=== PATIENT | female | born 2000 | race Caucasian/White ===

== ENCOUNTER 2019-12-03 12:52 | Outpatient (CLI) | payer OTHER, SELFPAY ==
[2019-12-03 13:20] VITALS: TEMP 36.9
[2019-12-03 13:38] VITALS: BP 103/63; PULSE 83
[2019-12-03 13:58] VITALS: BP 103/63; PULSE 75
[2019-12-03 14:12] VITALS: BMI 24.2
[2019-12-03 14:54] LABS: Glucose Urine UA Norm (Normal); Protein Urine Neg (Negative); Urine Appearance Cloudy (CLEAR); Urine Color Yellow (Yellow); pH Urine 6 (5-7)
[2019-12-03 14:55] LABS: Add Urine Microscopic? YES; Bilirubin Urine Neg (Negative); Blood Urine 2+ (Negative); Ketones Urine Negative (Negative); Leukocyte Esterase Urine 2+ (Negative); Nitrate Urine Negative (Negative); Urobilinogen Urine 1 mg/dL (Negative)
[2019-12-03 15:03] LABS: WBC Urine 40-55 /hpf (0-5)
[2019-12-03 15:04] LABS: Bacteria Urine 1+ /hpf
[2019-12-03 15:05] LABS: Add Urine Culture? Yes; Amorphous Sediment Urine 1+ /hpf; Calcium Oxalate Crystals Urine 55-80 /hpf; Mucus Urine 3+ /hpf; Squamous Epithelial Cell Urine 15-25 /hpf (0-5)
[2019-12-03 15:24] VITALS: BP 103/64; PULSE 72
[2019-12-03 15:27] VITALS: TEMP 36.6
[2019-12-03 15:30] VITALS: BP 103/64; PULSE 72; RESP 16; TEMP 36.6
== END 2019-12-03 15:30 | disposition home or self-care (01) ==
LOC: OPOB 13:18 → OBGYN 13:18
PROVIDERS: Visit Provider Family Medicine
DX: O36.8190 Decreased fetal movements, unspecified trimester, not applicable or unspecified (principal); Z3A.00 Weeks of gestation of pregnancy not specified
CPT/HCPCS: 59025; 81001; 87086; 99211

== ENCOUNTER 2019-12-19 08:30 | Outpatient (CLI) | payer OTHER, SELFPAY ==
[2019-12-19 08:39] VITALS: BMI 25.4
[2019-12-19 08:40] VITALS: RESP 16; TEMP 36.3
[2019-12-19 08:45] VITALS: BP 108/58; PULSE 71
== END 2019-12-19 09:02 | disposition home or self-care (01) ==
LOC: OPOB 08:34 → OBGYN 12-22 08:08
PROVIDERS: Visit Provider Family Medicine
DX: O36.8390 Maternal care for abnormalities of the fetal heart rate or rhythm, unspecified trimester, not applicable or unspecified (principal); Z3A.00 Weeks of gestation of pregnancy not specified
CPT/HCPCS: 59025; 99211

== ENCOUNTER 2019-12-30 17:16 | Outpatient (CLI) | payer OTHER, MEDICAID, SELFPAY ==
--- NOTE | 2019-12-30 17:55 | XR_ITS ---
WS: [id number] XR chest 2V* [id number] REASON FOR EXAM: HEMOPTYSIS FINDINGS: There is a vague density adjacent to the left heart border, on the PA view, which likely was present although not nearly as prominent on examination of 06/06/2017. This area may represent a chronic lung a bnormality such as chronic atelectasis of a portion of the right lower lobe or right middle lobe. No other associated pulmonary findings. Bony thorax intact. XR/XR chest 2V* [id number] IMPRESSION: Possible chronic right lung abnormality as above. Further evaluation may requir e a contrast-enhanced CT of the chest.
[2019-12-30 17:59] LABS: Basophils % 0.2 %; Eosinophils # 0.1 10^3/uL (0.0-0.8); Hematocrit 31.8 % (37.0-47.0); Hemoglobin 9.8 g/dL (11.5-15.3); Lymphocytes # 2.2 10^3/uL (0.8-4.8); Lymphocytes % 22.4 %; Mean Corpuscular HGB Conc 30.8 g/dL (30.0-36.0); Mean Corpuscular Hemoglobin 26.8 pg (28.0-34.0); Mean Corpuscular Volume 87.1 fL (81-99); Mean Platelet Volume 10.4 fL (7.4-10.4); Monocytes # 0.8 10^3/uL (0.2-0.9); Monocytes % 8.3 %; Neutrophils # 6.63 10^3/uL (1.8-7.7); Neutrophils % 67.7 %; Nucleated Red Blood Cells % 0 %; Platelet Count 245 10^3/cmm (130-400); Red Blood Count 3.65 10^6/uL (4.1-5.3); Red Cell Distribution Width 21.4 % (12.1-15.1); White Blood Count 9.8 10^3/uL (4.0-10.0)
[2019-12-30 18:39] LABS: INR 0.99 (0.8-1.2)
[2019-12-30 18:41] LABS: Alanine Aminotransferase 6 U/L (0-33); Albumin Level 3.6 g/dL (3.5-5.2); Alkaline Phosphatase 162 IU/L (35-105); Anion Gap 13.7 (5-19); Aspartate Amino Transferase 13 U/L (0-32); Blood Urea Nitrogen 7 mg/dL (6-20); Calcium 8.4 mg/dL (8.5-10.5); Carbon Dioxide 23 mmol/L (22-29); Chloride 106 mmol/L (98-107); Globulin 2.9 g/dL (1.3-4.6); Glomerular Filtration Rate 155.7 mL/min (90-130); Glucose 111 mg/dL (65-115); Osmolality Calculated 287 mOsm/kg (285-295); Potassium 3.7 mmol/L (3.5-5.1); Sodium 139 mmol/L (136-145); Total Bilirubin 0.2 mg/dL (0.15-1.2); Total Protein 6.5 g/dL (6.6-8.7)
[2019-12-30 20:58] LABS: Partial Thromboplastin Time 36.3 SECONDS (23.9-36.7)
--- NOTE | 2020-01-06 10:29 | ANES.PREANE2 ---
Pre-Anesthetic Assessment Pre-Anesthetic Assessment: Height/Weight: Height 1.68 m Preop Diagnosis: IUP Proposed Procedure: epidural Familial anesthetic complications: None Social: Social History: No alcohol and No tobacco Exam: Pre-Anes Outpt Exam: alert, oriented x 3, clear to auscultation bilaterally and regular rate & rhythm Airway: Cervical ROM: WNL MP: 2 Dentition: Full GI: GI: GERD Anesthetic Plan: ASA status: 2 Anesthesia: Regional (specify below) Risk of > 500 ml blood loss (7ml/kg in children): No Data Anesthesia CBC & Chem 7: 12/30/19 17:46 12/30/19 17:46 Cardiac Studies: No Data to Display
== END 2019-12-30 17:17 | disposition home or self-care (01) ==
LOC: LAB 17:25
PROVIDERS: Visit Provider Family Medicine
DX: R04.2 Hemoptysis (principal); O09.93 Supervision of high risk pregnancy, unspecified, third trimester
CPT/HCPCS: 36415; 71046; 80053; 85025; 85610; 85730

== ENCOUNTER 2020-01-07 18:27 | Inpatient (IN) | payer OTHER, MEDICAID, SELFPAY ==
[2020-01-07] VITALS (14 sets, daily range): BP systolic 0–135; BP diastolic 0–78; PULSE 66–84; RESP 16; TEMP 36.7
--- NOTE | 2020-01-07 18:57 | P.HP_ITS ---
Providers/Chief Complaint Admitting Physician: Hernesto Mark MD Chief Complaint: INDUCTION OF LABOR History of Present Illness Merritt Hylton is a 19 year old -0-2-1 at 37.1 weeks gestation by first trimester ultrasound. 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 The patient was sent to perinatology and also ENT for further evaluation and recommendations. They recommended induction of labor at 37 weeks in order to be able to proceed with work-up and treatment of likely cancer. The patient had a biopsy done that was inconclusive due to not getting sufficient sample. She was not able to be sedated for sufficient sampling. She will be sedated for a more aggressive biopsy early next week. The patient currently feels well. She denies any chest pains, shortness of breath, nausea, vomiting, diarrhea, constipation, burning with urination, leakage of fluid, vaginal bleeding, fever, regular contractions. Medications/Allergies Home Medications Medication Instructions Recorded Confirmed Last Taken Type [id number] fumarate-FA 1 tab PO DAILY 12/03/19 12/19/19 12/19/19 06:45 History [] bupropion HCl 75 mg PO DAILY 12/03/19 12/19/19 12/19/19 06:45 History ferrous sulfate [iron] 325 mg PO DAILY 12/03/19 12/19/19 12/19/19 06:45 History Allergies Allergy/AdvReac Type Severity Reaction Status Date / Time peas Allergy ALGY-Hives Verified 12/19/19 08:46 shellfish derived Allergy ALGY-Swell Verified 12/03/19 14:08 Lip/Tongue/Throat PFSH Acute PFSH: Medical History (Updated 01/07/20 @ 19:03 by Hernesto Mark MD) History of hemoptysis Subchorionic hematoma in first trimester Surgical History (Updated 01/07/20 @ 19:03 by Hernesto Mark MD) History of breast biopsy Social History (Updated 01/07/20 @ 19:04 by Hernesto Mark MD) Smoking and tobacco status: never smoked Alcohol intake: never Substance/Drug Use: never Vitals/I&O/Wt Last Vital Signs Pulse 84 01/07/20 18:49 BP 117/72 01/07/20 18:49 Physical Exam Narrative: EXAM NARRATIVE: General: Alert and oriented x3 Eyes: Pupils equal round and reactive to light and accommodation Mouth: Mucous membranes moist, pharynx non-erythematous, 4 to 5 cm ulcerating mass in the left posterior hard palate. It is approximately 1.5 cm raised off the surface of the palate. Cardiac: Regular rate and rhythm without murmurs Lungs: Clear to auscultation bilaterally without wheezes, crackles or rhonchi Abdomen: Soft, non-tender, fundus consistent with gestational age, vertex position Extremities: Trace edema in the bilateral lower extremities Cervix: 1.5/20/-3/vertex/posterior A&P Additional A&P Information I had a lengthy discussion with the patient regarding the possible risks of induction at 37 weeks to the infant versus the potential benefits of induction in order to expedite the treatment of her likely cancerous lesion in the mouth. We will proceed with induction of labor after discussion. The patient's Huber score is currently 2. We will proceed with Cytotec induction. We will add Pitocin if needed. The patient may receive a laboring epidural if desired. Patient is GBS negative. She is Covid negative. All questions were answered. Proceed with induction of labor as planned. Attestations Medical Necessity Statement*: Patient will be here for greater than 2 midnights due to routine intrapartum and management of labor and delivery. Coding Level of Care Code Acute Pre Billing Specialist for Destin Castanon
[2020-01-07 20:01] LABS: Basophils % 0.2 %; Eosinophils # 0.1 10^3/uL (0.0-0.8); Eosinophils % 1.2 %; Hematocrit 31.4 % (37.0-47.0); Hemoglobin 9.8 g/dL (11.5-15.3); Lymphocytes # 2.6 10^3/uL (0.8-4.8); Lymphocytes % 25.5 %; Mean Corpuscular HGB Conc 31.2 g/dL (30.0-36.0); Mean Corpuscular Hemoglobin 26.5 pg (28.0-34.0); Mean Corpuscular Volume 84.9 fL (81-99); Mean Platelet Volume 10.7 fL (7.4-10.4); Monocytes % 9.3 %; Neutrophils % 63.4 %; Nucleated Red Blood Cells % 0 %; Platelet Count 227 10^3/cmm (130-400); Red Cell Distribution Width 20.4 % (12.1-15.1); White Blood Count 10.2 10^3/uL (4.0-10.0)
[2020-01-07] MEDS: oxytocin 30 UNIT/500 ML BAG IV (23:30)
[2020-01-08] VITALS (38 sets, daily range): BP systolic 106–148; BP diastolic 63–86; PULSE 52–98; RESP 16–18; TEMP 36.6–36.9; O2SAT 81–100
[2020-01-08] MEDS: lactated ringers 1,000 ML 999 ML IV ×3 (02:15→10:02)
--- NOTE | 2020-01-08 08:15 | P.PN_ITS ---
Subjective Subjective: Interval history: The patient is feeling well. She is having some pain with contractions, however it is not too bad yet at this point. She has had no leakage of fluid or bleeding. Vitals/I&O/Wt Last Vital Signs Temp 98.0 F 01/07/20 21:00 Pulse 76 01/08/20 07:51 Resp 16 01/07/20 21:00 BP 118/69 01/08/20 07:51 01/07/20 01/08/20 01/08/20 22:59 06:59 14:59 Intake Total 19.850 / 19.850 Balance 19.850 / 19.850 Physical Exam Narrative: EXAM NARRATIVE: General: Alert and oriented x3 Eyes: Pupils equal round and reactive to light and accommodation Mouth: Mucous membranes moist, pharynx non-erythematous, 4 to 5 cm ulcerating mass in the left posterior hard palate. It is approximately 1.5 cm raised off the surface of the palate. Cardiac: Regular rate and rhythm without murmurs Lungs: Clear to auscultation bilaterally without wheezes, crackles or rhonchi Abdomen: Soft, non-tender, fundus consistent with gestational age, vertex position Extremities: Trace edema in the bilateral lower extremities Cervix: 4/50/-2/vertex Data : 01/07/20 19:50 A&P Additional A&P Information heart tones are currently in the mid 140s with moderate variability and g ood accelerations. There have been some questionable heart tones that resolved with fluid boluses and position changing. The patient was started on IV Pitocin instead of Cytotec due to these concerns. She is changed to 4 cm dilation. The head was well applied so AROM was performed by myself. Clear fluid was noted. Currently the patient is feeling well. Contractions are every 2 to 3 minutes. She is on 9 units of Pitocin. All questions were answered. Proceed with induction of labor. Attestations Medical Necessity Statement*: The patient will be here for greater than 2 midnights due to routine intrapartum and management of labor and delivery. Coding Level of Care Code Acute Method Consultant for Destin Castanon
[2020-01-08] MEDS: ondansetron 2 mg/ML SDV 2 mL 4 MG IVP (09:32)
--- NOTE | 2020-01-08 10:07 | ANES.PROC ---
Anesthesia Procedures Procedure/Date: 01/12/20 Epidural: Time Out Performed: Yes Consents Signed: Procedure Consent Consent: requested by attending/covering physician, from patient, risks and benefits reviewed and patient agrees to proceed Lumbar Level: L3-L4 Epidural position: sitting Epidural procedure: sterile prep of area, 1% lidocaine to numb the area, negative for paresthesia passed, neg for paresthesia, test dose given, 1.5% xylocaine 1:200k epi, no systemic response, sterile dressing applied, L.U.D. no apparent complications and 0.2% Ropiavacaine @ mls/hr (10) Additional Comments: RALF at 6cm catheter threaded to 11 cm.
--- NOTE | 2020-01-08 11:16 | P.PCNOB_ITS ---
Delivery Note: Date of delivery: January 08, 2020 Pre-delivery diagnoses: 1. Intrauterine at 37.2 weeks 2. Anemia 3. Hard palate mass - likely cancerous awaiting surgical intervention for delivery 4. Late transfer of care 5. Lung nodule 6. Depression on Buproprion 7. Subchorionic hematoma in 1st TM 8. Hemoptysis in September, pending workup Post-delivery diagnoses: 1. Intrauterine status post spontaneous vaginal delivery at 37.2 weeks 2. Anemia 3. Hard palate mass - likely cancerous awaiting surgical intervention for delivery 4. Late transfer of care 5. Lung nodule 6. Depression on Buproprion 7. Subchorionic hematoma in 1st TM 8. Hemoptysis in September, pending workup 9. Delivery of healthy male weighing 6 pounds 14 ounces with APGARs of 8 and 9 Procedure: Spontaneous vaginal delivery Op report anesthesia: Epidural Delivering Physician: Hernesto Mark MD Estimated blood loss (mL): 75 Findings: Delivery of healthy infant male. Intact placenta with a central umbilical cord insertion site. 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 I discussed the potential risks of delivery at 37 weeks and the patient agreed to proceed with delivery. Upon admission she was 1cm dilated and we initially planned to give cytotec, but there were concerns with the FHT's, so instead I pitocin was used for induction due to the ability to turn it off quickly if needed. The patient had some intermittent late decelerations and accelerations throughout the night of 01/07/2020 that resolved with position changes, adjustments to medications and fluid boluses. By the am of 01/08/2020 she was 4cm dilated and the head was well applied to the cervix. AROM was performed by myself at 07:58 am to expedite delivery. Clear fluid was noted. The patient received a laboring epidural. She made rapid change and was complete by 10:19 am on 01/08/2020. Delivery: The patient began pushing at 10:27 am on 01/08/2020 and pushed well. The infant delivered at 10:36 am on 01/08/2020 in the OA position. The left shoulder was the anterior shoulder and it delivered with ease. The rest of the delivered quickly. The infant's mouth and nose were bulb suctioned by myself and the infant was placed on the mother's chest where the nurses were awaiting to care for him. He was crying shortly after delivery. The cord was clamped by myself after approximately one minute and cut by the patient's sister. Cord blood was obtained. The cord was then drained of blood. Traction was placed on the umbilical cord and the placenta delivered without complication at 10:42 am. The placenta was noted to be intact with a central umbilical cord insertion site. IV pitocin was bolused. The cervix was inspected and noted to be intact. The vaginal wall was inspected and a 2nd degree laceration was noted in the perineal region. This did not extend to the rectum. 1% Lidocaine was placed for anesthesia and the laceration was repaired using 3-0 Vicryl in a running fashion. The patient tolerated this well. Currently the uterus is low and there is little bleeding. The mother and infant are both doing well at this time. A&P Assessment and plan (1) Intrauterine : Status: Acute (2) Mass of hard palate: Status: Acute (3) Anemia: Status: Acute (4) Depression: Status: Acute (5) Lesion of lung: Status: Acute Coding Level of Care Code Acute [employer] for [employer] Fw Diagnoses Intrauterine Z34.90 Mass of hard palate M85.88 Anemia D64.9 Depression F32.9 Lesion of lung R91.1
--- NOTE | 2020-01-08 12:01 | PC.NURSE ---
Baby latched quickly. Had rhythmic suck. Mom needed to re-latch once to correct nipple pain. She used football hold and baby nursed 15-20 min and was still nursing when i left the room.
[2020-01-08] MEDS: lanolin oint 7 gm 1 APPLIC TOPICAL (13:49)
[2020-01-08] MEDS: benzocaine-menthol 78 gm Canister 1 SPRAY TOPICAL (13:49)
[2020-01-09 00:35] LABS: Hematocrit 27.6 % (37.0-47.0); Hemoglobin 8.7 g/dL (11.5-15.3); Mean Corpuscular HGB Conc 31.5 g/dL (30.0-36.0); Mean Corpuscular Hemoglobin 26.9 pg (28.0-34.0); Mean Corpuscular Volume 85.2 fL (81-99); Mean Platelet Volume 10.6 fL (7.4-10.4); Platelet Count 179 10^3/cmm (130-400); Red Blood Count 3.24 10^6/uL (4.1-5.3); Red Cell Distribution Width 20.3 % (12.1-15.1); White Blood Count 13.1 10^3/uL (4.0-10.0)
[2020-01-09 05:30] VITALS: BP 100/56; PULSE 64; RESP 16; TEMP 36.6; O2SAT 97
--- NOTE | 2020-01-09 06:59 | CT_ITS ---
WS: [id number] CT CHEST TECHNIQUE: Contrast enhanced CT of the chest with coronal and sagittal reformatted images. CLINICAL INFORMATION: Lung nodule COMPARISON: CTA chest 5 2017 DLP: 356.[address] scans at [facility] use at least one of these dose optimization techniques: automat ed exposure control; mA and/or kV adjustment per patient size (includes targeted exams where dose is matched to clinical indication); or iterative reconstruction. FINDINGS: Noncalcified pulmonary nodule right lower lobe measuring 3.5 mm. No acute pulmonary infiltrates. No f ocal pneumonia. No consolidation or pleural fluid. Subsegmental atelectasis left lower lobe. No mediastinal or hilar lymphadenopathy. Normal caliber thoracic aorta. Proximal main pulmonary arter ies are patent. No axillary lymphadenopathy. Large right breast mass extending to the skin upper oute r quadrant right breast measuring 1.9 x 2.2 CM. Enlarged adjacent right axillary lymph node measuring 2.2 x 1.0 cm. Dense breast parenchymal tissue bilaterally. Calcified adrenal glands. CT/CT chest w con* [id number] IMPRESSION: 1. Noncalcified 3.5 mm nodule right lower lobe laterally. No other pulmonary p arenchymal opacities. 2. Subsegmental atelectasis left lower lobe. 3. Large right breast mass extending to the skin in the upper outer quadrant r ight breast near the axillary tail measuring 1.9 x 2.2 CM. Recommend further ev aluation with RIGHT BREAST DIAGNOSTIC MAMMOGRAPHY AND ULTRASOUND. 4. Adjacent enlarged lymph nodes in the right axilla the largest measuring 2.0 x 1.0 CM. 5. No mediastinal or hilar lymphadenopathy.
[2020-01-09] MEDS: iodixanol 320 mg/mL 100mL Btl IV (07:39)
--- NOTE | 2020-01-09 08:14 | PC.NURSE ---
Patient taken down to CT scan via wheelchair at this time
[2020-01-09] MEDS: prenatal vitamin Capsule 1 CAP PO (08:48)
[2020-01-09] MEDS: ibuprofen 800 mg tablet PO ×3 (08:49→21:40)
--- NOTE | 2020-01-09 09:50 | PC.NURSE ---
Education Had pt put all parts of her breastpump together.
[2020-01-09 10:20] VITALS: BP 107/63; PULSE 70; RESP 17; TEMP 36.7
--- NOTE | 2020-01-09 13:54 | P.PN_ITS ---
Subjective Subjective: Interval history: The patient is feeling well today. Her bleeding is decreasing well. She is ambulating, voiding, passing gas and tolerating food by mouth. Vitals/I&O/Wt Last Vital Signs Temp 98.0 F 01/09/20 10:20 Pulse 70 01/09/20 10:20 Resp 17 01/09/20 10:20 BP 107/63 01/09/20 10:20 Pulse Ox 97 01/09/20 05:30 01/08/20 01/09/20 01/09/20 22:59 06:59 14:59 Intake Total 1000 / 4510.150 Balance 1000 / 3510.150 Weight last 48 hrs Weight 158 lb Physical Exam Narrative: EXAM NARRATIVE: General: Alert and oriented x3 Breast: Examination of the right axilla displays a poorly defined mass in the anterior axilla that is approximately 2 cm in diameter. There are no skin changes noted. Possible lymphadenopathy noted in the surrounding area. No signs of cellulitis. Patient declined full breast exam bilaterally. Cardiac: Regular rate and rhythm without murmurs Lungs: Clear to auscultation bilaterally without wheezes, crackles or rhonchi Abdomen: Soft, non-tender, fundus is firm and 2 cm below the umbilicus. Extremities: Trace edema in the bilateral lower extremities Data : 01/09/20 00:00 A&P Assessment and plan (1) Intrauterine : Status: Acute (2) Mass of hard palate: Status: Acute (3) Anemia: Status: Acute (4) Depression: Status: Acute (5) Lesion of lung: Status: Acute Additional A&P Information The patient is currently doing well and recovering well after delivery. She had a lung nodule noted on CT scan that is 3.5 mm in diameter in the right lower lobe and likely not concerning. A 2 cm lesion in the right axilla near the breast was noted on CT scan and recommendations for further work-up were given. The patient will need an ultrasound and mammogram as an outpatient for further evaluation. I discussed this with the patient and she is in agreement to proceed. The patient continues to improve and will plan for discharge home tomorrow. Continue with ibuprofen for pain and give iron to help restore iron levels. Attestations Medical Necessity Statement*: The patient will be here for greater than 2 m idnights and will likely be discharged home tomorrow. Coding Level of Care Code Acute Reading Efficiency Course Director for [facility]g Fwd Diagnoses Intrauterine Z34.90 Mass of hard palate M85.88 Anemia D64.9 Depression F32.9 Lesion of lung R91.1
[2020-01-09 16:00] VITALS: BP 99/62; PULSE 62; RESP 16; TEMP 36.5
[2020-01-09] MEDS: iron complex forte Capsule 1 EACH PO (19:04)
[2020-01-09 21:40] VITALS: BP 96/61; PULSE 62; RESP 18; TEMP 36.6
[2020-01-10] MEDS: benzocaine-menthol 78 gm Canister 1 SPRAY TOPICAL (05:42)
[2020-01-10 06:00] VITALS: BP 119/76; PULSE 60; RESP 18; TEMP 36.7
--- NOTE | 2020-01-10 08:27 | PM.DCS ---
Discharge Providers Date of Admission: 01/07/20 18:27 Date of Discharge: January 10, 2020 Attending Provider at Admission: Hernesto Mark MD Attending Provider at Discharge: Hernesto Mark MD Diagnoses at Discharge Discharge Diagnosis (1) Intrauterine : Status: Acute (2) Mass of hard palate: Status: Acute (3) Anemia: Status: Acute (4) Depression: Status: Acute (5) Lesion of lung: Status: Acute Other Information Additional DC diagnoses/information: 1. Intrauterine status post spontaneous vaginal delivery at 37.2 weeks 2. Anemia 3. Hard palate mass - likely cancerous awaiting surgical intervention for delivery 4. Late transfer of care 5. Lung nodule 6. Depression on Buproprion 7. Subchorionic hematoma in 8. Hemoptysis in September, 9. Delivery of healthy male weighing 6 pounds 14 ounces with APGARs of 8 and 9 10. 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 I discussed the potential risks of delivery at 37 weeks and the patient agreed to proceed with delivery. Upon admission she was 1cm dilated and we initially planned to give cytotec, but there were concerns with the FHT's, so instead I pitocin was used for induction due to the ability to turn it off quickly if needed. The patient had some intermittent late decelerations and accelerations throughout the night of 01/07/2020 that resolved with position changes, adjustments to medications and fluid boluses. By the am of 01/08/2020 she was 4cm dilated and the head was well applied to the cervix. AROM was performed by myself at 07:58 am to expedite delivery. Clear fluid was noted. The patient received a laboring epidural. She made rapid change and was complete by 10:19 am on 01/08/2020. Delivery: The patient began pushing at 10:27 am on 01/08/2020 and pushed well. The infant delivered at 10:36 am on 01/08/2020 in the OA position. The left shoulder was the anterior shoulder and it delivered with ease. The rest of the delivered quickly. The 's mouth and nose were bulb suctioned by myself and the was placed on the mother's chest where the nurses were awaiting to care for him. He was crying shortly after delivery. The cord was clamped by myself after approximately one minute and cut by the patient's sister. Cord blood was obtained. The cord was then drained of blood. Traction was placed on the umbilical cord and the placenta delivered without complication at 10:42 am. The placenta was noted to be intact with a central umbilical cord insertion site. IV pitocin was bolused. The cervix was inspected and noted to be intact. The vaginal wall was inspected and a 2nd degree laceration was noted in the perineal region. This did not extend to the rectum. 1% Lidocaine was placed for anesthesia and the laceration was repaired using 3-0 Vicryl in a running fashion. The patient tolerated this well. : The patient has done very well and has had no complications. Her bleeding is decreasing well. Her pain is well controlled. She is ambulating, voiding, passing gas and tolerating food by mouth. The patient did have a CT scan of the chest with IV contrast done secondary to concerning findings on chest x-ray done last week. This revealed that she has a 3.5 mm lung nodule that is noncalcified. Unfortunately it did show that she has a 2 cm breast lesion in the right axilla that needs further work-up. Recommendations for an ultrasound and diagnostic mammogram were given. We will set this up as an outpatient. The patient is set up to have a biopsy of the oral lesion done under general anesthesia on 01/14/2020. At this point she is stable for this. She was recommended to take iron 3 times a day to help boost her hemoglobin prior to surgery. At this point the patient is doing well and all questions were answered. Routine discharge instructions were given. The patient is in agreement with discharge home at this time. She will follow-up with me at 2 weeks and 6 weeks . Physical Exam Narrative: EXAM NARRATIVE: General: Alert and oriented x3 Breast: Examination of the right axilla displays a poorly defined mass in the anterior axilla that is approximately 2 cm in diameter. There are no skin changes noted. Possible lymphadenopathy noted in the surrounding area. No signs of cellulitis. Cardiac: Regular rate and rhythm without murmurs Lungs: Clear to auscultation bilaterally without wheezes, crackles or rhonchi Abdomen: Soft, non-tender, fundus is firm and 2 cm below the umbilicus. Extremities: Trace edema in the bilateral lower extremities Discharge Data Data Completed and Pending: Completed Studies During Hospitalization Category Date Time Status CT chest w con* [id number] Routine Cat Scan 01/09/20 06:59 Completed Pending at discharge Category Date Time Status PTC COVID [Lange virus Lab Test PTC ] Routine Lab 01/09/20 20:30 Received Labs from last 24 hours 01/09/20 20:30 Nasal/Oral COVID-1 9 PCR Pending Vitals: Last Vital Signs Temp 98.1 F 01/10/20 06:00 Pulse 60 01/10/20 06:00 Resp 18 01/10/20 06:00 BP 119/76 01/10/20 06:00 Pulse Ox 97 01/09/20 05:30 Discharge Plan Discharge Patient Disposition: Home Condition: Good Prescriptions: New ibuprofen 800 mg Tablet 800 mg PO TID Qty: 60 RF: 0 Continued 28-800 mg-mcg Tablet 1 tab PO DAILY RF: 0 bupropion HCl 75 mg Tablet 75 mg PO DAILY Qty: 30 RF: 0 Changed ferrous sulfate [iron] 325 mg (65 mg iron) Tablet 325 mg PO TID Qty: 90 RF: 0 Discharge Orders: Discharge Order (Routine); Ordered 01/10/20 Ordered By: Hernesto Mark Referrals: Hernesto Mark MD [Physician] - 2 weeks (Please make a follow-up appointment for 2 weeks and 6 weeks .) Discharge Diet: Regular Discharge Activity: Increase activity as tolerated Patient Instructions: Vitamins (By mouth), OB Discharge Report, OB Food/Drug Interaction Guide, OB Vaginal Deliveries Activity Restrictions/Additional Instructions: Nothing per vagina for 6 weeks. If you have any concerns prior to your next appointment, please call for sooner appointment. Discharge Attestations Time Spent in Discharge Care*: greater than 30 min Quality Metrics Clinical Quality Measures During this hospital stay, did patient experience: None Coding Level of Care Code Acute Braille Typist for Chg Fwd Diagnoses Intrauterine Z34.90 Mass of hard palate M85.88 Anemia D64.9 Depression F32.9 Lesion of lung R91.1
[2020-01-10] MEDS: prenatal vitamin Capsule 1 CAP PO (08:50)
[2020-01-10] MEDS: iron complex forte Capsule 1 EACH PO (08:51)
[2020-01-10] MEDS: ibuprofen 800 mg tablet PO (08:51)
--- NOTE | 2020-01-10 08:55 | PC.NURSE ---
Pt did not allow nurse to examine breast area, as pt voices it freaks her out for people to look. Pt voices is following breast care.
[2020-01-10 11:57] VITALS: BP 110/70; PULSE 64; RESP 18; TEMP 36.7; O2SAT 98
[2020-01-12 10:06] LABS: Coronavirus Lab Test PTC Negative
== END 2020-01-10 10:40 | disposition home or self-care (01) | DRG 807 ==
PROVIDERS: Admitting Provider Family Medicine; Visit Provider Family Medicine
DX: O99.02 Anemia complicating childbirth (principal); Z37.0 Single live birth; D64.9 Anemia, unspecified; O99.344 Other mental disorders complicating childbirth; F32.9 Major depressive disorder, single episode, unspecified; O76 Abnormality in fetal heart rate and rhythm complicating labor and delivery; O70.1 Second degree perineal laceration during delivery; Z3A.37 37 weeks gestation of pregnancy; O75.89 Other specified complications of labor and delivery; M85.88 Other specified disorders of bone density and structure, other site; R91.1 Solitary pulmonary nodule; R59.0 Localized enlarged lymph nodes; N63.11 Unspecified lump in the right breast, upper outer quadrant
CPT/HCPCS: 12345; 36415; 59025; 59409; 71260; 85025; 85027; 87635; 96375; 98960; 99211; J2405; J2795; Q9967

== ENCOUNTER 2020-01-15 11:48 | Outpatient (CLI) | payer MEDICAID, SELFPAY ==
[2020-01-19 12:56] LABS: Miscellaneous Test See Scanned Lab Rpt
== END 2020-01-15 11:49 | disposition home or self-care (01) ==
PROVIDERS: Visit Provider Specialist
DX: K13.79 Other lesions of oral mucosa (principal)
CPT/HCPCS: 88309

== ENCOUNTER 2020-01-16 11:46 | Outpatient (CLI) | payer OTHER, MEDICAID, SELFPAY ==
--- NOTE | 2020-01-16 12:02 | MR_ITS ---
WS: [id number] MRI FACE AND ORBITS WITHOUT AND WITH CONTRAST TECHNIQUE: Noncontrast axial T1, axial T2 FSE fat sat, coronal T2 fat sat, coronal T1, coronal T1 fat sat, sagittal T2 fat sat, plus contrast enhanced coronal, sagittal, and axial T1 fat sat images obta ined. 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 FINDINGS: Heterogeneous enhancing soft tissue mass involving the left maxilla measuring approximately 3.7 x 3.4 x 2.6 cm. This extends into the inferior aspect of the maxillary sinus. In addition this e xtends medially into involve the hard palate. This abuts the soft palate posteriorly. This lesion has an expansile appearance consistent with neoplasm. Recommend clinical correlation and direct visualiz ation. In addition this extends medially to involve the inferior turbinate. A few prominent lymph nodes in the upper cervical chains partially visualized. This can be further ev aluated with contrast-enhanced neck CT No evidence of restricted diffusion to suggest acute ischemia. No suspicious intracranial signal abno rmalities. Normal rizo-white differentiation. Normal optic chiasm and pituitary infundibulum. Normal cavernous sinuses and Meckel's cave. Temporal lobes and hippocampal formations are normal in appearan ce. Paranasal sinuses are well aerated. Mild mucosal thickening ethmoid air cells. Mild mucosal thick ening right greater than left mastoid air cells. No abnormal intracranial enhancement. Proximal 7th a nd 8th cranial nerves appear unremarkable. Normal optic chiasm and pituitary infundibulum. Parotid gl ands are normal in appearance. Submandibular glands are partially included on this examination. MR/MR orbit face neck wo/w* [id number] IMPRESSION: 1. Heterogeneous enhancing expansile mass involving the left maxilla measuring 3.4 x 3.7 x 2.7 cm consistent with neoplasm. Recommend further evaluation with direct visualization and sampling. 2. Expansile mass extends cranially into the inferior maxillary sinus and medi ally to involve the hard palate. This abuts the soft palate posteriorly. In add ition this involves the inferior turbinate. Partial destruction of the left inf erior turbinate. 3. A few prominent cervical lymph nodes in the upper cervical chain partially visualized. This could be Further evaluated with neck CT. 4. Normal visualized parapharyngeal fat and posterior nasopharynx. 5. No abnormal intracranial enhancement. No evidence of intracranial metastati c disease. 6. Normal optic chiasm and pituitary infundibulum. 7. No suspicious intracranial signal abnormalities.
== END 2020-01-16 11:47 | disposition home or self-care (01) ==
LOC: RADSHAW 11:49
PROVIDERS: PCP Family Medicine; Visit Provider Specialist
DX: D37.09 Neoplasm of uncertain behavior of other specified sites of the oral cavity (principal); R59.9 Enlarged lymph nodes, unspecified
CPT/HCPCS: 70543; A9579

== ENCOUNTER 2020-01-28 06:58 | Outpatient (CLI) | payer OTHER, MEDICAID, SELFPAY ==
--- NOTE | 2020-01-28 07:23 | US_ITS ---
WS: [id number] ULTRASOUND BREAST RIGHT TECHNIQUE: Ultrasound right breast focused area of concern. CLINICAL INFORMATION: RIGHT BREAST MASS COMPARISON: Chest CT January 09, 2020 FINDINGS: Correlation made with prior chest CT January 09, 2020. Right breast ultrasound with attention to the axilla demonstrates dense underlying tissue. Focal subcutaneous dense underlying tissue in the area corresponding to the chest CT findings. This measures approximately 2.6 x 0.9 x 3.9 cm and extends to the skin on the ultrasound and CT with mild skin thickening. This is nonspecific in appearance but probably benign. This may be related to prior sebaceous cyst or cellulitis. Recommend 6 month follow-up right breast axillary ultrasound to confirm stability. Addit ional incidental lymph nodes are noted. No suspicious lesions to target for biopsy. US/US breast RT limited* [id number] IMPRESSION: BI-RADS 3 probably benign FOLLOW UP: Recommend 6 month follow-up right axillary ultrasound to confirm sta bility.
== END 2020-01-28 06:59 | disposition home or self-care (01) ==
LOC: RAD 07:01
PROVIDERS: PCP Family Medicine; Visit Provider Family Medicine
DX: R92.8 Other abnormal and inconclusive findings on diagnostic imaging of breast (principal); N63.10 Unspecified lump in the right breast, unspecified quadrant
CPT/HCPCS: 76642

== ENCOUNTER → 2020-02-04 13:29 | Outpatient (BNVA) | payer OTHER, MEDICAID, SELFPAY | PROVIDERS: PCP Family Medicine; Visit Provider Internal Medicine Critical Care Medicine | DX: Z20.828 Contact with and (suspected) exposure to other viral communicable diseases (principal); R91.1 Solitary pulmonary nodule | CPT/HCPCS: 87635 ==

== ENCOUNTER 2020-02-11 08:20 | Outpatient (CLI) | payer OTHER, MEDICAID, SELFPAY ==
--- NOTE | 2020-02-11 15:10 | PFTS_ITS ---
Date of Study:02/11/20 Date of Dictation: MECHANICS: Forced vital capacity (FVC) is normal. Forced expiratory volume in one second (FEV1) is normal. FEV1/FVC is normal. FLOW VOLUME LOOP: normal . LUNG VOLUMES: Total lung capacity (TLC) is normal Residual volume (RV) is mildly increasing suggesting air trapping . DIFFUSING CAPACITY FOR CARBON MONOXIDE: normal . INTERPRETATION: The spirometry and gas transfer are normal. Lung volumes suggestive of mild air trapping. Please correlate clinically. MTDD
== END 2020-02-11 08:21 | disposition home or self-care (01) ==
LOC: RT 08:28
PROVIDERS: PCP Family Medicine; Visit Provider Internal Medicine Critical Care Medicine
DX: J45.909 Unspecified asthma, uncomplicated (principal)
CPT/HCPCS: 94060; 94726; 94729; J7611

== ENCOUNTER 2020-04-15 12:58 | Emergency (ER) | payer OTHER, MEDICAID, SELFPAY ==
[2020-04-15] VITALS (7 sets, daily range): BP systolic 91–106; BP diastolic 50–72; PULSE 100–114; RESP 15–23; TEMP 36.7; O2SAT 97–100; BMI 19.7
--- NOTE | 2020-04-15 13:33 | ECG_ITS ---
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 Measurements Intervals [place] Rate: 113 P: 74 CT: 138 QRS: 79 QRSD: 85 T: 0 QT: 283 QTc: 389 Interpretive Statements SINUS TACHYCARDIA MODERATE T-WAVE ABNORMALITY, CONSIDER ANTEROLATERAL ISCHEMIA [-0.1+ mV T WAVE IN V3-V6] No previous ECG available for comparison Electronically Signed On 04-15-2020 17:18:31 FIXED INCOME PORTF[employer]IO MANAGER by Minh Cardona M.D. [id number]
--- NOTE | 2020-04-15 13:33 | XR_ITS ---
WS: [id number] Portable AP upright chest, 04/15/2020 Clinical Data: SOB Comparison: PA and lateral chest, 12/30/2019. Findings: No nodules, masses or effusions are seen. The heart is normal. The pulmonary vascularity is not increased. No pneumonia or pneumothorax is seen. There is an infusion catheter entering from the right and ending in superior vena cava. There is a nodule overlying the midportion of the right ches t which may represent the areola. Monitor leads are on the chest wall. There are small bilateral uppe r abdominal calcifications which may be adrenal. XR/XR chest 1V portable [id number] Impression: Negative chest.
--- NOTE | 2020-04-15 13:34 | W.ED.GENADLT ---
Documented by User: JOY Bell 04/15/20 16:54 HPI - General Adult General: Chief complaint: General Medical Stated complaint: CHEMO LAST WK,SOB TODAY, LOW BP, HIGH PULSE Time Seen by Provider: 04/15/20 13:09 Source: patient and family Mode of arrival: ambulatory Limitations: no limitations History of Present Illness: HPI narrative: Patient is a very nice 19-year-old female who presents to ED today along with her mother for complaints of low blood pressure, SOB, low grade fevers, palpitations as well as stomach cramps. 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 Chemotherapy drug was Doxorubicin. Patient's oncologist is Dr. Lopez at [facility]. Patient is also had a decreased appetite. She has not had any episodes of vomiting. Normal bowel and urinary habits. She isn't sure what her blood pressure normally runs. She has not been running fevers. Patient had surgery on the tumor in February 2020. She subsequently had a port placed a couple of weeks ago. Onset (ago): day(s) Relieving factors: none Exacerbating factors: none Associated symptoms: Reports chest pain, dyspnea and palpitations; Deny headache(s), malaise, nausea, rash, syncope or vomiting Treatments prior to arrival: none Review of Systems Const: Reports: change in appetite and fatigue; Denies: fever(s), chills, body aches, change in weight, malaise or night sweats Eyes: Denies: change in vision, blurry vision or photophobia ENMT: Denies: odynophagia Card: Reports: chest pain and palpitations; Denies: irregular heart rhythm, edema, swelling of feet/ankles, lightheadedness, syncope, pre-syncope or orthopnea Resp: Reports: dyspnea GI: Reports: abdominal pain (reports cramping); Denies: nausea, vomiting, diarrhea or change in stool character : Denies: flank pain, difficulty voiding, dysuria, urinary frequency, urinary urgency or urinary hesitancy Musc: Denies: neck pain, back pain, extremity pain, extremity swelling, joint pain or joint swelling Skin/Breast: Denies: rash Neuro: Denies: headache(s), numbness in extremities, weakness in extremities or sensory changes PFS ED PFSH: Medical History (Updated 04/15/20 @ 16:54 by JOY Bell) Asthma Colon polyps History of hemoptysis Pilonidal cyst Subchorionic hematoma in first trimester Surgical History (Updated 01/27/20 @ 12:13 by Queta Garza MD) History of breast biopsy History of placement of ear tubes Family History Mother Lupus Arnold-Chiari deformity Father Cancer Cancer Social History Smoking and tobacco status: never smoked Second hand smoke exposure: No Smoking risk assessment/counseling performed?: No Alcohol intake: never Desire information about alcohol rehabilitation?: No Counseling given: No Desire information about substance/drug rehabilitation?: No Counseling given: No Lives independently: Yes Household members: family and children Marital status: Legally service: No Current occupational status: unemployed History of recent travel: No Current gender identity: Female Physical Exam Const: COMMON NORMALS: no acute distress, patient oriented x3, no limitations and alert GENERAL APPEARANCE: cooperative and frail appearing NUTRITIONAL APPEARANCE: thin ORIENTATION/CONSCIOUSNESS: Yes awake, Yes oriented to person, Yes oriented to place and Yes oriented to time HENMT: COMMON NORMALS: normocephalic and atraumatic HEAD & SCALP: normocephalic and atraumatic Neck/C-Spine: COMMON NORMALS: full ROM OTHER: scar/incision to L submandibular region looks infection free Chest: COMMONS NORMALS: normal inspection of the chest and normal palpation of entire chest wall Resp: COMMON NORMALS: normal respiratory effort and clear to auscultation bilaterally AUSCULTATION: clear to auscultation bilaterally Cardio: COMMON NORMALS: regular rhythm RATE: tachycardic RHYTHM: regular rhythm GI: COMMON NORMALS: Normal to inspection, nondistended, normoactive bowel sounds present, Soft to palpation, No hepatosplenomegaly present and no masses PALPATION: Yes Soft to palpation, Yes Tenderness to palpation present (GI) (mild diffuse tenderness-non surgical exam) and Yes No hepatosplenomegaly present : COMMON NORMALS: Yes no CVA tenderness BLADDER/KIDNEY EXAM: Yes no CVA tenderness Back/Pelvis: COMMON NORMALS: no CVA tenderness Extremity: COMMON NORMALS: normal to inspection Neuro: MARTINA COMA SCALE: document GCS findings Martina coma scale eye opening: Spontaneous Martina coma scale verbal response: Orientated [place] coma scale motor response: Obey commands Martina coma scale total score: 15 COMMON NORMALS: patient oriented x3 SENSORIUM/ORIENTATION: Yes alert, Yes oriented to person, Yes oriented to place and Yes oriented to time Skin: COMMON NORMALS: no rashes or lesions noted GENERAL SKIN EXAM: no rashes or lesions noted Course ED course: Delay in care as I have had oncology at [facility] paged for over an hour now and have not received a call back. We called transfer line back and they informed us they have paged oncology four separate times. Consultations: Consultation #1: Dr. Hinkle-oncology at [facility]-recommends transfer to their facility Vital Signs: Vital signs: Vital Signs Temperature 98.1 F 04/15/20 21:34 Pulse Rate 102 H 04/15/20 21:34 Respiratory Rate 15 04/15/20 21:34 Blood Pressure 93/51 04/15/20 21:34 Pulse Oximetry 100 04/15/20 21:34 MDM - General Adult MDM Narrative: Medical decision making narrative: Patient is severely neutropenic at 0.04. She is leukopenic at 0.6. Patient arrived hypotensive and tachycardic. She has been afebrile here but reports low-grade fevers at home. I have spoken to oncology at [facility] who would like patient transferred back to their facility. They did request a rapid COVID which is negative. Patient CXR is normal. We have tried to obtain urine sample for several hours now but patient is unable to urinate. She has been given a liter of fluids. I spoken to Dr. Alvarez who recommends starting her empirically on IV antibiotics. Lab Data: Labs: Lab Results 04/15/20 04/15/20 04/15/20 Range/Units 14:10 14:10 14:10 WBC 0.6 L* (4.0-10.0) 10^3/ uL RBC 3.46 L (4.1-5.3) 10^6/u L Hgb 8.9 L (11.5-15.3) g/dL Hct 30.7 L (37.0-47.0) % MCV 88.7 (81-99) fL MCH 25.7 L (28.0-34.0) pg MCHC 29.0 L (30.0-36.0) g/dL RDW 14.4 (12.1-15.1) % Plt Count 93 L (130-400) 10^3/c mm MPV 12.6 H (7.4-10.4) fL Neut % (Auto) 7.1 % Lymph % (Auto) 78.9 % Mitchell % (Auto) 3.5 % Eos % (Auto) 7.0 % Baso % (Auto) 3.5 % Neut # (Auto) 0.04 L* (1.8-7.7) 10^3/u L Lymph # (Auto) 0.5 L (0.8-4.8) 10^3/u L Mitchell # (Auto) 0.0 L (0.2-0.9) 10^3/u L Eos # (Auto) 0.0 (0.0-0.8) 10^3/u L Baso # (Auto) 0.0 (0.0-0.1) 10^3/u L Nucleated RBC % (a uto) 0 % Nucleated RBCs # 0.0 /100WBC D-Dimer 0.61 H (0-0.59) ug/mIFE U Sodium 134 L (136-145) mmol/L Potassium 4.2 (3.5-5.1) mmol/L Chloride 101 (98-107) mmol/L Carbon Dioxide 24 (22-29) mmol/L Anion Gap 13.2 (5-19) BUN 10 (6-20) mg/dL Creatinine 0.4 L (0.5-0.9) mg/dL GFR Calculation 201.5 H (90-130) mL/min Glucose 93 (65-115) mg/dL Calculated Osmolal ity 277 L (285-295) mOsm/k g Lactic Acid (0.5-2.2) mmol/L Calcium 9.6 (8.5-10.5) mg/dL Total Bilirubin 0.5 (0.15-1.2) mg/dL AST 10 (0-32) U/L ALT 12 (0-33) U/L Alkaline Phosphata se 78 (35-105) IU/L Troponin T Gen 5 n g/L (0-10) ng/L NT-Pro-B Natriuret Pep (0-125) pg/mL Total Protein 7.1 (6.6-8.7) g/dL Albumin 4.2 (3.5-5.2) g/dL Globulin 2.9 (1.3-4.6) g/dL Urine Color (Yellow) Urine Appearance (CLEAR) Urine pH (5-7) Ur Specific Gravit y (1.005-1.030) Urine Protein (Negative) Urine Glucose (UA) (Normal) Urine Ketones (Negative) Urine Blood (Negative) Urine Nitrate (Negative) Urine Bilirubin (Negative) Urine Urobilinogen (Negative) mg/dL Ur Leukocyte Janki ase (Negative) Urine RBC (0-2) /hpf Urine WBC (0-5) /hpf Ur Squamous Epith Cells (0-5) /hpf Amorphous Sediment Urine Bacteria (NONE) /hpf Urine Mucus /hpf SARS-CoV-2 Ag (Rap id) (Negative) 04/15/20 04/15/20 04/15/20 Range/Units 14:10 14:10 14:10 WBC (4.0-10.0) 10^3/ uL RBC (4.1-5.3) 10^6/u L Hgb (11.5-15.3) g/dL Hct (37.0-47.0) % MCV (81-99) fL MCH (28.0-34.0) pg MCHC (30.0-36.0) g/dL RDW (12.1-15.1) % Plt Count (130-400) 10^3/c mm MPV (7.4-10.4) fL Neut % (Auto) % Lymph % (Auto) % Mitchell % (Auto) % Eos % (Auto) % Baso % (Auto) % Neut # (Auto) (1.8-7.7) 10^3/u L Lymph # (Auto) (0.8-4.8) 10^3/u L Mitchell # (Auto) (0.2-0.9) 10^3/u L Eos # (Auto) (0.0-0.8) 10^3/u L Baso # (Auto) (0.0-0.1) 10^3/u L Nucleated RBC % (a uto) % Nucleated RBCs # /100WBC D-Dimer (0-0.59) ug/mIFE U Sodium (136-145) mmol/L Potassium (3.5-5.1) mmol/L Chloride (98-107) mmol/L Carbon Dioxide (22-29) mmol/L Anion Gap (5-19) BUN (6-20) mg/dL Creatinine (0.5-0.9) mg/dL GFR Calculation (90-130) mL/min Glucose (65-115) mg/dL Calculated Osmolal ity (285-295) mOsm/k g Lactic Acid 1.5 (0.5-2.2) mmol/L Calcium (8.5-10.5) mg/dL Total Bilirubin (0.15-1.2) mg/dL AST (0-32) U/L ALT (0-33) U/L Alkaline Phosphata se (35-105) IU/L Troponin T Gen 5 n g/L 6 (0-10) ng/L NT-Pro-B Natriuret Pep 38 (0-125) pg/mL Total Protein (6.6-8.7) g/dL Albumin (3.5-5.2) g/dL Globulin (1.3-4.6) g/dL Urine Color (Yellow) Urine Appearance (CLEAR) Urine pH (5-7) Ur Specific Gravit y (1.005-1.030) Urine Protein (Negative) Urine Glucose (UA) (Normal) Urine Ketones (Negative) Urine Blood (Negative) Urine Nitrate (Negative) Urine Bilirubin (Negative) Urine Urobilinogen (Negative) mg/dL Ur Leukocyte Janki ase (Negative) Urine RBC (0-2) /hpf Urine WBC (0-5) /hpf Ur Squamous Epith Cells (0-5) /hpf Amorphous Sediment Urine Bacteria (NONE) /hpf Urine Mucus /hpf SARS-CoV-2 Ag (Rap id) (Negative) 04/15/20 04/15/20 Range/Units 16:05 17:17 WBC (4.0-10.0) 10^3/ uL RBC (4.1-5.3) 10^6/u L Hgb (11.5-15.3) g/dL Hct (37.0-47.0) % MCV (81-99) fL MCH (28.0-34.0) pg MCHC (30.0-36.0) g/dL RDW (12.1-15.1) % Plt Count (130-400) 10^3/c mm MPV (7.4-10.4) fL Neut % (Auto) % Lymph % (Auto) % Mitchell % (Auto) % Eos % (Auto) % Baso % (Auto) % Neut # (Auto) (1.8-7.7) 10^3/u L Lymph # (Auto) (0.8-4.8) 10^3/u L Mitchell # (Auto) (0.2-0.9) 10^3/u L Eos # (Auto) (0.0-0.8) 10^3/u L Baso # (Auto) (0.0-0.1) 10^3/u L Nucleated RBC % (a uto) % Nucleated RBCs # /100WBC D-Dimer (0-0.59) ug/mIFE U Sodium (136-145) mmol/L Potassium (3.5-5.1) mmol/L Chloride (98-107) mmol/L Carbon Dioxide (22-29) mmol/L Anion Gap (5-19) BUN (6-20) mg/dL Creatinine (0.5-0.9) mg/dL GFR Calculation (90-130) mL/min Glucose (65-115) mg/dL Calculated Osmolal ity (285-295) mOsm/k g Lactic Acid (0.5-2.2) mmol/L Calcium (8.5-10.5) mg/dL Total Bilirubin (0.15-1.2) mg/dL AST (0-32) U/L ALT (0-33) U/L Alkaline Phosphata se (35-105) IU/L Troponin T Gen 5 n g/L (0-10) ng/L NT-Pro-B Natriuret Pep (0-125) pg/mL Total Protein (6.6-8.7) g/dL Albumin (3.5-5.2) g/dL Globulin (1.3-4.6) g/dL Urine Color Yellow (Yellow) Urine Appearance Hazy A (CLEAR) Urine pH 7 (5-7) Ur Specific Gravit y 1.010 (1.005-1.030) Urine Protein Neg (Negative) Urine Glucose (UA) Norm (Normal) Urine Ketones Negative (Negative) Urine Blood Neg (Negative) Urine Nitrate Negative (Negative) Urine Bilirubin Neg (Negative) Urine Urobilinogen Norm (Negative) mg/dL Ur Leukocyte Janki ase Negative (Negative) Urine RBC 0-4 H (0-2) /hpf Urine WBC None (0-5) /hpf Ur Squamous Epith Cells 5-10 H (0-5) /hpf Amorphous Sediment Not Reportable Urine Bacteria Trace (NONE) /hpf Urine Mucus 1+ /hpf SARS-CoV-2 Ag (Rap id) Negative (Negative) Imaging Data^: CXR: Radiologist's impression: [address] [address] XRay Report Signed Patient: Merritt Hylton Unit #: [id number] : 2000 Age/Sex: 19 / F ADM Date: 04/15/20 Loc: ER Room/Bed: Attending Dr: Ordering Provider/Ordering MD: Sanjana Hall Date of Service: 04/15/20 Procedure(s): XR chest 1V portable [id number] Accession Number(s): [id number] Report Number: [id number] WS: [id number] Portable AP upright chest, 04/15/2020 Clinical Data: SOB Comparison: PA and lateral chest, 12/30/2019. Findings: No nodules, masses or effusions are seen. The heart is normal. The pulmonary vascularity is not increased. No pneumonia or pneumothorax is seen. There is an infusion catheter entering from the right and ending in superior vena cava. There is a nodule overlying the midportion of the right chest which may represent the areola. Monitor leads are on the chest wall. There are small bilateral upper abdominal calcifications which may be adrenal. XR/XR chest 1V portable [id number] Impression: Negative chest. Dictated By: Gianna Wilkes MD Signed By: Gianna Wilkes MD Signed Date/Time: 04/15/20 1406 DD/ 1403 EKG Data^: EKG 1: EKG interpretation date: 04/15/20 EKG interpretation time: 13:44 Interpretation: Sinus tachycardia Rate [address] elevation or depression changes noted Computer generated interpretation: Chest X-Ray 04/15/20 13:33 Impression: Negative chest. Abdomen/Pelvis CT 04/15/20 17:49 IMPRESSION: 1. No acute findings. 2. Left lower lobe ground-glass pulmonary nodule. If the patient does not have known cancer, follow up should be based on clinical information because of the low risk of cancer in this age group. (Reference: Kemal) REFERENCES: Kemal Adams, et al. Guidelines for Management of Incidental Pulmonary Nodules Detected on CT Images: From the Fleischner Society 2017. Radiology. 2017;284(1):228-243. Radiation Dose CTDIVOL = (mGy): DLP = 874.78 (mGy-cm) Discharge Plan Discharge Patient Disposition: Xfer to Cancer Center or [facility] Clinical Impression: Osteosarcoma Neutropenia Qualifiers: Neutropenia type: secondary to cancer chemotherapy Qualified Code(s): D70.1 - Agranulocytosis secondary to cancer chemotherapy Leukopenia Qualifiers: Leukopenia type: neutropenia Neutropenia type: secondary to cancer chemotherapy Qualified Code(s): D70.1 - Agranulocytosis secondary to cancer chemotherapy Condition: Stable Referrals: Ajit Ponce DO [Primary Care Provider] - Coding Level of Care Code ED Sewage Plant 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 for Chg Fwd Exam Comprehensive Documented by User: Niles Alvarez MD 04/17/20 12:40 HPI - General Adult General: Chief complaint: General Medical Stated complaint: CHEMO LAST WK,SOB TODAY, LOW BP, HIGH PULSE Time Seen by Provider: 04/15/20 13:09 [facility] ED PFSH: Medical History (Updated 04/15/20 @ 16:54 by JOY Bell) Asthma Colon polyps History of hemoptysis Pilonidal cyst Subchorionic hematoma in first trimester Surgical History (Updated 01/27/20 @ 12:13 by Queta Garza MD) History of breast biopsy History of placement of ear tubes Family History Mother Lupus Arnold-Chiari deformity Father Cancer Cancer Social History Smoking and tobacco status: never smoked Second hand smoke exposure: No Smoking risk assessment/counseling performed?: No Alcohol intake: never Desire information about alcohol rehabilitation?: No Counseling given: No Desire information about substance/drug rehabilitation?: No Counseling given: No Lives independently: Yes Household members: family and children Marital status: Legally service: No Current occupational status: unemployed History of recent travel: No Current gender identity: Female Course Vital Signs: Vital signs: Vital Signs Temperature 98.1 F 04/15/20 21:34 Pulse Rate 102 H 04/15/20 21:34 Respiratory Rate 15 04/15/20 21:34 Blood Pressure 93/51 04/15/20 21:34 Pulse Oximetry 100 04/15/20 21:34 MDM - General Adult Lab Data: Labs: Lab Results 04/15/20 04/15/20 04/15/20 Range/Units 14:10 14:10 14:10 WBC 0.6 L* (4.0-10.0) 10^3/ uL RBC 3.46 L (4.1-5.3) 10^6/u L Hgb 8.9 L (11.5-15.3) g/dL Hct 30.7 L (37.0-47.0) % MCV 88.7 (81-99) fL MCH 25.7 L (28.0-34.0) pg MCHC 29.0 L (30.0-36.0) g/dL RDW 14.4 (12.1-15.1) % Plt Count 93 L (130-400) 10^3/c mm MPV 12.6 H (7.4-10.4) fL Neut % (Auto) 7.1 % Lymph % (Auto) 78.9 % Mitchell % (Auto) 3.5 % Eos % (Auto) 7.0 % Baso % (Auto) 3.5 % Neut # (Auto) 0.04 L* (1.8-7.7) 10^3/u L Lymph # (Auto) 0.5 L (0.8-4.8) 10^3/u L Mitchell # (Auto) 0.0 L (0.2-0.9) 10^3/u L Eos # (Auto) 0.0 (0.0-0.8) 10^3/u L Baso # (Auto) 0.0 (0.0-0.1) 10^3/u L Nucleated RBC % (a uto) 0 % Nucleated RBCs # 0.0 /100WBC D-Dimer 0.61 H (0-0.59) ug/mIFE U Sodium 134 L (136-145) mmol/L Potassium 4.2 (3.5-5.1) mmol/L Chloride 101 (98-107) mmol/L Carbon Dioxide 24 (22-29) mmol/L Anion Gap 13.2 (5-19) BUN 10 (6-20) mg/dL Creatinine 0.4 L (0.5-0.9) mg/dL GFR Calculation 201.5 H (90-130) mL/min Glucose 93 (65-115) mg/dL Calculated Osmolal ity 277 L (285-295) mOsm/k g Lactic Acid (0.5-2.2) mmol/L Calcium 9.6 (8.5-10.5) mg/dL Total Bilirubin 0.5 (0.15-1.2) mg/dL AST 10 (0-32) U/L ALT 12 (0-33) U/L Alkaline Phosphata se 78 (35-105) IU/L Troponin T Gen 5 n g/L (0-10) ng/L NT-Pro-B Natriuret Pep (0-125) pg/mL Total Protein 7.1 (6.6-8.7) g/dL Albumin 4.2 (3.5-5.2) g/dL Globulin 2.9 (1.3-4.6) g/dL Urine Color (Yellow) Urine Appearance (CLEAR) Urine pH (5-7) Ur Specific Gravit y (1.005-1.030) Urine Protein (Negative) Urine Glucose (UA) (Normal) Urine Ketones (Negative) Urine Blood (Negative) Urine Nitrate (Negative) Urine Bilirubin (Negative) Urine Urobilinogen (Negative) mg/dL Ur Leukocyte Janki ase (Negative) Urine RBC (0-2) /hpf Urine WBC (0-5) /hpf Ur Squamous Epith Cells (0-5) /hpf Amorphous Sediment Urine Bacteria (NONE) /hpf Urine Mucus /hpf SARS-CoV-2 Ag (Rap id) (Negative) 04/15/20 04/15/20 04/15/20 Range/Units 14:10 14:10 14:10 WBC (4.0-10.0) 10^3/ uL RBC (4.1-5.3) 10^6/u L Hgb (11.5-15.3) g/dL Hct (37.0-47.0) % MCV (81-99) fL MCH (28.0-34.0) pg MCHC (30.0-36.0) g/dL RDW (12.1-15.1) % Plt Count (130-400) 10^3/c mm MPV (7.4-10.4) fL Neut % (Auto) % Lymph % (Auto) % Mitchell % (Auto) % Eos % (Auto) % Baso % (Auto) % Neut # (Auto) (1.8-7.7) 10^3/u L Lymph # (Auto) (0.8-4.8) 10^3/u L Mitchell # (Auto) (0.2-0.9) 10^3/u L Eos # (Auto) (0.0-0.8) 10^3/u L Baso # (Auto) (0.0-0.1) 10^3/u L Nucleated RBC % (a uto) % Nucleated RBCs # /100WBC D-Dimer (0-0.59) ug/mIFE U Sodium (136-145) mmol/L Potassium (3.5-5.1) mmol/L Chloride (98-107) mmol/L Carbon Dioxide (22-29) mmol/L Anion Gap (5-19) BUN (6-20) mg/dL Creatinine (0.5-0.9) mg/dL GFR Calculation (90-130) mL/min Glucose (65-115) mg/dL Calculated Osmolal ity (285-295) mOsm/k g Lactic Acid 1.5 (0.5-2.2) mmol/L Calcium (8.5-10.5) mg/dL Total Bilirubin (0.15-1.2) mg/dL AST (0-32) U/L ALT (0-33) U/L Alkaline Phosphata se (35-105) IU/L Troponin T Gen 5 n g/L 6 (0-10) ng/L NT-Pro-B Natriuret Pep 38 (0-125) pg/mL Total Protein (6.6-8.7) g/dL Albumin (3.5-5.2) g/dL Globulin (1.3-4.6) g/dL Urine Color (Yellow) Urine Appearance (CLEAR) Urine pH (5-7) Ur Specific Gravit y (1.005-1.030) Urine Protein (Negative) Urine Glucose (UA) (Normal) Urine Ketones (Negative) Urine Blood (Negative) Urine Nitrate (Negative) Urine Bilirubin (Negative) Urine Urobilinogen (Negative) mg/dL Ur Leukocyte Janki ase (Negative) Urine RBC (0-2) /hpf Urine WBC (0-5) /hpf Ur Squamous Epith Cells (0-5) /hpf Amorphous Sediment Urine Bacteria (NONE) /hpf Urine Mucus /hpf SARS-CoV-2 Ag (Rap id) (Negative) 04/15/20 04/15/20 Range/Units 16:05 17:17 WBC (4.0-10.0) 10^3/ uL RBC (4.1-5.3) 10^6/u L Hgb (11.5-15.3) g/dL Hct (37.0-47.0) % MCV (81-99) fL MCH (28.0-34.0) pg MCHC (30.0-36.0) g/dL RDW (12.1-15.1) % Plt Count (130-400) 10^3/c mm MPV (7.4-10.4) fL Neut % (Auto) % Lymph % (Auto) % Mitchell % (Auto) % Eos % (Auto) % Baso % (Auto) % Neut # (Auto) (1.8-7.7) 10^3/u L Lymph # (Auto) (0.8-4.8) 10^3/u L Mitchell # (Auto) (0.2-0.9) 10^3/u L Eos # (Auto) (0.0-0.8) 10^3/u L Baso # (Auto) (0.0-0.1) 10^3/u L Nucleated RBC % (a uto) % Nucleated RBCs # /100WBC D-Dimer (0-0.59) ug/mIFE U Sodium (136-145) mmol/L Potassium (3.5-5.1) mmol/L Chloride (98-107) mmol/L Carbon Dioxide (22-29) mmol/L Anion Gap (5-19) BUN (6-20) mg/dL Creatinine (0.5-0.9) mg/dL GFR Calculation (90-130) mL/min Glucose (65-115) mg/dL Calculated Osmolal ity (285-295) mOsm/k g Lactic Acid (0.5-2.2) mmol/L Calcium (8.5-10.5) mg/dL Total Bilirubin (0.15-1.2) mg/dL AST (0-32) U/L ALT (0-33) U/L Alkaline Phosphata se (35-105) IU/L Troponin T Gen 5 n g/L (0-10) ng/L NT-Pro-B Natriuret Pep (0-125) pg/mL Total Protein (6.6-8.7) g/dL Albumin (3.5-5.2) g/dL Globulin (1.3-4.6) g/dL Urine Color Yellow (Yellow) Urine Appearance Hazy A (CLEAR) Urine pH 7 (5-7) Ur Specific Gravit y 1.010 (1.005-1.030) Urine Protein Neg (Negative) Urine Glucose (UA) Norm (Normal) Urine Ketones Negative (Negative) Urine Blood Neg (Negative) Urine Nitrate Negative (Negative) Urine Bilirubin Neg (Negative) Urine Urobilinogen Norm (Negative) mg/dL Ur Leukocyte Janki ase Negative (Negative) Urine RBC 0-4 H (0-2) /hpf Urine WBC None (0-5) /hpf Ur Squamous Epith Cells 5-10 H (0-5) /hpf Amorphous Sediment Not Reportable Urine Bacteria Trace (NONE) /hpf Urine Mucus 1+ /hpf SARS-CoV-2 Ag (Rap id) Negative (Negative) EKG Data^: EKG 1: Computer generated interpretation: Chest X-Ray 04/15/20 13:33 Impression: Negative chest. Abdomen/Pelvis CT 04/15/20 17:49 IMPRESSION: 1. No acute findings. 2. Left lower lobe ground-glass pulmonary nodule. If the patient does not have known cancer, follow up should be based on clinical information because of the low risk of cancer in this age group. (Reference: Kemal) REFERENCES: Kemal Adams et al. Guidelines for Management of Incidental Pulmonary Nodules Detected on CT Images: From the Fleischner Society 2017. Radiology. 2017;284(1):228-243. Radiation Dose CTDIVOL = (mGy): DLP = 874.78 (mGy-cm) Discharge Plan Discharge Patient Disposition: Xfer to [facility] or [facility] Clinical Impression: Osteosarcoma Neutropenia Qualifiers: Neutropenia type: secondary to cancer chemotherapy Qualified Code(s): D70.1 - Agranulocytosis secondary to cancer chemotherapy Leukopenia Qualifiers: Leukopenia type: neutropenia Neutropenia type: secondary to cancer chemotherapy Qualified Code(s): D70.1 - Agranulocytosis secondary to cancer chemotherapy Condition: Stable Referrals: Ajit Ponce DO [Primary Care Provider] - Coding Level of Care Code ED Sewage Plant Operator for Chg Fwd Exam Comprehensive
--- NOTE | 2020-04-15 13:55 | PC.NURSE ---
pt very anxious about nurse starting IV vs. accessing port-a-cath. nurse giving pt time to think before attempting to gain IV access again.
[2020-04-15 14:18] LABS: Basophils % 3.5 %; Hematocrit 30.7 % (37.0-47.0); Hemoglobin 8.9 g/dL (11.5-15.3); Lymphocytes # 0.5 10^3/uL (0.8-4.8); Lymphocytes % 78.9 %; Mean Corpuscular Hemoglobin 25.7 pg (28.0-34.0); Mean Corpuscular Volume 88.7 fL (81-99); Mean Platelet Volume 12.6 fL (7.4-10.4); Monocytes % 3.5 %; Neutrophils % 7.1 %; Nucleated Red Blood Cells % 0 %; Platelet Count 93 10^3/cmm (130-400); Positive M 1; Red Blood Count 3.46 10^6/uL (4.1-5.3); Red Cell Distribution Width 14.4 % (12.1-15.1)
[2020-04-15 14:33] LABS: D Dimer 0.61 ug/mIFEU (0-0.59)
[2020-04-15] MEDS: sodium chloride 0.9% 1,000 ML 999 ML IV ×3 (14:35→21:13)
[2020-04-15 14:37] LABS: Lactic Sepsis W/Reflex 1.5 mmol/L (0.5-2.2)
[2020-04-15 14:39] LABS: Alanine Aminotransferase 12 U/L (0-33); Albumin Level 4.2 g/dL (3.5-5.2); Alkaline Phosphatase 78 IU/L (35-105); Anion Gap 13.2 (5-19); Aspartate Amino Transferase 10 U/L (0-32); Blood Urea Nitrogen 10 mg/dL (6-20); Calcium 9.6 mg/dL (8.5-10.5); Carbon Dioxide 24 mmol/L (22-29); Chloride 101 mmol/L (98-107); Globulin 2.9 g/dL (1.3-4.6); Glomerular Filtration Rate 201.5 mL/min (90-130); Glucose 93 mg/dL (65-115); Osmolality Calculated 277 mOsm/kg (285-295); Potassium 4.2 mmol/L (3.5-5.1); Sodium 134 mmol/L (136-145); Total Bilirubin 0.5 mg/dL (0.15-1.2); Total Protein 7.1 g/dL (6.6-8.7)
[2020-04-15 14:57] LABS: Neutrophils # 0.04 10^3/uL (1.8-7.7); Slide Review Slide Review Perform; White Blood Count 0.6 10^3/uL (4.0-10.0)
[2020-04-15 15:05] LABS: Troponin T (5th) Once 6 ng/L (0-10)
[2020-04-15 15:13] LABS: NT Pro B Type Natriuretic Pept 38 pg/mL (0-125)
[2020-04-15 16:30] LABS: SARS Covid-2 Antigen Negative (Negative)
[2020-04-15] MEDS: cefepime 1,000 MG in sodium chloride 0.9% (plus) 50 ML 100 MG IV (17:30)
--- NOTE | 2020-04-15 17:49 | CTR_ITS ---
PROCEDURE INFORMATION: Exam: CT Abdomen And Pelvis With Contrast Exam date and time: 04/15/2020 6:05 PM Age: 19 years old Clinical indication: Nausea; Additional info: Abdominal pain TECHNIQUE: Imaging protocol: Computed tomography of the abdomen and pelvis with contrast. Radiation optimization: All CT scans at this facility use at least one of these dose optimization techniques: automated exposure control; mA and/or kV adjustment per patient size (includes targeted exams where dose is matched to clinical indication); or iterative reconstruction. Contrast material: OMNI 300; Contrast volume: 75 ml; Contrast route: INTRAVENOUS (IV); COMPARISON: [facility] [place], [place] Abdomen Limited 03/02/2017 10:41 AM RADIATION DOSE METRICS: Total DLP (mGy-cm): 874.78 FINDINGS: Lungs: There is a 7 mm diameter focal ground-glass opacity in the left lower lobe on axial series 2, image 4. Liver: The liver is normal. Gallbladder and bile ducts: The gallbladder is normal. There is no biliary dilation. Pancreas: The pancreas is unremarkable. Spleen: The spleen is unremarkable. Adrenal glands: Bilateral adrenal calcifications suggest remote adrenal hemorrhage. Kidneys and ureters: The kidneys are unremarkable. No hydronephrosis or stones. No ureteral dilation. Stomach and bowel: The stomach is unremarkable. The small bowel is nondilated. The colon is unremarkable. Appendix: The appendix is normal. Intraperitoneal space: There is no free air or significant intraperitoneal free fluid. Vasculature: There is mild aortic atherosclerotic disease. The portal, splenic and superior mesenteric veins are patent. Lymph nodes: There is no lymphadenopathy in the retroperitoneum, mesentery, pelvis or inguinal regions. Urinary bladder: The urinary bladder is unremarkable. Reproductive: The uterus is unremarkable. There is no adnexal mass or large cyst. Bones/joints: Bones are unremarkable. Soft tissues: The abdominal wall is intact. CT/CT abdomen pelvis w con* [id number] IMPRESSION: 1. No acute findings. 2. Left lower lobe ground-glass pulmonary nodule. If the patient does not have known cancer, follow up should be based on clinical information because of the low risk of cancer in this age group. (Reference: Kemal) REFERENCES: Kemal Adams et al. Guidelines for Management of Incidental Pulmonary Nodules Detected on CT Images: From the Fleischner Society 2017. Radiology. 2017;284(1):228-243. Radiation Dose CTDIVOL = (mGy): DLP = 874.78 (mGy-cm)
[2020-04-15 18:00] LABS: Add Urine Microscopic? YES; Bilirubin Urine Neg (Negative); Blood Urine Neg (Negative); Glucose Urine UA Norm (Normal); Ketones Urine Negative (Negative); Leukocyte Esterase Urine Negative (Negative); Nitrate Urine Negative (Negative); Protein Urine Neg (Negative); Urine Appearance Hazy (CLEAR); Urine Color Yellow (Yellow); Urobilinogen Urine Norm (Negative); pH Urine 7 (5-7)
--- NOTE | 2020-04-15 18:04 | PC.NURSE ---
pt to CT scan by stretcher with tech
[2020-04-15 18:06] LABS: Add Urine Culture? No; Bacteria Urine TRACE /hpf; Mucus Urine 1+ /hpf; RBC Urine 0-4 /hpf (0-2)
[2020-04-15] MEDS: iohexol 300 mg/mL 100 mL Btl IV (18:11)
[2020-04-15] MEDS: vancomycin 1,000 MG in sodium chloride 0.9% 250 ML 250 MG IV (21:13)
== END 2020-04-15 22:17 | disposition designated cancer center or children's hospital (05) ==
PROVIDERS: Emergency Provider Physician Assistant; PCP Family Medicine
DX: C41.9 Malignant neoplasm of bone and articular cartilage, unspecified (principal); D70.1 Agranulocytosis secondary to cancer chemotherapy; Z79.899 Other long term (current) drug therapy
CPT/HCPCS: 36415; 71045; 74177; 80053; 81001; 83605; 83880; 84484; 85025; 85378; 87040; 87426; 93005; 96361; 96365; 96367; 99285; J0692; J3370; J7030; J7050; Q9967

== ENCOUNTER 2020-06-21 09:55 | Outpatient (CLI) | payer OTHER, MEDICAID, SELFPAY ==
--- NOTE | 2020-06-21 17:24 | ONC CON_ITS ---
Dr. Bruno New Patient Note Patient: Merritt Hylton Unit #: [id number]: 2000 Dicatated By: George Bruno M.D.Date of Visit: June 21, 2020 Onc MED New Patient/Consult Referring Physician: Dr. Ajit Ponce M.D. Chief Complaint: Chondroblastic osteosarcoma. 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 She had presented with a mass in the hard palate. The initial biopsy on 01/14/2020 was interpreted as soft tissue chondroma. MRI of the orbits/face/neck on 01/16/2020 showed a heterogeneous enhancing expansile mass involving the left maxilla measuring 3.4 x 3.7 x 2.7 cm, consistent with neoplasm. The mass was noted to extend cranially into the inferior maxillary sinus and medially to involve the hard palate. It was noted to abut the soft palate posteriorly. There was also involvement of the inferior turbinate. There was partial destruction of the left inferior turbinate. A few prominent cervical nodes were noted in the upper cervical chain, partially visualized. There was no evidence of intracranial metastatic disease. With those findings, she was referred to [facility] for further management. On 02/27/2020 she underwent left inferior maxillectomy, infratemporal fossa resection, and left neck exploration by Dr. Brizuela. Pathology showed chondroblastic osteosarcoma, FNCLCC grade 2/3 involving the maxilla. It measured 4 cm in greatest dimension. The mitotic rate was 12/10 hpf. There was 0% tumor necrosis. Tumor was noted to involve the anterior and medial margins. On 03/09/2020 she had further surgery including oral cavity and left inferior maxillectomy reresection with right fasciocutaneous forearm flap. The procedure also included microvascular anastomosis to left lingual artery and 3.0 loft patternmaker to right facial vein and split thickness skin graft from the right thigh to the right forearm. Pathology showed residual chondroblastic osteosarcoma involving the reresected anterior maxilla. The hard palate margin excision showed no evidence of malignancy and there was no malignancy in the nasal floor reresection, the oral cavity anterior margin, and the nasal cavity septum margin. She had medical oncology consultation postoperatively with Dr.Brian Huang and she has been undergoing adjuvant chemotherapy with cisplatin/Adriamycin/high-dose methotrexate. She began cycle 1 of cisplatin/Adriamycin on 04/06/2020. It was complicated by febrile neutropenia with CT evidence of colitis and pyelonephritis. She was then admitted for her cycle 1 HDMTX on 04/28/2020. She tolerated it well, and she continued with cycle 2 of cisplatin/Adriamycin on 05/12/2020. She is seen here today because she desires to have at least some of her outpatient care administered locally. She has been feeling pretty good generally, though she says her energy is not great. She is caring for 2 children and doing light work. Her ECOG score is 1. She has good appetite. She has had no further fever. She has been having hot flashes and sweating, and she has stopped menstruating. She has been having blurry vision, and she describes having episodes of her vision going black lasting up to 30 seconds. She estimates having 1 or 2 of these episodes per week. She is having nasal drainage. She does not complain of sore mouth or throat. She has some shortness of breath associated with underlying asthma. She does not complain of cough or chest pain. She has been having some nausea and she is having acid reflux symptoms. She is also had some constipation and she has been having bright red blood in the stool intermittently. She has no complaints with bladder function. She has no significant joint or bone pain. She sometimes has headache and she sometimes has dizziness. She has no numbness/paresthesia or other focal neurologic symptoms. Past Medical History: Her medical history consists of anemia, asthma, and anxiety/depression. She has a history of colonic polyps. Past Surgical History: She underwent left inferior maxillectomy, infratemporal fossa resection, left neck exploration on 02/27/2020. She underwent oral and left anterior maxilla reresection with right fasciocutaneous forearm flap and with split-thickness skin graft right thigh to right forearm on 03/09/2020. She underwent placement of Port-A-Cath venous access device on 03/31/2020. Her other surgical/procedural history includes colonoscopy x 3, excision of benign scalp lesion, left mastectomy for benign disease, myringotomy with tubes, and pilonidal cyst excision. Medications: lexapro Tablet daily, LORazepam 1 (1 mg) Tablet Oral daily, Ondansetron HCl 1 (4 mg) Tablet Oral q 4 hours PRN, ZyPREXA 1 (10 mg) Tablet Oral daily Allergies: No Known Allergies. Social History: Ms. Hylton is legally . She is a non-smoker. She does not drink alcohol. Family History: Both parents are living. Her father has been treated for skin cancer. Her mother has hypertension and depression. Two sisters and 1 brother are in good health. Review Of Symptoms: Constitutional - Her energy is not great. She cares for her 2 children and she does light work. Appetite is good and weight is stable. She had one episode of neutropenic fever. She has having hot flashes and sweating. ECOG score is 1, Eyes - She has had blurry vision and she has had episodes of her vision going black, lasting up to 30 seconds, once or twice a week, ENMT - No hearing loss. She sometimes has tinnitus. She has having a lot of nasal drainage and she has been having some epistaxis. No mouth sores. No sore throat or difficulty swallowing, Hematologic/Lymphatic - No abnormal bruising, Respiratory - She has some shortness of breath with her asthma. No cough. No pleuritic pain or hemoptysis, Cardiovascular - No angina pain. No palpitations, Gastrointestinal - She has nausea, but it is pretty well controlled with medication. She is having acid reflux symptoms. She has constipation and she has been having some rectal bleeding, Genitourinary (F) - No dysuria or hematuria. No urinary frequency. No urgency or incontinence. She has stopped menstruating, Musculoskeletal - No joint or bone pain, Integumentary - No skin rash or other skin changes, Neurologic - She sometimes has headache and she sometimes has dizziness. No numbness or tingling. No other focal neurologic symptoms, Psychiatric - She has anxiety/depression, but it is adequately managed with medication. She has insomnia, but it is also adequately managed with medication. Vital Signs: Height is 67 inches and weight is 130 pounds. Blood pressure 130/70, pulse 104, temp 98.7 degrees, and oxygen saturation 99%. Physical Examination: Constitutional - She looks pretty good generally, Eyes - Sclerae nonicteric. Conjunctivae clear, ENMT - There are no lesions noted in the oral cavity, Neck - No mass or thyromegaly, Hematologic/Lymphatic - No cervical, clavicular, or axillary adenopathy, Respiratory - Lungs are clear with good air movement bilaterally, Cardiovascular - Heart rhythm is regular. There is no murmur, gallop, or rub noted, Abdomen - Soft and non-tender. Liver and spleen are not enlarged. There is no abdominal mass or ascites noted and there is no inguinal adenopathy, Back/Spine - No spine or CVA tenderness noted, Extremities - No edema. Pedal pulses are palpable bilaterally, Integumentary - There is a healing wound on the right forearm, Neurologic - No focal neurologic deficits noted. Problem List: 1. 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 By clinical evaluation her disease is stage IIA (T1, N0, M0). 2. On 02/27/2020 she underwent left inferior maxillectomy, infratemporal fossa resection, and left neck exploration. 3. On 03/09/2020 she underwent oral and left anterior maxilla reresection with right fasciocutaneous forearm flap and with split-thickness skin graft to the right forearm. 4. Mild asthma. 5. Anxiety/depression. 6. She has a history of colonic polyps. 7. She is status post left mastectomy for benign disease. Problems Addressed with this Encounter and Plan: 1. Patient with chondral blastic osteosarcoma of the left maxilla, FNCLCC grade 2/3, pathologic stage T1, Nx. By clinical evaluation her disease is stage IIA (T1, N0, M0). On 02/27/2020 she underwent left inferior maxillectomy, infratemporal fossa resection, and left neck exploration. Pathology showed involved anterior and medial margins. On 03/09/2020 she underwent oral and left anterior maxilla reresection with right fasciocutaneous forearm flap and with split-thickness skin graft to the right forearm. Pathology showed residual tumor in the reresected anterior maxilla but with no evidence of malignancy in the hard palate margin, nasal floor reresection, oral cavity anterior margin, and nasal cavity septum margin. She is undergoing adjuvant chemotherapy with cisplatin/Adriamycin/high-dose methotrexate. She began cycle 1 of cisplatin/Adriamycin on 04/08/2020. It was complicated by febrile neutropenia. She was then admitted for cycle 1 HDMTX on 04/28/2020, tolerated well. She began cycle 2 of cisplatin/Adriamycin on 05/12/2020. She will complete her cycle 2 HDMTX at [facility]. We will confer with Dr. Huang in regard to the possibility of administering her cycle 3 cisplatin/Adriamycin locally. 2. She is having GERD symptoms. She will be prescribed famotidine 20 mg twice daily. Signed By: George Bruno M.D. <<Signature on File>>
[2020-06-30] VITALS (10 sets, daily range): BP systolic 97–109; BP diastolic 62–72; PULSE 87–99; RESP 18; TEMP 36.1–37.2; O2SAT 99
== END 2020-06-21 09:56 | disposition home or self-care (01) ==
LOC: ONCMED 09:59
PROVIDERS: PCP Family Medicine; Visit Provider Internal Medicine Medical Oncology
DX: C41.0 Malignant neoplasm of bones of skull and face (principal); J45.20 Mild intermittent asthma, uncomplicated; F41.9 Anxiety disorder, unspecified; F32.9 Major depressive disorder, single episode, unspecified; Z86.010 Personal history of colon polyps; Z90.12 Acquired absence of left breast and nipple; Z79.899 Other long term (current) drug therapy
CPT/HCPCS: 99204

== ENCOUNTER 2020-06-30 14:01 | Outpatient (CLI) | payer OTHER, MEDICAID, SELFPAY ==
[2020-06-30] MEDS: sodium chloride 0.9% 250 ML 75 ML IV (14:05)
[2020-06-30] MEDS: diphenhydrAMINE 50 mg/mL SDV 1mL 25 MG IVP (14:20)
[2020-06-30] MEDS: FUROsemide 10 mg/mL SDV 2mL 20 MG IV (16:10)
== END 2020-06-30 14:02 | disposition home or self-care (01) ==
PROVIDERS: PCP Family Medicine; Visit Provider Internal Medicine Medical Oncology
DX: C41.0 Malignant neoplasm of bones of skull and face (principal)
CPT/HCPCS: 86850; 86900; 86920; 96375; 99204; J1200; J1940; J7050; P9016

== ENCOUNTER 2020-07-28 10:52 | Outpatient (CLI) | payer OTHER, MEDICAID, SELFPAY ==
[2020-07-28 11:21] LABS: Eosinophils # 0.1 10^3/uL (0.0-0.8); Eosinophils % 0.8 %; Hematocrit 34.6 % (37.0-47.0); Hemoglobin 11.2 g/dL (11.5-15.3); Lymphocytes % 10.1 %; Mean Corpuscular HGB Conc 32.4 g/dL (30.0-36.0); Mean Corpuscular Hemoglobin 31.5 pg (28.0-34.0); Mean Corpuscular Volume 97.2 fL (81-99); Mean Platelet Volume 10.3 fL (7.4-10.4); Monocytes # 0.1 10^3/uL (0.2-0.9); Monocytes % 0.8 %; Neutrophils # 6.61 10^3/uL (1.8-7.7); Neutrophils % 67.2 %; Nucleated Red Blood Cells % 0 %; Platelet Count 146 10^3/cmm (130-400); Red Blood Count 3.56 10^6/uL (4.1-5.3); Red Cell Distribution Width 16.8 % (12.1-15.1); White Blood Count 9.8 10^3/uL (4.0-10.0)
[2020-07-28 12:21] LABS: Slide Review Slide Review Perform
== END 2020-07-28 10:53 | disposition home or self-care (01) ==
LOC: ONCMED 10:57
PROVIDERS: PCP Family Medicine; Visit Provider Internal Medicine Medical Oncology
DX: C41.1 Malignant neoplasm of mandible (principal)
CPT/HCPCS: 85025

== ENCOUNTER 2020-07-31 18:54 | Inpatient (IN) | payer OTHER, MEDICAID, SELFPAY ==
[2020-07-31 19:58] VITALS: BP 100/71; PULSE 148; RESP 18; TEMP 38.3; O2SAT 98; BMI 20.9
--- NOTE | 2020-07-31 20:36 | XRR_ITS ---
PROCEDURE INFORMATION: Exam: XR Chest Exam date and time: 07/31/2020 8:36 PM Age: 19 years old Clinical indication: Dyspnea and fever; Prior surgery; Surgery date: 1-6 months; Surgery type: Port; Additional info: Fever, SOB TECHNIQUE: Imaging protocol: XR of the chest. Views: 1 view. COMPARISON: [facility] XR chest 1V portable [id number] 04/15/2020 1:59 PM FINDINGS: Tubes, catheters and devices: Infusaport catheter tip terminates at the cavoatrial junction. Lungs: Unremarkable. No consolidation. Pleural spaces: Unremarkable. No pleural effusion. No pneumothorax. Heart/Mediastinum: Unremarkable. No cardiomegaly. Bones/joints: Unremarkable. XR/XR chest 1V portable [id number] IMPRESSION: No evidence for acute cardiopulmonary disease.
[2020-07-31 21:14] LABS: Basophils % 1.3 %; Eosinophils % 0.6 %; Hematocrit 30.4 % (37.0-47.0); Lymphocytes # 1.2 10^3/uL (0.8-4.8); Lymphocytes % 73.2 %; Mean Corpuscular HGB Conc 32.9 g/dL (30.0-36.0); Mean Corpuscular Hemoglobin 31.2 pg (28.0-34.0); Mean Corpuscular Volume 94.7 fL (81-99); Mean Platelet Volume 12.1 fL (7.4-10.4); Monocytes # 0.2 10^3/uL (0.2-0.9); Monocytes % 12.7 %; Neutrophils % 12.2 %; Nucleated Red Blood Cells % 0 %; Platelet Count 42 10^3/cmm (130-400); Red Blood Count 3.21 10^6/uL (4.1-5.3); Red Cell Distribution Width 15.1 % (12.1-15.1); White Blood Count 1.6 10^3/uL (4.0-10.0)
[2020-07-31 21:25] LABS: HCG Qualitative Urine. Negative (Negative)
[2020-07-31 21:33] LABS: Lactate (Lactic Acid level) 1.1 mmol/L (0.5-2.2)
[2020-07-31 21:34] LABS: Alanine Aminotransferase 9 U/L (0-33); Albumin Level 3.8 g/dL (3.5-5.2); Alkaline Phosphatase 67 IU/L (35-105); Anion Gap 13.9 (5-19); Aspartate Amino Transferase 8 U/L (0-32); Blood Urea Nitrogen 13 mg/dL (6-20); Calcium 8.7 mg/dL (8.5-10.5); Carbon Dioxide 24 mmol/L (22-29); Chloride 98 mmol/L (98-107); Globulin 2.6 g/dL (1.3-4.6); Glomerular Filtration Rate 201.5 mL/min (90-130); Glucose 95 mg/dL (65-115); Osmolality Calculated 274 mOsm/kg (285-295); Potassium 3.9 mmol/L (3.5-5.1); Sodium 132 mmol/L (136-145); Total Bilirubin 0.7 mg/dL (0.15-1.2); Total Protein 6.4 g/dL (6.6-8.7)
[2020-07-31 21:36] LABS: Neutrophils # 0.19 10^3/uL (1.8-7.7); Slide Review Slide Review Perform
[2020-07-31 21:39] LABS: Procalcitonin 0.08 ng/mL (0-0.5)
[2020-07-31 22:21] VITALS: BP 111/69; PULSE 119; RESP 20; TEMP 36.9; O2SAT 100
[2020-07-31 22:22] LABS: Add Urine Microscopic? YES; Bilirubin Urine 1+ (Negative); Blood Urine 2+ (Negative); Glucose Urine UA Norm (Normal); Ketones Urine 1+ (Negative); Leukocyte Esterase Urine Negative (Negative); Nitrate Urine Negative (Negative); Protein Urine 1+ (Negative); Urine Appearance SL Hazy (CLEAR); Urine Color Yellow (Yellow); Urobilinogen Urine Norm (Negative); pH Urine 5 (5-7)
[2020-07-31 22:28] LABS: Add Urine Culture? No; Bacteria Urine 2+ /hpf; Mucus Urine 2+ /hpf; WBC Urine 0-4 /hpf (0-5)
[2020-07-31] MEDS: levofloxacin-dextrose 5 % 500 MG/100 ML PREMIX 100 MG IV (22:36)
[2020-07-31] MEDS: sodium chloride 0.9% 1,000 ML 999 ML IV (22:37)
--- NOTE | 2020-07-31 22:53 | P.HP_ITS ---
Providers/Chief Complaint Primary Care Provider: Ajit Ponce DO Chief Complaint: fever History of Present Illness Merritt Hylton is a 19 year old female with established diagnosis of chondroblastic left maxillary osteosarcoma who follows up with [facility] on monthly basis for chemotherapy presented today with chief complaint of diarrhea, abdominal pain and fever. Patient is stating that her last chemotherapy session was about a week ago, 2 to 3 days after her chemotherapy session she started experiencing abdominal pain which she describing as dull diffuse pain associated with diarrhea and 5 episodes of emesis, she also noticed bright bleed per rectum, (she has history of GI bleed and underwent colonoscopy x3, polypectomy was done, histopathological diagnosis was not consistent with any malignancy, as per the patient) there is plan for another colonoscopy at [facility]. She has poor p.o. intake, denying chest pain, shortness of breath, productive cough, dysuria or any skin rashes including mouth sores. Yesterday she started experiencing throat pain and today she spiked temperature 100.9 at home and because of worsening of lethargy and fatigue she decided to come to the hospital for further evaluation. Diagnosis in the ER revealed pancytopenia, neutropenic fever, sepsis, [place] oncologist was notified, right now [facility] does not have any beds available, oncologist recommended starting cefepime, and making sure blood culture stays sterile after 48 hours. At the time my evaluation during palpation of her neck she complained of pain around right anterior mastoid bladder however no swelling noticed I have requested CT neck chest abdomen pelvis, her lactic acid is normal she has severe neutropenic fever Procalcitonin unremarkable, Covid antigen negative, no signs of UTI Review of Systems Const: Reports: fever(s), chills, body aches and fatigue Eyes: Denies: change in vision, photophobia or eye redness ENMT: Reports: throat pain; Denies: odynophagia, swelling of lips/tongue or oral sores Card: Denies: chest pain Resp: Denies: dyspnea GI: Reports: abdominal pain, nausea, vomiting, diarrhea and hematochezia; Denies: constipation : Denies: flank pain Musc: Denies: neck pain Skin/Breast: Denies: lesions Neuro: Reports: headache(s) Psych: Reports: depression; Denies: anxiety Endo: Denies: polyuria Adalberto/Lymph: Denies: easy bruising All/Imm: Denies: urticaria Medications/Allergies Home Medications Medication Instructions Recorded Confirmed Last Taken Type albuterol sulfate 90 mcg/actuation 2 puff INHALATION 6XD PRN #18 g 02/24/20 04/15/20 Unknown Rx aerosol inhaler fluticasone 100 mcg-salmeterol 50 1 inh INHALATION BID #60 ea 02/24/20 04/15/20 Unknown Rx mcg/dose blistr powdr for inhalation ibuprofen 800 mg PO TID PRN 04/15/20 04/15/20 Unknown History lidocaine-prilocaine See Rx Instructions .ROUTE .COMPLEX 04/15/20 04/15/20 Unknown History lorazepam See Rx Instructions .ROUTE .COMPLEX 04/15/20 04/15/20 04/15/20 13:00 History ondansetron [Zofran ODT] 4 mg PO Q8H PRN 04/15/20 04/15/20 04/15/20 13:00 History Allergies Allergy/AdvReac Type Severity Reaction Status Date / Time peas Allergy ALGY-Hives Verified 04/15/20 14:16 shellfish derived Allergy ALGY-Swell Verified 04/15/20 14:16 Lip/Tongue/Throat PFSH Acute PFSH: Medical History Anemia Asthma Asthma Colon polyps Depression Hemoptysis History of hemoptysis Lesion of lung Mass of hard palate Normal colonoscopy Osteosarcoma Pilonidal cyst Port-A-Cath in place Pulmonary nodule Subchorionic hematoma in first trimester Surgical History H/O left mastectomy H/O plastic surgery She underwent oral and left anterior maxilla reresection with right fasciocutaneous forearm flap and with split-thickness skin graft right thigh to right forearm on 03/09/2020 History of breast biopsy History of excision of pilonidal cyst History of placement of ear tubes History of recent maxillofacial surgery Myringotomy tube status left Family History Mother Lupus Arnold-Chiari deformity Father Cancer Cancer Social History Smoking and tobacco status: never smoked Second hand smoke exposure: No Smoking risk assessment/counseling performed?: No Alcohol intake: never Desire information about alcohol rehabilitation?: No Counseling given: No Desire information about substance/drug rehabilitation?: No Counseling given: No Lives independently: Yes Household members: family and children Marital status: Legally service: No Current occupational status: unemployed History of recent travel: No Current gender identity: Female Vitals/I&O/Wt Last Vital Signs Temp 98.5 F 07/31/20 22:21 Pulse 119 H 07/31/20 22:21 Resp 20 H 07/31/20 22:21 BP 111/69 07/31/20 22:21 Pulse Ox 100 07/31/20 22:21 Weight last 48 hrs Weight 58.967 kg Physical Exam Narrative: EXAM NARRATIVE: Young female who appears malnourished and cachectic Pale complexion Right anterior sternocleidomastoid border with tender lymphadenopathy however no active swelling noticed, she is not unable to open her mouth completely I did not see any candidiasis with limited exam S1, S2 sinus tachycardia no signs of heart failure No murmur appreciated Abdomen soft no signs of peritonitis, bowel sounds sluggish Lower extremity no edema gangrene ulcer Left leg surgical scar without any signs of cellulitis, well-healed wound with a scab above left ankle No signs of meningitis Hyperemic conjunctiva No acute respite distress no audible stridor or wheezing Data : 07/31/20 21:03 07/31/20 21:03 Micro: Microbiology 07/31/20 21:21 Blood Culture - Preliminary Blood SPECIMEN COLLECTED 07/31/20 21:03 Blood Culture - Preliminary Blood SPECIMEN COLLECTED A&P Assessment and plan (1) Pancytopenia: Status: Acute (2) Neutropenic fever: Status: Acute (3) Sepsis: Status: Acute (4) Hematochezia: Status: Acute (5) Diarrhea: Status: Acute (6) Dehydration: Status: Acute Additional A&P Information Severe neutropenia with fever Pancytopenia Criteria of sepsis met with tachypnea, tachycardia and fever and neutropenia Lactic acid normal Requested blood culture, CT chest abdomen pelvis along neck soft tissue imaging Patient complaining abdominal pain with bright bleed per rectum, no active signs of peritonitis, complaining of throat pain, right anterior tender cervical lymphadenopathy Her next chemotherapy session is on August 10 [facility], patient is stating that she almost spent 2 to 3 weeks at the hospital for her chemo Considering her immunocompromised state and recurrent hospitalizations I will start her on vancomycin and cefepime, her oncologist from [facility] recommended antibiotics and keeping her hospitalized until blood cultures are resulted, kindly touch base with them in the morning if Neupogen will be required during this hospitalization Pancytopenia, complaining of bright bleed per rectum abdominal pain she will definitely need colonoscopy for histopathological diagnosis, no active signs of mesenteric ischemia For her dehydration I will keep her on D5 half-normal saline Full liquid diet DVT prophylaxis SCD Full code Attestations Medical Necessity Statement*: Anticipating stay in the hospital cross more than 2 midnights for neutropenic, sepsis In case of deterioration of her symptoms, will need transfer to [facility] Time Spent in Patient Care: (>than 50% of time spent in counselling and/or direct pt care on unit) . 40mins Coding Level of Care Code Acute [employer] Diagnoses Pancytopenia D61.818 Neutropenic fever D70.9; R50.81 Sepsis A41.9 Hematochezia K92.1 Diarrhea R19.7 Dehydration E86.0
--- NOTE | 2020-07-31 22:53 | CTR_ITS ---
PROCEDURE INFORMATION: Exam: CT Neck With Contrast Exam date and time: 07/31/2020 10:53 PM Age: 19 years old Clinical indication: Prior surgery; Surgery date: 6+ months; Surgery type: Excision; Patient HX: HX of maxillary osteosarcoma w fever ? abcess; Additional info: Maxillary osteosarcoma, neutropenic fever, ? abscess TECHNIQUE: Imaging protocol: Computed tomography images of the neck with contrast. Radiation optimization: All CT scans at this facility use at least one of these dose optimization techniques: automated exposure control; mA and/or kV adjustment per patient size (includes targeted exams where dose is matched to clinical indication); or iterative reconstruction. Contrast material: OMNI 300; Contrast volume: 75 ml; Contrast route: INTRAVENOUS (IV); COMPARISON: MR orbit face neck wo/w* [id number] 01/16/2020 11:53 AM RADIATION DOSE METRICS: Total DLP (mGy-cm): 458.88 FINDINGS: Paranasal sinuses: Moderate soft tissue attenuation seen within the left maxillary sinus. Nasopharynx: Unremarkable. Oropharynx: Unremarkable. No significant tonsillar enlargement. Hypopharynx: Unremarkable. Larynx: Unremarkable. Normal epiglottis. Retropharyngeal space: Unremarkable. Submandibular/Parotid glands: Normal. Glands are normal in size. Thyroid: Normal. No enlarged or calcified nodules. Lymph nodes: Unremarkable. No lymphadenopathy. Trachea: Visualized trachea is unremarkable. Lungs: Unremarkable as visualized. Bones/joints: There is further osseous destruction seen within the posterior aspect of the left maxillary sinus and the pterygoid process on the left. There is further bony destruction of the anterior maxillary alveolar process on the left and the hard palate now extending across the midline compared with 02/18/2020. There is an implanted ribs segment seen stabilizing the maxillary contour anteriorly. Soft tissues: Postoperative changes are seen within the left retromandibular region and anterior cervical triangle. There is a heterogeneous soft tissue mass present in the pterygopalatine region on the left similar to that seen on 03/03/2020. There are no abnormal fluid collection seen is suggest abscess formation. CT/CT neck w con* [id number] IMPRESSION: 1. Soft tissue attenuation mass seen in the pterygopalatine region on the left similar to that seen on 03/03/2020. There appears to be further osseous destruction of the posterior sibley of the left maxillary sinus, the anterior maxillary alveolar process, the pterygoid process and the hard palate. 2. There is no evidence for abscess formation. Radiation Dose CTDIVOL = (mGy): DLP = 458.88 (mGy-cm)
--- NOTE | 2020-07-31 23:26 | CTR_ITS ---
PROCEDURE INFORMATION: Exam: CT Chest With Contrast; Diagnostic Exam date and time: 07/31/2020 11:26 PM Age: 19 years old Clinical indication: Prior surgery; Surgery date: 6+ months; Surgery type: Mast w recon; Patient HX: HX of osteosarcoma w fever and bloody diarrhea; Additional info: Neutropenic fever, bloody diarrhea TECHNIQUE: Imaging protocol: Diagnostic computed tomography of the chest with contrast. Radiation optimization: All CT scans at this facility use at least one of these dose optimization techniques: automated exposure control; mA and/or kV adjustment per patient size (includes targeted exams where dose is matched to clinical indication); or iterative reconstruction. Contrast material: OMNI 300; Contrast volume: 75 ml; Contrast route: INTRAVENOUS (IV); COMPARISON: CT abdomen pelvis w con* [id number] 04/15/2020 6:24 PM RADIATION DOSE METRICS: Total DLP (mGy-cm): 1135.82 FINDINGS: Lungs: Unremarkable. No consolidation. No masses. Pleural spaces: Unremarkable. No pneumothorax. No pleural effusion. Heart: Unremarkable. No cardiomegaly. No pericardial effusion. Aorta: Unremarkable. No aortic aneurysm. Other arteries: Direct origin of the left vertebral artery from the aortic arch which is a normal variant seen in 1% of the population. Lymph nodes: Unremarkable. No enlarged lymph nodes. Bones/joints: Unremarkable. No acute fracture. Soft tissues: Scarring in the left breast consistent with history of mastectomy with reconstruction. IMPRESSION: No acute findings. PROCEDURE INFORMATION: Exam: CT Abdomen And Pelvis With Contrast Exam date and time: 07/31/2020 11:26 PM Age: 19 years old Clinical indication: Prior surgery; Surgery date: 6+ months; Surgery type: Mast w recon; Patient HX: HX of osteosarcoma w fever and bloody diarrhea; Additional info: Neutropenic fever, bloody diarrhea TECHNIQUE: Imaging protocol: Computed tomography of the abdomen and pelvis with contrast. Radiation optimization: All CT scans at this facility use at least one of these dose optimization techniques: automated exposure control; mA and/or kV adjustment per patient size (includes targeted exams where dose is matched to clinical indication); or iterative reconstruction. Contrast material: OMNI 300; Contrast volume: 75 ml; Contrast route: INTRAVENOUS (IV); COMPARISON: CT abdomen pelvis w con* [id number] 04/15/2020 6:24 PM RADIATION DOSE METRICS: Total DLP (mGy-cm): 1135.82 FINDINGS: Liver: Normal. No mass. Gallbladder and bile ducts: Normal. No calcified stones. No ductal dilation. Pancreas: Normal. No ductal dilation. Spleen: Normal. No splenomegaly. 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 Kidneys and ureters: Normal. No hydronephrosis. Stomach and bowel: Mildly prominent dilated loops of small bowel in the left abdomen up to 2.6 cm in diameter suggesting possible enteritis. Mild distal sigmoid colitis and proximal proctitis with bowel wall thickening most consistent with infectious process. Appendix: Normal appendix. Intraperitoneal space: Unremarkable. No free air. No significant fluid collection. Vasculature: Unremarkable. No abdominal aortic aneurysm. Lymph nodes: Unremarkable. No enlarged lymph nodes. Urinary bladder: Unremarkable as visualized. Reproductive: Unremarkable as visualized. Bones/joints: Unremarkable. No acute fracture. Soft tissues: Unremarkable. CT/CT chest abd pel w con* IMPRESSION: 1. Mildly prominent dilated loops of small bowel in the left abdomen up to 2.6 cm in diameter suggesting possible enteritis. 2. Mild distal sigmoid colitis and proximal proctitis with bowel wall thickening most consistent with infectious process. Radiation Dose CTDIVOL = (mGy): DLP = 1135.82~1135.82 (mGy-cm)
[2020-07-31 23:36] LABS: SARS Covid-2 Antigen Negative (Negative)
[2020-08-01] VITALS (7 sets, daily range): BP systolic 93–98; BP diastolic 59–65; PULSE 60–128; RESP 16–19; TEMP 36.8–37.9; O2SAT 93–99
[2020-08-01] MEDS: iohexol 300 mg/mL 100 mL Btl IV ×2 (00:03→00:05)
--- NOTE | 2020-08-01 00:32 | ED_ITS ---
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 She is currently receiving chemotherapy and her last chemotherapy session was 1 week ago. Earlier today she developed a fever of about 100.5 and had nausea and diarrhea. She denies any sick contacts. She has generalized body aches and has fatigue. She is here to be evaluated for these. MD elicited complaint: fever, malaise and weakness Pertinent past history: immunosuppression Onset (ago): hour(s) Context: on chemotherapy Exacerbating factors: nothing Relieving factors: nothing Associated symptoms: Reports chills, cough, diarrhea, myalgias and nausea; Deny abdominal pain, flank pain, chest pain, confusion, dysuria, extremity pain, headache(s), nasal congestion, night sweats, rash, rhinorrhea, short of breath, sinus pain, stiffness, sore throat, vaginal discharge, vomiting or weight loss Treatments prior to arrival fever: none Review of Systems General: Reports: 10 or more systems reviewed and unremarkable except in HPI and below Const: Reports: chills; Denies: night sweats ENMT: Denies: nasal congestion or sinus pain Card: Denies: chest pain GI: Reports: nausea and diarrhea; Denies: abdominal pain or vomiting : Denies: flank pain, dysuria or vaginal discharge Musc: Denies: extremity pain Neuro: Denies: headache(s) or confusion PFS ED PFSH: Medical History Anemia Asthma Asthma Colon polyps Depression Hemoptysis History of hemoptysis Lesion of lung Mass of hard palate Normal colonoscopy Osteosarcoma Pilonidal cyst Port-A-Cath in place Pulmonary nodule Subchorionic hematoma in first trimester Surgical History H/O left mastectomy H/O plastic surgery She underwent oral and left anterior maxilla reresection with right fasciocutaneous forearm flap and with split-thickness skin graft right thigh to right forearm on 03/09/2020 History of breast biopsy History of excision of pilonidal cyst History of placement of ear tubes History of recent maxillofacial surgery Myringotomy tube status left Family History Mother Lupus Arnold-Chiari deformity Father Cancer Cancer Social History Smoking and tobacco status: never smoked Second hand smoke exposure: No Smoking risk assessment/counseling performed?: No Alcohol intake: never Desire information about alcohol rehabilitation?: No Counseling given: No Desire information about substance/drug rehabilitation?: No Counseling given: No Lives independently: Yes Household members: family and children Marital status: Legally service: No Current occupational status: unemployed History of recent travel: No Current gender identity: Female Physical Exam Const: COMMON NORMALS: no acute distress, average body habitus, patient oriented x3, no limitations, healthy appearing, alert and well nourished HENMT: COMMON NORMALS: normocephalic, atraumatic and moist oral mucous membranes HEAD & SCALP: normocephalic and atraumatic Eye: COMMON NORMALS: Equal, round and reactive pupils present, EOMs intact bilaterally, conjunctivae normal and no scleral icterus CONJUNCTIVA: Yes conjunctivae normal PUPIL: Yes Equal, round and reactive pupils present Neck/C-Spine: COMMON NORMALS: full ROM, supple, no meningeal signs, no JVD and No carotid bruits Lymph: LYMPHATIC: lymphadenopathy left anterior cervical single, mobile and tender Resp: COMMON NORMALS: normal respiratory effort, No retractions, No use of accessory muscles, clear to auscultation bilaterally and percussion normal AUSCULTATION: clear to auscultation bilaterally PERCUSSION: percussion normal Cardio: COMMON NORMALS: no JVD, regular rate, regular rhythm, S1 normal heart sound present, S2 normal heart sound present, No gallops present (Cardio), No clicks present (Cardio), No murmurs present (Cardio), No rub (Cardio) and Peripheral pulses 2+ throughout RATE: regular rate RHYTHM: regular rhythm HEART SOUNDS: S1 normal heart sound present and S2 normal heart sound present PERIPHERAL PULSES: Peripheral pulses 2+ throughout GI: COMMON NORMALS: Normal to inspection, nondistended, normoactive bowel sounds present, Soft to palpation, non-tender, No hepatosplenomegaly present, no masses and no bruits PALPATION: Yes Soft to palpation and Yes No hepatos plenomegaly present Extremity: COMMON NORMALS: normal to inspection, full ROM, capillary refill normal, no calf tenderness and no pedal edema Neuro: COMMON NORMALS: patient oriented x3 SENSORIUM/ORIENTATION: Yes alert MENINGEAL SIGNS: Yes no meningeal signs Skin: COMMON NORMALS: no rashes or lesions noted, no wounds, turgor normal, no jaundice, no petechiae and no mottling GENERAL SKIN EXAM: no rashes or lesions noted and turgor normal Course ED course: 2201: Discussed the patient with Dr. Bruno, her local oncologist. He advised that since she gets most of her chemotherapy and treatment in [place] with need to call her primary oncologist there and see if they want her to be admitted. 2206: Discussed with the transfer center at [facility] and they will contact the oncologist on-call and call back 2235: Discussed the patient with Dr. Stevens, the oncology fellow on-call at [facility] in [place]. He would like to admit the patient to their facility and she can be transferred there. However there is no bed currently and they have a few patients in the emergency department waiting on bed already. He therefore advised that the patient can be admitted to this facility, commenced on broad-spectrum antibiotics like cefepime and wait for her blood cultures. If blood cultures are negative after 2 days and the patient is stable she can likely be discharged home. 2242: Discussed the patient with Dr. Bruno again and updated him on the recommendations of the oncologist. He agreed that the patient can be managed here and will like admitted to the hospitalist service. 224: Discussed the patient with Dr. Menon, hospitalist and he kindly accepted the patient to his service. Vital Signs: Vital signs: Vital Signs Temperature 98.5 F 07/31/20 22:21 Pulse Rate 119 H 07/31/20 22:21 Respiratory Rate 20 H 07/31/20 22:21 Blood Pressure 111/69 07/31/20 22:21 Pulse Oximetry 100 07/31/20 22:21 MDM - Fever MDM Narrative: Medical decision making narrative: This pleasant 19-year-old female patient with osteosarcoma of her left maxilla who presents to the emergency department with a fever. In the emergency department she was noted to be severely neutropenic and so because of concerns of a neutropenic fever she is being admitted to the hospital for further evaluation and management. She will be started on broad-spectrum antibiotics and blood cultures will be followed. If her blood cultures did not grow anything she will be discharged home. She was initially to be transferred to [facility] in [place] but did not have any beds and the oncologist on-call figured the patient was satisfactory to be managed in this facility. She is therefore admitted for further evaluation and management. Medical Records: Attestation: I reviewed the patient's medical records. Lab Data: Attestation: I reviewed the patient's lab results. Labs: Lab Results 07/31/20 07/31/20 07/31/20 Range/Units 21:03 21:03 21:03 WBC 1.6 L (4.0-10.0) 10^3/ uL RBC 3.21 L (4.1-5.3) 10^6/u L Hgb 10.0 L (11.5-15.3) g/dL Hct 30.4 L (37.0-47.0) % MCV 94.7 (81-99) fL MCH 31.2 (28.0-34.0) pg MCHC 32.9 (30.0-36.0) g/dL RDW 15.1 (12.1-15.1) % Plt Count 42 L (130-400) 10^3/c mm MPV 12.1 H (7.4-10.4) fL Neut % (Auto) 12.2 % Lymph % (Auto) 73.2 % [place] % (Auto) 12.7 % Eos % (Auto) 0.6 % Baso % (Auto) 1.3 % Neut # (Auto) 0.19 L* (1.8-7.7) 10^3/u L Lymph # (Auto) 1.2 (0.8-4.8) 10^3/u L [place] # (Auto) 0.2 (0.2-0.9) 10^3/u L Eos # (Auto) 0.0 (0.0-0.8) 10^3/u L Baso # (Auto) 0.0 (0.0-0.1) 10^3/u L Nucleated RBC % (a uto) 0 % Nucleated RBCs # 0.0 /100WBC Sodium 132 L (136-145) mmol/L Potassium 3.9 (3.5-5.1) mmol/L Chloride 98 (98-107) mmol/L Carbon Dioxide 24 (22-29) mmol/L Anion Gap 13.9 (5-19) BUN 13 (6-20) mg/dL Creatinine 0.4 L (0.5-0.9) mg/dL GFR Calculation 201.5 H (90-130) mL/min Glucose 95 (65-115) mg/dL Calculated Osmolal ity 274 L (285-295) mOsm/k g Lactate 1.1 (0.5-2.2) mmol/L Calcium 8.7 (8.5-10.5) mg/dL Total Bilirubin 0.7 (0.15-1.2) mg/dL AST 8 (0-32) U/L ALT 9 (0-33) U/L Alkaline Phosphata se 67 (35-105) IU/L C-Reactive Protein 25.0 H (0.0-4.9) mg/L Total Protein 6.4 L (6.6-8.7) g/dL Albumin 3.8 (3.5-5.2) g/dL Globulin 2.6 (1.3-4.6) g/dL Procalcitonin 0.08 (0-0.5) ng/mL HCG, Qual (Negative) Urine Color (Yellow) Urine Appearance (CLEAR) Urine pH (5-7) Ur Specific Gravit y (1.005-1.030) Urine Protein (Negative) Urine Glucose (UA) (Normal) Urine Ketones (Negative) Urine Blood (Negative) Urine Nitrate (Negative) Urine Bilirubin (Negative) Urine Urobilinogen (Negative) mg/dL Ur Leukocyte Janki ase (Negative) Urine RBC (0-2) /hpf Urine WBC (0-5) /hpf Ur Squamous Epith Cells (0-5) /hpf Amorphous Sediment Urine Bacteria (NONE) /hpf Urine Mucus /hpf SARS-CoV-2 Ag (Rap id) (Negative) 07/31/20 07/31/20 07/31/20 Range/Units 21:14 21:14 22:17 WBC (4.0-10.0) 10^3/ uL RBC (4.1-5.3) 10^6/u L Hgb (11.5-15.3) g/dL Hct (37.0-47.0) % MCV (81-99) fL MCH (28.0-34.0) pg MCHC (30.0-36.0) g/dL RDW (12.1-15.1) % Plt Count (130-400) 10^3/c mm MPV (7.4-10.4) fL Neut % (Auto) % Lymph % (Auto) % [place] % (Auto) % Eos % (Auto) % Baso % (Auto) % Neut # (Auto) (1.8-7.7) 10^3/u L Lymph # (Auto) (0.8-4.8) 10^3/u L [place] # (Auto) (0.2-0.9) 10^3/u L Eos # (Auto) (0.0-0.8) 10^3/u L Baso # (Auto) (0.0-0.1) 10^3/u L Nucleated RBC % (a uto) % Nucleated RBCs # /100WBC Sodium (136-145) mmol/L Potassium (3.5-5.1) mmol/L Chloride (98-107) mmol/L Carbon Dioxide (22-29) mmol/L Anion Gap (5-19) BUN (6-20) mg/dL Creatinine (0.5-0.9) mg/dL GFR Calculation (90-130) mL/min Glucose (65-115) mg/dL Calculated Osmolal ity (285-295) mOsm/k g Lactate (0.5-2.2) mmol/L Calcium (8.5-10.5) mg/dL Total Bilirubin (0.15-1.2) mg/dL AST (0-32) U/L ALT (0-33) U/L Alkaline Phosphata se (35-105) IU/L C-Reactive Protein (0.0-4.9) mg/L Total Protein (6.6-8.7) g/dL Albumin (3.5-5.2) g/dL Globulin (1.3-4.6) g/dL Procalcitonin (0-0.5) ng/mL HCG, Qual Negative (Negative) Urine Color Yellow (Yellow) Urine Appearance Sl hazy (CLEAR) Urine pH 5 (5-7) Ur Specific Gravit y 1.020 (1.005-1.030) Urine Protein 1+ H (Negative) Urine Glucose (UA) Norm (Normal) Urine Ketones 1+ H (Negative) Urine Blood 2+ H (Negative) Urine Nitrate Negative (Negative) Urine Bilirubin 1+ H (Negative) Urine Urobilinogen Norm (Negative) mg/dL Ur Leukocyte Janki ase Negative (Negative) Urine RBC 5-10 H (0-2) /hpf Urine WBC 0-4 H (0-5) /hpf Ur Squamous Epith Cells 10-15 H (0-5) /hpf Amorphous Sediment Not Reportable Urine Bacteria 2+ H (NONE) /hpf Urine Mucus 2+ /hpf SARS-CoV-2 Ag (Rap id) Negative (Negative) Imaging Data^: CXR: Attestation: I personally reviewed and interpreted this imaging study as follows: Radiologist's impression: [address] [address]TUkg ReportSigned Patient: Justin Hylton #: [id number]: 2000Acct#:[id number]/Sex: 19 / FADM Date: 07/31/20Loc: ERRoom/Bed:Attending Dr: Ordering Provider/Ordering MD: Renetta Huber MD, [facility] [place] Date of Service: 07/31/20 Procedure(s): XR chest 1V portable [id number] Accession Number(s): [id number] Report Number: [id number] PROCEDURE INFORMATION: Exam: XR Chest Exam date and time: 07/31/2020 8:36 PM Age: 19 years old Clinical indication: Dyspnea and fever; Prior surgery; Surgery date: 1-6 months; Surgery type: Port; Additional info: Fever, SOB TECHNIQUE: Imaging protocol: XR of the chest. Views: 1 view. COMPARISON: CR XR chest 1V portable [id number] 04/15/2020 1:59 PM FINDINGS: Tubes, catheters and devices: Infusaport catheter tip terminates at the cavoatrial junction. Lungs: Unremarkable. No consolidation. Pleural spaces: Unremarkable. No pleural effusion. No pneumothorax. Heart/Mediastinum: Unremarkable. No cardiomegaly. Bones/joints: Unremarkable. XR/XR chest 1V portable [id number] IMPRESSION: No evidence for acute cardiopulmonary disease. Dictated By:Geno Bernstein MDSigned By:Geno Bernstein MDSigned Date/Time:07/31/202124DD/ 22 Discharge Plan Discharge Patient Disposition: Admitted As Inpatient Admit Provider: Jered Menon Clinical Impression: Neutropenic fever, Pancytopenia, Sepsis Condition: Stable Coding Level of Care Code ED Senior Product Engineer for Destin Castanon
--- NOTE | 2020-08-01 00:38 | PC.PHAR ---
Vancomycin is dosed as 1250mg IVPB every 12 hours to produce a predicted trough level of 11.29. A trough level has been ordered from the lab to be obtained before the fourth dose to confirm and adjust if needed.
[2020-08-01] MEDS: cefepime 2,000 MG in sodium chloride 0.9% (plus) 50 ML 100 MG IV (00:42)
[2020-08-01] MEDS: vancomycin 1,250 MG/250 ML PIGGYBACK 250 MG IV (01:33)
[2020-08-01] MEDS: piperacillin-tazobactam 3.375 GM in sodium chloride 0.9% (plus) 50 ML IV ×3 (02:31→19:20)
[2020-08-01 06:05] LABS: Basophils % 0.9 %; Eosinophils % 0.9 %; Hematocrit 25.7 % (37.0-47.0); Hemoglobin 8.5 g/dL (11.5-15.3); Lymphocytes # 0.8 10^3/uL (0.8-4.8); Mean Corpuscular HGB Conc 33.1 g/dL (30.0-36.0); Mean Corpuscular Hemoglobin 31.6 pg (28.0-34.0); Mean Corpuscular Volume 95.5 fL (81-99); Mean Platelet Volume 12.2 fL (7.4-10.4); Monocytes # 0.1 10^3/uL (0.2-0.9); Monocytes % 11.2 %; Neutrophils % 17.1 %; Nucleated Red Blood Cells % 0 %; Platelet Count 31 10^3/cmm (130-400); Red Blood Count 2.69 10^6/uL (4.1-5.3); White Blood Count 1.2 10^3/uL (4.0-10.0)
[2020-08-01 06:50] LABS: Alanine Aminotransferase 8 U/L (0-33); Albumin Level 3.4 g/dL (3.5-5.2); Alkaline Phosphatase 59 IU/L (35-105); Aspartate Amino Transferase 9 U/L (0-32); Blood Urea Nitrogen 11 mg/dL (6-20); Calcium 8.2 mg/dL (8.5-10.5); Carbon Dioxide 19 mmol/L (22-29); Chloride 104 mmol/L (98-107); Globulin 2.3 g/dL (1.3-4.6); Glomerular Filtration Rate 201.5 mL/min (90-130); Glucose 106 mg/dL (65-115); Osmolality Calculated 280 mOsm/kg (285-295); Sodium 135 mmol/L (136-145); Total Bilirubin 0.6 mg/dL (0.15-1.2); Total Protein 5.7 g/dL (6.6-8.7)
[2020-08-01 06:55] LABS: Anion Gap 15.7 (5-19); Potassium 3.7 mmol/L (3.5-5.1)
[2020-08-01 07:25] LABS: Slide Review Slide Review Perform
--- NOTE | 2020-08-01 14:09 | PC.CHAP ---
Pastoral Care Encounter/Spiritual Assessment Type of Contact [] Declined wet machine tender visit [] Patient/Family/Request visit [] Outpatient visit [] Follow-up visit [] Physician referral [] Code/Alert [XX] Routine visit [] Staff referral [] Actively dying [] Patient sleeping [] Family support [] [] Out of room [] Palliative care [] [] Receiving care in room [] Pre-surgical visit [] Trauma [] Long length of stay [] ICU visit [] Other: Relational/Emotional Strength [XX] Patient feels connected with others/family/visitors/staff [] Distress [] Loneliness/isolation [] Abandonment Spirituality of Patient [] Person of Estefany [] Attends Hinduism of their Estefany [XX] Believes in Prayer [XX] Reads Bible or Yarsanism materials [] There are Spiritual issues to be addressed Firer Portable [employer]iler Interventions [XX] Prayer [XX] Active listening [XX] Non-anxious presence [] Spiritual/emotional support [] Crisis/trauma care [] Spiritual counseling [] Bereavement support [] Provided bereavement packet [XX] Provided Bible/devotional materials [] Provided toy/stuffed animal, coloring book to patient or family member [] Provided Communion [] Anointing/[place] [] Salvation [XX] Completed spiritual assessment [] Other: Impact on Illness or Injury [] Angry [] Fearful [] Anxious [] Often cries [] Exhaustion [] Unable to work [] Unable to attend buddhism [] Unable to walk/stand [] Unable to read [] Unable to drive [] Unable to eat/drink [] Unable to sleep [XX] Unable to be with family [] Patient intubated [] Other: Summary: Pt is 19 yo with a 4yo and 6mo children; pt has osteosarcoma. Pt receives in-patient chemo in [facility] and outpt chemo here. This admission, however, is for sepsis with the bug not yet known. Pt's mother present and is primary support in terms of childcare and caring for pt. Discussion was interrupted by staff coming into room, but pt expressed interest in devotional materials and asked for prayer. Time spent with patient: 10 mins
[2020-08-01] MEDS: vancomycin 1,250 MG/250 ML PIGGYBACK 200 MG IV (14:45)
[2020-08-01 17:02] LABS: C Reactive Protein 33.9 mg/L (0.0-4.9)
[2020-08-01 17:08] LABS: Procalcitonin 0.07 ng/mL (0-0.5)
--- NOTE | 2020-08-01 18:45 | PM.PN ---
Subjective Subjective: Interval history: Patient was seen and examined this morning.Overall she is a sick young patient.T max: 100.2. She has denied any cough, SOB,Chest pain,headache,abdominal pain,urinary complain. Medications: Reviewed: Yes Vitals/I&O/Wt Last Vital Signs Temp 100.2 F H 08/01/20 18:39 Pulse 124 H 08/01/20 09:11 Resp 19 H 08/01/20 09:11 BP 93/60 08/01/20 08:00 Pulse Ox 99 08/01/20 09:11 08/01/20 08/01/20 08/01/20 06:59 14:59 22:59 Intake Total 1450 / 1450 480 / 480 250 / 730 Output Total 300 / 300 Balance 1450 / 1450 180 / 180 250 / 430 Weight last 48 hrs Weight 58.967 kg Physical Exam Const: COMMON NORMALS: patient oriented x3 HENMT: COMMON NORMALS: normocephalic and atraumatic HEAD & SCALP: normocephalic and atraumatic Resp: COMMON NORMALS: clear to auscultation bilaterally AUSCULTATION: clear to auscultation bilaterally Cardio: COMMON NORMALS: regular rate, regular rhythm, S1 normal heart sound present, S2 normal heart sound present and Peripheral pulses 2+ throughout RATE: regular rate RHYTHM: regular rhythm HEART SOUNDS: S1 normal heart sound present and S2 normal heart sound present PERIPHERAL PULSES: Peripheral pulses 2+ throughout GI: COMMON NORMALS: Normal to inspection, nondistended, normoactive bowel sounds present, Soft to palpation, non-tender, No hepatosplenomegaly present and no masses AUSCULTATION: Yes normoactive bowel sounds PALPATION: Yes Soft to palpation and Yes No hepatosplenomegaly present RECTAL EXAM: deferred Extremity: COMMON NORMALS: no clubbing, cyanosis or edema and no pedal edema Neuro: COMMON NORMALS: patient oriented x3 Data : 08/01/20 05:19 08/01/20 05:19 Micro: Microbiology 07/31/20 21:21 Blood Culture - Preliminary Blood SPECIMEN COLLECTED 07/31/20 21:03 Blood Culture - Preliminary Blood SPECIMEN COLLECTED A&P Assessment and plan (1) Sepsis: Sespis:2/2 to Proctitis/Enteritis Blood Culture: Urine Culture: Sputum Culture : Stool Studies : C. difficile, stool ova cyst and parasite, stool enteric bacterial panel. CMV Panel Lactic Acid :1.1 Procalcitonin : 0.07 C.T Neck without Contrast : Mild distal sigmoid colitis and proximal proctitis with bowel wall thickening most consistent with infectious process. CT neck w con: Soft tissue attenuation mass seen in the pterygopalatine region on the left similar to that seen on 03/03/2020. There appears to be further osseous destruction of the posterior sibley of the left maxillary sinus, the anterior maxillary alveolar process, the pterygoid process and the hard palate. There is no evidence for abscess formation. Currently she is on vancomycin and Zosyn Status: Acute Qualifiers: Sepsis acute organ dysfunction status: without acute organ dysfunction Sepsis type: sepsis due to unspecified organism Qualified Code(s): A41.9 - Sepsis, unspecified organism (2) Neutropenic fever: ANC: 0.20 Monitor CBC Will consider Filgrastim Status: Acute (3) Pancytopenia: Pancytopenia likely 2/2 to post chemotherapy effect ( last chemo session a week ago ) WBC: 1.2 , Hb:8.5, P/C: 66405. Monitor CBC Follow ApTT, PT/INR,LDH, Haptoglobin,Fibrinogen Consider Filgrastim Status: Acute (4) Hematochezia: Status: Acute (5) Diarrhea: Status: Acute (6) Dehydration: Status: Acute (7) Proctitis: Status: Acute (8) Enteritis: Status: Acute Additional A&P Information Severe neutropenia with fever Pancytopenia Criteria of sepsis met with tachypnea, tachycardia and fever and neutropenia Lactic acid normal Requested blood culture, CT chest abdomen pelvis along neck soft tissue imaging Patient complaining abdominal pain with bright bleed per rectum, no active signs of peritonitis, complaining of throat pain, right anterior tender cervical lymphadenopathy Her next chemotherapy session is on August 10 [facility], patient is stating that she almost spent 2 to 3 weeks at the hospital for her chemo Considering her immunocompromised state and recurrent hospitalizations I will start her on vancomycin and cefepime, her oncologist from [facility] recommended antibiotics and keeping her hospitalized until blood cultures are resulted, kindly touch base with them in the morning if Neupogen will be required during this hospitalization Pancytopenia, complaining of bright bleed per rectum abdominal pain she will definitely need colonoscopy for histopathological diagnosis, no active signs of mesenteric ischemia For her dehydration I will keep her on D5 half-normal saline Full liquid diet DVT prophylaxis SCD Full code Attestations Medical Necessity Statement*: Patient needs to be in hospital for the management of Sepsis, febrile neutropenia. Coding Level of Care Code Acute Camera Maker for g Fwd Diagnoses Sepsis A41.9 Sepsis acute organ dysfunction status: without acute organ dysfunction Sepsis type: sepsis due to unspecified organism Neutropenic fever D70.9; R50.81 Pancytopenia D61.818 Hematochezia K92.1 Diarrhea R19.7 Dehydration E86.0 Proctitis K62.89 Enteritis K52.9
[2020-08-01] MEDS: LORazepam 2 mg/mL INJ 1 mL 0.5 MG IVP (20:59)
[2020-08-01] MEDS: sodium chloride 0.9% 1,000 ML 50 ML IV (21:40)
[2020-08-01 21:49] LABS: Basophils % 1.8 %; Eosinophils % 1.4 %; Hematocrit 23.8 % (37.0-47.0); Hemoglobin 7.9 g/dL (11.5-15.3); Lymphocytes # 1.2 10^3/uL (0.8-4.8); Lymphocytes % 54.4 %; Mean Corpuscular HGB Conc 33.2 g/dL (30.0-36.0); Mean Corpuscular Hemoglobin 30.6 pg (28.0-34.0); Mean Corpuscular Volume 92.2 fL (81-99); Monocytes # 0.3 10^3/uL (0.2-0.9); Monocytes % 14.3 %; Neutrophils % 26.7 %; Nucleated Red Blood Cells % 0 %; Red Blood Count 2.58 10^6/uL (4.1-5.3); Red Cell Distribution Width 14.6 % (12.1-15.1); White Blood Count 2.2 10^3/uL (4.0-10.0)
--- NOTE | 2020-08-01 21:58 | PC.NURSE ---
PORT ACCESS Pt had been refusing port access all day but at beginning of shift she had changed her mind. Lab had attempted to draw blood X2 and failed. Pt told me she was very anxious about access. She had Lidocaine patch on it and she was going to let us access it around 2029 or 2099 Then as time got closer she requested that she get a dose of Ativan IV. Was given and PAC has now been accessed by RN easily and pt tolerated well. IV fluids transferred to PAC and blood drawn for lab. Peripheral site Dc'd per pt request
[2020-08-01 22:36] LABS: Slide Review Slide Review Perform
[2020-08-01 22:37] LABS: Neutrophils # 0.58 10^3/uL (1.8-7.7); Platelet Count 19 10^3/cmm (130-400)
[2020-08-02] VITALS (16 sets, daily range): BP systolic 89–104; BP diastolic 49–72; PULSE 73–91; RESP 16–20; TEMP 36.4–37.3; O2SAT 97–100
[2020-08-02] MEDS: vancomycin 1,250 MG/250 ML PIGGYBACK 200 MG IV ×2 (02:38→15:30)
[2020-08-02] MEDS: piperacillin-tazobactam 3.375 GM in sodium chloride 0.9% (plus) 50 ML IV ×2 (03:57→11:19)
--- NOTE | 2020-08-02 05:31 | PC.NURSE ---
SHIFT SUMMARY Pt has rested well. No complaints of pain. A febrile R PAC was accessed and able to draw blood and use for antibiotics. Pt remains on reverse isolation for low neutrophil count. No BM tonight so unable to collect specimens
[2020-08-02 06:40] LABS: INR 1.12 (0.8-1.2)
[2020-08-02 06:41] LABS: Partial Thromboplastin Time 28.9 SECONDS (23.9-36.7)
[2020-08-02 06:45] LABS: Fibrinogen 336 mg/dL (174-498)
[2020-08-02 06:49] LABS: Lactate Dehydrogenase 107 U/L (135-214)
[2020-08-02 08:44] LABS: Basophils % 1.6 %; Eosinophils % 1.6 %; Hematocrit 22.1 % (37.0-47.0); Hemoglobin 7.4 g/dL (11.5-15.3); Lymphocytes % 51.1 %; Mean Corpuscular HGB Conc 33.5 g/dL (30.0-36.0); Mean Corpuscular Hemoglobin 31.2 pg (28.0-34.0); Mean Corpuscular Volume 93.2 fL (81-99); Monocytes # 0.3 10^3/uL (0.2-0.9); Monocytes % 14.9 %; Neutrophils % 29.7 %; Nucleated Red Blood Cells % 0 %; Red Blood Count 2.37 10^6/uL (4.1-5.3); Red Cell Distribution Width 14.4 % (12.1-15.1); White Blood Count 1.9 10^3/uL (4.0-10.0)
[2020-08-02 08:56] LABS: Anion Gap 9.4 (5-19); Blood Urea Nitrogen 7 mg/dL (6-20); Calcium 8.3 mg/dL (8.5-10.5); Carbon Dioxide 24 mmol/L (22-29); Chloride 108 mmol/L (98-107); Glomerular Filtration Rate 280.8 mL/min (90-130); Glucose 88 mg/dL (65-115); Osmolality Calculated 283 mOsm/kg (285-295); Potassium 3.4 mmol/L (3.5-5.1); Sodium 138 mmol/L (136-145)
--- NOTE | 2020-08-02 10:21 | PC.NURSE ---
AT APPROX.1020 CRITICAL LABS PLT 15 AND ABS. NEUT. 0.56, DR DURAN NOTIFIED, IS AWARE
[2020-08-02 10:26] LABS: Neutrophils # 0.56 10^3/uL (1.8-7.7); Platelet Count 15 10^3/cmm (130-400)
[2020-08-02 10:27] LABS: Slide Review Slide Review Perform
--- NOTE | 2020-08-02 12:51 | P.PN_ITS ---
Subjective Subjective: Interval history: Patient was seen this morning, her mother is at bedside, she tells me that she is doing well this morning, continues to have a poor appetite, no abdominal pain, no diarrhea, she did have a low-grade fever overnight 100.2, no nausea, no vomiting, no dysuria, no new rashes, she is tell me that she has had fevers like this in the past, sometimes has been a urinary tract infection or bowel infection, the last time this happened she was transferred to [place], she tells me that all they did for her there was continue antibiotics, but they never really found out what was going on, she is on chemotherapy, she is on cisplatin doxorubicin and methotrexate, she also received Neulasta support about 2 weeks ago, Dr. Bruno is her oncologist, Advised patient that she has worsening neutropenia, anemia, and thrombocytopenia, without a clear source of infection, have added additional testing, but she tells me she feels fine, she is not a nontoxic-appearing, actually feeling better today I discussed the case with Dr. Bruno, advised to give her irradiated red blood cells, irradiated platelets, brought in antibiotic coverage to antifungal and antivira In addition I have reached out to patient's oncologist at [facility] Dr. Bloom, I have left a message with his nurse but have not received a call back, for #[phone] Vitals/I&O/Wt Last Vital Signs Temp 98.2 F 08/02/20 07:55 Pulse 89 08/02/20 09:35 Resp 18 08/02/20 09:35 BP 90/55 08/02/20 07:55 Pulse Ox 98 08/02/20 09:35 08/01/20 08/02/20 08/02/20 22:59 06:59 14:59 Intake Total 490 / 1020 300 / 1320 50 / 50 Output Total 700 / 1000 400 / 1400 Balance -210 / 20 -100 / -80 50 / 50 Weight last 48 hrs Weight 58.967 kg Physical Exam Const: COMMON NORMALS: no acute distress and patient oriented x3 HENMT: COMMON NORMALS: normocephalic HEAD & SCALP: normocephalic Resp: COMMON NORMALS: normal respiratory effort, No retractions, No use of accessory muscles and clear to auscultation bilaterally AUSCULTATION: clear to auscultation bilaterally Cardio: COMMON NORMALS: regular rate, regular rhythm, S1 normal heart sound present and S2 normal heart sound present RATE: regular rate RHYTHM: reg ular rhythm HEART SOUNDS: S1 normal heart sound present and S2 normal heart sound present GI: COMMON NORMALS: Normal to inspection, nondistended, normoactive bowel sounds present, Soft to palpation, non-tender and No hepatosplenomegaly present PALPATION: Yes Soft to palpation and Yes No hepatosplenomegaly present Extremity: COMMON NORMALS: capillary refill normal, no clubbing, cyanosis or edema, no calf tenderness and no pedal edema Neuro: COMMON NORMALS: patient oriented x3 Psych: COMMON NORMALS: mental status grossly normal Data : 08/02/20 08:25 08/02/20 08:25 Micro: Microbiology 07/31/20 21:21 Blood Culture - Preliminary Blood NEGATIVE TO DATE 07/31/20 21:03 Blood Culture - Preliminary Blood NEGATIVE TO DATE A&P Assessment and plan (1) Sepsis: Sepsis secondary to proctitis, enteritis, severe neutropenia with fever currently nontoxic-appearing, last T-max 100.2, Tells me that she is feeling better However she continues to become more neutropenic, thrombocytopenic, anemic White blood cell count 1.9, neutrophil count 0.56 Platelet count 15,000 Hemoglobin 7.4 Blood Culture: So far unremarkable, repeat blood cultures Urine Culture pending Sputum Culture pending Respiratory viral panel pending Stool Studies : C. difficile, stool ova cyst and parasite, stool enteric bacterial panel, pending CMV Panel HIV and hepatitis C pending Rapid Covid negative Lactic Acid :1.1 Procalcitonin : 0.07, CRP 33.9 C.T Neck without Contrast : Mild distal sigmoid colitis and proximal proctitis with bowel wall thickening most consistent with infectious process. CT neck w con: Soft tissue attenuation mass seen in the pterygopalatine region on the left similar to that seen on 03/03/2020. There appears to be further osseous destruction of the posterior sibley of the left maxillary sinus, the anterior maxillary alveolar process, the pterygoid process and the hard palate. There is no evidence for abscess formation. -I have reached out to Dr. Bruno, who advised of transfusing irradiate platelets, irradiated red blood cells, broaden antibiotic therapy to antifungals and antivirals Plan: -Continue broad-spectrum antibiotics vancomycin, Zosyn -Add acyclovir 400q8h -flucanazole [id number] -continue gentle hydration -follow blood cultures, urine cultures, sputum culture, viral panel, stool studies -We will give 1 unit of irritable blood cells, 1 unit of irradiated platelets -Monitor platelet count, hemoglobin closely, monitor for fevers -I have reached out to patient's oncologist at Dr. Wolf Boucher, awaiting a callback -full code -dvt scd Status: Acute Qualifiers: Sepsis acute organ dysfunction status: without acute organ dysfunction Sepsis type: sepsis due to unspecified organism Qualified Code(s): A41.9 - Sepsis, unspecified organism (2) Neutropenic fever: ANC: 0.20 Monitor CBC Will consider Filgrastim Status: Acute (3) Pancytopenia: Pancytopenia likely 2/2 to post chemotherapy effect ( last chemo session a week ago ) WBC: 1.2 , Hb:8.5, P/C: 20740. Monitor CBC Follow ApTT, PT/INR,LDH, Haptoglobin,Fibrinogen Consider Filgrastim Status: Acute (4) Hematochezia: Status: Acute (5) Diarrhea: Status: Acute (6) Dehydration: Status: Acute (7) Proctitis: Status: Acute (8) Enteritis: Status: Acute Additional A&P Information DVT prophylaxis SCD Full code Attestations Medical Necessity Statement*: Patient requires hospitalization for sepsis secondary to proctitis, enteritis, severe neutropenia with fevers Coding Level of Care Code Acute Credit Support Specialist for [facility] Fwd Diagnoses Sepsis A41.9 Sepsis acute organ dysfunction status: without acute organ dysfunction Sepsis type: sepsis due to unspecified organism Neutropenic fever D70.9; R50.81 Pancytopenia D61.818 Hematochezia K92.1 Diarrhea R19.7 Dehydration E86.0 Proctitis K62.89 Enteritis K52.9
[2020-08-02 14:39] LABS: Vancomycin Trough 7.1 ug/mL (10-15)
[2020-08-02 15:21] LABS: Hepatitis A Antibody IgM Non-Reactive (Nonreactive); Hepatitis B Core IgM Non-Reactive (Nonreactive); Hepatitis B Surface Antigen Non-Reactive (Nonreactive); Hepatitis C Virus Antibody Non-Reactive (Nonreactive)
[2020-08-02] MEDS: sodium chloride 0.9% (100 ml) 100 ML 10 ML (17:34)
[2020-08-02 18:41] LABS: HIV 1 & 2 Antibody Non-Reactive (Non-Reactiv); HIV 1 & 2 Antigen Non-Reactive (Non-Reactiv)
[2020-08-02] MEDS: sodium chloride 0.9% 1,000 ML 50 ML IV (21:10)
[2020-08-02] MEDS: fluconazole premix 200 MG/100 ML PREMIX 100 MG IV (23:19)
[2020-08-02] MEDS: sodium chloride 0.9% (100 ml) 100 ML (23:20)
[2020-08-03] VITALS (8 sets, daily range): BP systolic 95–119; BP diastolic 57–76; PULSE 59–76; RESP 12–18; TEMP 36.4–36.8; O2SAT 98–100
[2020-08-03] MEDS: sodium chloride 0.9% (100 ml) 100 ML (01:19)
[2020-08-03] MEDS: vancomycin 1,000 MG in sodium chloride 0.9% 250 ML 250 MG IV ×3 (01:22→17:50)
[2020-08-03] MEDS: piperacillin-tazobactam 3.375 GM in sodium chloride 0.9% (plus) 50 ML IV ×3 (02:32→17:50)
[2020-08-03 05:36] LABS: Hematocrit 24.2 % (37.0-47.0); Hemoglobin 8.2 g/dL (11.5-15.3); Mean Corpuscular HGB Conc 33.9 g/dL (30.0-36.0); Mean Corpuscular Hemoglobin 29.8 pg (28.0-34.0); Mean Platelet Volume 10.3 fL (7.4-10.4); Platelet Count 64 10^3/cmm (130-400); Red Blood Count 2.75 10^6/uL (4.1-5.3); Red Cell Distribution Width 17.2 % (12.1-15.1); White Blood Count 4.7 10^3/uL (4.0-10.0)
[2020-08-03 05:55] LABS: Absolute Neutrophil 1.6 10^3/cmm (1.4-6.5); Absolute Segmented Neutrophil 0.9 10/cmm (1.6-7.1); Alanine Aminotransferase 7 U/L (0-33); Alkaline Phosphatase 54 IU/L (35-105); Aspartate Amino Transferase 9 U/L (0-32); Band Neutrophils Absolute 0.7 10^3/cmm (0.0-1.2); Blood Urea Nitrogen 5 mg/dL (6-20); C Reactive Protein 15.1 mg/L (0.0-4.9); Calcium 8.1 mg/dL (8.5-10.5); Carbon Dioxide 23 mmol/L (22-29); Chloride 111 mmol/L (98-107); Creatine Phosphokinase 22 U/L (26-192); Eosinophils 2 %; Glomerular Filtration Rate 280.8 mL/min (90-130); Glucose 88 mg/dL (65-115); Lymphocytes 55 %; Lymphocytes Absolute 2.7 10^3/cmm (1.2-3.4); Magnesium 1.6 mg/dL (1.7-2.3); Monocytes Absolute 0.3 10^3/cmm (0.1-0.6); Osmolality Calculated 293 mOsm/kg (285-295); Phosphorus 3.8 mg/dL (2.5-4.5); Platelet Estimate Decreased (Normal); Segmented Neutrophils 19 %; Sodium 143 mmol/L (136-145); Total Bilirubin 0.3 mg/dL (0.15-1.2); Total Cells Counted 100 (0-100)
[2020-08-03 05:59] LABS: Lactate (Lactic Acid level) 0.9 mmol/L (0.5-2.2)
[2020-08-03] MEDS: lidocaine 1% 5 ML in potassium chloride premix 100 ML 25 ML IV (11:34)
[2020-08-03 13:28] LABS: Cytomegalovirus Antibody (IGG) <0.60 U/mL; Cytomegalovirus Antibody (IGM) <30.00 AU/mL
--- NOTE | 2020-08-03 15:28 | P.PN_ITS ---
Subjective Subjective: Interval history: This morning patient was examined, she tells me that she is feeling better, no nausea, no vomiting, no fevers, no diarrhea, no cough, no dysuria, she does tell me that at times she has difficulty swallowing, but she has had this in the past Vitals/I&O/Wt Last Vital Signs Temp 98.0 F 08/03/20 11:45 Pulse 76 08/03/20 11:45 Resp 13 08/03/20 11:45 BP 109/74 08/03/20 11:45 Pulse Ox 99 08/03/20 11:45 08/03/20 08/03/20 08/03/20 06:59 14:59 22:59 Intake Total 1178 / 4446 598 / 598 Output Total 100 / 400 Balance 1078 / 4046 598 / 598 Physical Exam Const: COMMON NORMALS: no acute distress and patient oriented x3 Resp: COMMON NORMALS: normal respiratory effort, No retractions, No use of accessory muscles and clear to auscultation bilaterally AUSCULTATION: clear to auscultation bilaterally Cardio: COMMON NORMALS: regular rate, regular rhythm, S1 normal heart sound present and S2 normal heart sound present RATE: regular rate RHYTHM: regular rhythm HEART SOUNDS: S1 normal heart sound present and S2 normal heart sound present GI: COMMON NORMALS: Normal to inspection, nondistended, normoactive bowel sounds present, Soft to palpation and non-tender PALPATION: Yes Soft to palp ation Extremity: COMMON NORMALS: no pedal edema Neuro: COMMON NORMALS: patient oriented x3 Psych: COMMON NORMALS: mental status grossly normal Data : 08/03/20 05:29 08/03/20 05:29 Micro: Microbiology 08/02/20 13:20 Blood Culture - Preliminary Blood NEGATIVE TO DATE 08/02/20 13:25 Blood Culture - Preliminary Blood SPECIMEN COLLECTED A&P Assessment and plan (1) Sepsis: Sepsis secondary to proctitis, enteritis, severe neutropenia with fever currently nontoxic-appearing, afebrile for the last 48 hours tells me that she is feeling better Neutropenia, thrombocytopenia, anemia improving White blood cell count 4.7, absolute segmented neutrophils 0.9 Platelet count 64,000, status post 1 unit irradiated platelets Hemoglobin 8.2, status post 1 unit irradiated PRBC Blood Culture: So far unremarkable, repeat blood cultures Urine Culture pending Sputum Culture pending Respiratory viral panel pending Stool Studies : C. difficile, stool ova cyst and parasite, stool enteric bacterial panel, pending CMV Panel HIV and hepatitis C pending Rapid Covid negative Lactic Acid :1.1 Procalcitonin : 0.2, CRP 15.1 C.T Neck without Contrast : Mild distal sigmoid colitis and proximal proctitis with bowel wall thickening most consistent with infectious process. CT neck w con: Soft tissue attenuation mass seen in the pterygopalatine region on the left similar to that seen on 03/03/2020. There appears to be further osseous destruction of the posterior sibley of the left maxillary sinus, the anterior maxillary alveolar process, the pterygoid process and the hard palate. There is no evidence for abscess formation. Plan: -Continue broad-spectrum antibiotics vancomycin, Zosyn -Continue acyclovir 400q8h -Continue flucanazole [id number] -continue gentle hydration -follow blood cultures, urine cultures, sputum culture, viral panel, stool studies -Monitor for fevers -Monitor platelet count, hemoglobin closely, monitor for fevers -I spoke to Dr. Wolf pollard Gloster, he recommended continuing our interventions, continue broad-spectrum antibiotics, transfuse as needed -full code -dvt scd Plan for today continue broad-spectrum antibiotic therapy, acyclovir, fluconazole monitor fevers, hopefully can be discharged in the next 24 hours Status: Acute Qualifiers: Sepsis acute organ dysfunction status: without acute organ dysfunction Sepsis type: sepsis due to unspecified organism Qualified Code(s): A41.9 - Sepsis, unspecified organism (2) Neutropenic fever: ANC: 0.20 Monitor CBC Will consider Filgrastim Status: Acute (3) Pancytopenia: Pancytopenia likely 2/2 to post chemotherapy effect ( last chemo session a week ago ) WBC: 1.2 , Hb:8.5, P/C: 19282. Monitor CBC Follow ApTT, PT/INR,LDH, Haptoglobin,Fibrinogen Consider Filgrastim Status: Acute (4) Hematochezia: Status: Acute (5) Diarrhea: Status: Acute (6) Dehydration: Status: Acute (7) Proctitis: Status: Acute (8) Enteritis: Status: Acute Additional A&P Information DVT prophylaxis SCD Full code Attestations Medical Necessity Statement*: Patient requires hospitalization for sepsis secondary to proctitis, colitis, febrile neutropenia Coding Level of Care Code Acute Nutritional Services Director for g Fwd Diagnoses Sepsis A41.9 Sepsis acute organ dysfunction status: without acute organ dysfunction Sepsis type: sepsis due to unspecified organism Neutropenic fever D70.9; R50.81 Pancytopenia D61.818 Hematochezia K92.1 Diarrhea R19.7 Dehydration E86.0 Proctitis K62.89 Enteritis K52.9
[2020-08-03] MEDS: fluconazole premix 200 MG/100 ML PREMIX 100 MG IV (21:01)
[2020-08-04 01:05] LABS: Hematocrit 25.8 % (37.0-47.0); Hemoglobin 8.7 g/dL (11.5-15.3); Mean Corpuscular HGB Conc 33.7 g/dL (30.0-36.0); Mean Corpuscular Hemoglobin 30.1 pg (28.0-34.0); Mean Corpuscular Volume 89.3 fL (81-99); Mean Platelet Volume 10.6 fL (7.4-10.4); Platelet Count 67 10^3/cmm (130-400); Red Blood Count 2.89 10^6/uL (4.1-5.3); Red Cell Distribution Width 17.2 % (12.1-15.1); White Blood Count 6.4 10^3/uL (4.0-10.0)
[2020-08-04 01:22] LABS: Creatine Phosphokinase 27 U/L (26-192); Lactate (Lactic Acid level) 0.6 mmol/L (0.5-2.2)
[2020-08-04 01:23] LABS: Alanine Aminotransferase < 5 U/L (0-33); Alkaline Phosphatase 59 IU/L (35-105); Anion Gap 10.9 (5-19); Aspartate Amino Transferase 7 U/L (0-32); Blood Urea Nitrogen 3 mg/dL (6-20); C Reactive Protein 10.2 mg/L (0.0-4.9); Calcium 7.6 mg/dL (8.5-10.5); Carbon Dioxide 23 mmol/L (22-29); Chloride 108 mmol/L (98-107); Globulin 1.9 g/dL (1.3-4.6); Glomerular Filtration Rate 280.8 mL/min (90-130); Glucose 95 mg/dL (65-115); Magnesium 1.3 mg/dL (1.7-2.3); Osmolality Calculated 284 mOsm/kg (285-295); Phosphorus 3.4 mg/dL (2.5-4.5); Sodium 139 mmol/L (136-145); Total Bilirubin 0.2 mg/dL (0.15-1.2); Total Protein 4.9 g/dL (6.6-8.7)
[2020-08-04 01:29] LABS: Procalcitonin 0.03 ng/mL (0-0.5)
[2020-08-04 01:33] LABS: Vancomycin Trough 16.5 ug/mL (10-15)
[2020-08-04 01:41] LABS: Potassium 2.9 mmol/L (3.5-5.1)
[2020-08-04 02:02] LABS: Absolute Neutrophil 3.2 10^3/cmm (1.4-6.5); Absolute Segmented Neutrophil 2.4 10/cmm (1.6-7.1); Band Neutrophils Absolute 0.8 10^3/cmm (0.0-1.2); Basophils Absolute 0.1 10^3/cmm (0.0-0.2); Eosinophils 0 %; Lymphocytes 39 %; Lymphocytes Absolute 2.7 10^3/cmm (1.2-3.4); Monocytes Absolute 0.4 10^3/cmm (0.1-0.6); Platelet Estimate Decreased (Normal); Segmented Neutrophils 37 %; Total Cells Counted 100 (0-100)
[2020-08-04] MEDS: diphenhydrAMINE 50 mg/mL SDV 1mL 25 MG IVP (02:05)
[2020-08-04] MEDS: vancomycin 1,000 MG in sodium chloride 0.9% 250 ML 166 MG IV (02:13)
[2020-08-04] MEDS: piperacillin-tazobactam 3.375 GM in sodium chloride 0.9% (plus) 50 ML IV (03:55)
[2020-08-04 03:56] VITALS: BP 114/78; PULSE 63; RESP 18; TEMP 36.7; O2SAT 100
[2020-08-04 08:00] VITALS: BP 107/70; PULSE 66; RESP 19; TEMP 36.6; O2SAT 100
--- NOTE | 2020-08-04 09:28 | PC.RESP ---
This respiratory therapist has not entered room at this time. Nursing staff has reported they will call RT for needs.
[2020-08-04] MEDS: sodium chloride 0.9% 1,000 ML 50 ML IV (10:15)
--- NOTE | 2020-08-04 11:50 | P.DS_ITS ---
Discharge Providers Date of Admission: 07/31/20 23:07 Date of Discharge: August 04, 2020 Attending Provider at Admission: Jered Menon MD Attending Provider at Discharge: Blas Lin MD Primary Care Provider: Ajit Ponce DO Diagnoses at Discharge Discharge Diagnosis (1) Sepsis: Status: Acute Qualifiers: Sepsis acute organ dysfunction status: without acute organ dysfunction Sepsis type: sepsis due to unspecified organism Qualified Code(s): A41.9 - Se psis, unspecified organism (2) Neutropenic fever: Status: Acute (3) Pancytopenia: Status: Acute (4) Hematochezia: Status: Acute (5) Diarrhea: Status: Acute (6) Dehydration: Status: Acute (7) Proctitis: Status: Acute (8) Enteritis: Status: Acute Reason for Visit Reason for Visit: fever Hospital Course Hospital Course This is a 19-year-old female this is a 19-year-old female with a 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 Bruno in May, who presents to [facility] due to complaints of diarrhea, abdominal pain and fever Patient was admitted to [facility] for sepsis, fevers, febrile neutropenia, pancytopenia secondary to proctitis and enteritis. Patient was managed with broad-spectrum antibiotic therapy, IV fluids, and clinically monitored. Patient continued to have intermittent fevers, her symptomatology improved, thus her coverage was broadened to include acyclovir as she was complaining of dysphagia for possible esophagitis and antifungals flucanazole. Patient's blood cultures so far have been unremarkable, urine cultures unremarkable, sputum cultures unremarkable, CMV panel pending, rapid Covid negative, HIV and hepatitis C negative, CT scan of the abdomen pelvis showed mild distal sigmoid colitis and proximal proctitis with bowel wall thickening most consistent with infectious process. Patient clinically improved, remained afebrile 72 hours before discharge. I spoke to her oncologist at [place], as she had clinically improved, recommended continuing interventions, continue antibiotics, follow with [facility] as outpatient. I have discharged her on 11 remaining days of Augmentin, 12 remaining days of fluconazole, 12 remaining days of acyclovir, she tells me that she will follow up with [facility] and decision to pursue an EGD for possible esophagitis. Patient was advised to monitor for fevers if so come back to emergency room. Patient was advised to hydrate well. Patient was advised to continue to socially distance, self isolate, avoid crowds, handwashing, facemask. For her pancytopenia, likely secondary to sepsis as above, she did require 1 unit of platelet and PRBC. Hemoglobin discharge 8.7, platelet count discharge 67,000, white blood cell count 6.4 patient was advised to follow-up with physicians at [facility] on August 10 for recheck CBC,, and given antibiotic therapy as above, recheck CMP for checking creatinine. Physical Exam Const: COMMON NORMALS: no acute distress and patient oriented x3 Resp: COMMON NORMALS: normal respiratory effort, No retractions, No use of accessory muscles and clear to auscultation bilaterally AUSCULTATION: clear to auscultation bilaterally Cardio: COMMON NORMALS: regular rate, regular rhythm, S1 normal heart sound present and S2 normal heart sound present RATE: regular rate RHYTHM: regular rhythm HEART SOUNDS: S1 normal heart sound present and S2 normal heart sound present GI: COMMON NORMALS: Normal to inspection, nondistended, normoactive bowel sounds present, Soft to palpation, non-tender and No hepatosplenomegaly present PALPATION: Yes Soft to palpation and Yes No hepatosplenomegaly present Extremity: COMMON NORMALS: no pedal edema Neuro: COMMON NORMALS: patient oriented x3 Psych: COMMON NORMALS: mental status grossly normal Discharge Data Data Completed and Pending: Completed Studies During Hospitalization Category Date Time Status CT chest abd pel w con* Urgent Cat Scan 07/31/20 23:[address] neck w con* 70 491 Urgent Cat Scan 07/31/20 22:53 Completed XR chest 1V rasheed ble [id number] Urgent Exams 07/31/20 20:36 Completed Pending at discharge Category Date Time Status ABO/Rh Type Stat Lab 08/02/20 13:20 Results Blood Culture Sta t Lab 07/31/20 21:21 Results Blood Culture Sta t Lab 08/02/20 13:25 Results C DIFF [Clostridi oides Difficile PC R] Routine Lab 08/01/20 11:07 Uncollected C Reactive Protei n AM LABS Lab 08/05/20 04:00 Ordered Clostridioides Di fficile PCR Routin e Lab 08/02/20 10:25 Ordered Complete Blood Co unt w/Man Dif AM L ABS Lab 08/05/20 04:00 Ordered Complete Crossmat ch Stat Lab 08/02/20 13:20 Results Comprehensive Met abolic Panel AM LA BS Lab 08/05/20 04:00 Ordered Creatine Phosphok inase AM LABS Lab 08/05/20 04:00 Ordered Enteric Bacterial Panel by PCR Rout ine Lab 08/01/20 11:07 Uncollected Enteric Bacterial Panel by PCR Rout ine Lab 08/02/20 10:25 Ordered Enteric Parasite Panel by PCR Routi ne Lab 08/02/20 10:25 Ordered Immunochemical Fe uyen OCB Routine Lab 08/02/20 10:25 Ordered Irradiated Leuko Red RBC Stat Lab 08/02/20 13:20 Results Lactate (Lactic A fredis level) AM LABS Lab 08/05/20 04:00 Ordered Lactoferrin Routi ne Lab 08/02/20 10:25 Ordered Magnesium AM LABS Lab 08/05/20 04:00 Ordered Phosphorus AM LAB S Lab 08/05/20 04:00 Ordered Platelets Leuko-R educed Routine Lab 08/02/20 13:20 Results Platelets Leukore duced Irradia Rout ine Lab 08/02/20 13:20 Results Procalcitonin AM LABS Lab 08/05/20 04:00 Ordered Respiratory Viral Panel PCR Stat Lab 08/02/20 13:25 Received Rota Virus AG Sto ol Routine Lab 08/02/20 10:24 Ordered Sputum Culture an d Gram Stain Stat Lab 08/02/20 12:58 Ordered Type and Screen S tat Lab 08/02/20 13:20 Results Urine Culture Sta t Lab 08/02/20 21:03 Results stool Ova and Par asite [Enteric Par asite Panel by PCR ] Lab 08/01/20 11:08 Uncollected Routine Labs from last 24 hours 08/04/20 08/04/20 08/04/20 00:56 00:56 00:56 WBC 6.4 RBC 2.89 L Hgb 8.7 L Hct 25.8 L MCV 89.3 MCH 30.1 MCHC 33.7 RDW 17.2 H Plt Count 67 L MPV 10.6 H Total Counted 100 Atypical Lymphs % 3.0 Absolute Neutrophi ls 3.2 Segmented Neutroph ils 37 Abs Segm Neuts (Ma n) 2.4 Band Neutrophils 13.0 Abs Band Neuts (Ma n) 0.8 Absolute Lymphocyt es 2.7 Lymphocytes (Manua l) 39 Monocytes (Manual) 6.0 Absolute Monocytes 0.4 Eosinophils (Manua l) 0 Absolute Eosinophi ls 0.0 Basophils (Manual) 1.0 Absolute Basophils 0.1 Metamyelocytes 1.0 Platelet Estimate Decreased L Sodium Potassium Chloride Carbon Dioxide Anion Gap BUN Creatinine GFR Calculation Glucose Calculated Osmolal ity Lactate 0.6 Calcium Phosphorus Magnesium Total Bilirubin AST ALT Alkaline Phosphata se Creatine Kinase 27 C-Reactive Protein Total Protein Albumin Globulin Procalcitonin 0.03 Vancomycin Trough CMV IgG Ab CMV IgM Ab 08/04/20 08/04/20 08/02/20 00:56 00:56 04:31 WBC RBC Hgb Hct MCV MCH MCHC RDW Plt Count MPV Total Counted Atypical Lymphs % Absolute Neutrophi ls Segmented Neutroph ils Abs Segm Neuts (Ma n) Band Neutrophils Abs Band Neuts (Ma n) Absolute Lymphocyt es Lymphocytes (Manua l) Monocytes (Manual) Absolute Monocytes Eosinophils (Manua l) Absolute Eosinophi ls Basophils (Manual) Absolute Basophils Metamyelocytes Platelet Estimate Sodium 139 Potassium 2.9 L Chloride 108 H Carbon Dioxide 23 Anion Gap 10.9 BUN 3 L Creatinine 0.3 L GFR Calculation 280.8 H Glucose 95 Calculated Osmolal ity 284 L Lactate Calcium 7.6 L Phosphorus 3.4 Magnesium 1.3 L Total Bilirubin 0.2 AST 7 ALT < 5 Alkaline Phosphata se 59 Creatine Kinase C-Reactive Protein 10.2 H Total Protein 4.9 L Albumin 3.0 L Globulin 1.9 Procalcitonin Vancomycin Trough 16.5 H CMV IgG Ab <0.60 CMV IgM Ab <30.00 Vitals: Last Vital Signs Temp 97.9 F 08/04/20 08:00 Pulse 66 08/04/20 08:00 Resp 19 H 08/04/20 08:00 BP 107/70 08/04/20 08:00 Pulse Ox 100 08/04/20 08:00 Discharge Plan Discharge Patient Disposition: Home Condition: Stable Prescriptions: New Augmentin 875-125 mg tablet 1 tab PO BID 11 Days Qty: 22 RF: 0 acyclovir 400 mg tablet 400 mg PO Q8H 12 Days Qty: 36 RF: 0 fluconazole 100 mg tablet 100 mg PO DAILY 12 Days Qty: 12 RF: 0 Continued albuterol sulfate [Ventolin HFA] 90 mcg/actuation HFA aerosol inhaler 2 puff inhalation 6XD PRN (Reason: shortness of breath or wheezing) Qty: 18 RF: 3 fluticasone propion-salmeterol [Advair Diskus] 100-50 mcg/dose blister with device 1 inh inhalation BID Qty: 60 RF: 3 lidocaine-prilocaine 2.5-2.5 % cream See Rx Instructions .ROUTE .COMPLEX RF: 0 ondansetron 4 mg Tablet,Disintegrating 4 mg PO Q8H PRN (Reason: Nausea) RF: 0 lorazepam 2 mg/mL Concentrate See Rx Instructions .ROUTE .COMPLEX RF: 0 olanzapine 5 mg tablet,disintegrating 5 mg PO DAILY RF: 0 Discharge Orders: Discharge Order (Routine); Ordered 08/04/20 Ordered By: Blas Lin Discharge Diet: As Directed Discharge Activity: Resume usual activity Patient Instructions: Opioid Safety Activity Restrictions/Additional Instructions: -Please take antibiotics as prescribed -Please take antifungals, and antivirals as prescribed -Please follow-up with oncology in [place] on August 10 -Please hydrate well, electrolyte balance fluids such as Gatorade or Powerade -Monitor for fevers, if so come back to the emergency room -Please continue to socially distance, facemask, handwashing, avoid large crowds Discharge Attestations Time Spent in Discharge Care*: less than 30 min Quality Metrics Clinical Quality Measures During this hospital stay, did patient experience: None Coding Level of Care Code Acute Chg FW DC note Diagnoses Sepsis A41.9 Sepsis acute organ dysfunction status: without acute organ dysfunction Sepsis type: sepsis due to unspecified organism Neutropenic fever D70.9; R50.81 Pancytopenia D61.818 Hematochezia K92.1 Diarrhea R19.7 Dehydration E86.0 Proctitis K62.89 Enteritis K52.9
[2020-08-04 12:00] VITALS: BP 134/74; PULSE 74; RESP 18; TEMP 36.7; O2SAT 100
--- NOTE | 2020-08-04 14:23 | PC.SOCIAL ---
PHarmacy does not have the 250-62.5mg per 5ml suspension. Discussed with Dr Lin and he is okay with the 200-2-28.5 suspension that pharmacy carries and we can increase the mls to 12ml per day for 11 days instead of 10ml. Notified Vicky at pharmacy of change.
--- NOTE | 2020-08-04 14:33 | PC.NURSE ---
PT HAS DONE WELL FOR ME TODAY. NO COMPLAINTS OF PAIN. PT IS UP AND AMBULATING AND HAS GOOD URINE OUTPUT. PT IS FEELING GOOD AND READY TO GO HOME. PT WILL DISCHARGE TODAY PER MD. DISCHARGE PAPERWORK WAS GONE OVER WITH PT. ALL QUESTIONS ANSWERED. PORT WAS DE-ACCESSED. PT TOLERATED WELL. GUAZE AND TEGADERM WAS PLACED OVER THE SITE. PTS MEDICATIONS WERE SENT TO [facility] TO BE PICKED UP PER PT REQUEST. PT WAS WALKED OUT BY THIS NURSE. SAFELY DISCHARGED FROM THE HOSPITAL AT 1428.
[2020-08-04 14:37] VITALS: BP 134/74; PULSE 74; RESP 18; TEMP 36.7; O2SAT 100
[2020-08-05 17:26] LABS: Adenovirus Not Detected (Not Detected); Human Metapneumovirus Not Detected (Not Detected); Human Parainflu Virus 1 Not Detected (Not Detected); Human Parainflu Virus 2 Not Detected (Not Detected); Human Parainflu Virus 3 Not Detected (Not Detected); Human Rsv A Not Detected (Not Detected); Influenza A Not Detected (Not Detected); Influenza B Not Detected (Not Detected); Rhinovirus/Enterovirus Not Detected (Not Detected)
--- NOTE | 2020-08-23 14:54 | PC.PHAR ---
EMAILED ONCOLOGY PHARMACIST AT [facility] TO VERIFY PATIENT CUMULATIVE DOXORUBICIN DOSE. SHE STATES JEAN CARLOS HAS RECEIVED 300MG/M2. I HAVE UPDATED HER PROFILE
== END 2020-08-04 14:28 | disposition home or self-care (01) | DRG 871 ==
LOC: ER 23:28 → MEDSURG 23:37
PROVIDERS: Internal Medicine; Admitting Provider Internal Medicine; Emergency Provider Family Medicine; PCP Family Medicine; Visit Provider Family Medicine
DX: A41.9 Sepsis, unspecified organism (principal); D61.810 Antineoplastic chemotherapy induced pancytopenia; C41.0 Malignant neoplasm of bones of skull and face; K92.1 Melena; T45.1X5A Adverse effect of antineoplastic and immunosuppressive drugs, initial encounter; D70.1 Agranulocytosis secondary to cancer chemotherapy; K52.9 Noninfective gastroenteritis and colitis, unspecified; Z79.899 Other long term (current) drug therapy; Z86.010 Personal history of colon polyps; D64.9 Anemia, unspecified; J45.909 Unspecified asthma, uncomplicated; F32.9 Major depressive disorder, single episode, unspecified; Z95.828 Presence of other vascular implants and grafts; Z90.12 Acquired absence of left breast and nipple; E86.0 Dehydration; D69.6 Thrombocytopenia, unspecified; K20.90 Esophagitis, unspecified without bleeding; Z79.51 Long term (current) use of inhaled steroids; R50.81 Fever presenting with conditions classified elsewhere
CPT/HCPCS: 36415; 36430; 36591; 70491; 71045; 71260; 74177; 80048; 80053; 80074; 80202; 81001; 81025; 82550; 83010; 83605; 83615; 83735; 84100; 84145; 85007; 85025; 85027; 85384; 85610; 85730; 86140; 86850; 86900; 86920; 87040; 87086; 87426; 87806; 96365; 96367; 96375; 99285; J0133; J0692; J1200; J1450; J1956; J2060; J2543; J3370; J3480; J7030; J7050; P9037; P9040; Q9967

== ENCOUNTER 2020-08-24 15:22 | Outpatient (CLI) | payer OTHER, MEDICAID, SELFPAY ==
--- NOTE | 2020-08-24 | USCV_ITS ---
Merritt Hylton Age: 20 Gender: F : 2000 Exam Date: 08/24/2020 15:45 Ordering Phys: George Bruno MD Technologist: Gifty Joseph Exam Location: [facility] [place] Indication: CHEMO BP: 111 / 60 HR: 103 Rhythm: Sinus Technical Quality: Adequate MEASUREMENTS (Male / Female) Normal Values 2D ECHO LV Diastolic Diameter PLAX 4.1 cm 4.2 - 5.9 / 3.9 - 5.3 cm LV Systolic Diameter PLAX 2.8 cm LV Chamber Size 3.2 cm IVS Diastolic Thickness 0.9 cm 0.6 - 1.0 / 0.6 - 0.9 cm IVS Systolic Thickness 1.2 cm LVPW Diastolic Thickness 1.2 cm 0.6 - 1.0 / 0.6 - 0.9 cm LVPW Systolic Thickness 1.5 cm RV Chamber Size 1.8 cm LVOT Diameter 2.0 cm LV Ejection Fraction 2D Teich 58.3 % LV Ejection Fraction MOD 2C 55.9 % LV Ejection Fraction 2C AL 56.8 % LA Diameter 2.1 cm LA Width 2.0 cm LA Height 3.1 cm RA Width 2.1 cm RA Height 3.0 cm Aorta at Sinotubular Diameter 2.5 cm M-MODE LV Diastolic Diameter MM 3.8 cm 4.2 - 5.9 / 3.9 - 5.3 cm LV Systolic Diameter MM 2.6 cm LV Ejection Fraction MM Teich 60.9 % IVS Diastolic Thickness MM 0.9 cm 0.6 - 1.0 / 0.6 - 0.9 cm IVS Systolic Thickness MM 1.2 cm LVPW Diastolic Thickness MM 1.0 cm 0.6 - 1.0 / 0.6 - 0.9 cm LVPW Systolic Thickness MM 1.6 cm RV Diastolic Diameter MM 0.9 cm Aortic Annulus Diameter 2.9 cm LA Ao Ratio MM 1.0 MV E Point Septal Separation 0.6 cm DOPPLER AV Peak Velocity 85.0 cm/s LVOT Peak Velocity 80.0 cm/s AV Area Cont Eq vti 3.4 cm squared AV Area Cont Eq pk 3.0 cm squared MV Area PHT 9.2 cm squared Mitral E to A Ratio 0.7 MV E' Velocity 34.5 cm/s Mitral E to MV E' Ratio 5.3 Mitral E to LV E' Lateral Ratio 5.2 Mitral E to LV E' Septal Ratio 5.4 TR Peak Velocity 62.6 cm/s TR Peak Gradient 1.6 mmHg TR Mean Velocity 47.3 cm/s TR Mean Gradient 1.0 mmHg TR Velocity Time Integral 14.0 cm TV Peak E Velocity 76.0 cm/s Right Atrial Pressure 3.0 mmHg Pulmonary Artery Systolic Pressu 4.6 mmHg PV Peak Velocity 77.0 cm/s RV Acceleration Time 0.2 s RV Ejection Time 0.4 s RV AcT/ET 0.6 FINDINGS Left Ventricle Normal left ventricular size. LV systolic function is normal with EF of 55-60%. No regional wall motion abnormalities. Diastolic function is normal Right Ventricle The right ventricle is normal in size and function. Right Atrium The right atrium is normal in size. Left Atrium The left atrium is normal in size. Mitral Valve Structurally normal mitral valve without significant stenosis or prolapse. There is no mitral regurgitation. Aortic Valve Structurally normal aortic valve without significant sclerosis or stenosis. There is no aortic regurgitation. Tricuspid Valve Structurally normal tricuspid valve without significant stenosis or regurgitation. Insufficient TR jet to calculate RVSP Pulmonic Valve Structurally normal pulmonic valve without significant stenosis. There is no pulmonic regurgitation. Pericardium Normal pericardium without effusion. Aorta Normal ascending aorta dimension. CONCLUSIONS LV systolic function is normal with EF of 55-60% Diastolic function is normal No significant valvular heart disease No comparison studies are available Minh Cardona MD (Electronically Signed) Final Date: 01 September 2020 17:14 S
== END 2020-08-24 15:23 | disposition home or self-care (01) ==
PROVIDERS: PCP Family Medicine; Visit Provider Internal Medicine Medical Oncology
DX: C41.0 Malignant neoplasm of bones of skull and face (principal)
CPT/HCPCS: 93306

== ENCOUNTER 2020-08-25 07:53 | Outpatient (CLI) | payer OTHER, MEDICAID, SELFPAY ==
[2020-08-25 08:37] LABS: Basophils % 0.2 %; Eosinophils # 0.1 10^3/uL (0.0-0.8); Eosinophils % 1.7 %; Hematocrit 31.9 % (37.0-47.0); Hemoglobin 10.3 g/dL (11.5-15.3); Lymphocytes # 1.9 10^3/uL (0.8-4.8); Lymphocytes % 40.5 %; Mean Corpuscular HGB Conc 32.3 g/dL (30.0-36.0); Mean Corpuscular Hemoglobin 31.3 pg (28.0-34.0); Mean Platelet Volume 10.2 fL (7.4-10.4); Monocytes # 0.9 10^3/uL (0.2-0.9); Monocytes % 19.5 %; Neutrophils # 1.77 10^3/uL (1.8-7.7); Neutrophils % 37.9 %; Nucleated Red Blood Cells % 0 %; Platelet Count 147 10^3/cmm (130-400); Red Blood Count 3.29 10^6/uL (4.1-5.3); Red Cell Distribution Width 21.2 % (12.1-15.1); White Blood Count 4.7 10^3/uL (4.0-10.0)
[2020-08-25 08:56] LABS: Alanine Aminotransferase 30 U/L (0-33); Alkaline Phosphatase 65 IU/L (35-105); Anion Gap 13.8 (5-19); Aspartate Amino Transferase 19 U/L (0-32); Blood Urea Nitrogen 18 mg/dL (6-20); Calcium 8.9 mg/dL (8.5-10.5); Carbon Dioxide 24 mmol/L (22-29); Chloride 105 mmol/L (98-107); Globulin 2.5 g/dL (1.3-4.6); Glomerular Filtration Rate 278.2 mL/min (90-130); Glucose 92 mg/dL (65-115); Osmolality Calculated 290 mOsm/kg (285-295); Potassium 3.8 mmol/L (3.5-5.1); Sodium 139 mmol/L (136-145); Total Bilirubin 0.2 mg/dL (0.15-1.2); Total Protein 6.5 g/dL (6.6-8.7)
[2020-08-25] MEDS: palonosetron 0.25 mg/5 mL SDV IV (09:35)
[2020-08-25] MEDS: fosaprepitant 150 MG in sodium chloride 0.9% 150 ML 300 MG IV (09:35)
[2020-08-25] MEDS: sodium chloride 0.9% 250 ML 999 ML IV (10:03)
[2020-08-25] MEDS: sodium chloride 0.9% 500 ML 999 ML IV (10:53)
[2020-08-25] MEDS: pegfilgrastim 6 mg/0.6 mL Kit (onpro) SUBCUT (13:00)
--- NOTE | 2020-08-25 18:08 | ONC FU_ITS ---
Dr. Bruno Patient Follow-Up Note Patient: Merritt Hylton Unit #: [id number]: 2000 Dicatated By: George Bruno M.D.Date of Visit:Aug 25, 2020 Onc Med Follow-up/Prog Note Chief Complaint: Chondroblastic osteosarcoma. 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 She had presented with a mass in the hard palate. The initial biopsy on 01/14/2020 was interpreted as soft tissue chondroma. MRI of the orbits/face/neck on 01/16/2020 showed a heterogeneous enhancing expansile mass involving the left maxilla measuring 3.4 x 3.7 x 2.7 cm, consistent with neoplasm. The mass was noted to extend cranially into the inferior maxillary sinus and medially to involve the hard palate. It was noted to abut the soft palate posteriorly. There was also involvement of the inferior turbinate. There was partial destruction of the left inferior turbinate. A few prominent cervical nodes were noted in the upper cervical chain, partially visualized. There was no evidence of intracranial metastatic disease. With those findings, she was referred to [facility] for further management. On 02/27/2020 she underwent left inferior maxillectomy, infratemporal fossa resection, and left neck exploration by Dr. Brizuela. Pathology showed chondroblastic osteosarcoma, FNCLCC grade 2/3 involving the maxilla. It measured 4 cm in greatest dimension. The mitotic rate was 12/10 hpf. There was 0% tumor necrosis. Tumor was noted to involve the anterior and medial margins. On 03/09/2020 she had further surgery including oral cavity and left inferior maxillectomy reresection with right fasciocutaneous forearm flap. The procedure also included microvascular anastomosis to left lingual artery and 3.0 awning spreader to right facial vein and split thickness skin graft from the right thigh to the right forearm. Pathology showed residual chondroblastic osteosarcoma involving the reresected anterior maxilla. The hard palate margin excision showed no evidence of malignancy and there was no malignancy in the nasal floor reresection, the oral cavity anterior margin, and the nasal cavity septum margin. She had medical oncology consultation postoperatively with Dr. Godwin Huang and she was recommended to undergo adjuvant chemotherapy with cisplatin/Adriamycin/high-dose methotrexate. She began cycle 1 of cisplatin/Adriamycin on 04/06/2020. It was complicated by febrile neutropenia with CT evidence of colitis and pyelonephritis. She was then admitted for her cycle 1 HDMTX on 04/28/2020. She tolerated it well. She proceeded with cycle 2 of cisplatin/Adriamycin on 05/12/2020 and cycle 2 HDMTX on 06/02/2020. She then continued her further treatment at 3-week intervals. She is seen for a follow-up visit. She has now received 5 complete cycles of cisplatin/Adriamycin and HDMTX. With her further chemotherapy, the cisplatin/Adriamycin portion of the regimen is being changed to Adriamycin 75 mg/m??? IV administered together with dexrazoxane 750 mg/m??? IV, and those will now be administered here. She also continues the alternating cycles of HDMTX which she will continue to receive at [facility]. She has been feeling good generally. She says she is a little tired, but she basically has normal activity. ECOG score is 0. She has good appetite. She has not had fever, night sweats, or hot flashes. She has stopped menstruating, though. She reports having a runny nose. She sometimes has a little soreness in her mouth. She has no difficulty swallowing. She has no shortness of breath, cough, or chest pain. She has not been having nausea and she has not recently had any acid reflux. Bowel and bladder function have been okay. She has no significant joint or bone pain. She does not complain of headache or dizziness. She has not been having any neuropathy symptoms. Medications: lexapro Tablet daily, LORazepam 1 (1 mg) Tablet Oral daily, Ondansetron HCl 1 (4 mg) Tablet Oral q 4 hours PRN, ZyPREXA 1 (10 mg) Tablet Oral daily Allergies: No Known Allergies. Vital Signs: Performed on Aug 25, 2020 09:15 Height - 66.00 in Weight - 138.6 lbs (LOW) BSA - 1.71 sq.m BMI - 22.37 Temperature - 97.3 F (LOW) Pulse - 101 /min (HIGH) Respiration - 18 /min BP - 107/73 mm(hg) O2 Sat - 98 % Pain - 0 Fatigue - 4 Physical Examination: Constitutional - She looks good generally, Eyes - Sclerae nonicteric. Conjunctivae clear, ENMT - There are no lesions noted in the oral cavity, Hematologic/Lymphatic - No cervical, clavicular, or axillary adenopathy, Respiratory - Lungs are clear with good air movement bilaterally, Cardiovascular - Heart rhythm is regular. There is no murmur, gallop, or rub noted, Abdomen - Soft. Liver and spleen are not enlarged. There is no abdominal mass or ascites noted and there is no inguinal adenopathy, Extremities - No edema, Integumentary - There is residual scarring at the graft site in the right forearm, but it is well-healed, Neurologic - No focal neurologic deficits noted. Lab/Imaging: Test performed on Aug 25, 2020 08:25 Sodium 139 mmol/L Potassium 3.8 mmol/L Chloride 105 mmol/L CO2 24 mmol/L Anion Gap 13.8 BUN 18 mg/dL Creatinine 0.3 mg/dL Cr Clearance (Est) 294.8800 mL/min eGFR 278.2 mL/min Glucose 92 mg/dL Osmolality - Calculated 290 mOsm/kg Calcium 8.9 mg/dL Protein, Total 6.5 g/dL Albumin 4.0 g/dL Globulin 2.5 g/dL Bilirubin, Total 0.2 mg/dL ALT (SGPT) 30 U/L AST (SGOT) 19 U/L Alkaline Phosphatase 65 IU/L WBC 4.7 10 3/uL RBC 3.29 10 6/uL HGB 10.3 g/dL HCT 31.9 % MCV 97.0 fL MCH 31.3 pg MCHC 32.3 g/dL RDW 21.2 % Platelet Count 147 10 3/cmm MPV 10.2 fL Neutrophils 1.77 10 3/uL Lymphocytes 1.9 10 3/uL Monocytes 0.9 10 3/uL Eosinophils 0.1 10 3/uL Basophils 0.0 10 3/uL Neutrophil % 37.9 % Lymphocyte % 40.5 % Monocyte % 19.5 % Eosinophil % 1.7 % Basophils % 0.2 % NRBC % 0 % Problem List: 1. 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 By clinical evaluation her disease is stage IIA (T1, N0, M0). 2. On 02/27/2020 she underwent left inferior maxillectomy, infratemporal fossa resection, and left neck exploration. 3. On 03/09/2020 she underwent oral and left anterior maxilla reresection with right fasciocutaneous forearm flap and with split-thickness skin graft to the right forearm. 4. Mild asthma. 5. Anxiety/depression. 6. She has a history of colonic polyps. 7. She is status post left mastectomy for benign disease. 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 By clinical evaluation her disease is stage IIA (T1, N0, M0). On 02/27/2020 she underwent left inferior maxillectomy, infratemporal fossa resection, and left neck exploration. Pathology showed involved anterior and medial margins. On 03/09/2020 she underwent oral and left anterior maxilla reresection with right fasciocutaneous forearm flap and with split-thickness skin graft to the right forearm. Pathology showed residual tumor in the reresected anterior maxilla but with no evidence of malignancy in the hard palate margin, nasal floor reresection, oral cavity anterior margin, and nasal cavity septum margin. She has been undergoing adjuvant chemotherapy with cisplatin/Adriamycin/high-dose methotrexate, cycle 1 beginning on 04/08/2020. It was complicated by febrile neutropenia. She was then admitted for cycle 1 HDMTX on 04/28/2020, tolerated well. She was then able to continue her chemotherapy at 3-week intervals, and she has tolerated it very well. She has now received 5 complete cycles of treatment. With her further chemotherapy, the cisplatin/Adriamycin portion of the regimen is being changed to Adriamycin 75 mg/m??? IV administered together with dexrazoxane 750 mg/m??? IV. Her repeat echocardiogram today shows normal LV function. She will proceed now with her 6th cycle of treatment which will include the Adriamycin/dexrazoxane, as outlined above. She will be given Neulasta prophylactically. Blood counts will be monitored weekly. She will return to [facility] in 3 weeks for the HDMTX portion of her treatment. She will be scheduled for a follow-up visit here in 6 weeks. Signed By: George Bruno M.D. <<Signature on File>>
== END 2020-08-25 07:54 | disposition home or self-care (01) ==
PROVIDERS: PCP Family Medicine; Visit Provider Internal Medicine Medical Oncology
DX: Z51.11 Encounter for antineoplastic chemotherapy (principal); C41.0 Malignant neoplasm of bones of skull and face; J45.20 Mild intermittent asthma, uncomplicated; F41.9 Anxiety disorder, unspecified; F32.9 Major depressive disorder, single episode, unspecified; Z86.010 Personal history of colon polyps; Z90.12 Acquired absence of left breast and nipple; Z79.899 Other long term (current) drug therapy
CPT/HCPCS: 80053; 85025; 96367; 96372; 96377; 96409; 96411; 96413; 99214; J1100; J1190; J1453; J2469; J2505; J7040; J7050; J9000

== ENCOUNTER 2020-09-02 08:32 | Outpatient (CLI) | payer OTHER, MEDICAID, SELFPAY ==
[2020-09-02] MEDS: sodium chloride 0.9% 500 ML 999 ML IV (14:20)
[2020-09-02 14:47] LABS: Basophils % 1.4 %; Eosinophils % 1.4 %; Hematocrit 26.7 % (37.0-47.0); Hemoglobin 8.8 g/dL (11.5-15.3); Lymphocytes % 71.3 %; Mean Corpuscular Volume 97.1 fL (81-99); Mean Platelet Volume 11.1 fL (7.4-10.4); Monocytes # 0.2 10^3/uL (0.2-0.9); Monocytes % 13.3 %; Neutrophils % 12.6 %; Nucleated Red Blood Cells % 0 %; Platelet Count 62 10^3/cmm (130-400); Positive M 1; Red Blood Count 2.75 10^6/uL (4.1-5.3); Red Cell Distribution Width 18.5 % (12.1-15.1); White Blood Count 1.4 10^3/uL (4.0-10.0)
[2020-09-02 14:48] LABS: Neutrophils # 0.18 10^3/uL (1.8-7.7)
== END 2020-09-02 08:33 | disposition home or self-care (01) ==
PROVIDERS: PCP Family Medicine; Visit Provider Internal Medicine Medical Oncology
DX: C41.0 Malignant neoplasm of bones of skull and face (principal); Z79.899 Other long term (current) drug therapy
CPT/HCPCS: 85025; 96360; J7040

== ENCOUNTER → 2020-09-03 10:23 | Outpatient (BNVA) | payer OTHER, MEDICAID, SELFPAY | PROVIDERS: PCP Family Medicine; Visit Provider Internal Medicine Medical Oncology | DX: Z20.822 Contact with and (suspected) exposure to COVID-19 (principal) | CPT/HCPCS: 87635 ==

== ENCOUNTER → 2020-10-04 11:35 | Outpatient (BNVA) | payer OTHER, SELFPAY | PROVIDERS: PCP Family Medicine; Visit Provider Internal Medicine Medical Oncology | DX: Z20.822 Contact with and (suspected) exposure to COVID-19 (principal) | CPT/HCPCS: 87426; 87635 ==

== ENCOUNTER 2020-10-06 09:28 | Outpatient (CLI) | payer OTHER, MEDICAID, SELFPAY ==
[2020-10-06 10:04] LABS: Basophils % 0.3 %; Eosinophils # 0.2 10^3/uL (0.0-0.8); Eosinophils % 6.6 %; Hemoglobin 10.4 g/dL (11.5-15.3); Lymphocytes # 1.3 10^3/uL (0.8-4.8); Mean Corpuscular HGB Conc 31.5 g/dL (30.0-36.0); Mean Corpuscular Hemoglobin 32.9 pg (28.0-34.0); Mean Corpuscular Volume 104.4 fl (81-99); Mean Platelet Volume 9.9 fL (7.4-10.4); Monocytes # 0.8 10^3/uL (0.2-0.9); Monocytes % 23.1 %; Neutrophils # 1.18 10^3/uL (1.8-7.7); Neutrophils % 33.7 %; Nucleated Red Blood Cells % 0 %; Platelet Count 247 10^3/cmm (130-400); Red Blood Count 3.16 10^6/uL (4.1-5.3); Red Cell Distribution Width 14.6 % (12.1-15.1); White Blood Count 3.5 10^3/uL (4.0-10.0)
[2020-10-06 10:39] LABS: Alanine Aminotransferase 18 U/L (0-33); Albumin Level 3.8 g/dL (3.5-5.2); Alkaline Phosphatase 86 IU/L (35-105); Aspartate Amino Transferase 20 U/L (0-32); Blood Urea Nitrogen 5 mg/dL (6-20); Carbon Dioxide 23 mmol/L (22-29); Chloride 107 mmol/L (98-107); Globulin 2.3 g/dL (1.3-4.6); Glomerular Filtration Rate 278.2 mL/min (90-130); Glucose 91 mg/dL (65-115); Osmolality Calculated 285 mOsm/kg (285-295); Sodium 139 mmol/L (136-145); Total Bilirubin 0.2 mg/dL (0.15-1.2); Total Protein 6.1 g/dL (6.6-8.7)
[2020-10-06] MEDS: palonosetron 0.25 mg/5 mL SDV IV (10:56)
[2020-10-06] MEDS: sodium chloride 0.9% 250 ML 75 ML IV (11:25)
[2020-10-06] MEDS: fosaprepitant 150 MG in sodium chloride 0.9% 150 ML 300 MG IV (11:25)
--- NOTE | 2020-10-06 12:07 | ONC FU_ITS ---
Dr. Bruno Patient Follow-Up Note Patient: Merritt Hylton Unit #: [id number]: 2000 Dicatated By: George Bruno M.D.Date of Visit:Oct 06, 2020 Onc Med Follow-up/Prog Note Chief Complaint: Chondroblastic osteosarcoma. 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 She had presented with a mass in the hard palate. The initial biopsy on 01/14/2020 was interpreted as soft tissue chondroma. MRI of the orbits/face/neck on 01/16/2020 showed a heterogeneous enhancing expansile mass involving the left maxilla measuring 3.4 x 3.7 x 2.7 cm, consistent with neoplasm. The mass was noted to extend cranially into the inferior maxillary sinus and medially to involve the hard palate. It was noted to abut the soft palate posteriorly. There was also involvement of the inferior turbinate. There was partial destruction of the left inferior turbinate. A few prominent cervical nodes were noted in the upper cervical chain, partially visualized. There was no evidence of intracranial metastatic disease. With those findings, she was referred to [facility] for further management. On 02/27/2020 she underwent left inferior maxillectomy, infratemporal fossa resection, and left neck exploration by Dr. Brizuela. Pathology showed chondroblastic osteosarcoma, FNCLCC grade 2/3 involving the maxilla. It measured 4 cm in greatest dimension. The mitotic rate was 12/10 hpf. There was 0% tumor necrosis. Tumor was noted to involve the anterior and medial margins. On 03/09/2020 she had further surgery including oral cavity and left inferior maxillectomy reresection with right fasciocutaneous forearm flap. The procedure also included microvascular anastomosis to left lingual artery and 3.0 chief deputy sheriff to right facial vein and split thickness skin graft from the right thigh to the right forearm. Pathology showed residual chondroblastic osteosarcoma involving the reresected anterior maxilla. The hard palate margin excision showed no evidence of malignancy and there was no malignancy in the nasal floor reresection, the oral cavity anterior margin, and the nasal cavity septum margin. She had medical oncology consultation postoperatively with Dr. Godwin Huang and she was recommended to undergo adjuvant chemotherapy with cisplatin/Adriamycin/high-dose methotrexate. She began cycle 1 of cisplatin/Adriamycin on 04/06/2020. It was complicated by febrile neutropenia with CT evidence of colitis and pyelonephritis. She was then admitted for her cycle 1 HDMTX on 04/28/2020. She tolerated it well. She proceeded with cycle 2 of cisplatin/Adriamycin on 05/12/2020 and cycle 2 HDMTX on 06/02/2020. She then continued her further treatment at 3-week intervals. As August 2020 she had completed 4 cycles of cisplatin/Adriamycin and HDMTX. With her further chemotherapy, the cisplatin/Adriamycin portion of the regimen was changed to Adriamycin 75 mg/m??? IV administered together with dexrazoxane 750 mg/m??? IV. She received her cycle 5 day 1 Adriamycin/dexamethasone here on 08/25/2020. She was admitted to [facility] for cycle 5-day 22 high-dose methotrexate on 09/15/2020. She is seen for a scheduled follow-up visit. She began having some difficulty breathing a few days ago. She had some associated chest congestion and a little bit of cough. She was not aware of any fever. She did have COVID-19 testing, which was negative. Her symptoms are getting better now. She also complains that she is tired, but she continues her housework and childcare. ECOG score is 1. Her appetite has been okay. She sometimes has hot flashes at night. She has not had sore mouth or throat. Her breathing is better now. She does not complain of chest pain. She has just occasional nausea. She has no other GI or complaints. She has no significant joint or bone pain. She sometimes has headache. She does not complain of dizziness. She has no numbness/paresthesia or other focal neurologic symptoms. Medications: lexapro Tablet daily, LORazepam 1 (1 mg) Tablet Oral daily, Ondansetron HCl 1 (4 mg) Tablet Oral q 4 hours PRN, ZyPREXA 1 (10 mg) Tablet Oral daily Allergies: No Known Allergies. Vital Signs: Performed on Oct 06, 2020 11:29 Height - 66.00 in Weight - 142.4 lbs (HIGH) BSA - 1.73 sq.m BMI - 22.98 Temperature - 99.1 F (HIGH) Pulse - 97 /min Respiration - 18 /min BP - 100/68 mm(hg) O2 Sat - 99 % Pain - 0 Fatigue - 7 Physical Examination: Constitutional - She looks pretty good generally, Eyes - Sclerae nonicteric. Conjunctivae clear, ENMT - There are no lesions noted in the oral cavity, Hematologic/Lymphatic - No cervical, clavicular, or axillary adenopathy, Respiratory - Lungs sound clear with good air movement bilaterally, Cardiovascular - Heart rhythm is regular. There is no murmur, gallop, or rub noted, Abdomen - Soft. Liver and spleen are not enlarged. There is no abdominal mass or ascites noted and there is no inguinal adenopathy, Extremities - No edema, Neurologic - No focal neurologic deficits noted. Lab/Imaging: Test performed on Oct 06, 2020 09:50 WBC 3.5 10 3/uL RBC 3.16 10 6/uL HGB 10.4 g/dL HCT 33.0 % MCV 104.4 fl MCH 32.9 pg MCHC 31.5 g/dL RDW 14.6 % Platelet Count 247 10 3/cmm MPV 9.9 fL Neutrophils 1.18 10 3/uL Lymphocytes 1.3 10 3/uL Monocytes 0.8 10 3/uL Eosinophils 0.2 10 3/uL Basophils 0.0 10 3/uL Neutrophil % 33.7 % Lymphocyte % 36.0 % Monocyte % 23.1 % Eosinophil % 6.6 % Basophils % 0.3 % NRBC % 0 % Problem List: 1. 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 By clinical evaluation her disease is stage IIA (T1, N0, M0). 2. On 02/27/2020 she underwent left inferior maxillectomy, infratemporal fossa resection, and left neck exploration. 3. On 03/09/2020 she underwent oral and left anterior maxilla reresection with right fasciocutaneous forearm flap and with split-thickness skin graft to the right forearm. 4. Mild asthma. 5. Anxiety/depression. 6. She has a history of colonic polyps. 7. She is status post left mastectomy for benign disease. 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 By clinical evaluation her disease is stage IIA (T1, N0, M0). On 02/27/2020 she underwent left inferior maxillectomy, infratemporal fossa resection, and left neck exploration. Pathology showed involved anterior and medial margins. On 03/09/2020 she underwent oral and left anterior maxilla reresection with right fasciocutaneous forearm flap and with split-thickness skin graft to the right forearm. Pathology showed residual tumor in the reresected anterior maxilla but with no evidence of malignancy in the hard palate margin, nasal floor reresection, oral cavity anterior margin, and nasal cavity septum margin. She has been undergoing adjuvant chemotherapy with cisplatin/Adriamycin/high-dose methotrexate, cycle 1 beginning on 04/08/2020. It was complicated by febrile neutropenia. She was then admitted for cycle 1 HDMTX on 04/28/2020, tolerated well. She was then able to continue her chemotherapy at 3-week intervals, and she has tolerated it very well. She has now completed 5 cycles of treatment. She continues to have some treatment related neutropenia, but she tolerates it well. She otherwise has just mild fatigue. She recently developed some shortness of breath and chest congestion, but those symptoms are now improving and she did test negative for COVID-19. Overall, she has been tolerating treatment very well. She will proceed now with her cycle 6 Adriamycin dexamethasone. The dosages remain the same. She will be given Neulasta prophylactically. She will have blood counts checked in 1 week and in 2 weeks. She returns to [facility] in 3 weeks for her cycle 6-day 15 high-dose methotrexate. Signed By: George Bruno M.D. <<Signature on File>>
[2020-10-06] MEDS: pegfilgrastim 6 mg/0.6 mL Kit (onpro) SUBCUT (12:40)
== END 2020-10-06 09:29 | disposition home or self-care (01) ==
PROVIDERS: PCP Family Medicine; Visit Provider Internal Medicine Medical Oncology
DX: Z51.11 Encounter for antineoplastic chemotherapy (principal); C41.0 Malignant neoplasm of bones of skull and face; D70.9 Neutropenia, unspecified; Z79.899 Other long term (current) drug therapy
CPT/HCPCS: 80053; 85025; 96367; 96377; 96409; 96413; 99215; J1100; J1190; J1453; J2469; J2505; J7050; J9000

== ENCOUNTER 2020-10-13 06:29 | Outpatient (CLI) | payer OTHER, MEDICAID, SELFPAY ==
[2020-10-13] MEDS: sodium chloride 0.9% 1,000 ML 999 ML IV (09:50)
[2020-10-13 10:19] LABS: Basophils % 1.8 %; Hematocrit 29.7 % (37.0-47.0); Hemoglobin 9.3 g/dL (11.5-15.3); Lymphocytes # 0.5 10^3/uL (0.8-4.8); Lymphocytes % 85.7 %; Mean Corpuscular HGB Conc 31.3 g/dL (30.0-36.0); Mean Corpuscular Hemoglobin 32.3 pg (28.0-34.0); Mean Corpuscular Volume 103.1 fl (81-99); Mean Platelet Volume 11.8 fL (7.4-10.4); Monocytes # 0.1 10^3/uL (0.2-0.9); Monocytes % 10.7 %; Neutrophils % 1.8 %; Nucleated Red Blood Cells % 0 %; Platelet Count 69 10^3/cmm (130-400); Red Blood Count 2.88 10^6/uL (4.1-5.3); Red Cell Distribution Width 11.8 % (12.1-15.1)
[2020-10-13 11:42] LABS: Lactate (Lactic Acid level) 1.3 mmol/L (0.5-2.2)
[2020-10-13 11:44] LABS: Alanine Aminotransferase 10 U/L (0-33); Albumin Level 3.4 g/dL (3.5-5.2); Alkaline Phosphatase 75 IU/L (35-105); Anion Gap 14.8 (5-19); Aspartate Amino Transferase 11 U/L (0-32); Blood Urea Nitrogen 12 mg/dL (6-20); Calcium 7.8 mg/dL (8.5-10.5); Carbon Dioxide 21 mmol/L (22-29); Chloride 101 mmol/L (98-107); Globulin 2.2 g/dL (1.3-4.6); Glomerular Filtration Rate 199.6 mL/min (90-130); Glucose 106 mg/dL (65-115); Osmolality Calculated 276 mOsm/kg (285-295); Potassium 3.8 mmol/L (3.5-5.1); Sodium 133 mmol/L (136-145); Total Bilirubin 0.5 mg/dL (0.15-1.2); Total Protein 5.6 g/dL (6.6-8.7)
[2020-10-13 12:17] LABS: Neutrophils # 0.01 10^3/uL (1.8-7.7); Slide Review Slide Review Perform; White Blood Count 0.6 10^3/uL (4.0-10.0)
[2020-10-13 12:29] LABS: SARS Covid-2 Antigen Negative (Negative)
--- NOTE | 2020-10-13 12:30 | PC.PHAR ---
VERBAL ORDER FROM [facility] PER DR. MÉNDEZ: GIVE LEVAQUIN 750MG NOW [facility] TO [facility]SE. WILL GIVE HER VANC 1G Q12H AND MONITOR TROUGHS.
[2020-10-13] MEDS: levofloxacin-dextrose 5% 750 mg-150 mL Premix 100 MG IV (12:37)
[2020-10-13] MEDS: vancomycin 1,000 MG in sodium chloride 0.9% 250 ML 250 MG IV (13:25)
--- NOTE | 2020-10-13 16:09 | ONC FU_ITS ---
Dr. Bruno Patient Follow-Up Note Patient: Merritt Hylton Unit #: [id number]: 2000 Dicatated By: George Bruno M.D.Date of Visit:Oct 13, 2020 Onc Med Follow-up/Prog Note Chief Complaint: Chondroblastic osteosarcoma. 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 She had presented with a mass in the hard palate. The initial biopsy on 01/14/2020 was interpreted as soft tissue chondroma. MRI of the orbits/face/neck on 01/16/2020 showed a heterogeneous enhancing expansile mass involving the left maxilla measuring 3.4 x 3.7 x 2.7 cm, consistent with neoplasm. The mass was noted to extend cranially into the inferior maxillary sinus and medially to involve the hard palate. It was noted to abut the soft palate posteriorly. There was also involvement of the inferior turbinate. There was partial destruction of the left inferior turbinate. A few prominent cervical nodes were noted in the upper cervical chain, partially visualized. There was no evidence of intracranial metastatic disease. With those findings, she was referred to [facility] for further management. On 02/27/2020 she underwent left inferior maxillectomy, infratemporal fossa resection, and left neck exploration by Dr. Brizuela. Pathology showed chondroblastic osteosarcoma, FNCLCC grade 2/3 involving the maxilla. It measured 4 cm in greatest dimension. The mitotic rate was 12/10 hpf. There was 0% tumor necrosis. Tumor was noted to involve the anterior and medial margins. On 03/09/2020 she had further surgery including oral cavity and left inferior maxillectomy reresection with right fasciocutaneous forearm flap. The procedure also included microvascular anastomosis to left lingual artery and 3.0 phone screener to right facial vein and split thickness skin graft from the right thigh to the right forearm. Pathology showed residual chondroblastic osteosarcoma involving the reresected anterior maxilla. The hard palate margin excision showed no evidence of malignancy and there was no malignancy in the nasal floor reresection, the oral cavity anterior margin, and the nasal cavity septum margin. She had medical oncology consultation postoperatively with Dr. Godwin Huang and she was recommended to undergo adjuvant chemotherapy with cisplatin/Adriamycin/high-dose methotrexate. She began cycle 1 of cisplatin/Adriamycin on 04/06/2020. It was complicated by febrile neutropenia with CT evidence of colitis and pyelonephritis. She was then admitted for her cycle 1 HDMTX on 04/28/2020. She tolerated it well. She proceeded with cycle 2 of cisplatin/Adriamycin on 05/12/2020 and cycle 2 HDMTX on 06/02/2020. She then continued her further treatment at 3-week intervals. As August 2020 she had completed 4 cycles of cisplatin/Adriamycin and HDMTX. With her further chemotherapy, the cisplatin/Adriamycin portion of the regimen was changed to Adriamycin 75 mg/m??? IV administered together with dexrazoxane 750 mg/m??? IV. She received her cycle 5 day 1 Adriamycin/dexamethasone here on 08/25/2020. She was admitted to [facility] for cycle 5-day 22 high-dose methotrexate on 09/15/2020. She then returned here for her cycle 6-day 1 doxorubicin/dexrazoxane on 10/06/2020. She is seen for an unplanned visit. She has had day 8 of cycle 6. She had fever yesterday over 101 degrees and she came in this morning with her temperature over 102 degrees. She has had associated chills. She has been feeling tired and she has poor appetite. She reports having some sinus drainage and slight sore throat. She has had some chest congestion and shortness of breath, but only a little bit of cough. She is not having chest pain. She had nausea/vomiting and diarrhea all day yesterday. She has no complaints. She has no significant joint or bone pain. Medications: lexapro Tablet daily, LORazepam 1 (1 mg) Tablet Oral daily, Ondansetron HCl 1 (4 mg) Tablet Oral q 4 hours PRN, ZyPREXA 1 (10 mg) Tablet Oral daily Allergies: No Known Allergies. Vital Signs: Performed on Oct 13, 2020 16:00 Height - 66.00 in Temperature - 101.1 F (HIGH) Pulse - 144 /min (HIGH) Respiration - 20 /min BP - 86/59 mm(hg) (LOW) O2 Sat - 98 % Pain - 0 Physical Examination: Constitutional - She does not appear to be in acute distress, Eyes - Sclerae nonicteric. Conjunctivae clear, ENMT - There are no lesions noted in the oral cavity, Hematologic/Lymphatic - No cervical, clavicular, or axillary adenopathy, Respiratory - Lungs sound clear with good air movement bilaterally, Cardiovascular - Heart rhythm is regular. There is no murmur, gallop, or rub noted, Abdomen - Soft and nontender. There is no organomegaly or abdominal mass noted and there is no obvious ascites, Extremities - No edema, Neurologic - No focal neurologic deficits noted. Lab/Imaging: Test performed on Oct 13, 2020 10:40 Sodium 133 mmol/L Potassium 3.8 mmol/L Chloride 101 mmol/L CO2 21 mmol/L Anion Gap 14.8 BUN 12 mg/dL Creatinine 0.4 mg/dL Cr Clearance (Est) 221.1600 mL/min eGFR 199.6 mL/min Glucose 106 mg/dL Osmolality - Calculated 276 mOsm/kg Calcium 7.8 mg/dL Protein, Total 5.6 g/dL Albumin 3.4 g/dL Globulin 2.2 g/dL Bilirubin, Total 0.5 mg/dL ALT (SGPT) 10 U/L AST (SGOT) 11 U/L Alkaline Phosphatase 75 IU/L SARS CoV-2 Ag Negative The results are negative with the test specificity 100%, sensitivity 97%, and positive predictive value 100%. If the patient shows clinical signs and symptoms of SARS-CoV-2, kindly defer to a NAAT detection method. Test performed on Oct 13, 2020 09:42 WBC 0.6 10 3/uL RBC 2.88 10 6/uL HGB 9.3 g/dL HCT 29.7 % MCV 103.1 fl MCH 32.3 pg MCHC 31.3 g/dL RDW 11.8 % Platelet Count 69 10 3/cmm MPV 11.8 fL Neutrophils 0.01 10 3/uL Lymphocytes 0.5 10 3/uL Monocytes 0.1 10 3/uL Eosinophils 0.0 10 3/uL Basophils 0.0 10 3/uL Neutrophil % 1.8 % Lymphocyte % 85.7 % Monocyte % 10.7 % Eosinophil % 0.0 % Basophils % 1.8 % NRBC % 0 % CBC Slide Review Slide Review Perform SLIDE REVIEW AGREES WITH AUTOMATED RESULTS ST Problem List: 1. 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 By clinical evaluation her disease is stage IIA (T1, N0, M0). 2. On 02/27/2020 she underwent left inferior maxillectomy, infratemporal fossa resection, and left neck exploration. 3. On 03/09/2020 she underwent oral and left anterior maxilla reresection with right fasciocutaneous forearm flap and with split-thickness skin graft to the right forearm. 4. Mild asthma. 5. Anxiety/depression. 6. She has a history of colonic polyps. 7. She is status post left mastectomy for benign disease. 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 By clinical evaluation her disease is stage IIA (T1, N0, M0). On 02/27/2020 she underwent left inferior maxillectomy, infratemporal fossa resection, and left neck exploration. Pathology showed involved anterior and medial margins. On 03/09/2020 she underwent oral and left anterior maxilla reresection with right fasciocutaneous forearm flap and with split-thickness skin graft to the right forearm. Pathology showed residual tumor in the reresected anterior maxilla but with no evidence of malignancy in the hard palate margin, nasal floor reresection, oral cavity anterior margin, and nasal cavity septum margin. She has been undergoing adjuvant chemotherapy with cisplatin/Adriamycin/high-dose methotrexate, cycle 1 beginning on 04/08/2020. It was complicated by febrile neutropenia. She was then admitted for cycle 1 HDMTX on 04/28/2020, tolerated well. She was then able to continue her chemotherapy at 3-week intervals. She received cycle 6-day 1 doxorubicin/dexrazoxane 10/06/2020. She presents now with febrile neutropenia at cycle 6-day 8. She does not appear to be in acute distress with it. Her blood pressures is on the low side, but that may be due in part to having had vomiting and diarrhea yesterday. She is been given IV hydration and she is starting empiric IV antibiotic coverage with Levaquin and vancomycin pending outcome of blood cultures. We will initially try and manage as outpatient, as there are no hospital beds available here. She is going to return in the morning for additional IV hydration and IV antibiotic. In the meantime, if her temperature goes up over 102 degrees, they are to call, and I will try and arrange for transfer to [facility] through the ER. Signed By: George Bruno M.D. <<Signature on File>>
[2020-10-14 15:19] LABS: Coronavirus Test Green County Not Detected
== END 2020-10-13 06:30 | disposition home or self-care (01) ==
PROVIDERS: PCP Family Medicine; Visit Provider Internal Medicine Medical Oncology
DX: C41.0 Malignant neoplasm of bones of skull and face (principal); J45.20 Mild intermittent asthma, uncomplicated; F41.9 Anxiety disorder, unspecified; F32.9 Major depressive disorder, single episode, unspecified; Z86.010 Personal history of colon polyps; Z90.12 Acquired absence of left breast and nipple; Z79.899 Other long term (current) drug therapy
CPT/HCPCS: 80053; 83605; 85025; 87040; 87426; 87635; 96361; 96365; 96366; 96368; 99215; J1956; J3370; J7030; J7050

== ENCOUNTER 2020-10-15 09:14 | Outpatient (RCR) | payer OTHER, MEDICAID, SELFPAY ==
[2020-10-14] MEDS: sodium chloride 0.9% 1,000 ML 999 ML IV (08:20)
[2020-10-14 08:48] LABS: Basophils % 1.7 %; Eosinophils % 1.7 %; Hematocrit 28.1 % (37.0-47.0); Lymphocytes # 0.5 10^3/uL (0.8-4.8); Lymphocytes % 78.3 %; Mean Corpuscular Hemoglobin 33.6 pg (28.0-34.0); Mean Corpuscular Volume 104.9 fl (81-99); Mean Platelet Volume 10.4 fL (7.4-10.4); Monocytes # 0.1 10^3/uL (0.2-0.9); Monocytes % 11.7 %; Neutrophils % 6.6 %; Nucleated Red Blood Cells % 0 %; Platelet Count 41 10^3/cmm (130-400); Positive M 1; Red Blood Count 2.68 10^6/uL (4.1-5.3); Red Cell Distribution Width 11.7 % (12.1-15.1)
[2020-10-14 09:04] LABS: Lactate (Lactic Acid level) 1.8 mmol/L (0.5-2.2)
[2020-10-14 09:25] LABS: Anion Gap 14.4 (5-19); Blood Urea Nitrogen 8 mg/dL (6-20); Calcium 8.5 mg/dL (8.5-10.5); Carbon Dioxide 21 mmol/L (22-29); Chloride 102 mmol/L (98-107); Glomerular Filtration Rate 199.6 mL/min (90-130); Glucose 128 mg/dL (65-115); Osmolality Calculated 278 mOsm/kg (285-295); Potassium 3.4 mmol/L (3.5-5.1); Sodium 134 mmol/L (136-145)
[2020-10-14 10:01] LABS: Neutrophils # 0.04 10^3/uL (1.8-7.7); White Blood Count 0.6 10^3/uL (4.0-10.0)
[2020-10-14 10:02] LABS: Slide Review Slide Review Perform
[2020-10-14] MEDS: levofloxacin-dextrose 5% 750 mg-150 mL Premix 100 MG IV (10:35)
[2020-10-15 09:50] VITALS: RESP 18; O2SAT 99
[2020-10-15] MEDS: sodium chloride 0.9% 1,000 ML 999 ML IV (09:50)
[2020-10-15] MEDS: morphine 4 mg/mL SDV 1 mL IV (09:50)
[2020-10-15 10:15] LABS: Basophils % 0.8 %; Eosinophils % 0.8 %; Lymphocytes # 0.9 10^3/uL (0.8-4.8); Lymphocytes % 77.1 %; Mean Corpuscular Hemoglobin 33.3 pg (28.0-34.0); Mean Corpuscular Volume 104.2 fl (81-99); Mean Platelet Volume 13.4 fL (7.4-10.4); Monocytes # 0.1 10^3/uL (0.2-0.9); Monocytes % 6.8 %; Neutrophils % 13.7 %; Nucleated Red Blood Cells % 0 %; Platelet Count 37 10^3/cmm (130-400); Red Cell Distribution Width 11.3 % (12.1-15.1); White Blood Count 1.2 10^3/uL (4.0-10.0)
[2020-10-15 10:40] LABS: Neutrophils # 0.16 10^3/uL (1.8-7.7); Slide Review Slide Review Perform
[2020-10-15 10:46] LABS: Alanine Aminotransferase 10 U/L (0-33); Albumin Level 3.3 g/dL (3.5-5.2); Alkaline Phosphatase 66 IU/L (35-105); Anion Gap 12.1 (5-19); Aspartate Amino Transferase 14 U/L (0-32); Blood Urea Nitrogen 5 mg/dL (6-20); Calcium 7.9 mg/dL (8.5-10.5); Carbon Dioxide 23 mmol/L (22-29); Chloride 104 mmol/L (98-107); Globulin 2.5 g/dL (1.3-4.6); Glomerular Filtration Rate 278.2 mL/min (90-130); Glucose 94 mg/dL (65-115); Osmolality Calculated 279 mOsm/kg (285-295); Potassium 3.1 mmol/L (3.5-5.1); Sodium 136 mmol/L (136-145); Total Bilirubin 0.2 mg/dL (0.15-1.2); Total Protein 5.8 g/dL (6.6-8.7)
[2020-10-15] MEDS: ertapenem 1,000 MG in sodium chloride 0.9% (plus) 100 ML 200 MG IV (12:00)
== END 2020-11-04 23:59 | disposition home or self-care (01) ==
LOC: ONCMED 09:14
PROVIDERS: PCP Family Medicine; Visit Provider Internal Medicine Medical Oncology
DX: C41.0 Malignant neoplasm of bones of skull and face (principal); D70.1 Agranulocytosis secondary to cancer chemotherapy; T45.1X5D Adverse effect of antineoplastic and immunosuppressive drugs, subsequent encounter; Z79.899 Other long term (current) drug therapy
CPT/HCPCS: 80048; 80053; 83605; 85025; 96360; 96361; 96365; 96374; J1335; J1956; J2270; J7030

== ENCOUNTER → 2020-12-10 18:24 | Outpatient (BNVA) | payer OTHER, SELFPAY | PROVIDERS: PCP Family Medicine; Visit Provider Nurse Practitioner | DX: Z20.822 Contact with and (suspected) exposure to COVID-19 (principal) | CPT/HCPCS: 87426; 87635 ==

== ENCOUNTER 2021-01-06 17:18 | Emergency (ER) | payer OTHER, SELFPAY ==
[2021-01-06 17:32] VITALS: BP 117/85; PULSE 91; RESP 19; TEMP 36.8; O2SAT 97; BMI 24.3
--- NOTE | 2021-01-06 19:18 | CTR_ITS ---
PROCEDURE INFORMATION: Exam: CT Head Without Contrast Exam date and time: 01/06/2021 7:18 PM Age: 20 years old Clinical indication: Pain; Numbness / parasthesia; Left; Headache; Prior surgery; Surgery type: Jaw, neck; Patient HX: HX of bone cancer and stroke; Additional info: WITT TECHNIQUE: Imaging protocol: Computed tomography of the head without contrast. Radiation optimization: All CT scans at this facility use at least one of these dose optimization techniques: automated exposure control; mA and/or kV adjustment per patient size (includes targeted exams where dose is matched to clinical indication); or iterative reconstruction. COMPARISON: CT head wo con* [id number] 03/03/2020 2:46 PM RADIATION DOSE METRICS: Total DLP (mGy-cm): 848.12 FINDINGS: Brain: Normal. No hemorrhage. Unremarkable white matter. No mass effect. Cerebral ventricles: No ventriculomegaly. Paranasal sinuses: Paranasal sinus opacifications. Mastoid air cells: Mastoid air cell opacities may reflect a chronic inflammatory process. Bones/joints: Unremarkable. No acute fracture. Soft tissues: Unremarkable. CT/CT head wo con* [id number] IMPRESSION: Negative for intracranial hemorrhage or mass effect Radiation Dose CTDIVOL = (mGy): DLP = 848.12 (mGy-cm)
--- NOTE | 2021-01-06 20:53 | ED_ITS ---
Documented by User: Garrett Antonio MD 01/10/21 23:25 HPI - Headache General: Chief Complaint: Neuro Symptoms/Deficit Stated Complaint: L SIDE FACE NUMBNESS/STROKE HX Time Seen by Provider: 01/06/21 20:53 History of Present Illness: HPI Narrative: Ms. 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 She reports history of stroke intraoperatively during a procedure for the osteosarcoma with right-sided deficits which have almost totally resolved. She had been doing well and had completed cancer treatment. Today at approximately 2 PM she had sudden onset of numbness of the left side of her face. This area is not her entire left face however is the cheek region radiating towards the jaw. She describes this as complete loss of any feeling compared to the contralateral side. Additionally she notes mild blurring of her vision. The vision has been ongoing for a few days now, she previously associated with headaches however headache has improved today. The blurry vision is perhaps worse in the left eye however not significantly so, it is both far and near vision. She denies frequent similar episodes in past. There are no skin rashes or preceding viral syndrome. No other recent changes in health. No other specific exacerbating or alleviating factors identified. Review of Systems General: Reports: 10 or more systems reviewed and unremarkable except in HPI and below PFSH ED PFSH: Medical History Anemia Asthma Asthma Colon polyps Depression Hemoptysis History of hemoptysis Lesion of lung Mass of hard palate Normal colonoscopy Osteosarcoma Pilonidal cyst Port-A-Cath in place Pulmonary nodule Subchorionic hematoma in first trimester Surgical History H/O left mastectomy H/O plastic surgery She underwent oral and left anterior maxilla reresection with right fasciocutaneous forearm flap and with split-thickness skin graft right thigh to right forearm on 03/09/2020 History of breast biopsy History of excision of pilonidal cyst History of placement of ear tubes History of recent maxillofacial surgery Myringotomy tube status left Family History Mother Lupus Arnold-Chiari deformity Father Cancer Cancer Social History Smoking and tobacco status: never smoked Second hand smoke exposure: No Smoking risk assessment/counseling performed?: No Alcohol intake: never Desire information about alcohol rehabilitation?: No Counseling given: No Desire information about substance/drug rehabilitation?: No Counseling given: No Lives independently: Yes Household members: family and children Marital status: Legally service: No Current occupational status: unemployed History of recent travel: No Current gender identity: Female Physical Exam Narrative: EXAM NARRATIVE: GENERAL/CONSTITUTIONAL - well-appearing. No acute distress. Eyes - PERRL, no conjunctival injection ENMT - Atraumatic external nose and ears. Moist mucous membranes NECK - supple. trachea midline CARDIOVASCULAR - regular rate and rhythm. RESPIRATORY -clear to auscultation bilaterally. ABDOMEN/GI - Nontender/Nondistended. MSK - Extremities without obvious deformity or tenderness to palpation. Scars on right upper extremity well-healed. SKIN - Warm, Dry NEURO - alert and appropriately oriented. There is approximately 8 x 12 cm ovoid lesion of reported numbness on the left cheek extending towards the jaw. Sensation is otherwise equal in the face. There is no appreciable neuro deficits on cranial nerve exam. No other focal neurologic deficits identified on exam. Coordination is intact. Course ED course: - Patient was seen and evaluated by me at bedside - Patient placed on cardiac monitors, IV access obtained - Initial evaluation notable for no acute distress, nontoxic appearance. Given time of symptom onset as well as NIHSS no indication for thrombolysis at this time. - Symptom treatment ordered. - Labs notable for no leukocytosis, normal hemoglobin. No acute metabolic abnormality to explain the patient's symptoms. - Patient care handed off to overnight ED physician Dr. John pending completion of CT scans Vital Signs: Vital signs: Vital Signs Temperature 98.2 F 01/06/21 17:32 Pulse Rate 78 01/07/21 03:09 Respiratory Rate 16 01/07/21 03:09 Blood Pressure 109/78 01/07/21 03:09 Pulse Oximetry 98 01/07/21 03:09 MDM - Headache Medical Records: Attestation: I reviewed the patient's medical records. Lab Data: Attestation: I reviewed the patient's lab results. Labs: Lab Results 01/06/21 01/06/21 01/06/21 23:26 23:26 23:34 WBC 9.6 10^3/uL 10^3/ uL (4.0-10.0) RBC 3.95 10^6/uL L 10 ^6/uL (4.1-5.3) Hgb 12.3 g/dL g/dL (11.5-15.3) Hct 37.3 % % (37.0-47.0) MCV 94.4 fl fl (81-99) MCH 31.1 pg pg (28.0-34.0) MCHC 33.0 g/dL g/dL (30.0-36.0) RDW 11.9 % L % (12.1-15.1) Plt Count 89 10^3/cmm L 10^ 3/cmm (130-400) MPV 10.6 fL H fL (7.4-10.4) Neut % (Auto) 55.9 % % Lymph % (Auto) 34.5 % % [place] % (Auto) 8.0 % % Eos % (Auto) 1.2 % % Baso % (Auto) 0.2 % % Neut # (Auto) 5.38 10^3/uL 10^3 /uL (1.8-7.7) Lymph # (Auto) 3.3 10^3/uL 10^3/ uL (0.8-4.8) [place] # (Auto) 0.8 10^3/uL 10^3/ uL (0.2-0.9) Eos # (Auto) 0.1 10^3/uL 10^3/ uL (0.0-0.8) Baso # (Auto) 0.0 10^3/uL 10^3/ uL (0.0-0.1) Nucleated RBC % (a uto) 0 % % Nucleated RBCs # 0.0 /100WBC /100W BC Sodium 136 mmol/L mmol/L (136-145) Potassium 3.9 mmol/L mmol/L (3.5-5.1) Chloride 102 mmol/L mmol/L (98-107) Carbon Dioxide 21 mmol/L L mmol/ L (22-29) Anion Gap 16.9 (5-19) BUN 14 mg/dL mg/dL (6-20) Creatinine 0.5 mg/dL mg/dL (0.5-0.9) GFR Calculation 154.3 mL/min H mL /min (90-130) Glucose 84 mg/dL mg/dL (65-115) Calculated Osmolal ity 282 mOsm/kg L mOs m/kg (285-295) Calcium 9.2 mg/dL mg/dL (8.5-10.5) Magnesium 1.7 mg/dL mg/dL (1.7-2.3) Total Bilirubin 0.3 mg/dL mg/dL (0.15-1.2) AST 17 U/L U/L (0-32) ALT 11 U/L U/L (0-33) Alkaline Phosphata se 114 IU/L H IU/L (35-105) Total Protein 6.7 g/dL g/dL (6.6-8.7) Albumin 3.9 g/dL g/dL (3.5-5.2) Globulin 2.8 g/dL g/dL (1.3-4.6) TSH 1.24 uIU/mL uIU/m L (0.27-4.20) HCG, Qual Negative (Negative) Discharge Plan Discharge Patient Disposition: Home Clinical Impression: Facial paresthesia, Blurred vision Condition: Stable Prescriptions: No Action azithromycin 200 mg/5 mL suspension for reconstitution See Rx Instructions PO .COMPLEX Qty: 38 RF: 0 albuterol sulfate [Ventolin HFA] 90 mcg/actuation HFA aerosol inhaler 2 puff inhalation 6XD PRN (Reason: shortness of breath or wheezing) Qty: 18 RF: 3 fluticasone propion-salmeterol [Advair Diskus] 100-50 mcg/dose blister with device 1 inh inhalation BID Qty: 60 RF: 3 lidocaine-prilocaine 2.5-2.5 % cream See Rx Instructions .ROUTE .COMPLEX RF: 0 ondansetron 4 mg Tablet,Disintegrating 4 mg PO Q8H PRN (Reason: Nausea) RF: 0 lorazepam 2 mg/mL Concentrate See Rx Instructions .ROUTE .COMPLEX RF: 0 olanzapine 5 mg tablet,disintegrating 5 mg PO DAILY RF: 0 Discharge Orders: Discharge ED (Routine); Ordered 01/07/21 Ordered By: Cira John Referrals: Ajit Ponce, [Primary Care Provider] - Discharge Diet: Usual diet Discharge Activity: Resume usual activity Patient Instructions: Paresthesia (ED), Blurred Vision (ED), Opioid Safety Activity Restrictions/Additional Instructions: Thank you for visiting the emergency department. You were seen and evaluated for sensory changes and visual disturbance. The exact cause of your symptoms is unclear as no specific source was identified on labs or imaging. Please follow-up with your primary care provider. Please return to the emergency department for worsening symptoms, any new neurologic symptoms, or anything else that you are concerned about and feel needs emergency department evaluation. Coding Level of Care Code ED Export Freight Manager for [employer] Documented by User: Cira John MD 01/07/21 00:47 HPI - Headache General: Chief Complaint: Neuro Symptoms/Deficit Stated Complaint: L SIDE FACE NUMBNESS/STROKE HX Time Seen by Provider: 01/06/21 20:53 PFSH ED PFSH: Medical History Anemia Asthma Asthma Colon polyps Depression Hemoptysis History of hemoptysis Lesion of lung Mass of hard palate Normal colonoscopy Osteosarcoma Pilonidal cyst Port-A-Cath in place Pulmonary nodule Subchorionic hematoma in first trimester Surgical History H/O left mastectomy H/O plastic surgery She underwent oral and left anterior maxilla reresection with right fasciocutaneous forearm flap and with split-thickness skin graft right thigh to right forearm on 03/09/2020 History of breast biopsy History of excision of pilonidal cyst History of placement of ear tubes History of recent maxillofacial surgery Myringotomy tube status left Family History Mother Lupus Arnold-Chiari deformity Father Cancer Cancer Social History Smoking and tobacco status: never smoked Second hand smoke exposure: No Smoking risk assessment/counseling performed?: No Alcohol intake: never Desire information about alcohol rehabilitation?: No Counseling given: No Desire information about substance/drug rehabilitation?: No Counseling given: No Lives independently: Yes Household members: family and children Marital status: Legally service: No Current occupational status: unemployed History of recent travel: No Current gender identity: Female Course Vital Signs: Vital signs: Vital Signs Temperature 98.2 F 01/06/21 17:32 Pulse Rate 78 01/07/21 03:09 Respiratory Rate 16 01/07/21 03:09 Blood Pressure 109/78 01/07/21 03:09 Pulse Oximetry 98 01/07/21 03:09 MDM - Headache MDM Narrative: Medical decision making narrative: Patient presents here with paresthesias or some blurred vision patient symptoms have completely resolved at this point her CT CT is normal she has no signs of acute stroke the symptoms could be from her previous surgery she has no focal deficits she feels improved would like to go home I feel she is stable for discharge she is to follow-up with PCP and return if worsening. Lab Data: Labs: Lab Results 01/06/21 01/06/21 01/06/21 23:26 23:26 23:34 WBC 9.6 10^3/uL 10^3/ uL (4.0-10.0) RBC 3.95 10^6/uL L 10 ^6/uL (4.1-5.3) Hgb 12.3 g/dL g/dL (11.5-15.3) Hct 37.3 % % (37.0-47.0) MCV 94.4 fl fl (81-99) MCH 31.1 pg pg (28.0-34.0) MCHC 33.0 g/dL g/dL (30.0-36.0) RDW 11.9 % L % (12.1-15.1) Plt Count 89 10^3/cmm L 10^ 3/cmm (130-400) MPV 10.6 fL H fL (7.4-10.4) Neut % (Auto) 55.9 % % Lymph % (Auto) 34.5 % % [place] % (Auto) 8.0 % % Eos % (Auto) 1.2 % % Baso % (Auto) 0.2 % % Neut # (Auto) 5.38 10^3/uL 10^3 /uL (1.8-7.7) Lymph # (Auto) 3.3 10^3/uL 10^3/ uL (0.8-4.8) [place] # (Auto) 0.8 10^3/uL 10^3/ uL (0.2-0.9) Eos # (Auto) 0.1 10^3/uL 10^3/ uL (0.0-0.8) Baso # (Auto) 0.0 10^3/uL 10^3/ uL (0.0-0.1) Nucleated RBC % (a uto) 0 % % Nucleated RBCs # 0.0 /100WBC /100W BC Sodium 136 mmol/L mmol/L (136-145) Potassium 3.9 mmol/L mmol/L (3.5-5.1) Chloride 102 mmol/L mmol/L (98-107) Carbon Dioxide 21 mmol/L L mmol/ L (22-29) Anion Gap 16.9 (5-19) BUN 14 mg/dL mg/dL (6-20) Creatinine 0.5 mg/dL mg/dL (0.5-0.9) GFR Calculation 154.3 mL/min H mL /min (90-130) Glucose 84 mg/dL mg/dL (65-115) Calculated Osmolal ity 282 mOsm/kg L mOs m/kg (285-295) Calcium 9.2 mg/dL mg/dL (8.5-10.5) Magnesium 1.7 mg/dL mg/dL (1.7-2.3) Total Bilirubin 0.3 mg/dL mg/dL (0.15-1.2) AST 17 U/L U/L (0-32) ALT 11 U/L U/L (0-33) Alkaline Phosphata se 114 IU/L H IU/L (35-105) Total Protein 6.7 g/dL g/dL (6.6-8.7) Albumin 3.9 g/dL g/dL (3.5-5.2) Globulin 2.8 g/dL g/dL (1.3-4.6) TSH 1.24 uIU/mL uIU/m L (0.27-4.20) HCG, Qual Negative (Negative) Discharge Plan Discharge Patient Disposition: Home Clinical Impression: Facial paresthesia, Blurred vision Condition: Stable Prescriptions: No Action azithromycin 200 mg/5 mL suspension for reconstitution See Rx Instructions PO .COMPLEX Qty: 38 RF: 0 albuterol sulfate [Ventolin HFA] 90 mcg/actuation HFA aerosol inhaler 2 puff inhalation 6XD PRN (Reason: shortness of breath or wheezing) Qty: 18 RF: 3 fluticasone propion-salmeterol [Advair Diskus] 100-50 mcg/dose blister with device 1 inh inhalation BID Qty: 60 RF: 3 lidocaine-prilocaine 2.5-2.5 % cream See Rx Instructions .ROUTE .COMPLEX RF: 0 ondansetron 4 mg Tablet,Disintegrating 4 mg PO Q8H PRN (Reason: Nausea) RF: 0 lorazepam 2 mg/mL Concentrate See Rx Instructions .ROUTE .COMPLEX RF: 0 olanzapine 5 mg tablet,disintegrating 5 mg PO DAILY RF: 0 Discharge Orders: Discharge ED (Routine); Ordered 01/07/21 Ordered By: Cira John Referrals: Ajit Ponce DO [Primary Care Provider] - Discharge Diet: Usual diet Discharge Activity: Resume usual activity Patient Instructions: Paresthesia (ED), Blurred Vision (ED), Opioid Safety Activity Restrictions/Additional Instructions: Thank you for visiting the emergency department. You were seen and evaluated for sensory changes and visual disturbance. The exact cause of your symptoms is unclear as no specific source was identified on labs or imaging. Please follow-up with your primary care provider. Please return to the emergency department for worsening symptoms, any new neurologic symptoms, or anything else that you are concerned about and feel needs emergency department evaluation. Coding Level of Care Code ED Export Freight Manager for [place]in [place]anon
[2021-01-06 20:58] VITALS: BP 113/82; PULSE 90; RESP 17; O2SAT 99
[2021-01-06 21:16] VITALS: BP 110/78; PULSE 88; RESP 18; O2SAT 100
--- NOTE | 2021-01-06 21:25 | CTR_ITS ---
PROCEDURE INFORMATION: Exam: CT Maxillofacial Without Contrast Exam date and time: 01/06/2021 9:25 PM Age: 20 years old Clinical indication: Prior surgery; Surgery type: Left facial reconstruction. ; Patient HX: Onset of left facial parasthesia today. 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 ; Additional info: History of cancer TECHNIQUE: Imaging protocol: Computed tomography images of the face without contrast. Radiation optimization: All CT scans at this facility use at least one of these dose optimization techniques: automated exposure control; mA and/or kV adjustment per patient size (includes targeted exams where dose is matched to clinical indication); or iterative reconstruction. COMPARISON: CT head wo con* [id number] 01/06/2021 7:34 PM RADIATION DOSE METRICS: Total DLP (mGy-cm): 1711.47 FINDINGS: Orbital cavity: Orbits are normal. Globes are unremarkable. Bones/joints: No acute fracture. No skeletal mass is visualized. Paranasal sinuses: Bilateral maxillary and right sphenoid sinusitis is noted. Mastoid air cells: Small bilateral mastoid effusions are appreciated. Soft tissues: Prior surgical changes are observed in the left aspect of the face involving the left maxilla and maxillary sinus. No soft tissue abscess is visualized. CT/CT facial bones wo con* [id number] IMPRESSION: 1. Prior surgical changes in the left aspect of the face. Moderate sinusitis is noted. No abscess is visualized. 2. Mild bilateral mastoid effusions. Radiation Dose CTDIVOL = (mGy): DLP = 1711.47 (mGy-cm)
--- NOTE | 2021-01-06 21:25 | CTR_ITS ---
PROCEDURE INFORMATION: Exam: CT Angiography Head With Contrast, Arteriography Exam date and time: 01/06/2021 9:25 PM Age: 20 years old Clinical indication: Numbness; Prior surgery; Surgery type: Chest port. Left mastectomy. Left facial reconstruction. ; Patient HX: Onset of left facial parasthesia today. 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 ; Additional info: Left facial numbness, eval for stroke, cancer history TECHNIQUE: Imaging protocol: Computed tomography angiography of the head with contrast. Exam focused on the arteries. 3D rendering (Not supervised by radiologist): MIP and/or 3D reconstructed images were created by the technologist. Radiation optimization: All CT scans at this facility use at least one of these dose optimization techniques: automated exposure control; mA and/or kV adjustment per patient size (includes targeted exams where dose is matched to clinical indication); or iterative reconstruction. Contrast material: OMNI 350; Contrast volume: 74 ml; Contrast route: INTRAVENOUS (IV); COMPARISON: CT head wo con* [id number] 01/06/2021 7:34 PM RADIATION DOSE METRICS: Total DLP (mGy-cm): 1711.47 FINDINGS: ANTERIOR CIRCULATION: Right internal carotid artery: Unremarkable. Intracranial segment is patent with no significant stenosis. No aneurysm. Right middle cerebral artery: Unremarkable. No occlusion or significant stenosis. No aneurysm. Right anterior cerebral artery: Unremarkable. No occlusion or significant stenosis. No aneurysm. Left internal carotid artery: Unremarkable. Intracranial segment is patent with no significant stenosis. No aneurysm. Left middle cerebral artery: Unremarkable. No occlusion or significant stenosis. No aneurysm. Left anterior cerebral artery: Unremarkable. No occlusion or significant stenosis. No aneurysm. POSTERIOR CIRCULATION: Right vertebral artery: Unremarkable. No occlusion or significant stenosis. No aneurysm. Left vertebral artery: Unremarkable. No occlusion or significant stenosis. No aneurysm. Basilar artery: Unremarkable. No occlusion or significant stenosis. No aneurysm. Right posterior cerebral artery: Unremarkable. No occlusion or significant stenosis. No aneurysm. Left posterior cerebral artery: Unremarkable. No occlusion or significant stenosis. No aneurysm. Brain: No definite mass, mass effect, or midline shift. No CT evidence of acute infarction. IMPRESSION: Patent intracranial arteries. No acute intracranial abnormality is seen. PROCEDURE INFORMATION: Exam: CT Angiography Neck With Contrast Exam date and time: 01/06/2021 9:25 PM Age: 20 years old Clinical indication: Numbness; Prior surgery; Surgery type: Chest port. Left mastectomy. Left facial reconstruction. ; Patient HX: Onset of left facial parasthesia today. 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 ; Additional info: Left facial numbness, eval for stroke, cancer history TECHNIQUE: Imaging protocol: Computed tomography angiography of the neck with contrast. 3D rendering (Not supervised by radiologist): MIP and/or 3D reconstructed images were created by the technologist. Radiation optimization: All CT scans at this facility use at least one of these dose optimization techniques: automated exposure control; mA and/or kV adjustment per patient size (includes targeted exams where dose is matched to clinical indication); or iterative reconstruction. Contrast material: OMNI 350; Contrast volume: 74 ml; Contrast route: INTRAVENOUS (IV); COMPARISON: CT head wo con* [id number] 01/06/2021 7:34 PM RADIATION DOSE METRICS: Total DLP (mGy-cm): 1711.47 FINDINGS: Right common carotid artery: No stenosis. No dissection or occlusion. Right internal carotid artery: No stenosis of the extracranial segment. No dissection or occlusion. Right external carotid artery: No occlusion or stenosis of the origin. Left common carotid artery: No stenosis. No dissection or occlusion. Left internal carotid artery: No stenosis of the extracranial segment. No dissection or occlusion. Left external carotid artery: No occlusion or stenosis of the origin. Right vertebral artery: No stenosis. No dissection or occlusion. Left vertebral artery: No stenosis. No dissection or occlusion. Soft tissues: Normal. No significant soft tissue swelling. Bones/joints: No acute fracture. CT/CT angio headneck* [id number] IMPRESSION: Patent neck carotid and vertebral arteries. REFERENCES: NASCET CRITERIA. The degree of internal carotid artery stenosis is based on NASCET criteria. Normal is no stenosis. Mild is less than 50% stenosis. Moderate is 50-69% stenosis. Severe is 70% to 99% stenosis. Total occlusion is no detectable patent lumen. Radiation Dose CTDIVOL = (mGy): DLP = 1711.47~1711.47 (mGy-cm)
[2021-01-06 23:35] LABS: Basophils % 0.2 %; Eosinophils # 0.1 10^3/uL (0.0-0.8); Eosinophils % 1.2 %; Hematocrit 37.3 % (37.0-47.0); Hemoglobin 12.3 g/dL (11.5-15.3); Lymphocytes # 3.3 10^3/uL (0.8-4.8); Lymphocytes % 34.5 %; Mean Corpuscular Hemoglobin 31.1 pg (28.0-34.0); Mean Corpuscular Volume 94.4 fl (81-99); Mean Platelet Volume 10.6 fL (7.4-10.4); Monocytes # 0.8 10^3/uL (0.2-0.9); Neutrophils # 5.38 10^3/uL (1.8-7.7); Neutrophils % 55.9 %; Nucleated Red Blood Cells % 0 %; Platelet Count 89 10^3/cmm (130-400); Red Blood Count 3.95 10^6/uL (4.1-5.3); Red Cell Distribution Width 11.9 % (12.1-15.1); White Blood Count 9.6 10^3/uL (4.0-10.0)
[2021-01-06 23:42] LABS: HCG Qualitative Urine. Negative (Negative)
[2021-01-06] MEDS: iohexol 350 mg/mL 100 mL Btl IV (23:50)
[2021-01-07 00:03] LABS: Alanine Aminotransferase 11 U/L (0-33); Albumin Level 3.9 g/dL (3.5-5.2); Alkaline Phosphatase 114 IU/L (35-105); Anion Gap 16.9 (5-19); Aspartate Amino Transferase 17 U/L (0-32); Blood Urea Nitrogen 14 mg/dL (6-20); Calcium 9.2 mg/dL (8.5-10.5); Carbon Dioxide 21 mmol/L (22-29); Chloride 102 mmol/L (98-107); Globulin 2.8 g/dL (1.3-4.6); Glomerular Filtration Rate 154.3 mL/min (90-130); Glucose 84 mg/dL (65-115); Magnesium 1.7 mg/dL (1.7-2.3); Osmolality Calculated 282 mOsm/kg (285-295); Potassium 3.9 mmol/L (3.5-5.1); Sodium 136 mmol/L (136-145); Thyroid Stimulating Hormone 1.24 uIU/mL (0.27-4.20); Total Bilirubin 0.3 mg/dL (0.15-1.2); Total Protein 6.7 g/dL (6.6-8.7)
[2021-01-07] MEDS: sodium chloride 0.9% 1,000 ML 999 ML IV (01:50)
[2021-01-07] MEDS: ketorolac 30 mg/mL INJ 15 MG IVP (01:56)
[2021-01-07] MEDS: diphenhydrAMINE 50 mg/mL SDV 1mL 25 MG IVP (01:56)
[2021-01-07] MEDS: metoclopramide 5 mg/mL SDV 2 mL 10 MG IVP (01:57)
[2021-01-07 03:09] VITALS: BP 109/78; PULSE 78; RESP 16; O2SAT 98
--- NOTE | 2021-01-07 03:13 | PC.NURSE ---
0306 Port a cath needle removed after heparin flush, bandaid applied. No bleeding observed.
== END 2021-01-07 03:08 | disposition home or self-care (01) ==
PROVIDERS: Emergency Medicine; Emergency Provider Emergency Medicine; PCP Family Medicine
DX: R20.2 Paresthesia of skin (principal); H53.8 Other visual disturbances; Z86.73 Personal history of transient ischemic attack (TIA), and cerebral infarction without residual deficits
CPT/HCPCS: 36415; 70450; 70486; 70496; 70498; 80053; 81025; 83735; 84443; 85025; 96361; 96374; 96375; 99284; J1200; J1642; J1885; J2765; J7030; Q9967

== ENCOUNTER 2021-04-21 13:54 | Outpatient (CLI) | payer OTHER, MEDICAID, SELFPAY | END 2021-04-21 13:55 | disposition home or self-care (01) | PROVIDERS: PCP Family Medicine; Visit Provider Internal Medicine Medical Oncology | DX: Z45.2 Encounter for adjustment and management of vascular access device (principal) | CPT/HCPCS: 96523 ==

== ENCOUNTER 2021-06-24 09:51 | Oncology outpatient (recurring) (ONCR) | payer OTHER, SELFPAY | END 2021-07-05 23:59 | disposition home or self-care (01) | PROVIDERS: PCP Family Medicine; Visit Provider Internal Medicine Medical Oncology | DX: Z45.2 Encounter for adjustment and management of vascular access device (principal) | CPT/HCPCS: 96523 ==

== ENCOUNTER 2021-08-02 13:48 | Oncology outpatient (recurring) (ONCR) | payer OTHER, SELFPAY ==
[2021-08-02 14:15] VITALS: BP 107/70; PULSE 90; RESP 18; TEMP 36.6; O2SAT 99
== END 2021-08-04 23:59 | disposition home or self-care (01) ==
PROVIDERS: PCP Family Medicine; Visit Provider Internal Medicine Medical Oncology
DX: Z45.2 Encounter for adjustment and management of vascular access device (principal)
CPT/HCPCS: 96523

== ENCOUNTER 2021-08-26 11:22 | Oncology outpatient (recurring) (ONCR) | payer OTHER, MEDICAID, SELFPAY ==
[2021-08-26 11:54] LABS: Basophils % 0.5 %; Eosinophils # 0.1 10^3/uL (0.0-0.8); Eosinophils % 2.2 %; Hematocrit 35.5 % (37.0-47.0); Hemoglobin 11.9 g/dL (11.5-15.3); Lymphocytes % 48.8 %; Mean Corpuscular HGB Conc 33.5 g/dL (30.0-36.0); Mean Corpuscular Hemoglobin 30.1 pg (28.0-34.0); Mean Corpuscular Volume 89.9 fl (81-99); Mean Platelet Volume 10.2 fL (7.4-10.4); Monocytes # 0.5 10^3/uL (0.2-0.9); Monocytes % 7.5 %; Neutrophils # 2.54 10^3/uL (1.8-7.7); Neutrophils % 40.8 %; Nucleated Red Blood Cells % 0 %; Platelet Count 207 10^3/cmm (130-400); Red Blood Count 3.95 10^6/uL (4.1-5.3); Red Cell Distribution Width 12.9 % (12.1-15.1); White Blood Count 6.2 10^3/uL (4.0-10.0)
[2021-08-26 12:23] LABS: Alanine Aminotransferase 11 U/L (0-33); Albumin Level 4.2 g/dL (3.5-5.2); Alkaline Phosphatase 152 IU/L (35-105); Anion Gap 15.2 (5-19); Aspartate Amino Transferase 17 U/L (0-32); Blood Urea Nitrogen 14 mg/dL (6-20); Calcium 8.8 mg/dL (8.5-10.5); Carbon Dioxide 20 mmol/L (22-29); Chloride 109 mmol/L (98-107); Globulin 2.6 g/dL (1.3-4.6); Glomerular Filtration Rate 152.9 mL/min (90-130); Glucose 105 mg/dL (65-115); Osmolality Calculated 291 mOsm/kg (285-295); Potassium 4.2 mmol/L (3.5-5.1); Sodium 140 mmol/L (136-145); Total Bilirubin 0.2 mg/dL (0.15-1.2); Total Protein 6.8 g/dL (6.6-8.7)
== END 2021-09-04 23:59 | disposition home or self-care (01) ==
PROVIDERS: PCP Family Medicine; Visit Provider Internal Medicine Medical Oncology
DX: C41.9 Malignant neoplasm of bone and articular cartilage, unspecified (principal)
CPT/HCPCS: 36591; 80053; 85025

== ENCOUNTER 2021-08-26 12:50 | Emergency (ER) | payer OTHER, MEDICAID, SELFPAY ==
[2021-08-26 13:18] VITALS: BP 104/75; PULSE 93; RESP 14; TEMP 36.5; O2SAT 98; BMI 30.9
[2021-08-26 13:23] VITALS: BP 115/79; PULSE 96; RESP 20; O2SAT 97
--- NOTE | 2021-08-26 13:32 | XR_ITS ---
WS: [id number] XR chest 1V portable [id number] REASON FOR EXAM: dyspnea FINDINGS: Chemotherapy infusion port over the right chest with right internal jugular catheter with the tip at the cavoatrial junction. Heart and mediastinum are within normal limits. Calcified granulomatous disease in both hemithoraces. Compared to the previous examination of 07/31/2020 there may be increased reticular lung opacities in both lower lobes, more markedly on the left. No other significant interval change compared to the previous examination. XR/XR chest 1V portable [id number] IMPRESSION: Clinical findings in the lung bases however this could represent early acute pn eumonitis and a follow-up chest x-ray is recommended.
--- NOTE | 2021-08-26 13:33 | ECG_ITS ---
[facility] Test Date: 2021-08-26 Pat Name: Merritt Hylton Department: Room: Gender: Female Drafter Geophysical: : 2000 Requested By: Saima Snell Order Number: [id number] Dana MD: Minh Cardona M.D. Measurements Intervals [place] Rate: 78 P: 39 PA: 153 QRS: 27 QRSD: 84 T: 43 QT: 391 QTc: 446 Interpretive Statements SINUS RHYTHM Compared to ECG 04/15/2020 13:44:31 Sinus tachycardia no longer present T-wave abnormality no longer present Possible ischemia no longer present Electronically Signed On 08-26-2021 20:29:38 CDT by Minh Cardona M.D. [id number] f
--- NOTE | 2021-08-26 13:56 | ED_ITS ---
HPI - General Adult General: Chief complaint: Shortness of Breath/Dyspnea Stated complaint: SOB, cancer pt Time Seen by Provider: 08/26/21 13:24 History of Present Illness: CC: Chest Pain HPI: This is a [21] yo patient hx of osteosarcoma of the jaw in [facility] (last chemo was 11/[address] Bruno) presenting to the ED complaining of acute sudden onset intermittent sharp chest pain x 2 weeks radiation to the back or shoulders. Patient reports pain is worse with inspiration. 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 Chest pain not associated with shortness of breath, chest pain or dyspnea on exertion. Pain is not tearing in nature and does not radiate to the back. Pain not associated with vomiting or PO intake. Denies any recent sympathomimetic drug use. Patient denies any cough. Denies palpitations, dysphagia, diaphoresis, radiation of pain to bilateral arms, jaw. Denies F/N/V/D. Patient denies any recent immobility, surgery, unilateral leg swelling, or prior PE. Patient denies any orthopnea. Onset: [2] weeks ago Duration: ongoing for the last 2 weeks Location: home Severity: mild/moderate Associated symptoms: Reports chest pain and dyspnea; Deny nausea, rash, palpitations or vomiting Review of Systems Const: Denies: fever(s) or chills Eyes: Denies: change in vision ENMT: Denies: mouth pain Card: Reports: chest pain; Denies: palpitations Resp: Reports: dyspnea; Denies: non-productive cough GI: Denies: abdominal pain, nausea, vomiting or diarrhea : Denies: dysuria Musc: Denies: extremity pain Skin/Breast: Denies: rash or new lesions Neuro: Denies: weakness in extremities Psych: Reports: other (Normal mood) Adalberto/Lymph: Denies: easy bruising PFSH ED PFSH: Medical History (Updated 08/26/21 @ 16:51 by George Bruno MD) Anemia Asthma Colon polyps Depression Onychomycosis Osteosarcoma Pulmonary nodule Subchorionic hematoma in first trimester Surgical History (Updated 08/26/21 @ 16:51 by George Bruno MD) H/O left mastectomy For benign disease H/O plastic surgery She underwent oral and left anterior maxilla reresection with right fasciocutaneous forearm flap and with split-thickness skin graft right thigh to right forearm on 03/09/2020 History of breast biopsy History of excision of pilonidal cyst History of oral surgery History of placement of ear tubes Port-A-Cath in place Family History Mother Lupus Arnold-Chiari deformity Father Cancer Cancer Social History Smoking and tobacco status: never smoked Second hand smoke exposure: No Smoking risk assessment/counseling performed?: No Alcohol intake: current Alcohol intake frequency: holidays/special occasions only Desire information about alcohol rehabilitation?: No Counseling given: No Desire information about substance/drug rehabilitation?: No Counseling given: No Lives independently: Yes Household members: family and children Marital status: Legally service: No Current occupational status: unemployed History of recent travel: No Current gender identity: Female Physical Exam Const: COMMON NORMALS: alert HENMT: COMMON NORMALS: atraumatic HEAD & SCALP: atraumatic MOUTH: moist mucous membranes not abnormal Eye: COMMON NORMALS: EOMs intact bilaterally and conjunctivae normal CONJUNCTIVA: Yes conjunctivae normal Neck/C-Spine: COMMON NORMALS: full ROM and supple Resp: COMMON NORMALS: normal respiratory effort and clear to auscultation bilaterally AUSCULTATION: clear to auscultation bilaterally Cardio: COMMON NORMALS: regular rate RATE: regular rate OTHER: 2+ radial pulses b/l GI: COMMON NORMALS: Soft to palpation and non-tender PALPATION: Yes Soft to palpation OTHER: No focal TTP. NO guarding rebound, guarding, rigidity. No CVA tenderness to percussion. Neg Perez/Neg McBurney's point tenderness, no suprabupic tenderness to palpation. Extremity: COMMON NORMALS: full ROM OTHER: no shayne signs in the LE Neuro: SENSORIUM/ORIENTATION: Yes alert MOTOR EXAM: No Abnormal motor strength present and Other motor observations present (no focal motor deficits) Psych: COMMON NORMALS: speech normal SPEECH: Yes normal speech MOOD & AFFECT: Yes euthymic mood Course Vital Signs: Vital signs: Vital Signs Temperature 97.7 F 08/26/21 13:18 Pulse Rate 73 08/26/21 15:56 Respiratory Rate 16 08/26/21 15:56 Blood Pressure 104/64 08/26/21 15:56 Pulse Oximetry 100 08/26/21 15:56 MDM - General Adult Medical Decision Making [21]yo patient w/ hx of osteosarcoma of the jaw presenting to the ED with evaluation of new onset sharp chest pain lasting for 2 weeks. HDS, pulse 2+ radially bilaterally, no signs of fluid overload, AAOx3, neuro exam intact. Given History and Exam today I have no suspicion for ACS, Pneumothorax, Pneumonia, Pulmonary Embolus, Tamponade, Aortic Dissection or other emergent problems as a cause for this presentation. Workup: ECG, CXR, CBC, BMP, Troponin, Dimer Interventions: Toradol Findings: ECG: No overt evidence of STEMI, hyperacute T waves, localizable STD or T wave inversions. No evidence of Brugada?s sign, delta wave, epsilon wave, significantly prolonged QTc, or malignant arrhythmia. No Q waves. Other Labs unremarkable for emergent problems. CXR: Without PTX, PNA, or widened mediastinum Last Stress Test: never Last Heart Catheterization: never HEART Score: 0 Dimer: wnl [3:17pm] On reassessment, the patient is HDS, no complaints of persistent chest pain in the ED after evaluation. ECG is non-ischemic. Workup today is unremarkable. Doubt ACS/PE or other emergent causes of chest pain. Doubt ACS/PE or other emergent causes of chest pain. No suspicion for aortic dissection given no widened mediastinum, 2+ upper extremity pulses, or tearing pain. No suspicion for PE given no pleuritic chest pain, recent immobilization or surgery hemoptysis, or other VTE risk factors. EKG is non-ischemic. XR normal. Rx: Tylenol 500mg Q6Hrs x 4 days PRN pain Disposition: Discharge. Strict return precautions discussed with the patient with full understanding. Advised patient to follow up promptly with a primary care provider in 24-48 hrs if the patient has persistent symptoms. Given return instructions for any crushing/tearing chest pain, focal weakness, syncope or any new or concerning issues. Lab Data : 08/26/21 15:25 08/26/21 15:25 Radiology Impressions Chest X-Ray 08/26/21 13:32 IMPRESSION: Clinical findings in the lung bases however this could represent early acute pneumonitis and a follow-up chest x-ray is recommended. Laboratory Results WBC 6.7 10^3/uL (4.0-10.0) 08/26/21 15:25 RBC 3.99 10^6/uL (4.1-5.3) L 08/26/21 15:25 Hgb 11.7 g/dL (11.5-15.3) 08/26/21 15:25 Hct 36.8 % (37.0-47.0) L 08/26/21 15:25 MCV 92.2 fl (81-99) 08/26/21 15:25 MCH 29.3 pg (28.0-34.0) 08/26/21 15:25 MCHC 31.8 g/dL (30.0-36.0) D 08/26/21 15:25 RDW 13.1 % (12.1-15.1) 08/26/21 15: Plt Count 203 10^3/cmm (130-400) 08/26/21 15:25 MPV 10.3 fL (7.4-10.4) 08/26/21 15:25 Neut % (Auto) 43.1 % 08/26/21 15:25 Lymph % (Auto) 45.3 % 08/26/21 15:25 Petroleum % (Auto) 9.0 % 08/26/21 15:25 Eos % (Auto) 2.1 % 08/26/21 15:25 Baso % (Auto) 0.3 % 08/26/21 15:25 Neut # (Auto) 2.87 10^3/uL (1.8-7.7) 08/26/21 15:25 Lymph # (Auto) 3.0 10^3/uL (0.8-4.8) 08/26/21 15:25 Petroleum # (Auto) 0.6 10^3/uL (0.2-0.9) 08/26/21 15:25 Eos # (Auto) 0.1 10^3/uL (0.0-0.8) 08/26/21 15:25 Baso # (Auto) 0.0 10^3/uL (0.0-0.1) 08/26/21 15:25 Nucleated RBC % (auto) 0 % 08/26/21 15:25 Nucleated RBCs # 0.0 /100WBC 08/26/21 15:25 D-Dimer 0.43 ug/mIFEU (0-0.59) 08/26/21 15:25 Sodium 137 mmol/L (136-145) 08/26/21 15:25 Potassium 3.9 mmol/L (3.5-5.1) 08/26/21 15:25 Chloride 106 mmol/L (98-107) 08/26/21 15:25 Carbon Dioxide 20 mmol/L (22-29) L 08/26/21 15:25 Anion Gap 14.9 (5-19) 08/26/21 15:25 BUN 14 mg/dL (6-20) 08/26/21 15:25 Creatinine 0.7 mg/dL (0.5-0.9) 08/26/21 15:25 GFR Calculation 103.7 mL/min (90-130) 08/26/21 15:25 Glucose 94 mg/dL (65-115) 08/26/21 15:25 Calculated Osmolality 284 mOsm/kg (285-295) L 08/26/21 15:25 Calcium 8.8 mg/dL (8.5-10.5) 08/26/21 15:25 Troponin T Baseline 6 ng/L (0-10) 08/26/21 15:25 Coronavirus 229E (PCR) Not detected (NOT DETECT) 08/26/21 13:46 Influenza Type A Ag Negative (Negative) 08/26/21 13:46 Influenza Type B Ag Negative (Negative) 08/26/21 13:46 SARS-CoV-2 (PCR) Not detected (NOT DETECT) 08/26/21 13:46 Imaging Data Other Imaging: Radiologist's impression: [address] [address] XRay Report Signed Patient: Merritt Hylton Unit #: [id number] : 2000 Age/Sex: 21 / F ADM Date: 08/26/21 Loc: ER Room/Bed: Attending Dr: Ordering Provider/Ordering MD: Saima Snell MD Date of Service: 08/26/21 Procedure(s): XR chest 1V portable [id number] Accession Number(s): [id number] Report Number: [id number] WS: [id number] XR chest 1V portable [id number] REASON FOR EXAM: dyspnea FINDINGS: Chemotherapy infusion port over the right chest with right internal jugular catheter with the tip at the cavoatrial junction. Heart and mediastinum are within normal limits. Calcified granulomatous disease in both hemithoraces. Compared to the previous examination of 07/31/2020 there may be increased reticular lung opacities in both lower lobes, more markedly on the left. No other significant interval change compared to the previous examination. XR/XR chest 1V portable [id number] IMPRESSION: Clinical findings in the lung bases however this could represent early acute pneumonitis and a follow-up chest x-ray is recommended. ? ? Dictated By: Sam Warren Jr, MD Signed By: Sam Warren Jr, MD Signed Date/Time: 08/26/211404 DD/ 140 Discharge Plan Discharge Patient Disposition: Home Clinical Impression: Chest pain, Dyspnea Condition: Stable Prescriptions: New acetaminophen 500 mg tablet 500 mg PO Q6H PRN (Reason: pain) 5 Days Qty: 20 0RF No Action fluticasone propion-salmeterol [Advair Diskus] 100-50 mcg/dose blister with device 1 inh inhalation BID PRN0RF lidocaine-prilocaine 2.5-2.5 % cream See Rx Instructions .ROUTE .COMPLEX Qty: 5 3RF Rx Instructions: use quarter sized amount over port site 45 minutes prior to port access; ondansetron 4 mg Tablet,Disintegrating 4 mg PO Q8H PRN (Reason: Nausea) 0RF lorazepam 2 mg/mL Concentrate See Rx Instructions .ROUTE .COMPLEX 0RF Rx Instructions: 0.25ML PO 30 MINS BEFORE WOUND DRESSING PRN olanzapine 5 mg tablet,disintegrating 5 mg PO DAILY 0RF Discharge Orders: Discharge ED (Routine); Ordered 08/26/21 Ordered By: Saima Snell Referrals: Ajit Ponce DO [Primary Care Provider] - Discharge Diet: Advance as tolerated Discharge Activity: Increase activity as tolerated Activity Restrictions/Additional Instructions: Come back to the emergency room if your chest pain worsens, have any fever or chills, worsening shortness of breath, worsening exertional lightheadedness, or any new or concerning complaints. Coding Level of Care Code ED Network Desktop Support Specialist for Jillg Fwd Exam Comprehensive
[2021-08-26 14:45] LABS: Influenza A by IFA Negative (Negative); Influenza B by IFA Negative (Negative)
[2021-08-26 15:33] LABS: Basophils % 0.3 %; Eosinophils # 0.1 10^3/uL (0.0-0.8); Eosinophils % 2.1 %; Hematocrit 36.8 % (37.0-47.0); Hemoglobin 11.7 g/dL (11.5-15.3); Lymphocytes % 45.3 %; Mean Corpuscular HGB Conc 31.8 g/dL (30.0-36.0); Mean Corpuscular Hemoglobin 29.3 pg (28.0-34.0); Mean Corpuscular Volume 92.2 fl (81-99); Mean Platelet Volume 10.3 fL (7.4-10.4); Monocytes # 0.6 10^3/uL (0.2-0.9); Neutrophils # 2.87 10^3/uL (1.8-7.7); Neutrophils % 43.1 %; Nucleated Red Blood Cells % 0 %; Platelet Count 203 10^3/cmm (130-400); Red Blood Count 3.99 10^6/uL (4.1-5.3); Red Cell Distribution Width 13.1 % (12.1-15.1); White Blood Count 6.7 10^3/uL (4.0-10.0)
[2021-08-26 15:41] LABS: Adenovirus Not Detected (NOT DETECT); Chlamydia Pneumoniae Not Detected (NOT DETECT); Coronavirus 229E,HKU1,NL63,OC4 Not Detected (NOT DETECT); Human Metapneumovirus Not Detected (NOT DETECT); Human Rhinovirus/Enterovirus Not Detected (NOT DETECT); Influenza A Not Detected (NOT DETECT); Influenza A H1 Not Detected (NOT DETECT); Influenza A H1-2009 Not Detected (NOT DETECT); Influenza A H3 Not Detected (NOT DETECT); Influenza B Not Detected (NOT DETECT); Mycoplasma Pneumoniae Not Detected (NOT DETECT); Parainfluenza Virus Type 1 Not Detected (NOT DETECT); Parainfluenza Virus Type 2 Not Detected (NOT DETECT); Parainfluenza Virus Type 3 Not Detected (NOT DETECT); Parainfluenza Virus Type 4 Not Detected (NOT DETECT); Respiratory Syncytial Virus A Not Detected (NOT DETECT); Respiratory Syncytial Virus B Not Detected (NOT DETECT); SARS-COV-2 Not Detected (NOT DETECT)
[2021-08-26 15:56] VITALS: BP 104/64; PULSE 73; RESP 16; O2SAT 100
[2021-08-26 15:57] LABS: Troponin(5th) Baseline 6 ng/L (0-10)
[2021-08-26 16:04] LABS: Anion Gap 14.9 (5-19); Blood Urea Nitrogen 14 mg/dL (6-20); Calcium 8.8 mg/dL (8.5-10.5); Carbon Dioxide 20 mmol/L (22-29); Chloride 106 mmol/L (98-107); Glomerular Filtration Rate 103.7 mL/min (90-130); Glucose 94 mg/dL (65-115); Osmolality Calculated 284 mOsm/kg (285-295); Potassium 3.9 mmol/L (3.5-5.1); Sodium 137 mmol/L (136-145)
[2021-08-26 16:09] LABS: D Dimer 0.43 ug/mIFEU (0-0.59)
[2021-08-26] MEDS: ketorolac 30 mg/mL INJ IVP (16:15)
== END 2021-08-26 16:43 | disposition home or self-care (01) ==
PROVIDERS: Emergency Provider Emergency Medicine; PCP Family Medicine
DX: R07.9 Chest pain, unspecified (principal); R06.00 Dyspnea, unspecified; Z20.822 Contact with and (suspected) exposure to COVID-19; Z85.830 Personal history of malignant neoplasm of bone; Z92.21 Personal history of antineoplastic chemotherapy
CPT/HCPCS: 71045; 80048; 84484; 85025; 85378; 87635; 87804; 93005; 96374; 99285; J1885

== ENCOUNTER 2021-11-07 13:05 | Oncology outpatient (recurring) (ONCR) | payer OTHER, SELFPAY ==
[2021-11-07 14:22] LABS: HCG, Serum Qual Negative (Negative)
== END 2021-12-05 23:59 | disposition home or self-care (01) ==
PROVIDERS: PCP Family Medicine; Visit Provider Internal Medicine Medical Oncology
DX: Z45.2 Encounter for adjustment and management of vascular access device (principal); N92.6 Irregular menstruation, unspecified
CPT/HCPCS: 36415; 36591; 84703

== ENCOUNTER 2021-11-28 13:29 | Emergency (ER) | payer OTHER, SELFPAY ==
[2021-11-28] VITALS (10 sets, daily range): BP systolic 105–139; BP diastolic 73–90; PULSE 66–81; RESP 11–27; TEMP 36.6; O2SAT 98–100; BMI 30.7
--- NOTE | 2021-11-28 13:46 | ECG_ITS ---
[facility] Test Date: 2021-11-28 Pat Name: Merritt Hylton Department: Room: Gender: Female Integration Architect: : 2000 Requested By: Bro Davis Order Number: [id number] Dana MD: Talya Loera M.D. Measurements Intervals [place] Rate: 81 P: 54 CO: 151 QRS: 48 QRSD: 84 T: 38 QT: 367 QTc: 428 Interpretive Statements SINUS RHYTHM Compared to ECG 08/26/2021 13:25:45 No significant changes Electronically Signed On 11-28-2021 22:53:15 CDT by Talya Loera M.D. [id number]
--- NOTE | 2021-11-28 15:41 | W.ED.CHESTPA ---
HPI - Chest Pain General: Chief Complaint: Chest Pain Stated Complaint: chest pain, DrSorin ask to come here. Time Seen by Provider: 11/28/21 15:25 Source: patient Mode of arrival: ambulatory History of Present Illness: 21-year-old female presents emergency room with complaint of chest pain. She refers to mid upper sternal chest pain that is been going on for about the last 2 months its been a little bit worse the last couple of days. Is semireproducible with palpation she notes she is slightly short of breath with that at times. She has a history of osteosarcoma no history of any PE or DVT no swelling in her legs. She is completed the course treatment for osteosarcoma and is on monitoring now. It is anything that makes the chest pain better or worse. Denies any hemoptysis. MD complaint: chest pain Onset (ago): month(s) Timing of current episode: episodic Prior episodes: Yes Pain location: right chest (Upper parasternal right side) Pain radiation: none Severity: moderate Quality: sharp Exacerbating factors: palpation Associated symptoms: Deny abdominal pain, dyspnea, fever(s), nausea, palpitations or vomiting Review of Systems Const: Denies: fever(s), chills, body aches, change in appetite, fatigue or malaise ENMT: Denies: throat pain, ear or mastoid pain, nasal discharge or nasal congestion Card: Reports: chest pain; Denies: palpitations, irregular heart rhythm, edema, dyspnea on exertion or orthopnea Resp: Denies: dyspnea, productive cough or non-productive cough GI: Denies: abdominal pain, nausea, vomiting, hematemesis, coffee ground emesis, diarrhea, constipation, bloating, hematochezia or melena : Denies: flank pain, difficulty voiding, dysuria, urinary frequency or urinary urgency Skin/Breast: Denies: rash or pruritus PFSH ED PFSH: Medical History (Updated 12/06/21 @ 00:01 by ) Anemia Asthma Colon polyps Depression Onychomycosis Osteosarcoma Pulmonary nodule Subchorionic hematoma in first trimester Surgical History (Updated 08/26/21 @ 16:51 by George Bruno MD) H/O left mastectomy For benign disease H/O plastic surgery She underwent oral and left anterior maxilla reresection with right fasciocutaneous forearm flap and with split-thickness skin graft right thigh to right forearm on 03/09/2020 History of breast biopsy History of excision of pilonidal cyst History of oral surgery History of placement of ear tubes Port-A-Cath in place Family History Mother Lupus Arnold-Chiari deformity Father Cancer Cancer Social History (Updated 09/15/21 @ 13:59 by Felecia Webber LPN) Second hand smoke exposure: No Smoking risk assessment/counseling performed?: No Alcohol intake: current Alcohol intake frequency: holidays/special occasions only Desire information about alcohol rehabilitation?: No Counseling given: No Desire information about substance/drug rehabilitation?: No Counseling given: No Lives independently: Yes Marital status: Legally service: No History of recent travel: No Physical Exam Const: GENERAL APPEARANCE: cooperative and comfortable ORIENTATION/CONSCIOUSNESS: Yes awake, Yes oriented to person, Yes oriented to place and Yes oriented to time HENMT: COMMON NORMALS: normocephalic, atraumatic and hearing grossly normal bilaterally HEAD & SCALP: normocephalic and atraumatic Chest: CHEST: Yes localized rib tenderness with anteroposterior compression (Upper right parasternal) Resp: COMMON NORMALS: normal respiratory effort, No retractions, No use of accessory muscles and clear to auscultation bilaterally AUSCULTATION: clear to auscultation bilaterally Cardio: COMMON NORMALS: regular rate, regular rhythm and No murmurs present (Cardio) RATE: regular rate RHYTHM: regular rhythm GI: COMMON NORMALS: Soft to palpation and No hepatosplenomegaly present AUSCULTATION: Yes normoactive bowel sounds PALPATION: Yes Soft to palpation, No Tenderness to palpation present (GI), No Guarding due to palpation present (GI) and Yes No hepatosplenomegaly present Extremity: COMMON NORMALS: normal to inspection, capillary refill normal, no clubbing, cyanosis or edema, no calf tenderness and no pedal edema Neuro: SENSORIUM/ORIENTATION: Yes oriented to person, Yes oriented to place and Yes oriented to time Skin: COMMON NORMALS: no rashes or lesions noted GENERAL SKIN EXAM: no rashes or lesions noted Course Vital Signs: Vital signs: Vital Signs Temperature 97.8 F 11/28/21 13:44 Pulse Rate 77 11/28/21 17:45 Respiratory Rate 13 11/28/21 17:45 Blood Pressure 108/79 11/28/21 18:00 Pulse Oximetry 100 11/28/21 17:45 Oxygen Delivery Me thod 11/28/21 13:44 MDM - Chest Pain Medical Decision Making Pain ongoing for months reproducible with palpation. No distinct trauma. Topical diclofenac as needed follow-up with primary care Medical Records I reviewed the patient's medical records. Lab Data I reviewed the patient's lab results. : 11/28/21 15:40 11/28/21 15:40 Radiology Impressions Chest X-Ray 11/28/21 15:56 IMPRESSION: No acute findings. Laboratory Results WBC 8.7 10^3/uL (4.0-10.0) 11/28/21 15:40 RBC 3.92 10^6/uL (4.1-5.3) L 11/28/21 15:40 Hgb 12.0 g/dL (11.5-15.3) 11/28/21 15:40 Hct 36.7 % (37.0-47.0) L 11/28/21 15:40 MCV 93.6 fl (81-99) 11/28/21 15:40 MCH 30.6 pg (28.0-34.0) 11/28/21 15:40 MCHC 32.7 g/dL (30.0-36.0) 11/28/21 15:40 RDW 13.4 % (12.1-15.1) 11/28/21 15:40 Plt Count 198 10^3/cmm (130-400) 11/28/21 15:40 MPV 10.5 fL (7.4-10.4) H 11/28/21 15:40 Neut % (Auto) 49.8 % 11/28/21 15:40 Lymph % (Auto) 41.4 % 11/28/21 15:40 [place] % (Auto) 6.6 % 11/28/21 15:40 Eos % (Auto) 1.8 % 11/28/21 15:40 Baso % (Auto) 0.2 % 11/28/21 15:40 Neut # (Auto) 4.30 10^3/uL (1.8-7.7) 11/28/21 15:40 Lymph # (Auto) 3.6 10^3/uL (0.8-4.8) 11/28/21 15:40 [place] # (Auto) 0.6 10^3/uL (0.2-0.9) 11/28/21 15:40 Eos # (Auto) 0.2 10^3/uL (0.0-0.8) 11/28/21 15:40 Baso # (Auto) 0.0 10^3/uL (0.0-0.1) 11/28/21 15:40 Nucleated RBC % (auto) 0 % 11/28/21 15:40 Nucleated RBCs # 0.0 /100WBC 11/28/21 15:40 D-Dimer 0.31 ug/mIFEU (0-0.59) 11/28/21 15:48 Sodium 139 mmol/L (136-145) 11/28/21 15:40 Potassium 3.8 mmol/L (3.5-5.1) 11/28/21 15:40 Chloride 107 mmol/L (98-107) 11/28/21 15:40 Carbon Dioxide 18 mmol/L (22-29) L 11/28/21 15:40 Anion Gap 17.8 (5-19) 11/28/21 15:40 BUN 10 mg/dL (6-20) 11/28/21 15:40 Creatinine 0.5 mg/dL (0.5-0.9) 11/28/21 15:40 GFR Calculation 152.9 mL/min (90-130) H 11/28/21 15:40 Glucose 84 mg/dL (65-115) 11/28/21 15:40 Calculated Osmolality 286 mOsm/kg (285-295) 11/28/21 15:40 Calcium 9.3 mg/dL (8.5-10.5) 11/28/21 15:40 Total Bilirubin 0.3 mg/dL (0.15-1.2) 11/28/21 15:40 AST 16 U/L (0-32) 11/28/21 15:40 ALT 11 U/L (0-33) 11/28/21 15:40 Alkaline Phosphatase 109 U/L (35-105) H 11/28/21 15:40 Total Protein 6.8 g/dL (6.6-8.7) 11/28/21 15:40 Albumin 4.2 g/dL (3.5-5.2) 11/28/21 15:40 Globulin 2.6 g/dL (1.3-4.6) 11/28/21 15:40 Discharge Plan Discharge Patient Disposition: Home Clinical Impression: Acute chest wall pain Condition: Stable Prescriptions: New diclofenac sodium 3 % gel 0.1 g topical BID Qty: 100 0RF Rx Instructions: per cm2 lesion size; completely cover lesion No Action Women's Multivitamin 18 mg iron-400 mcg-500 mg Tablet 1 tab PO DAILY Probiotic 10 billion cell Capsule 10,000 mmu cells PO DAILY Discharge Orders: Discharge ED (Routine); Ordered 11/28/21 Ordered By: Bro Eldridge Referrals: Ajit Ponce DO [Primary Care Provider] - Discharge Diet: Usual diet Discharge Activity: Increase activity as tolerated Patient Instructions: Opioid Safety, Pain Management Activity Restrictions/Additional Instructions: Apply the topical anti-inflammatory twice daily to areas of discomfort. Coding Level of Care Code ED [place] Machine Operator for Destin Castanon
--- NOTE | 2021-11-28 15:56 | XRR_ITS ---
PROCEDURE INFORMATION: Exam: XR Chest Exam date and time: 11/28/2021 4:15 PM Age: 21 years old Clinical indication: Pain; Angina pectoris; Additional info: Chest pain TECHNIQUE: Imaging protocol: Radiologic exam of the chest. Views: 1 view. COMPARISON: CR XR chest 1V portable [id number] 08/26/2021 1:48 PM FINDINGS: Tubes, catheters and devices: Right chest port terminates at the cavoatrial junction. Lungs: Unremarkable. No consolidation. Pleural spaces: Unremarkable. No pleural effusion. No pneumothorax. Heart/Mediastinum: Unremarkable. No cardiomegaly. Bones/joints: Unremarkable. XR/XR chest 1V portable [id number] IMPRESSION: No acute findings.
[2021-11-28 16:02] LABS: Basophils % 0.2 %; Eosinophils # 0.2 10^3/uL (0.0-0.8); Eosinophils % 1.8 %; Hematocrit 36.7 % (37.0-47.0); Lymphocytes # 3.6 10^3/uL (0.8-4.8); Lymphocytes % 41.4 %; Mean Corpuscular HGB Conc 32.7 g/dL (30.0-36.0); Mean Corpuscular Hemoglobin 30.6 pg (28.0-34.0); Mean Corpuscular Volume 93.6 fl (81-99); Mean Platelet Volume 10.5 fL (7.4-10.4); Monocytes # 0.6 10^3/uL (0.2-0.9); Monocytes % 6.6 %; Neutrophils % 49.8 %; Nucleated Red Blood Cells % 0 %; Platelet Count 198 10^3/cmm (130-400); Red Blood Count 3.92 10^6/uL (4.1-5.3); Red Cell Distribution Width 13.4 % (12.1-15.1); White Blood Count 8.7 10^3/uL (4.0-10.0)
[2021-11-28 16:17] LABS: Alanine Aminotransferase 11 U/L (0-33); Albumin Level 4.2 g/dL (3.5-5.2); Alkaline Phosphatase 109 U/L (35-105); Anion Gap 17.8 (5-19); Aspartate Amino Transferase 16 U/L (0-32); Blood Urea Nitrogen 10 mg/dL (6-20); Calcium 9.3 mg/dL (8.5-10.5); Carbon Dioxide 18 mmol/L (22-29); Chloride 107 mmol/L (98-107); Globulin 2.6 g/dL (1.3-4.6); Glomerular Filtration Rate 152.9 mL/min (90-130); Glucose 84 mg/dL (65-115); Osmolality Calculated 286 mOsm/kg (285-295); Potassium 3.8 mmol/L (3.5-5.1); Sodium 139 mmol/L (136-145); Total Bilirubin 0.3 mg/dL (0.15-1.2); Total Protein 6.8 g/dL (6.6-8.7)
[2021-11-28 17:05] LABS: D Dimer 0.31 ug/mIFEU (0-0.59)
== END 2021-11-28 18:25 | disposition home or self-care (01) ==
PROVIDERS: Emergency Provider Family Medicine; PCP Family Medicine
DX: R07.89 Other chest pain (principal)
CPT/HCPCS: 71045; 80053; 85025; 85378; 93005; 99285

== ENCOUNTER 2022-02-09 09:32 | Oncology outpatient (recurring) (ONCR) | payer BC, OTHER, SELFPAY ==
[2022-02-09 09:54] VITALS: BP 113/79; PULSE 85; RESP 18; TEMP 37.1; O2SAT 99
== END 2022-03-07 23:59 | disposition home or self-care (01) ==
PROVIDERS: PCP Family Medicine; Visit Provider Internal Medicine Medical Oncology
DX: Z45.2 Encounter for adjustment and management of vascular access device (principal); Z95.828 Presence of other vascular implants and grafts
CPT/HCPCS: 96523

== ENCOUNTER → 2022-02-22 10:16 | Outpatient (BNVA) | payer BC, OTHER, SELFPAY | PROVIDERS: PCP Family Medicine; Visit Provider Family Medicine | DX: Z34.90 Encounter for supervision of normal pregnancy, unspecified, unspecified trimester (principal); B35.1 Tinea unguium; M94.0 Chondrocostal junction syndrome [Tietze]; C41.9 Malignant neoplasm of bone and articular cartilage, unspecified; R07.89 Other chest pain; Z34.80 Encounter for supervision of other normal pregnancy, unspecified trimester | CPT/HCPCS: 80307; 81000; 81025; 84144; 84443; 84702; 85025; 86592; 86762; 86803; 86850; 86900; 87086; 87340; 87491; 87591; 87624; 87806 ==

== ENCOUNTER 2022-03-02 08:44 | Emergency (ER) | payer BC, OTHER, SELFPAY ==
[2022-03-02 09:01] VITALS: BP 121/85; PULSE 85; RESP 14; TEMP 36.9; O2SAT 97; BMI 26.6
--- NOTE | 2022-03-02 09:09 | ED_ITS ---
HPI - Abdominal Pain General: Chief Complaint: Abdominal Pain Stated Complaint: six weeks , cramping and spotting Time Seen by Provider: 03/02/22 08:46 Source: patient Mode of arrival: ambulatory History of Present Illness: 21-year-old female presents emergency room states she is 5 to 6 weeks gestation she has had some spotting. Some intermittent abdominal cramping for the last week as well she did see Dr. Mark for visit she is Rh+ she has not had confirmation of intrauterine at this point. 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 Had ceased monitoring because of her . She denies any dysuria urgency or frequency she is resting comfortably reports cramp y pain at 7/10. MD elicited complaint: abdominal pain Pertinent past history: other (Osteosarcoma mandible) Onset (ago): hour(s) Pain Consistency: intermittent Location: Pelvis Severity: moderate Quality: cramping Exacerbating factors: nothing Relieving factors: nothing Associated Symptoms: Reports GI cramping; Denies belching, bloating, change in bowel habits, change in stool character, chills, coffee ground emesis, constipation, diarrhea, dyspepsia, dysuria, excessive flatus, fever(s), heartburn, hematochezia, hematuria, hematemesis, fecal incontinence, loose stools, melena, nausea, poor appetite, syncope and vomiting Review of Systems Const: Denies: fever(s), chills, fatigue or malaise ENMT: Denies: throat pain, ear or mastoid pain, nasal discharge or nasal congestion Card: Denies: chest pain, palpitations, irregular heart rhythm, edema or syncope Resp: Denies: dyspnea, productive cough or non-productive cough GI: Reports: GI cramping; Denies: abdominal pain, nausea, vomiting, hematemesis, coffee ground emesis, heartburn, diarrhea, constipation, bloating, belching, excessive flatus, fecal incontinence, change in bowel habits, change in stool character, hematochezia or melena : Reports: vaginal bleeding and pelvic pain; Denies: dysuria, urinary frequency, urinary urgency or hematuria Skin/Breast: Denies: rash or pruritus PFSH ED PFSH: Medical History Anemia Asthma Colon polyps Depression Onychomycosis Osteosarcoma Pulmonary nodule Subchorionic hematoma in first trimester Surgical History H/O left mastectomy For benign disease H/O plastic surgery She underwent oral and left anterior maxilla reresection with right fasciocutaneous forearm flap and with split-thickness skin graft right thigh to right forearm on 03/09/2020 History of breast biopsy History of excision of pilonidal cyst History of oral surgery History of placement of ear tubes Port-A-Cath in place Family History Mother Lupus Arnold-Chiari deformity Father Cancer Cancer Social History Second hand smoke exposure: No Smoking risk assessment/counseling performed?: No Alcohol intake: current Alcohol intake frequency: holidays/special occasions only Desire information about alcohol rehabilitation?: No Counseling given: No Desire information about substance/drug rehabilitation?: No Counseling given: No Lives independently: Yes Marital status: Legally service: No History of recent travel: No Physical Exam Const: GENERAL APPEARANCE: cooperative and comfortable ORIENTATION/CONSCIOUSNESS: Yes awake, Yes oriented to person, Yes oriented to place and Yes oriented to time HENMT: COMMON NORMALS: normocephalic, atraumatic and hearing grossly normal bilaterally HEAD & SCALP: normocephalic and atraumatic Resp: COMMON NORMALS: normal respiratory effort, No retractions, No use of accessory muscles and clear to auscultation bilaterally AUSCULTATION: clear to auscultation bilaterally Cardio: COMMON NORMALS: regular rate, regular rhythm and No murmurs present (Cardio) RATE: regular rate RHYTHM: regular rhythm GI: COMMON NORMALS: Soft to palpation and No hepatosplenomegaly present AUSCULTATION: Yes normoactive bowel sounds PALPATION: Yes Soft to palpation, No Tenderness to palpation present (GI), No Guarding due to palpation present (GI) and Yes No hepatosplenomegaly present Extremity: COMMON NORMALS: normal to inspection, capillary refill normal, no clubbing, cyanosis or edema, no calf tenderness and no pedal edema Neuro: SENSORIUM/ORIENTATION: Yes oriented to person, Yes oriented to place and Yes oriented to time Skin: COMMON NORMALS: no rashes or lesions noted GENERAL SKIN EXAM: no rashes or lesions noted Course Vital Signs: Vital signs: Vital Signs Temperature 98.5 F 03/02/22 09:01 Pulse Rate 83 03/02/22 09:58 Respiratory Rate 14 03/02/22 09:01 Blood Pressure 107/72 03/02/22 09:58 Pulse Oximetry 100 03/02/22 09:58 Oxygen Delivery Me thod 03/02/22 09:58 MDM - Abdominal Pain Medical Decision Making Beta-hCG 20,000 ultrasound confirms intrauterine . No sign of cystitis on UA. She did have a little bit of ketones. 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 Medical Records I reviewed the patient's medical records. Lab Data I reviewed the patient's lab results. Labs/Radiology: Radiology Impressions Obstetrics Ultrasound 03/02/22 10:20 IMPRESSION: 1. Single live intrauterine with gestational sac and pole 2. cardiac activity 133 bpm. 3. [place]-rump length 5.1 mm. Visualized yolk sac. 4. Estimated gestational age; 6w2d 5. No evidence of subchorionic hematoma. 6. Simple LEFT ovarian cyst measuring 2.3 x 1.9 CM. Laboratory Results Ser , Semi-Qnt 70840.00 mIU/mL 03/02/22 09:24 Urine Color Yellow (Yellow) 03/02/22 11:00 Urine Appearance Cloudy (CLEAR) A 03/02/22 11:00 Urine pH 8 (5-7) H 03/02/22 11:00 Ur Specific [place] 1.015 (1.005-1.030) 03/02/22 11:00 Urine Protein Neg (Negative) 03/02/22 11:00 Urine Glucose (UA) Norm (Normal) 03/02/22 11:00 Urine Ketones 1+ (Negative) H 03/02/22 11:00 Urine Blood Neg (Negative) 03/02/22 11:00 Urine Nitrate Negative (Negative) 03/02/22 11:00 Urine Bilirubin Neg (Negative) 03/02/22 11:00 Prot Sulfosalicylic Acd Negative (Negative) 03/02/22 11:00 Urine Urobilinogen Norm mg/dL (Negative) 03/02/22 11:00 Ur Leukocyte Esterase Negative (Negative) 03/02/22 11:00 Urine RBC 0-4 /hpf (0-2) H 03/02/22 11:00 Urine WBC 0-4 /hpf (0-5) H 03/02/22 11:00 Ur Squamous Epith Cells 10-15 /hpf (0-5) H 03/02/22 11:00 Amorphous Sediment 2+ /hpf 03/02/22 11:00 Urine Bacteria 1+ /hpf (NONE) H 03/02/22 11:00 Discharge Plan Discharge Patient Disposition: Home Clinical Impression: Vaginal bleeding in patient after first trimester, Intrauterine Condition: Stable Prescriptions: No Action doxylamine succinate 25 mg tablet See Rx Instructions .Route .COMPLEX PRN (Reason: allergy symptoms) Qty: 30 6RF Rx Instructions: Take 1 tab by mouth each evening and 1/2 tab in the am as needed for nausea PRN; pyridoxine (vitamin B6) 100 mg tablet 100 mg PO BID PRN (Reason: Nausea) Qty: 60 6RF Women's Multivitamin 18 mg iron-400 mcg-500 mg Tablet 1 tab PO DAILY Probiotic 10 billion cell Capsule 10,000 mmu cells PO DAILY diclofenac sodium 3 % gel 0.1 g topical BID Qty: 100 0RF Rx Instructions: per cm2 lesion size; completely cover lesion Discharge Orders: Discharge ED (Routine); Ordered 03/02/22 Ordered By: Bro Eldridge Referrals: Hernesto Mark MD [Primary Care Provider] - Discharge Diet: Usual diet Discharge Activity: Increase activity as tolerated Patient Instructions: Opioid Safety, Pain Management Activity Restrictions/Additional Instructions: You were seen today for vaginal bleeding in the first trimester . Ultrasound confirms viable intrauterine with a normal hCG on blood testing. Your menstrual period dating is consistent with the ultrasound. Follow-up with your asbestos siding installer as scheduled. Coding Level of Care Code ED Clinical Nursing Manager for Chg Fwd Exam Detailed
[2022-03-02] MEDS: sodium chloride 0.9% 1,000 ML 999 ML IV ×2 (09:38→10:53)
[2022-03-02 09:58] VITALS: BP 107/72; PULSE 83; O2SAT 100
--- NOTE | 2022-03-02 10:20 | US_ITS ---
WS: [id number] ULTRASOUND EARLY TECHNIQUE: Transabdominal sonography of the pelvis was performed. CLINICAL INFORMATION: confirm IUP LMP: 01/16/2022 Beta hCG: Unknown. COMPARISON: None. FINDINGS: UTERUS AND GESTATIONAL SAC Intrauterine gestations: Intrauterine gestational sac with pole and visualized yolk sac. Normal cardiac activity detected. Estimated gestational age: 6w2d Estimated delivery October 24, 2022 Yolk sac: 0.2 cm. [place] rump length (CRL): 0.5 cm. heart motion: 133 BPM. Subchorionic hemorrhage: None. OVARIES Right ovary: Normal. Left ovary: Simple LEFT ovarian cyst measuring 2.3 x 1.9 cm FREE FLUID None. US/US OB limited [id number] IMPRESSION: 1. Single live intrauterine with gestational sac and pole 2. cardiac activity 133 bpm. 3. [place]-rump length 5.1 mm. Visualized yolk sac. 4. Estimated gestational age; 6w2d 5. No evidence of subchorionic hematoma. 6. Simple LEFT ovarian cyst measuring 2.3 x 1.9 CM.
[2022-03-02 11:38] LABS: Add Urine Microscopic? YES; Bilirubin Urine Neg (Negative); Blood Urine Neg (Negative); Glucose Urine UA Norm (Normal); Ketones Urine 1+ (Negative); Leukocyte Esterase Urine Negative (Negative); Nitrate Urine Negative (Negative); Protein Urine Neg (Negative); Specific Gravity, Urine 1.015 (1.005-1.030); Sulfosalicylic Acid Urine Negative (Negative); Urine Appearance Cloudy (CLEAR); Urine Color Yellow (Yellow); Urobilinogen Urine Norm (Negative); pH Urine 8 (5-7)
[2022-03-02 11:39] LABS: RBC Urine 0-4 /hpf (0-2); WBC Urine 0-4 /hpf (0-5)
[2022-03-02 11:40] LABS: Amorphous Sediment Urine 2+ /hpf; Bacteria Urine 1+ /hpf
== END 2022-03-02 11:06 | disposition home or self-care (01) ==
PROVIDERS: Emergency Provider Family Medicine; PCP Family Medicine
DX: O20.9 Hemorrhage in early pregnancy, unspecified (principal); Z3A.01 Less than 8 weeks gestation of pregnancy
CPT/HCPCS: 76815; 81001; 84702; 96360; 96361; 99284; J7030

== ENCOUNTER → 2022-03-23 08:37 | Outpatient (BNVA) | payer BC, OTHER, SELFPAY | PROVIDERS: PCP Family Medicine; Visit Provider Nurse Practitioner Women's Health | DX: Z34.90 Encounter for supervision of normal pregnancy, unspecified, unspecified trimester (principal); Z3A.00 Weeks of gestation of pregnancy not specified | CPT/HCPCS: 84315; 87086; 87491; 87591; 87661 ==

== ENCOUNTER 2022-04-07 10:53 | Outpatient (CLI) | payer BC, OTHER, SELFPAY ==
--- NOTE | 2022-04-07 11:00 | US_ITS ---
WS: [id number] ULTRASOUND SOFT TISSUES RIGHT axilla. HISTORY: Painful mass RIGHT axilla. History of osteosarcoma. COMPARISON: None available. TECHNIQUE: 2-D and color Doppler imaging is submitted. Ultrasound is directed to the RIGHT axilla by the patient. No mass or increased vascularity. No disto rtion. No adenopathy. US/US soft tissue/extremity [id number] IMPRESSION: Negative ultrasound RIGHT axilla. Clinically if there is an palpable area of co ncern CT evaluation may be necessary to confirm there is no underlying mass.
== END 2022-04-07 10:54 | disposition home or self-care (01) ==
LOC: RAD 10:54
PROVIDERS: PCP Family Medicine; Visit Provider Nurse Practitioner Women's Health
DX: R22.30 Localized swelling, mass and lump, unspecified upper limb (principal)
CPT/HCPCS: 76882

== ENCOUNTER 2022-04-18 12:55 | Oncology outpatient (recurring) (ONCR) | payer BC, OTHER, SELFPAY ==
[2022-04-18 13:53] LABS: Hematocrit 32.5 % (37.0-47.0); Mean Corpuscular HGB Conc 33.8 g/dL (30.0-36.0); Mean Corpuscular Hemoglobin 31.1 pg (28.0-34.0); Mean Corpuscular Volume 91.8 fl (81-99); Mean Platelet Volume 11.1 fL (7.4-10.4); Platelet Count 177 10^3/cmm (130-400); Red Blood Count 3.54 10^6/uL (4.1-5.3); Red Cell Distribution Width 11.8 % (12.1-15.1); White Blood Count 7.3 10^3/uL (4.0-10.0)
[2022-04-18 14:23] LABS: HIV 1 & 2 Antibody Non-Reactive (Non-Reactiv); HIV 1 & 2 Antigen Non-Reactive (Non-Reactiv)
[2022-04-18 14:28] LABS: Rubella IgG 34.9 IU/mL (0.0-10.0)
[2022-04-18 14:30] LABS: Hepatitis B Surface Antigen Non-Reactive (Nonreactive); Hepatitis C Virus Antibody Non-Reactive (Nonreactive)
[2022-04-18 14:32] LABS: Rapid Plasma Reagin Syphilis Nonreactive (Nonreactive)
== END 2022-05-05 23:59 | disposition home or self-care (01) ==
LOC: ONCMED 12:57
PROVIDERS: Nurse Practitioner Women's Health; Obstetrics & Gynecology; PCP Family Medicine; Visit Provider Internal Medicine Medical Oncology
DX: Z34.80 Encounter for supervision of other normal pregnancy, unspecified trimester; Z45.2 Encounter for adjustment and management of vascular access device
CPT/HCPCS: 36591; 84315; 85027; 86592; 86762; 86803; 86850; 86900; 87340; 87806; 96523

== ENCOUNTER 2022-05-07 14:33 | Emergency (ER) | payer BC, MEDICARE, MEDICAID, SELFPAY ==
[2022-05-07 14:38] VITALS: BP 113/77; PULSE 116; RESP 18; TEMP 36.5; O2SAT 97; BMI 24.1
--- NOTE | 2022-05-07 14:55 | ED_ITS ---
HPI - Skin/Abscess/Foreign Bdy General: Chief complaint: Skin/Abscess/Foreign Body Stated complaint: 16wk preg/absess on tailbone/fever Time Seen by Provider: 05/07/22 14:46 Source: patient Mode of arrival: ambulatory Limitations: no limitations History of Present Illness: 21-year-old female states she has had a history of pilonidal cyst in the past states she has had pain and some swelling at the same point over the last 2 days. States the pain is sharp in nature rates it a 7 out of 10 she had some slight drainage from it denies any fevers denies any worsening proving factors. Associated symptoms: Deny chills, fever(s), nausea or vomiting Review of Systems Const: Denies: fever(s), chills, body aches or change in appetite Eyes: Denies: blurry vision or eye discomfort ENMT: Denies: throat pain or dental pain Card: Denies: chest pain Resp: Denies: dyspnea GI: Denies: abdominal pain, nausea, vomiting or diarrhea : Denies: dysuria Musc: Denies: neck pain or back pain Skin/Breast: Denies: rash Neuro: Denies: headache(s) Psych: Denies: depression [place]/Lymph: Denies: easy bruising All/Imm: Denies: urticaria PFSH ED PFSH: Medical History (Updated 05/07/22 @ 15:00 by Cira John MD) Anemia with her previous pregnancies and during her chemo treatments. Asthma Colon polyps Depression No pertinent past medical history neghx:htn,dm,thyroid,dvt/pe PCP: Dr. Ponce Osteosarcoma she was diagnosed in 2019 while she was ; she had this removed at [facility]; she then went through chemotherapy for 10-11 months; she was scheduled to have a f/u Feb 2022, but due to , no scans have been done. Pulmonary nodule Surgical History (Updated 04/18/22 @ 13:04 by Tasha Cornelius RN) H/O left mastectomy Reports lumpectomy, but it was so large it took most of her breast tissue; was benign fibroadenoma. H/O plastic surgery She underwent oral and left anterior maxilla reresection with right fasciocutaneous forearm flap and with split-thickness skin graft right thigh to right forearm on 03/09/2020 History of breast biopsy History of excision of pilonidal cyst History of oral surgery History of placement of ear tubes Port-A-Cath in place DO NOT REMOVE- LINKED TO TX PLAN Family History Mother Lupus Arnold-Chiari deformity Hypertension Stroke TIA Father Cancer Cancer Denies family history of Diabetes Heart disease Hyperchloremia Social History Second hand smoke exposure: No Smoking risk assessment/counseling performed?: No Alcohol intake: current Alcohol intake frequency: holidays/special occasions only Desire information about alcohol rehabilitation?: No Counseling given: No Desire information about substance/drug rehabilitation?: No Counseling given: No Lives independently: Yes Marital status: Legally service: No Physical Exam Const: COMMON NORMALS: no acute distress and patient oriented x3 HENMT: COMMON NORMALS: normocephalic and atraumatic HEAD & SCALP: normocephalic and atraumatic Eye: COMMON NORMALS: conjunctivae normal CONJUNCTIVA: Yes conjunctivae normal Neck/C-Spine: COMMON NORMALS: supple Chest: COMMONS NORMALS: normal inspection of the chest Resp: COMMON NORMALS: normal respiratory effort Cardio: COMMON NORMALS: regular rate RATE: regular rate GI: INSPECTION: Yes normal to inspection Back/Pelvis: OTHER: pilonidal cyst Extremity: COMMON NORMALS: normal to inspection Neuro: COMMON NORMALS: patient oriented x3 Psych: COMMON NORMALS: mental status grossly normal Skin: COMMON NORMALS: no rashes or lesions noted GENERAL SKIN EXAM: no rashes or lesions noted Procedures Abscess I/D Site: other (perirectal) Side (if applicable): right Local Anesthetic: bupivacaine 0.5% Amount of anesthesia used (mL): 8 Technique: incised with #11 blade Irrigation: No Packing used?: none Course Vital Signs: Vital signs: Vital Signs Temperature 97.7 F 05/07/22 14:38 Pulse Rate 116 H 05/07/22 14:38 Respiratory Rate 18 05/07/22 14:38 Blood Pressure 113/77 05/07/22 14:38 Pulse Oximetry 97 05/07/22 14:38 Oxygen Delivery Me thod 05/07/22 14:38 MDM - Skin/Abscess/Foreign Bdy Medicial Decision Making Patient presents here with pilonidal cyst that was incised and drained here without any complications we will place her on clindamycin she is to follow-up with PCP and return if worsening. Discharge Plan Discharge Patient Disposition: Home Clinical Impression: Pilonidal cyst Condition: Stable Prescriptions: New clindamycin palmitate HCl 75 mg/5 mL recon soln 20 ml PO QID 7 Days Qty: 560 0RF No Action Gummies 400 mcg-35 mg- 25 mg-5 mg tablet,chewable 1 tab PO DAILY escitalopram oxalate 5 mg/5 mL solution 10 mg PO DAILY Qty: 240 0RF Probiotic 10 billion cell Capsule 10,000 mmu cells PO DAILY Discharge Orders: Discharge ED (Routine); Ordered 05/07/22 Ordered By: Cira John Referrals: Gregory Giron MD [Primary Care Provider] - Discharge Diet: Advance as tolerated Discharge Activity: Resume usual activity Patient Instructions: Pilonidal Cyst (ED) Coding Level of Care Code ED Science Analyst for Destin Castanon
[2022-05-07 15:15] VITALS: PULSE 87; RESP 16; O2SAT 99
== END 2022-05-07 15:16 | disposition home or self-care (01) ==
PROVIDERS: Emergency Provider Emergency Medicine; PCP Obstetrics & Gynecology
DX: O26.892 Other specified pregnancy related conditions, second trimester (principal); Z3A.16 16 weeks gestation of pregnancy; L05.91 Pilonidal cyst without abscess
CPT/HCPCS: 10080; 99283

== ENCOUNTER → 2022-05-09 13:11 | Outpatient (BNVA) | payer BC, OTHER, MEDICARE, MEDICAID, SELFPAY | PROVIDERS: PCP Obstetrics & Gynecology; Visit Provider Nurse Practitioner Women's Health | DX: Z34.80 Encounter for supervision of other normal pregnancy, unspecified trimester (principal); R42 Dizziness and giddiness; F32.9 Major depressive disorder, single episode, unspecified; C41.9 Malignant neoplasm of bone and articular cartilage, unspecified | CPT/HCPCS: 84315; 85025 ==

== ENCOUNTER 2022-05-24 09:09 | Emergency (ER) | payer BC, OTHER, MEDICARE, MEDICAID, SELFPAY ==
[2022-05-24 09:45] VITALS: BP 95/64; PULSE 82; TEMP 36.7; O2SAT 99; BMI 24.4
[2022-05-24 11:27] VITALS: BP 101/64; PULSE 74; RESP 14; O2SAT 99
--- NOTE | 2022-05-24 11:59 | W.ED.GIBLEED ---
HPI - GI Bleed General: Chief complaint: GI Bleed Stated complaint: 18 weeks , Blood in bowels Time Seen by Provider: 05/24/22 11:37 History of Present Illness: -0-2-2 female at 16 WGA with a history of left jaw osteosarcoma in remission presents to the emergency department with complaint of blood in her stool and occasional coughing up blood. Patient states that over the last 2 days she has had bright red blood per rectum when she wipes. She states that this is painless. She states that she previously had a colonoscopy that showed polyps which were removed, she is unsure when this was done and says it was with Dr. Gilbert, she states she also had a colonoscopy done in [place] but does not remember that one. She does note that she had a pilonidal cyst removed from her right perirectum approximately 2 weeks ago here in the emergency department. She also notes that over the last 2 weeks she has occasionally coughed up mucus that is blood-tinged, denies any gross hematemesis, denies any melanotic stools. She states that she had a nosebleed yesterday but does not have nosebleeds frequently. She states that she has been off chemotherapy for 1 year and currently follows up with an [facility] in [place], she was just there earlier this week and everything looked fine with the baby. She denies any nausea or vomiting, no modifying factors, no other associated symptoms. Review of Systems General: Reports: 10 or more systems reviewed and unremarkable except in HPI and below PFSH ED PFSH: Medical History Anemia with her previous pregnancies and during her chemo treatments. Asthma Colon polyps Depression No pertinent past medical history neghx:htn,dm,thyroid,dvt/pe PCP: Dr. Ponce Osteosarcoma she was diagnosed in 2019 while she was ; she had this removed at [facility]; she then went through chemotherapy for 10-11 months; she was scheduled to have a f/u Feb 2022, but due to , no scans have been done. Pulmonary nodule Surgical History H/O left mastectomy Reports lumpectomy, but it was so large it took most of her breast tissue; was benign fibroadenoma. H/O plastic surgery She underwent oral and left anterior maxilla reresection with right fasciocutaneous forearm flap and with split-thickness skin graft right thigh to right forearm on 03/09/2020 History of breast biopsy History of excision of pilonidal cyst History of oral surgery History of placement of ear tubes Port-A-Cath in place DO NOT REMOVE- LINKED TO TX PLAN Family History Mother Lupus Arnold-Chiari deformity Hypertension Stroke TIA Father Cancer Cancer Denies family history of Diabetes Heart disease Hyperchloremia Social History Second hand smoke exposure: No Smoking risk assessment/counseling performed?: No Alcohol intake: current Alcohol intake frequency: holidays/special occasions only Desire information about alcohol rehabilitation?: No Counseling given: No Desire information about substance/drug rehabilitation?: No Counseling given: No Lives independently: Yes Marital status: Legally service: No Physical Exam Const: COMMON NORMALS: no acute distress and patient oriented x3 GENERAL APPEARANCE: cooperative and well kempt ORIENTATION/CONSCIOUSNESS: Yes awake HENMT: COMMON NORMALS: normocephalic, atraumatic, hearing grossly normal bilaterally, external ears normal and Normal external nose present HEAD & SCALP: normocephalic and atraumatic FACE & SINUS: scar and other (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) NOSE: Normal external nose present EXTERNAL EAR: Yes external ears normal MOUTH: Normal oral and palatal mucosa present THROAT: posterior oropharynx normal Eye: COMMON NORMALS: Equal, round and reactive pupils present and EOMs intact bilaterally PUPIL: Yes Equal, round and reactive pupils present Neck/C-Spine: COMMON NORMALS: supple GENERAL: Yes normal visual inspection CERVICAL SPINE: No Cervical spine tenderness and No step off deformity Chest: COMMONS NORMALS: normal inspection of the chest CHEST: Yes other (Right chest port) Resp: COMMON NORMALS: normal respiratory effort, No retractions, No use of accessory muscles and clear to auscultation bilaterally AUSCULTATION: clear to auscultation bilaterally Cardio: COMMON NORMALS: regular rate and Peripheral pulses 2+ throughout RATE: regular rate PERIPHERAL PULSES: Peripheral pulses 2+ throughout GI: COMMON NORMALS: Normal to inspection, nondistended, normoactive bowel sounds present, Soft to palpation and non-tender INSPECTION: No Laceration(s) present (GI) and Yes gravid abdomen PALPATION: Yes Soft to palpation RECTAL EXAM: visual inspection normal, normal sphincter tone, heme positive stool, No External hemorrhoid(s) present, No Internal hemorrhoid(s) present, No Rectal prolapse, no lesion(s) noted, no fissure noted, no hemorrhoids noted, No Fistula present (GI), no laceration(s) noted, No Excoriation present (GI), no mass(es) noted, no tenderness noted and other (Female nurse needleworker present for entire examination) : COMMON NORMALS: Yes no CVA tenderness BLADDER/KIDNEY EXAM: Yes no CVA tenderness OB/EXTERNAL & SPECULUM: other ( heart tones 146 by nursing) Back/Pelvis: COMMON NORMALS: no CVA tenderness and thoracic and lumbar spine normal to inspection THORACIC SPINE/UPPER BACK: Yes normal to inspection LUMBAR SPINE/LOWER BACK: Yes normal to inspection Extremity: COMMON NORMALS: normal to inspection and full ROM GENERAL: No clubbing and No cyanosis RIGHT UPPER EXTREMITY: Yes wrist (Skin graft scar) LEFT LOWER EXTREMITY: Yes upper leg (Scarring and fibula removal) Neuro: COMMON NORMALS: patient oriented x3, moves all extremities, no focal motor deficits and no sensory deficits noted Psych: COMMON NORMALS: mental status grossly normal, Normal thought process present, cooperative and activity/motor behavior normal APPEARANCE: Yes well kempt ATTITUDE: Yes calm THOUGHT PROCESS: Normal thought process present Skin: COMMON NORMALS: no rashes or lesions noted GENERAL SKIN EXAM: no rashes or lesions noted Course Reevaluation(s): Reevaluation #1: Patient advised to follow-up as directed, return to the emergency department with any new or worsening symptoms or if unable to follow-up as directed or tolerate p.o. intake. Patient verbalized understanding and agreement with this plan, all questions answered. Time: 13:07 Consultations: Consultation #1: Spoke with GI Dr. Norton who agrees to see the patient as an outpatient for colonoscopy and possible endoscopy, consult placed to case management to facilitate this process. Time: 13:04 Vital Signs: Vital signs: Vital Signs Temperature 98.1 F 05/24/22 09:45 Pulse Rate 68 05/24/22 13:00 Respiratory Rate 14 05/24/22 11:27 Blood Pressure 103/60 05/24/22 13:00 Pulse Oximetry 100 05/24/22 13:00 Oxygen Delivery Me thod Room Air 05/24/22 13:00 MDM - GI Bleed Medical Decision Making While this may represent hemorrhoids, fissure, or remaining bleeding from the patient's pilonidal cyst, given her oncological history, more sinister causes of bleeding including malignancy are high on the differential. Will obtain basic lab work and speak with GI, anticipate the patient will require an outpatient colonoscopy and endoscopy. The risks and benefits of performing these procedures while the patient is will have to be addressed. Lab Data 05/24/22 12:33 05/24/22 12:33 Laboratory Results WBC 8.6 10^3/uL (4.0-10.0) 05/24/22 12:33 RBC 3.23 10^6/uL (4.1-5.3) L 05/24/22 12:33 Hgb 9.4 g/dL (11.5-15.3) L 05/24/22 12:33 Hct 30.3 % (37.0-47.0) L 05/24/22 12:33 MCV 93.8 fl (81-99) 05/24/22 12:33 MCH 29.1 pg (28.0-34.0) 05/24/22 12:33 MCHC 31.0 g/dL (30.0-36.0) 05/24/22 12:33 RDW 12.0 % (12.1-15.1) L 05/24/22 12:33 Plt Count 176 10^3/cmm (130-400) 05/24/22 12:33 MPV 9.9 fL (7.4-10.4) 05/24/22 12:33 Neut % (Auto) 62.6 % 05/24/22 12:33 Lymph % (Auto) 29.0 % 05/24/22 12:33 Pratt % (Auto) 5.5 % 05/24/22 12:33 Eos % (Auto) 2.4 % 05/24/22 12:33 Baso % (Auto) 0.3 % 05/24/22 12:33 Neut # (Auto) 5.37 10^3/uL (1.8-7.7) 05/24/22 12:33 Lymph # (Auto) 2.5 10^3/uL (0.8-4.8) 05/24/22 12:33 Pratt # (Auto) 0.5 10^3/uL (0.2-0.9) 05/24/22 12:33 Eos # (Auto) 0.2 10^3/uL (0.0-0.8) 05/24/22 12:33 Baso # (Auto) 0.0 10^3/uL (0.0-0.1) 05/24/22 12:33 Nucleated RBC % (auto) 0 % 05/24/22 12: Nucleated RBCs # 0.0 /100WBC 05/24/22 12:33 PT 13.50 SECONDS (12.1-14.9) 05/24/22 12:33 INR 1.00 (0.8-1.2) 05/24/22 12:33 APTT 27.7 SECONDS (23.9-36.7) 05/24/22 12:33 Sodium 133 mmol/L (136-145) L 05/24/22 12:33 Potassium 4.0 mmol/L (3.5-5.1) 05/24/22 12:33 Chloride 106 mmol/L (98-107) 05/24/22 12:33 Carbon Dioxide 17 mmol/L (22-29) L 05/24/22 12:33 Anion Gap 14.0 (5-19) 05/24/22 12:33 BUN 7 mg/dL (6-20) 05/24/22 12:33 Creatinine 0.3 mg/dL (0.5-0.9) L 05/24/22 12:33 GFR Calculation 275.7 mL/min (90-130) H 05/24/22 12:33 Glucose 73 mg/dL (65-115) 05/24/22 12:33 Calculated Osmolality 273 mOsm/kg (285-295) L 05/24/22 12:33 Calcium 8.1 mg/dL (8.5-10.5) L 05/24/22 12:33 Total Bilirubin 0.2 mg/dL (0.15-1.2) 05/24/22 12:33 AST 13 U/L (0-32) 05/24/22 12:33 ALT 6 U/L (0-33) 05/24/22 12:33 Alkaline Phosphatase 65 U/L (35-105) 05/24/22 12:33 Total Protein 6.0 g/dL (6.6-8.7) L 05/24/22 12:33 Albumin 3.4 g/dL (3.5-5.2) L 05/24/22 12:33 Globulin 2.6 g/dL (1.3-4.6) 05/24/22 12:33 Urine Color Yellow (Yellow) 05/24/22 11:32 Urine Appearance Cloudy (CLEAR) A 05/24/22 11:32 Urine pH 8 (5-7) H 05/24/22 11:32 Ur Specific [place] 1.015 (1.005-1.030) 05/24/22 11:32 Urine Protein Neg (Negative) 05/24/22 11:32 Urine Glucose (UA) Norm (Normal) 05/24/22 11:32 Urine Ketones 1+ (Negative) H 05/24/22 11:32 Urine Blood Neg (Negative) 05/24/22 11:32 Urine Nitrate Negative (Negative) 05/24/22 11:32 Urine Bilirubin Neg (Negative) 05/24/22 11:32 Prot Sulfosalicylic Acd Negative (Negative) 05/24/22 11:32 Urine Urobilinogen Norm mg/dL (Negative) 05/24/22 11:32 Ur Leukocyte Esterase Negative (Negative) 05/24/22 11:32 Urine RBC Rare /hpf (0-2) 05/24/22 11:32 Urine WBC Rare /hpf (0-5) 05/24/22 11:32 Ur Squamous Epith Cells 0-4 /hpf (0-5) H 05/24/22 11:32 Amorphous Sediment 2+ /hpf 05/24/22 11:32 Urine Bacteria Trace /hpf (NONE) 05/24/22 11:32 Discharge Plan Discharge Patient Disposition: Home Clinical Impression: GI (gastrointestinal bleed) Qualifiers: GI bleed type/associated pathology: unspecified gastrointestinal hemorrhage type Qualified Code(s): K92.2 - Gastrointestinal hemorrhage, unspecified Supervision of normal intrauterine in multigravida Qualifiers: Trimester: second trimester Qualified Code(s): Z34.82 - Encounter for supervision of other normal , second trimester Condition: Stable Prescriptions: No Action Gummies 400 mcg-35 mg- 25 mg-5 mg tablet,chewable 1 tab PO DAILY escitalopram oxalate 5 mg/5 mL solution 10 mg PO BID Qty: 600 0RF Probiotic 10 billion cell Capsule 10,000 mmu cells PO DAILY Discharge Orders: Discharge ED (Routine); Ordered 05/24/22 Ordered By: Nigel Mathew Referrals: Gregory Giron MD [Primary Care Provider] - Carlos Norton DO [Physician] - 1 week AMANDA Sequeira [Emergency Department] - (as needed) Patient Instructions: GI Bleeding Coding Level of Care Code ED [employer]person [employer] for [employer]in [employer]anon
--- NOTE | 2022-05-24 12:02 | PC.NURSE ---
doppler used- baby HR 148
[2022-05-24 12:06] LABS: Add Urine Microscopic? YES; Bilirubin Urine Neg (Negative); Blood Urine Neg (Negative); Glucose Urine UA Norm (Normal); Ketones Urine 1+ (Negative); Leukocyte Esterase Urine Negative (Negative); Nitrate Urine Negative (Negative); Protein Urine Neg (Negative); Specific Gravity, Urine 1.015 (1.005-1.030); Sulfosalicylic Acid Urine Negative (Negative); Urine Appearance Cloudy (CLEAR); Urine Color Yellow (Yellow); Urobilinogen Urine Norm (Negative); pH Urine 8 (5-7)
[2022-05-24 12:09] LABS: Amorphous Sediment Urine 2+ /hpf; Bacteria Urine TRACE /hpf; RBC Urine RARE /hpf (0-2); Squamous Epithelial Cell Urine 0-4 /hpf (0-5); WBC Urine RARE /hpf (0-5)
[2022-05-24] MEDS: lidocaine 4% cream 5 gm 1 APPLIC TOPICAL (12:16)
[2022-05-24 12:57] LABS: Basophils % 0.3 %; Eosinophils # 0.2 10^3/uL (0.0-0.8); Eosinophils % 2.4 %; Hematocrit 30.3 % (37.0-47.0); Hemoglobin 9.4 g/dL (11.5-15.3); Lymphocytes # 2.5 10^3/uL (0.8-4.8); Mean Corpuscular Hemoglobin 29.1 pg (28.0-34.0); Mean Corpuscular Volume 93.8 fl (81-99); Mean Platelet Volume 9.9 fL (7.4-10.4); Monocytes # 0.5 10^3/uL (0.2-0.9); Monocytes % 5.5 %; Neutrophils # 5.37 10^3/uL (1.8-7.7); Neutrophils % 62.6 %; Nucleated Red Blood Cells % 0 %; Platelet Count 176 10^3/cmm (130-400); Red Blood Count 3.23 10^6/uL (4.1-5.3); White Blood Count 8.6 10^3/uL (4.0-10.0)
[2022-05-24 13:00] VITALS: BP 103/60; PULSE 68; O2SAT 100
[2022-05-24 13:00] LABS: Partial Thromboplastin Time 27.7 SECONDS (23.9-36.7)
[2022-05-24 13:05] LABS: Alanine Aminotransferase 6 U/L (0-33); Albumin Level 3.4 g/dL (3.5-5.2); Alkaline Phosphatase 65 U/L (35-105); Aspartate Amino Transferase 13 U/L (0-32); Blood Urea Nitrogen 7 mg/dL (6-20); Calcium 8.1 mg/dL (8.5-10.5); Carbon Dioxide 17 mmol/L (22-29); Chloride 106 mmol/L (98-107); Globulin 2.6 g/dL (1.3-4.6); Glomerular Filtration Rate 275.7 mL/min (90-130); Glucose 73 mg/dL (65-115); Osmolality Calculated 273 mOsm/kg (285-295); Sodium 133 mmol/L (136-145); Total Bilirubin 0.2 mg/dL (0.15-1.2)
[2022-05-24 13:51] VITALS: BP 109/65; PULSE 64; RESP 15; O2SAT 99
--- NOTE | 2022-05-24 14:15 | DCPLANNER ---
Addendum entered by Alessandra Naqvi 06/21/22 10:09: Patient had a follow up appointment scheduled with general surgery - patient did attend appointment Addendum entered by Alessandra Naqvi 05/25/22 07:25: Patient has a follow up appointment scheduled for Monday, June 20, 2022 at 8:[address] Norton at general surgery. Original Note: manager drug safety had message to schedule a follow up appointment for patient with general surgery. manager drug safety sent patients information to the front office staff at general surgery. Patients information will be printed and reviewed. Clinic will call patient with appointment information.
== END 2022-05-24 13:53 | disposition home or self-care (01) ==
PROVIDERS: Family Medicine; Emergency Provider Emergency Medicine; PCP Obstetrics & Gynecology
DX: O99.612 Diseases of the digestive system complicating pregnancy, second trimester (principal); K92.2 Gastrointestinal hemorrhage, unspecified; Z3A.18 18 weeks gestation of pregnancy; Z92.21 Personal history of antineoplastic chemotherapy
CPT/HCPCS: 80053; 81001; 85025; 85610; 85730; 99284; J1642

== ENCOUNTER → 2022-06-01 12:30 | Outpatient (BNVA) | payer BC, MEDICAID, SELFPAY | PROVIDERS: PCP Obstetrics & Gynecology; Visit Provider Nurse Practitioner Women's Health | DX: Z34.80 Encounter for supervision of other normal pregnancy, unspecified trimester (principal); K92.1 Melena; K21.9 Gastro-esophageal reflux disease without esophagitis; F32.9 Major depressive disorder, single episode, unspecified; Z34.82 Encounter for supervision of other normal pregnancy, second trimester; C41.9 Malignant neoplasm of bone and articular cartilage, unspecified | CPT/HCPCS: 81000 ==

== ENCOUNTER 2022-06-08 10:02 | Oncology outpatient (recurring) (ONCR) | payer BC, MEDICARE, MEDICAID, SELFPAY ==
[2022-06-08 14:30] LABS: Basophils % 0.1 %; Eosinophils # 0.2 10^3/uL (0.0-0.8); Eosinophils % 2.4 %; Hematocrit 30.1 % (37.0-47.0); Hemoglobin 9.7 g/dL (11.5-15.3); Lymphocytes # 2.3 10^3/uL (0.8-4.8); Lymphocytes % 23.4 %; Mean Corpuscular HGB Conc 32.2 g/dL (30.0-36.0); Mean Corpuscular Hemoglobin 29.5 pg (28.0-34.0); Mean Corpuscular Volume 91.5 fl (81-99); Mean Platelet Volume 9.7 fL (7.4-10.4); Monocytes # 0.7 10^3/uL (0.2-0.9); Monocytes % 6.5 %; Neutrophils # 6.69 10^3/uL (1.8-7.7); Neutrophils % 67.1 %; Nucleated Red Blood Cells % 0 %; Platelet Count 212 10^3/cmm (130-400); Red Blood Count 3.29 10^6/uL (4.1-5.3); Red Cell Distribution Width 12.6 % (12.1-15.1)
[2022-06-08 14:47] LABS: Ferritin 9 ng/mL (15-150); Iron 41 ug/dL (37-145); Percent Saturation 9.6 % (20-50); Total Iron Binding Capacity 426 mcg/dl; Unsaturated Iron Binding 385 ug/dL (112-347)
[2022-06-08 15:03] LABS: Vitamin B12 427 pg/mL (232-1245)
== END 2022-07-05 23:59 | disposition home or self-care (01) ==
PROVIDERS: PCP Obstetrics & Gynecology; Visit Provider Internal Medicine Medical Oncology
DX: Z45.2 Encounter for adjustment and management of vascular access device; D64.9 Anemia, unspecified; C41.9 Malignant neoplasm of bone and articular cartilage, unspecified; R04.2 Hemoptysis
CPT/HCPCS: 36591; 71275; 82607; 82728; 83540; 83550; 85025; J1642; Q9967

== ENCOUNTER 2022-06-08 13:51 | Outpatient (CLI) | payer BC, MEDICAID, SELFPAY ==
--- NOTE | 2022-06-08 13:30 | CT_ITS ---
WS: [id number] CTA OF THE CHEST WITH PULMONARY EMBOLISM PROTOCOL TECHNIQUE: High-resolution contrast enhanced CTA of the chest with coronal and sagittal reformatted i mages with pulmonary embolism protocol. MIP images are also reviewed. CLINICAL INFORMATION: hemoptysis COMPARISON: None. DLP: 253.[address] scans at [facility] use at least one of these dose optimization techniques: automated e xposure control; mA and/or kV adjustment per patient size (includes targeted exams where dose is matc hed to clinical indication); or iterative reconstruction. FINDINGS: Proximal main pulmonary arteries are normal. Normal segmental and subsegmental pulmonary arteries. No evidence of pulmonary embolus. Normal caliber thoracic aorta. No mediastinal or hilar lymphadenopathy. No axillary lymphadenopathy. Small esophageal hiatal hernia. Calcified adrenal glands can be seen with granulomatous disease. Pect us excavatum. CT/CT angio chest PE protcl [id number] IMPRESSION: 1. No evidence of pulmonary embolus. 2. Lungs are well aerated.
[2022-06-08] MEDS: iohexol 350 mg/mL 500 mL Btl (per mL) IV (15:37)
== END 2022-06-08 13:52 | disposition home or self-care (01) ==
LOC: RAD 13:51
PROVIDERS: PCP Obstetrics & Gynecology; Visit Provider Internal Medicine Medical Oncology
DX: C41.9 Malignant neoplasm of bone and articular cartilage, unspecified (principal); R04.2 Hemoptysis
CPT/HCPCS: 71275; Q9967

== ENCOUNTER 2022-06-16 08:11 | Day surgery (SDC) | payer BC, MEDICARE, MEDICAID, SELFPAY ==
[2022-06-14 13:48] VITALS: BMI 25.8
[2022-06-16] VITALS (12 sets, daily range): BP systolic 94–109; BP diastolic 46–69; PULSE 64–104; RESP 16–21; TEMP 36.1–36.7; O2SAT 96–100
[2022-06-16] MEDS: sodium chloride 0.9% 1,000 ML 30 ML IV (08:28)
--- NOTE | 2022-06-16 09:37 | ANES.PREANE2 ---
Pre-Anesthetic Assessment Height/Weight: Height 1.68 m Weight 72.575 kg Temp Pulse Resp BP Pulse Ox O2 Del Method 98.1 F 98 18 109/64 99 Room Air 06/16/22 08:28 06/16/22 08:28 06/16/22 08:28 06/16/22 08:28 06/16/22 08:28 06/16/22 08:28 Preop Diagnosis: GI Hemorrhage Operation Date: 06/16/22 10:00 Proposed Procedures p 26853 egd [id number] colonm K92.2,C41.9(Not Applicable) - Carlos Norton DO s Colonoscopy(Not Applicable) - Carlos Norton DO Familial anesthetic complications: none Was Beta Yessenia taken within 24 hours: N/A Was Clonidine taken within 24 hours: N/A Last intake: Intake Last Liquid Date 06/15/22 Last Liquid Time 22:00 Last Solid Date 06/14/22 Social No alcohol and No tobacco Exam alert, oriented x 3, clear to auscultation bilaterally and regular rate & rhythm Airway Submandibular: within normal limits Cervical ROM: within normal limits Mallampati: Class II Dentition: full Comments: Comments: 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 No history of radiation just chemo. Pulmonary Asthma and Shortness of Breath CV/HEM Stable Angina hypotension. chemo 1.5 years prior sees laboratory courier every 6 months. None reported Hepatic None reported GI Bleeding Metabolic 21 weeks gestation. [facility] [place] None reported Neuropsych Anxiety Anesthetic Plan ASA status: 3 Anesthesia: General Other: RSI Medications/Allergies Home Medications Medication Instructions Recorded Confirmed Last Taken Type Lactobacillus acidophilus 10 10,000 mmu cells PO DAILY 11/28/21 06/16/22 06/14/22 History billion cell capsule (Probiotic) PNV 153-FA 400 mcg-om3 35 mg-dha 1 tab PO DAILY 03/23/22 06/14/22 06/14/22 History 25 mg-epa 5 mg-fish oil chew tablet ( Gummies) escitalopram oxalate 5 mg/5 mL 10 mg (10 mL) PO BID #600 mL 05/23/22 06/16/22 06/14/22 Rx oral solution pantoprazole 40 mg tablet,delayed 40 mg PO BID 6 weeks #84 tabs 05/26/22 06/16/22 06/14/22 Rx release (Protonix) promethazine 12.5 mg rectal 12.5 mg IL Q6H PRN nausea and 06/01/22 06/16/22 06/14/22 Rx suppository vomiting #12 ea Allergies Allergy/AdvReac Type Severity Reaction Status Date / Time azithromycin Allergy ADR-Itching Verified 06/16/22 08:44 peas Allergy ALGY-Hives Verified 06/16/22 08:44 shellfish derived Allergy ALGY-Swell Verified 06/16/22 08:44 Lip/Tongue/Throat Current Medications Generic Name Dose Route Start Last Admin Trade Name Freq PRN Reason Stop Dose Admin Sodium Chloride 1,000 mls @ 30 mls/hr 06/16/22 08:15 06/16/22 08:28 Sodium Chloride 0.9% IV 06/17/22 08:14 30 mls/hr .Q24H NETO Administration PFSH Anesthesia Medical History (Updated 06/08/22 @ 17:33 by George Bruno MD) Anemia Asthma Depression GERD (gastroesophageal reflux disease) History of colonic polyps 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 H/O plastic surgery She underwent oral and left anterior maxilla reresection with right fasciocutaneous forearm flap and with split-thickness skin graft right thigh to right forearm on 03/09/2020 History of excision of pilonidal cyst History of oral surgery (02/27/20) left inferior maxillectomy, infratemporal fossa resection, and left neck exploration by Dr. Brizuela at [facility] History of placement of ear tubes Hx of colonoscopy with polypectomy Hx of sigmoidoscopy Port-A-Cath in place DO NOT REMOVE- LINKED TO TX PLAN Family History Mother Lupus Arnold-Chiari deformity Hypertension Stroke TIA Father Cancer Cancer Denies family history of Diabetes Heart disease Hyperchloremia Social History (Updated 06/08/22 @ 10:57 by Jill Gonzáles LPN) Smoking and tobacco status: former smoker Quit status (tobacco): has quit using tobacco Former quit date comment: Denies smoking, states tried vaping twice then stopped Second hand smoke exposure: No Smoking risk assessment/counseling performed?: No Alcohol intake: current Alcohol intake frequency: holidays/special occasions only Desire information about alcohol rehabilitation?: No Counseling given: No Substance/Drug Use: never Desire information about substance/drug rehabilitation?: No Counseling given: No Lives independently: Yes Marital status: Legally service: No Do you think of yourself as: Straight/Heterosexual Data Anesthesia Cardiac Studies: Echocardiogram 08/24/20
--- NOTE | 2022-06-16 10:20 | W.PM.OPSUD ---
Surgery/Procedure H&P Update DATE OF PROCEDURE: June 16, 2022 DATE H&P PERFORMED: 05/26/22 H&P UPDATE INFORMATION: I have reviewed H&P completed within last 30 days, I have examined patient prior to procedure and No changes to prior documentation PREOP DIAGNOSIS: GI Hemorrhage PLANNED PROCEDURE: Operation Date: 06/16/22 10:00 Proposed Procedures p 17836 egd 02470 colonm K92.2,C41.9(Not Applicable) - DO fracisco Nix Colonoscopy(Not Applicable) - Carlos Norton DO
--- NOTE | 2022-06-16 11:54 | PC.NURSE ---
OB Nurse reported heart tones at 130 after arrival to post op room phase 1
--- NOTE | 2022-06-16 14:39 | ANE.PACU2 ---
Inpatient post-anesthesia follow up: Airway intact: Yes Vital signs: Temperature 97 F Pulse Rate 74 Respiratory Rate 16 Blood Pressure 98/62 Pulse Oximetry 100 Oxygen Delivery Me thod Room Air Oxygen Flow Rate Fraction of Inspir ed Oxygen Hydration adequate: Yes Nausea and vomiting: No Pain level: 2 Mental status: Baseline
== END 2022-06-16 11:55 | disposition home or self-care (01) ==
PROVIDERS: PCP Obstetrics & Gynecology; Visit Provider Surgery
PROC: 0DJ08ZZ Inspection of Upper Intestinal Tract, Via Natural or Artificial Opening Endoscopic (ICD-10-PCS; CPT 43235; principal; 2022-06-16 10:00)
PROC: 0DJD8ZZ Inspection of Lower Intestinal Tract, Via Natural or Artificial Opening Endoscopic (ICD-10-PCS; CPT 45378; 2022-06-16 10:00)
DX: K92.2 Gastrointestinal hemorrhage, unspecified (principal); K21.9 Gastro-esophageal reflux disease without esophagitis; Z85.830 Personal history of malignant neoplasm of bone; R04.2 Hemoptysis; K61.1 Rectal abscess; Z92.21 Personal history of antineoplastic chemotherapy; J45.909 Unspecified asthma, uncomplicated; I10 Essential (primary) hypertension; O26.892 Other specified pregnancy related conditions, second trimester; Z3A.21 21 weeks gestation of pregnancy; Z87.891 Personal history of nicotine dependence
CPT/HCPCS: 43235; 45378; J0330; J2405; J2704; J7030

== ENCOUNTER → 2022-07-05 11:08 | Outpatient (BNVA) | payer MEDICARE, BC, OTHER, MEDICAID, SELFPAY | PROVIDERS: PCP Obstetrics & Gynecology; Visit Provider Nurse Practitioner Women's Health | DX: Z34.80 Encounter for supervision of other normal pregnancy, unspecified trimester (principal); N76.0 Acute vaginitis; B96.89 Other specified bacterial agents as the cause of diseases classified elsewhere | CPT/HCPCS: 82950; 84315; 87086 ==

== ENCOUNTER 2022-07-13 19:31 | Outpatient (CLI) | payer BC, MEDICARE, MEDICAID, SELFPAY ==
[2022-07-13 19:30] VITALS: BMI 25.7
[2022-07-13 19:37] VITALS: BP 109/61; PULSE 76; TEMP 35.9
[2022-07-13 20:16] LABS: Bacteria Urine TRACE /hpf; Bilirubin Urine Neg (Negative); Blood Urine Neg (Negative); Glucose Urine UA Norm (Normal); Ketones Urine Negative (Negative); Leukocyte Esterase Urine Negative (Negative); Mucus Urine TRACE /hpf; Nitrate Urine Negative (Negative); Protein Urine Neg (Negative); Squamous Epithelial Cell Urine 0-4 /hpf (0-5); Urine Appearance Clear (CLEAR); Urine Color Yellow (Yellow); Urobilinogen Urine Norm (Negative); WBC Urine 0-4 /hpf (0-5); pH Urine 6 (5-7)
[2022-07-13 20:17] LABS: Add Urine Culture? No
[2022-07-13 20:31] VITALS: BP 109/61; PULSE 76; RESP 16
== END 2022-07-13 20:34 | disposition home or self-care (01) ==
LOC: OPOB 19:33 → OBGYN 19:34
PROVIDERS: PCP Obstetrics & Gynecology; Visit Provider Obstetrics & Gynecology
DX: O47.9 False labor, unspecified (principal); Z3A.00 Weeks of gestation of pregnancy not specified
CPT/HCPCS: 81001; 99211

== ENCOUNTER 2022-07-17 14:54 | Oncology outpatient (recurring) (ONCR) | payer BC, MEDICAID, SELFPAY ==
[2022-07-17 14:59] VITALS: BP 99/68; PULSE 80; RESP 18; TEMP 36.5; O2SAT 99
== END 2022-08-04 23:59 | disposition home or self-care (01) ==
LOC: ONCMED 14:54
PROVIDERS: PCP Obstetrics & Gynecology; Visit Provider Internal Medicine Medical Oncology
DX: Z45.2 Encounter for adjustment and management of vascular access device (principal)
CPT/HCPCS: 96523; J1642

== ENCOUNTER 2022-08-15 18:45 | Outpatient (CLI) | payer BC, MEDICAID, SELFPAY ==
[2022-08-15 18:45] VITALS: BMI 26.4
[2022-08-15 19:02] VITALS: BP 107/65; PULSE 90; TEMP 36
[2022-08-15 19:35] VITALS: BP 103/60; PULSE 86
[2022-08-15 19:40] VITALS: BP 103/60; PULSE 86; RESP 17; TEMP 36.6
== END 2022-08-15 19:45 | disposition home or self-care (01) ==
LOC: OPOB 18:46 → OBGYN 18:49
PROVIDERS: PCP Obstetrics & Gynecology; Visit Provider Obstetrics & Gynecology
DX: O26.899 Other specified pregnancy related conditions, unspecified trimester (principal); H53.8 Other visual disturbances; Z3A.00 Weeks of gestation of pregnancy not specified
CPT/HCPCS: 59025; 84315; 85025; 99211

== ENCOUNTER 2022-08-20 19:54 | Outpatient (CLI) | payer BC, MEDICAID, SELFPAY ==
[2022-08-20] VITALS (7 sets, daily range): BP systolic 113–124; BP diastolic 64–73; PULSE 71–107; RESP 16; TEMP 36.4–36.6; BMI 25.0
[2022-08-20 20:50] LABS: Actim Prom Positive
[2022-08-20 20:53] LABS: Bilirubin Urine Neg (Negative); Blood Urine Neg (Negative); Glucose Urine UA Norm (Normal); Ketones Urine Negative (Negative); Leukocyte Esterase Urine Trace (Negative); Nitrate Urine Negative (Negative); Protein Urine Neg (Negative); Specific Gravity, Urine 1.005 (1.005-1.030); Urine Appearance Clear (CLEAR); Urine Color Colorless (Yellow); Urobilinogen Urine Norm (Negative); pH Urine 7 (5-7)
[2022-08-20 20:54] LABS: Bacteria Urine 1+ /hpf; WBC Urine 0-4 /hpf (0-5)
--- NOTE | 2022-08-20 21:25 | P.HPUD_ITS ---
Labor & Delivery H&P Update Date of Procedure: August 20, 2022 Date H&P Performed: 08/15/22 H&P update information: I have reviewed H&P completed within last 30 days, I have examined patient prior to procedure and Changes to prior documentation as noted here Changes to previous documentation: The patient is positive on actin-prom. Admission Diagnosis: at 30w5d, history of osteosarcoma, depression, eating disorder Planned procedure: Transfer to [facility] for tertiary care
--- NOTE | 2022-08-20 21:30 | PM.DCS ---
Discharge Providers Date of Admission: 08/20/22 Date of Discharge: August 20, 2022 Attending Provider at Admission: Dr. Juan José HOFFMANN Attending Provider at Discharge: Dr Juan José HOFFMANN Primary Care Provider: Gregory Giron MD Reason for Visit Reason for Visit: Cramping, Pressure, Backpain, Possible ROM Hospital Course Hospital Course The patient presented with complaints of possible PPROM. Her actin prom was positive. She was transferred to [facility] for tertiary care. She received one dose of betamethasone, started on Ampicillin for GBS prophylaxis and started on Magnsium sulfate prior to transfer. Physical Exam Const: COMMON NORMALS: no acute distress, average body habitus, patient oriented x3, no limitations, healthy appearing, alert and well nourished GENERAL APPEARANCE: cooperative, comfortable, well kempt and well developed ORIENTATION/CONSCIOUSNESS: Yes awake, Yes oriented to person, Yes oriented to place and Yes oriented to time GI: COMMON NORMALS: Soft to palpation and non-tender PALPATION: Yes Soft to palpation Extremity: COMMON NORMALS: no calf tenderness Neuro: COMMON NORMALS: patient oriented x3 SENSORIUM/ORIENTATION: Yes alert, Yes oriented to person, Yes oriented to place and Yes oriented to time Psych: APPEARANCE: Yes well kempt Discharge Data Studies Completed and Pending Laboratory Results Insulin-like GF I Positive 08/20/22 20:25 Urine Color Colorless (Yellow) 08/20/22 20:25 Urine Appearance Clear (CLEAR) 08/20/22 20:25 Urine pH 7 (5-7) 08/20/22 20:25 Ur Specific [place] 1.005 (1.005-1.030) 08/20/22 20:25 Urine Protein Neg (Negative) 08/20/22 20:25 Urine Glucose (UA) Norm (Normal) 08/20/22 20:25 Urine Ketones Negative (Negative) 08/20/22 20:25 Urine Blood Neg (Negative) 08/20/22 20:25 Urine Nitrate Negative (Negative) 08/20/22 20:25 Urine Bilirubin Neg (Negative) 08/20/22 20:25 Urine Urobilinogen Norm mg/dL (Negative) 08/20/22 20:25 Ur Leukocyte Esterase Trace (Negative) H 08/20/22 20:25 Urine RBC None /hpf (0-2) 08/20/22 20:25 Urine WBC 0-4 /hpf (0-5) H 08/20/22 20:25 Ur Squamous Epith Cells 5-10 /hpf (0-5) H 08/20/22 20:25 Amorphous Sediment Not Reportable 08/20/22 20:25 Urine Bacteria 1+ /hpf (NONE) H 08/20/22 20:25 Vitals Last Vital Signs Temp 97.5 F L 08/20/22 20:12 Pulse 71 08/20/22 20:13 BP 116/72 08/20/22 20:13 Discharge Plan Discharge Patient Disposition: Home Prescriptions: No Action Gummies 400 mcg-35 mg- 25 mg-5 mg tablet,chewable 1 tab PO DAILY escitalopram oxalate 5 mg/5 mL solution 10 mg PO BID Qty: 600 0RF Discharge Attestations Time Spent in Discharge Care*: less than 30 min Quality Metrics Clinical Quality Measures [ No reported AMI, CVA or VTE this stay] Coding Level of Care Code Acute Code for Chg Fwd Diagnoses
[2022-08-20] MEDS: dextrose 5%-lactated ringers 1,000 ML 50 ML IV (21:56)
[2022-08-20] MEDS: ampicillin 2,000 MG in sodium chloride 0.9% (plus) 50 ML 100 MG IV (21:56)
[2022-08-20] MEDS: magnesium sulfate premix 2 GM/50 ML PIGGYBACK IV (21:57)
[2022-08-20] MEDS: magnesium sulfate premix 4 GM/100 ML PREMIX IV (21:57)
[2022-08-20] MEDS: betamethasone susp 6 mg/mL 5 mL 12 MG IM (22:04)
[2022-08-20] MEDS: magnesium sulfate premix 20 GM/500 ML BAG IV (22:22)
== END 2022-08-20 22:30 | disposition intermediate care facility (04) ==
LOC: OPOB 19:55 → OBGYN 19:55
PROVIDERS: PCP Obstetrics & Gynecology; Visit Provider Obstetrics & Gynecology
DX: O60.03 Preterm labor without delivery, third trimester (principal); Z3A.30 30 weeks gestation of pregnancy
CPT/HCPCS: 51702; 59025; 81001; 83986; 84112; 96372; 99211; J0290; J0702; J3475; J7121

== ENCOUNTER 2022-08-25 11:20 | Outpatient (CLI) | payer BC, MEDICAID, SELFPAY ==
[2022-08-25] VITALS (10 sets, daily range): BP systolic 115–134; BP diastolic 62–77; PULSE 76–90; RESP 16; BMI 26.2
--- NOTE | 2022-08-25 11:39 | US_ITS ---
WS: [id number] ULTRASOUND OB LIMITED TECHNIQUE: Limited ultrasound examination of the fetus. CLINICAL INFORMATION: possible ROM. BPP and MAYLIN COMPARISON: None. FINDINGS: Closed cervix measures 3.5 cm Single interuterine gestation. presentation is vertex Placental location is anterior. Placenta grade: 1 heart rate 138 BPM. Normal MAYLIN 11.8 cm Biophysical profile 8 out of 8. breathin movement: 2 tone: 2 Amniotic fluid: 2 US/US OB BPP wo NST [id number] IMPRESSION: 1. Normal biophysical profile 8 out of 8 2. Vertex presentation. 3. Cervix is long and closed measuring 3.5 cm
[2022-08-25 12:01] LABS: Actim Prom Positive
== END 2022-08-25 14:00 ==
LOC: OPOB 11:20 → OBGYN 11:21
PROVIDERS: PCP Obstetrics & Gynecology; Visit Provider Obstetrics & Gynecology
DX: O26.899 Other specified pregnancy related conditions, unspecified trimester (principal); N89.8 Other specified noninflammatory disorders of vagina; Z3A.00 Weeks of gestation of pregnancy not specified
CPT/HCPCS: 59025; 76819; 84112; 84315; 87086; 99211

== ENCOUNTER → 2022-09-07 09:42 | Outpatient (BNVA) | payer BC, MEDICAID, SELFPAY | PROVIDERS: PCP Obstetrics & Gynecology; Visit Provider Nurse Practitioner Family | DX: R50.9 Fever, unspecified (principal) | CPT/HCPCS: 87426 ==

== ENCOUNTER 2022-09-13 10:28 | Outpatient (CLI) | payer BC, MEDICAID, SELFPAY ==
[2022-09-13] VITALS (48 sets, daily range): BP systolic 95–109; BP diastolic 54–66; PULSE 73–101; RESP 16; O2SAT 93–100; BMI 26.4
== END 2022-09-13 13:40 | disposition home or self-care (01) ==
LOC: OPOB 10:36 → OBGYN 10:38
PROVIDERS: PCP Obstetrics & Gynecology; Visit Provider Obstetrics & Gynecology
DX: O26.899 Other specified pregnancy related conditions, unspecified trimester (principal); R51.9 Headache, unspecified; Z3A.00 Weeks of gestation of pregnancy not specified; H53.8 Other visual disturbances
CPT/HCPCS: 59025; 99211

== ENCOUNTER 2022-09-21 08:56 | Oncology outpatient (recurring) (ONCR) | payer BC, MEDICAID, SELFPAY ==
[2022-09-21 10:15] VITALS: BP 104/68; PULSE 75; RESP 16; TEMP 36.4; O2SAT 99
== END 2022-10-05 23:59 | disposition home or self-care (01) ==
PROVIDERS: PCP Obstetrics & Gynecology; Visit Provider Internal Medicine Medical Oncology
DX: Z45.2 Encounter for adjustment and management of vascular access device (principal)
CPT/HCPCS: 96523; J1642

== ENCOUNTER 2022-09-21 10:25 | Outpatient (CLI) | payer BC, MEDICAID, SELFPAY ==
[2022-09-21 10:25] VITALS: BMI 28.2
[2022-09-21 10:48] VITALS: BP 108/61; PULSE 91; TEMP 36.7
[2022-09-21 11:04] LABS: Actim Prom Negative
[2022-09-21 11:09] VITALS: BP 102/60; PULSE 90
== END 2022-09-21 11:18 | disposition home or self-care (01) ==
LOC: OPOB 10:34 → OBGYN 10:36
PROVIDERS: PCP Obstetrics & Gynecology; Visit Provider Obstetrics & Gynecology
DX: O26.899 Other specified pregnancy related conditions, unspecified trimester (principal); N89.8 Other specified noninflammatory disorders of vagina; Z3A.00 Weeks of gestation of pregnancy not specified
CPT/HCPCS: 59025; 84112; 99211

== ENCOUNTER 2022-09-21 18:36 | Outpatient (CLI) | payer BC, MEDICAID, SELFPAY ==
[2022-09-21] VITALS (16 sets, daily range): BP systolic 94–114; BP diastolic 52–63; PULSE 65–100; RESP 16; BMI 26.4
[2022-09-21 19:55] LABS: Nitrazine Paper, PH Negative
[2022-09-21 19:59] LABS: Actim Prom Negative
[2022-09-21 20:03] LABS: Bilirubin Urine Neg (Negative); Blood Urine Neg (Negative); Glucose Urine UA Norm (Normal); Ketones Urine 3+ (Negative); Leukocyte Esterase Urine Trace (Negative); Nitrate Urine Negative (Negative); Protein Urine Trace (Negative); Urine Appearance SL Hazy (CLEAR); Urine Color Yellow (Yellow); Urobilinogen Urine Norm (Negative); pH Urine 6 (5-7)
[2022-09-21 20:04] LABS: Add Urine Culture? No; Amorphous Sediment Urine 2+ /hpf; Bacteria Urine TRACE /hpf; Calcium Oxalate Crystals Urine 0-4 /hpf; Mucus Urine 3+ /hpf; RBC Urine 0-4 /hpf (0-2); Squamous Epithelial Cell Urine 0-4 /hpf (0-5); WBC Urine 0-4 /hpf (0-5)
--- NOTE | 2022-09-21 22:40 | PC.NURSE ---
DR MERIDA IN TO ASSESS PT. SPEC EXAM PERFORMED. NO FLUID NOTED ON EXAM. DISCHERGE ORDERS RECEIVED
== END 2022-09-21 22:50 | disposition home or self-care (01) ==
LOC: OPOB 18:39 → OBGYN 18:40
PROVIDERS: PCP Obstetrics & Gynecology; Visit Provider Obstetrics & Gynecology
DX: O26.899 Other specified pregnancy related conditions, unspecified trimester (principal); N89.8 Other specified noninflammatory disorders of vagina; M54.9 Dorsalgia, unspecified; Z3A.00 Weeks of gestation of pregnancy not specified
CPT/HCPCS: 59025; 81001; 83986; 84112; 99211

== ENCOUNTER → 2022-09-25 08:16 | Outpatient (BNVA) | payer BC, MEDICAID, SELFPAY | PROVIDERS: PCP Obstetrics & Gynecology; Visit Provider Obstetrics & Gynecology | DX: Z34.80 Encounter for supervision of other normal pregnancy, unspecified trimester (principal); Z3A.00 Weeks of gestation of pregnancy not specified | CPT/HCPCS: 84315; 87086 ==

== ENCOUNTER 2022-09-26 20:36 | Outpatient (CLI) | payer BC, MEDICAID, SELFPAY ==
[2022-09-26] VITALS (25 sets, daily range): BP systolic 103–123; BP diastolic 55–76; PULSE 65–114; RESP 15; O2SAT 98–100
[2022-09-26 20:59] LABS: Bilirubin Urine Neg (Negative); Blood Urine Neg (Negative); Glucose Urine UA Norm (Normal); Ketones Urine Negative (Negative); Leukocyte Esterase Urine 1+ (Negative); Nitrate Urine Negative (Negative); Protein Urine Neg (Negative); Specific Gravity, Urine 1.005 (1.005-1.030); Urine Appearance SL Hazy (CLEAR); Urine Color Yellow (Yellow); Urobilinogen Urine Norm (Negative); pH Urine 7 (5-7)
[2022-09-26 21:01] LABS: Add Urine Culture? No; Amorphous Sediment Urine 2+ /hpf; Mucus Urine 1+ /hpf; RBC Urine 0-4 /hpf (0-2); Squamous Epithelial Cell Urine 0-4 /hpf (0-5)
--- NOTE | 2022-09-26 21:21 | USR_ITS ---
PROCEDURE INFORMATION: Exam: US Biophysical Profile Without Non-Stress Test Exam date and time: 09/26/2022 10:13 PM Age: 22 years old Clinical indication: status abnormalities: ; movements, decreased; Single gestation; Third trimester (=28 weeks 0 days); ; Additional info: Decreased movement TECHNIQUE: Imaging protocol: US biophysical profile without non-stress testing. COMPARISON: US OB BPP wo NST [id number] 08/25/2022 12:07 PM FINDINGS: heart rate: 157 bpm Amniotic fluid index: MAYLIN is 8.4 cm. BIOPHYSICAL PROFILE: breathing movement (BPP): 2/2 body movement (BPP): 2/2 tone (BPP): 2/2 Amniotic fluid (BPP): 2/2 Biophysical profile score (BPP): 8/8 US/US OB F/U w BPP wo NST IMPRESSION: Biophysical profile score of 8/8.
[2022-09-26] MEDS: terbutaline 1 mg/mL INJ 0.25 MG SUBCUT (21:40)
== END 2022-09-26 23:15 | disposition home or self-care (01) ==
LOC: OPOB 20:37 → OBGYN 20:38
PROVIDERS: PCP Obstetrics & Gynecology; Visit Provider Obstetrics & Gynecology
DX: O47.9 False labor, unspecified (principal); O36.8130 Decreased fetal movements, third trimester, not applicable or unspecified; Z3A.28 28 weeks gestation of pregnancy
CPT/HCPCS: 59025; 76816; 76819; 81001; 96372; 99211; J3105

== ENCOUNTER 2022-09-28 02:49 | Inpatient (IN) | payer BC, MEDICAID, SELFPAY ==
[2022-09-27] VITALS (16 sets, daily range): BP systolic 100–114; BP diastolic 57–77; PULSE 81–129; RESP 17; TEMP 36.4–36.8; BMI 28.0
[2022-09-27] MEDS: terbutaline 1 mg/mL INJ 0.25 MG SUBCUT (16:49)
[2022-09-27 17:31] LABS: Actim Prom Positive
[2022-09-27 17:53] LABS: Add Urine Culture? No; Amorphous Sediment Urine 1+ /hpf; Bacteria Urine TRACE /hpf; Bilirubin Urine Neg (Negative); Blood Urine 2+ (Negative); Glucose Urine UA Norm (Normal); Ketones Urine Negative (Negative); Leukocyte Esterase Urine 1+ (Negative); Mucus Urine 2+ /hpf; Nitrate Urine Negative (Negative); Protein Urine Neg (Negative); RBC Urine 0-4 /hpf (0-2); Specific Gravity, Urine 1.015 (1.005-1.030); Squamous Epithelial Cell Urine 0-4 /hpf (0-5); Urine Appearance Clear (CLEAR); Urine Color Yellow (Yellow); Urobilinogen Urine Norm (Negative); pH Urine 7 (5-7)
--- NOTE | 2022-09-27 22:18 | PM.OPHPUD ---
Labor & Delivery H&P Update Date of Procedure: September 27, 2022 Date H&P Performed: 08/15/22 H&P update information: No changes to prior documentation Changes to previous documentation: The patient is positive on actin-prom. Admission Diagnosis: 22yo female [id number] at 36.1 wk IUP NAIDA 10/24/22 admitted to LD after SROM and mild contractions. Cervical change from 2cm to 4cm with clear fluid noted. Unknown GBS so pt will be treated. 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 Primary indication for procedure: SROM in early labor at 36.1 wk gestation. Planned procedure: Labor with anticipated reviewed. Related Problem List Diagnoses (1) Supervision of normal intrauterine in multigravida: 36.1 wk IUP with SROM labor (2) Anemia: (3) GERD (gastroesophageal reflux disease): (4) Depression: ROS General Reports: 10 or more systems reviewed and unremarkable except in HPI and below Physical Exam Narrative EXAM NARRATIVE: 22yo C. female A.O x 3 NAD Const COMMON NORMALS: no acute distress, patient oriented x3, no limitations, healthy appearing, alert and well nourished GENERAL APPEARANCE: cooperative, comfortable and well kempt ORIENTATION/CONSCIOUSNESS: Yes oriented to person Cardio COMMON NORMALS: regular rate and regular rhythm RATE: regular rate RHYTHM: regular rhythm Back/Pelvis OTHER: Cervix 4cm/60%/-2 Vtx with clear fluid noted. EFM- Cat 1 with contractions q 2 . Extremity NARRATIVE EXTREMITY EXAM: no edema Neuro COMMON NORMALS: patient oriented x3 SENSORIUM/ORIENTATION: Yes alert and Yes oriented to person Psych APPEARANCE: Yes well kempt
[2022-09-27 22:54] LABS: Alanine Aminotransferase 6 U/L (0-33); Albumin Level 3.2 g/dL (3.5-5.2); Alkaline Phosphatase 82 U/L (35-105); Anion Gap 12.8 (5-19); Aspartate Amino Transferase 12 U/L (0-32); Blood Urea Nitrogen 5 mg/dL (6-20); Calcium 8.2 mg/dL (8.5-10.5); Carbon Dioxide 21 mmol/L (22-29); Chloride 107 mmol/L (98-107); Globulin 2.6 g/dL (1.3-4.6); Glomerular Filtration Rate 273.3 mL/min (90-130); Glucose 98 mg/dL (65-115); Osmolality Calculated 283 mOsm/kg (285-295); Sodium 138 mmol/L (136-145); Total Bilirubin 0.2 mg/dL (0.15-1.2); Total Protein 5.8 g/dL (6.6-8.7)
[2022-09-27 23:02] LABS: Potassium 2.8 mmol/L (3.5-5.1)
[2022-09-28] VITALS (87 sets, daily range): BP systolic 95–136; BP diastolic 53–73; PULSE 51–98; RESP 17; TEMP 36.2–36.8; O2SAT 90–100
[2022-09-28] MEDS: lactated ringers 1,000 ML 999 ML IV ×2 (01:11→02:24)
[2022-09-28 02:09] LABS: Basophils % 0.1 %; Eosinophils # 0.1 10^3/uL (0.0-0.8); Hematocrit 24.8 % (36-47); Lymphocytes # 3.1 10^3/uL (0.8-4.8); Lymphocytes % 34.1 %; Mean Corpuscular HGB Conc 29.4 g/dL (30-55); Mean Corpuscular Hemoglobin 24.7 pg (27-33); Mean Corpuscular Volume 83.8 fl (85-98); Mean Platelet Volume 11.6 fL (7.4-10.4); Monocytes # 0.6 10^3/uL (0.2-0.9); Monocytes % 6.5 %; Neutrophils # 5.28 10^3/uL (1.8-7.7); Nucleated Red Blood Cells % 0 %; Platelet Count 144 10^3/cmm (157-399); Red Blood Count 2.96 10^6/uL (3.85-5.65); Red Cell Distribution Width 17.2 % (12.1-15.1); White Blood Count 9.11 10^3/uL (3.29-11.43)
[2022-09-28] MEDS: ampicillin 1,000 MG in sodium chloride 0.9% (plus) 50 ML 100 MG IV (02:42)
[2022-09-28] MEDS: ondansetron 2 mg/ML SDV 2 mL 4 MG IVP (02:42)
[2022-09-28 02:45] LABS: Basophils % 0.1 %; Eosinophils # 0.1 10^3/uL (0.0-0.8); Eosinophils % 0.8 %; Hematocrit 24.5 % (36-47); Lymphocytes % 32.3 %; Mean Corpuscular HGB Conc 29.4 g/dL (30-55); Mean Corpuscular Hemoglobin 24.6 pg (27-33); Mean Corpuscular Volume 83.6 fl (85-98); Mean Platelet Volume 10.9 fL (7.4-10.4); Monocytes # 0.6 10^3/uL (0.2-0.9); Monocytes % 6.7 %; Neutrophils # 5.48 10^3/uL (1.8-7.7); Neutrophils % 59.9 %; Nucleated Red Blood Cells % 0 %; Platelet Count 137 10^3/cmm (157-399); Red Blood Count 2.93 10^6/uL (3.85-5.65); Red Cell Distribution Width 17.1 % (12.1-15.1); White Blood Count 9.14 10^3/uL (3.29-11.43)
--- NOTE | 2022-09-28 03:14 | ANES.PREANE2 ---
Pre-Anesthetic Assessment Height/Weight: Height 1.68 m Weight 78.925 kg Temp Pulse Resp BP O2 Del Method 97.5 F L 81 17 114/73 Room Air 09/27/22 21:46 09/27/22 22:09 09/27/22 20:13 09/27/22 22:09 09/27/22 20:15 Preop Diagnosis: labor epidural Familial anesthetic complications: none Was Beta Yessenia taken within 24 hours: N/A Was Clonidine taken within 24 hours: N/A Last Intake: 14:00 Social No alcohol and No tobacco Exam alert, oriented x 3, clear to auscultation bilaterally and regular rate & rhythm Airway Submandibular: Other (limited after oral surgery) Cervical ROM: within normal limits Mallampati: Class III Dentition: full Comments: Comments: osteo of left mandible. 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) Anesthetic Plan ASA status: 2 Medications/Allergies Home Medications Medication Instructions Recorded Confirmed Last Taken Type PNV 153-FA 400 mcg-om3 35 mg-dha 1 tab PO DAILY 03/23/22 09/28/22 09/26/22 08:00 History 25 mg-epa 5 mg-fish oil chew tablet ( Gummies) Allergies Allergy/AdvReac Type Severity Reaction Status Date / Time azithromycin Allergy ADR-Itching Verified 09/25/22 08:07 peas Allergy ALGY-Hives Verified 09/25/22 08:07 shellfish derived Allergy ALGY-Swell Verified 09/25/22 08:07 Lip/Tongue/Throat Current Medications Generic Name Dose Route Start Last Admin Trade Name Freq PRN Reason Stop Dose Admin Ampicillin Sodium 1,000 mg/ 50 mls @ 100 mls/hr 09/28/22 00:15 09/28/22 02:42 Sodium Chloride IV 100 mls/hr Q4H NETO Administration Protocol Lactated Ringer's 1,000 mls @ 999 mls/hr 09/28/22 00:51 09/28/22 02:24 Lactated Ringers IV 999 mls/hr .Q1H1M PRN Administration See label comments Ondansetron HCl 4 mg 09/27/22 20:11 09/28/22 02:42 Ondansetron 2 Mg/Ml Sdv 2 Ml IVP 4 mg Q4H PRN Administration NAUSEA AND VOMITING PFSH Anesthesia Medical History Anemia Asthma Depression GERD (gastroesophageal reflux disease) History of colonic polyps 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 H/O plastic surgery She underwent oral and left anterior maxilla reresection with right fasciocutaneous forearm flap and with split-thickness skin graft right thigh to right forearm on 03/09/2020 History of excision of pilonidal cyst History of oral surgery (02/27/20) left inferior maxillectomy, infratemporal fossa resection, and left neck exploration by Dr. Brizuela at [facility] History of placement of ear tubes Hx of colonoscopy with polypectomy Hx of sigmoidoscopy Port-A-Cath in place DO NOT REMOVE- LINKED TO TX PLAN Family History Mother Lupus Arnold-Chiari deformity Hypertension Stroke TIA Father Cancer Cancer Denies family history of Diabetes Heart disease Hyperchloremia Female Reproductive History : 5 Data Anesthesia 09/28/22 02:30 09/27/22 22:25 Short CBC 09/28/22 09/28/22 Range/Units 01:57 02:30 WBC 9.11 9.14 (3.29-11.43) 10^3/uL Hgb 7.30 L 7.20 L (11.27-16.99) g/dL Hct 24.8 L 24.5 L (36-47) % MCV 83.8 L 83.6 L (85-98) fl Plt Count 144 L 137 L (157-399) 10^3/cmm Neut % (Auto) 58.0 59.9 % Neut # (Auto) 5.28 5.48 (1.8-7.7) 10^3/uL BMP 09/27/22 22:25 Sodium 138 Potassium 2.8 L* Chloride 107 Carbon Dioxide 21 L BUN 5 L Creatinine 0.3 L Glucose 98 Calcium 8.2 L Liver Function 09/27/22 Range/Units 22:25 Total Bilirubin 0.2 (0.15-1.2) mg/dL AST 12 (0-32) U/L ALT 6 (0-33) U/L Alkaline Phosphatase 82 (35-105) U/L Albumin 3.2 L (3.5-5.2) g/dL Urine 09/27/22 Range/Units 16:30 Urine Color Yellow (Yellow) Urine Appearance Clear (CLEAR) Urine pH 7 (5-7) Ur Specific [place] 1.015 (1.005-1.030) Urine Protein Neg (Negative) Urine Glucose (UA) Norm (Normal) Urine Ketones Negative (Negative) Urine Nitrate Negative (Negative) Urine Bilirubin Neg (Negative) Ur Leukocyte Esterase 1+ H (Negative) Urine RBC 0-4 H (0-2) /hpf Urine WBC 5-10 H (0-5) /hpf Cardiac Studies: Echocardiogram 08/24/20
[2022-09-28] MEDS: potassium chloride premix 100 ML 50 MEQ IV ×2 (03:57→09:31)
--- NOTE | 2022-09-28 04:03 | ANES.PROC ---
Anesthesia Procedures Procedure/Date: 09/28/22 Epidural: Time Out Performed: Yes Consents Signed: Procedure Consent Consent: requested by attending/covering physician, from patient, risks and benefits reviewed and patient agrees to proceed Lumbar Level: L3-L4 Epidural position: sitting Epidural procedure: sterile prep of area (chloraprep), 1% lidocaine to numb the area (3ml), 18 g needle, neg for paresthesia, test dose given, 1.5% xylocaine 1:200k epi (3ml/2ml), 0.2% Ropivacaine bolus ml (5ml), placed PCEA, no systemic response, sterile dressing applied, L.U.D. no apparent complications and 0.2% Ropiavacaine @ mls/hr (13ml/hr)
--- NOTE | 2022-09-28 04:28 | ANES.PROC ---
Anesthesia Procedures Procedure/Date: 09/28/22 Epidural bolus Procedure Narrative: Pt complaint of pain and pressure noted in perineum. Pt noted to be 9cm per RN. Pt given 100 mcg Fentanyl MPF and Lidocaine 1% MPF via epidural. Will continue to monitor
--- NOTE | 2022-09-28 05:38 | PM.DELIVERY ---
Delivery Note: Date of delivery: September 28, 2022 Pre-delivery diagnoses: 1. 22yo female at 36.2 wk IUP with SROM Post-delivery diagnoses: 1. 26.2 wk IUP with SROM 2. OP presentation 3. Hypokalemia 4. Anemia Procedure: viable female Op report anesthesia: Epidural Delivering Physician: Siva Hanna DO Estimated blood loss (mL): 400 Findings: Normal female Delivery: 22yo female delivered a viable female OP over superficial perineal laceration repaired with SIS of 3.0 chromic. Spontaneous cry noted. Delayed cord clamping of 3 vessel cord. Cord cut and baby placed on Mothers chest for bonding. Nursing evaluation and assessment done and baby dried and taken to warmer. Uterus messaged and placenta presented in [place] presentation with trailing membranes. Pitocin added to IV fluid and infused as a bolus. Uterus palpates firm, bleeding controlled . Mother and in stable condition. Post-Delivery Status: stable History History History 5 Term 2 0 Miscarriages/Ectopic 2 Living Children 2 Past Pregnancies Del. Date GA/Weeks Outcome Route Wt Inf Gender Labor Lgth Comp. Anesthesia Location 03/28/16 40 live - full term Vaginal 3.742 kg Female [facility] [place] 09/05/18 6 spontaneous 02/05/19 spontaneous 01/08/20 37 live - full term Vaginal 3.118 kg Male 14 hrs [facility] [place] Delivery Date: 03/28/16 Last Updated by: Hernesto Mark MD Anemia Delivery Date: 09/05/18 Last Updated by: Hernesto Mark MD Early miscarriage Delivery Date: 02/05/19 Last Updated by: Hernesto Mark MD Early miscarriage around 6 weeks Delivery Date: 01/08/20 Last Updated by: Hernesto Mark MD Induced early due to needing treatment for osteosarcoma Other History: 1--->03/28/2016 Female 8lbs 4oz, vaginal delivery at 40 weeks. Anemia. Delivered by Dr. Eldridge at [facility] in [place], [place]. 2--->2018 SAB 3--->2019 SAB 4--->01/08/2020 Male 6lbs, vaginal delivery induced at 37 weeks due to needing treatment for osteosarcoma. Circumvalent placenta. Delivered OZH with [place]. 5--->current Coding Level of Care Code Acute Code for Chg Fwd Diagnoses
--- NOTE | 2022-09-28 05:49 | PM.DELIVERY ---
Delivery Note: Date of delivery: September 28, 2022 Pre-delivery diagnoses: 36.2 wk IUP with SROM Anemia Hypokalemia Post-delivery diagnoses: same + OP presentation Procedure: viable female Op report anesthesia: Epidural Delivering Physician: Atiya MALIK Estimated blood loss (mL): 400 Findings: viable female Post Delivery Diagnoses: Supervision of normal intrauterine in multigravida: Qualifiers: Trimester: second trimester Qualified Code(s): Z34.82 - Encounter for supervision of other normal , second trimester Delivery: 22yo female delivered a viable female OP over superficial laceration with robust cry. Cord clamped after delay, cut and baby placed on Mothers chest for bonding. Nursing staff assessment and baby taken to warmer. Uterine message, and placenta presented in [place] presentation with trailing membranes. Vaginal vault explored and repair with SIS of 3.0 chromic Uterus palpates firm with bleeding controlled. Mother and stable. 9/9 wt- pending. Post-Delivery Status: stable History History History 5 Term 2 0 Miscarriages/Ectopic 2 Living Children 2 Past Pregnancies Del. Date GA/Weeks Outcome Route Wt Inf Gender Labor Lgth Comp. Anesthesia Location 03/28/16 40 live - full term Vaginal 3.742 kg Female [facility] [place] 09/05/18 6 spontaneous 02/05/19 spontaneous 01/08/20 37 live - full term Vaginal 3.118 kg Male 14 hrs regional [facility] [place] Delivery Date: 03/28/16 Last Updated by: Hernesto Mark MD Anemia Delivery Date: 09/05/18 Last Updated by: Hernesto Mark MD Early miscarriage Delivery Date: 02/05/19 Last Updated by: Hernesto Mark MD Early miscarriage around 6 weeks Delivery Date: 01/08/20 Last Updated by: Hernesto Mark MD Induced early due to needing treatment for osteosarcoma Other History: 1--->03/28/2016 Female 8lbs 4oz, vaginal delivery at 40 weeks. Anemia. Delivered by Dr. Eldridge at [facility] in [place], [place]. 2--->2018 SAB 3--->2019 SAB 4--->01/08/2020 Male 6lbs, vaginal delivery induced at 37 weeks due to needing treatment for osteosarcoma. Circumvalent placenta. Delivered OZH with [place]. 5--->current A&P Assessment and plan (1) Supervision of normal intrauterine in multigravida: 1. S/P viable female Qualifiers: Trimester: second trimester Qualified Code(s): Z34.82 - Encounter for supervision of other normal , second trimester (2) Depression: (3) Hypokalemia: P. Recheck K+ with CBC (4) Anemia: Plan care with CBC and K+ level Consider PRB transfusion if needed. Coding Level of Care Code Acute Code for Chg Fwd Diagnoses Supervision of normal intrauterine in multigravida Z34.82 Trimester: second trimester Depression F32.9 Hypokalemia E87.6 Anemia D64.9
[2022-09-28] MEDS: dextrose 5%-lactated ringers 1,000 ML 125 ML IV (09:32)
[2022-09-28] MEDS: acetaminophen 650 mg/20.3 mL UDC PO ×2 (11:26→18:54)
[2022-09-28] MEDS: benzocaine-menthol 78 gm Canister 1 SPRAY TOPICAL (14:34)
--- NOTE | 2022-09-28 15:10 | PM.OBGYPN ---
CONSTRUCTION INSPECTOR Subjective Subjective: Interval history: S/P pt doing well, no complaints, other than fatigue. Reviewed muscles used for pushing and body aches. Discussed importance of ambulation to decrease risk of DVT. Labor: Station: +1 Amniotic Membrane Status: Ruptured Monitor Mode: External Contraction Pattern: Regular Status: Category I Vitals/I&O/Wt Last Vital Signs Temp 97.2 F L 09/28/22 03:49 Pulse 51 L 09/28/22 10:43 Resp 17 09/28/22 10:05 BP 95/57 09/28/22 10:35 Pulse Ox 98 09/28/22 10:43 O2 Del Method Room Air 09/28/22 10:05 09/28/22 09/28/22 09/28/22 06:59 14:59 22:59 Intake Total 1050 / 1050 100 / 100 Balance 1050 / 1050 100 / 100 Weight last 48 hrs Weight 78.925 kg Physical Exam Back/Pelvis: OTHER: Abd- soft, fundus firm below umbilicus. Extremity: NARRATIVE EXTREMITY EXAM: Mild edema, Neg Homans. Data 09/28/22 15:10 09/28/22 15:10 A&P Assessment and plan (1) Pyelonephritis affecting : Plan A. S/P viable female Anemia Hypokalemia P. Check CBC and K+. Attestations Medical Necessity Statement*: course. Coding Level of Care Code Acute Code for Chg Fwd Diagnoses Pyelonephritis affecting O23.00
[2022-09-28 15:47] LABS: Hematocrit 26.9 % (36-47); Mean Corpuscular Hemoglobin 24.2 pg (27-33); Mean Corpuscular Volume 83.5 fl (85-98); Mean Platelet Volume 10.7 fL (7.4-10.4); Platelet Count 158 10^3/cmm (157-399); Red Blood Count 3.22 10^6/uL (3.85-5.65); Red Cell Distribution Width 17.2 % (12.1-15.1); White Blood Count 11.76 10^3/uL (3.29-11.43)
[2022-09-28 16:04] LABS: Alanine Aminotransferase 8 U/L (0-33); Albumin Level 2.9 g/dL (3.5-5.2); Alkaline Phosphatase 85 U/L (35-105); Anion Gap 13.3 (5-19); Aspartate Amino Transferase 21 U/L (0-32); Blood Urea Nitrogen 3 mg/dL (6-20); Calcium 8.5 mg/dL (8.5-10.5); Carbon Dioxide 22 mmol/L (22-29); Chloride 107 mmol/L (98-107); Globulin 2.5 g/dL (1.3-4.6); Glomerular Filtration Rate 273.3 mL/min (90-130); Glucose 96 mg/dL (65-115); Osmolality Calculated 284 mOsm/kg (285-295); Potassium 3.3 mmol/L (3.5-5.1); Sodium 139 mmol/L (136-145); Total Bilirubin 0.3 mg/dL (0.15-1.2); Total Protein 5.4 g/dL (6.6-8.7)
[2022-09-28] MEDS: ibuprofen Oral Susp 100 mg/5mL UDC 600 MG PO (16:23)
--- NOTE | 2022-09-28 16:25 | ANE.PACU2 ---
Inpatient post-anesthesia follow up: Airway intact: Yes Vital signs: Temperature 97.2 F Pulse Rate 57 Respiratory Rate 17 Blood Pressure 101/63 Pulse Oximetry 97 Oxygen Delivery Me thod Room Air Oxygen Flow Rate Fraction of Inspir ed Oxygen Hydration adequate: Yes Nausea and vomiting: No Pain level: 2 Mental status: Baseline
[2022-09-29 00:02] VITALS: BP 97/54; PULSE 59; PULSE 63; TEMP 36.3; O2SAT 97
[2022-09-29 06:46] VITALS: BP 109/61; PULSE 54; RESP 18; TEMP 36.6; TEMP 36.7
[2022-09-29] MEDS: acetaminophen 650 mg/20.3 mL UDC PO ×3 (07:59→14:39)
--- NOTE | 2022-09-29 08:57 | PM.OBGYDC ---
Discharge Providers FUNCTIONAL MENTAL DISABILITY TEACHER Date of Admission: 09/28/22 02:49 Date of Discharge: 09/29/22 Attending Provider at Admission: Meenakshi Hanna DO Attending Provider at Discharge: Gregory Giron MD Primary Care Provider: Gregory Giron MD Diagnoses at Discharge Discharge Diagnosis (1) Supervision of normal intrauterine in multigravida: Details from hospital stay: 22-year-old female s/p viable female 6 pounds 1 ounce doing well and without complaints. Patient's course has progressed without complications. Patient is tolerating regular diet voiding and ambulation without assistance. She is currently bottlefeeding but plans to use breast pump at home. Vital signs stable, afebrile Abdomen?soft, fundus firm Lochia light Extremities?mild edema, negative Homans' sign Status: Acute Qualifiers: Trimester: second trimester Qualified Code(s): Z34.82 - Encounter for supervision of other normal , second trimester (2) Hypokalemia: Details from hospital stay: Resolved after IV supplementation Status: Acute (3) Anemia: Details from hospital stay: Discussed continuation of vitamins which she has at home. Status: Acute (4) Depression: Details from hospital stay: Discussed continuation of her medication which she has at home Status: Acute Reason for Visit Reason for Visit: Abdominal pain Brief History: Early labor Hospital Course Hospital Course 22-year-old female G5, P3 delivered via a viable female 6 pounds 1 ounce. Patient was admitted on 824 in early labor with spontaneous rupture of membranes. Patient's labor progressed with augmentation with Pitocin to complete dilatation resulting in spontaneous delivery. course has been uncomplicated, discharge expectations reviewed with patient of no heavy lifting pushing or pulling no sexual intercourse or douching x6 weeks. Patient is to resume her home meds that she was taking before admission. Patient verbalizes understanding and agrees. Information Peripartum Data: Infant Delivery Method: Vaginal Laceration description: Superficial Episiotomy description: None complications: none Physical Exam : OTHER: Fundus firm nontender. Lochia light Extremity: OTHER: Mild bilateral edema Homans' sign negative History History History 5 Term 2 1 Miscarriages/Ectopic 2 Living Children 3 Past Pregnancies Del. Date GA/Weeks Outcome Route Wt Inf Gender Labor Lgth Comp. Anesthesia Location 03/28/16 40 live - full term Vaginal 3.742 kg Female [facility] [place] 09/05/18 6 spontaneous 02/05/19 spontaneous 01/08/20 37 live - full term Vaginal 3.118 kg Male 14 hrs regional [facility] [place] 09/28/22 36 live - Vaginal 2.75 kg Female topical cream local regional Delivery Date: 03/28/16 Last Updated by: Hernesto Mark MD Anemia Delivery Date: 09/05/18 Last Updated by: Hernesto Mark MD Early miscarriage Delivery Date: 02/05/19 Last Updated by: Hernesto Mark MD Early miscarriage around 6 weeks Delivery Date: 01/08/20 Last Updated by: Hernesto Mark MD Induced early due to needing treatment for osteosarcoma Other History: 1--->03/28/2016 Female 8lbs 4oz, vaginal delivery at 40 weeks. Anemia. Delivered by Dr. Eldridge at [facility] in [place], [place]. 2--->2018 SAB 3--->2019 SAB 4--->01/08/2020 Male 6lbs, vaginal delivery induced at 37 weeks due to needing treatment for osteosarcoma. Circumvalent placenta. Delivered OZ with [place]. 5--->current Discharge Data Studies Completed and Pending Laboratory Results WBC 11.76 10^3/uL (3.29-11.43) H 09/28/22 15:10 RBC 3.22 10^6/uL (3.85-5.65) L 09/28/22 15:10 Hgb 7.80 g/dL (11.27-16.99) L 09/28/22 15:10 Hct 26.9 % (36-47) L 09/28/22 15:10 MCV 83.5 fl (85-98) L 09/28/22 15:10 MCH 24.2 pg (27-33) L 09/28/22 15:10 MCHC 29.0 g/dL (30-55) L 09/28/22 15:10 RDW 17.2 % (12.1-15.1) H 09/28/22 15:10 Plt Count 158 10^3/cmm (157-399) 09/28/22 15:10 MPV 10.7 fL (7.4-10.4) H 09/28/22 15:10 Neut % (Auto) 59.9 % 09/28/22 02:30 Lymph % (Auto) 32.3 % 09/28/22 02:30 Nelson % (Auto) 6.7 % 09/28/22 02:30 Eos % (Auto) 0.8 % 09/28/22 02:30 Baso % (Auto) 0.1 % 09/28/22 02:30 Neut # (Auto) 5.48 10^3/uL (1.8-7.7) 09/28/22 02:30 Lymph # (Auto) 3.0 10^3/uL (0.8-4.8) 09/28/22 02:30 Nelson # (Auto) 0.6 10^3/uL (0.2-0.9) 09/28/22 02:30 Eos # (Auto) 0.1 10^3/uL (0.0-0.8) 09/28/22 02:30 Baso # (Auto) 0.0 10^3/uL (0.0-0.1) 09/28/22 02:30 Nucleated RBC % (auto) 0 % 09/28/22 02:30 Nucleated RBCs # 0.0 /100WBC 09/28/22 02:30 Sodium 139 mmol/L (136-145) 09/28/22 15:10 Potassium 3.3 mmol/L (3.5-5.1) L 09/28/22 15:10 Chloride 107 mmol/L (98-107) 09/28/22 15:10 Carbon Dioxide 22 mmol/L (22-29) 09/28/22 15:10 Anion Gap 13.3 (5-19) 09/28/22 15:10 BUN 3 mg/dL (6-20) L 09/28/22 15:10 Creatinine 0.3 mg/dL (0.5-0.9) L 09/28/22 15:10 GFR Calculation 273.3 mL/min (90-130) H 09/28/22 15:10 Glucose 96 mg/dL (65-115) 09/28/22 15:10 Calculated Osmolality 284 mOsm/kg (285-295) L 09/28/22 15:10 Calcium 8.5 mg/dL (8.5-10.5) 09/28/22 15:10 Total Bilirubin 0.3 mg/dL (0.15-1.2) 09/28/22 15:10 AST 21 U/L (0-32) 09/28/22 15:10 ALT 8 U/L (0-33) 09/28/22 15:10 Alkaline Phosphatase 85 U/L (35-105) 09/28/22 15:10 Total Protein 5.4 g/dL (6.6-8.7) L 09/28/22 15:10 Albumin 2.9 g/dL (3.5-5.2) L 09/28/22 15:10 Globulin 2.5 g/dL (1.3-4.6) 09/28/22 15:10 Insulin-like GF I Positive 09/27/22 16:48 Urine Color Yellow (Yellow) 09/27/22 16:30 Urine Appearance Clear (CLEAR) 09/27/22 16:30 Urine pH 7 (5-7) 09/27/22 16:30 Ur Specific [place] 1.015 (1.005-1.030) 09/27/22 16:30 Urine Protein Neg (Negative) 09/27/22 16:30 Urine Glucose (UA) Norm (Normal) 09/27/22 16:30 Urine Ketones Negative (Negative) 09/27/22 16:30 Urine Blood 2+ (Negative) H 09/27/22 16:30 Urine Nitrate Negative (Negative) 09/27/22 16:30 Urine Bilirubin Neg (Negative) 09/27/22 16:30 Urine Urobilinogen Norm mg/dL (Negative) 09/27/22 16:30 Ur Leukocyte Esterase 1+ (Negative) H 09/27/22 16:30 Urine RBC 0-4 /hpf (0-2) H 09/27/22 16:30 Urine WBC 5-10 /hpf (0-5) H 09/27/22 16:30 Ur Squamous Epith Cells 0-4 /hpf (0-5) H 09/27/22 16:30 Amorphous Sediment 1+ /hpf 09/27/22 16:30 Urine Bacteria Trace /hpf (NONE) 09/27/22 16:30 Urine Mucus 2+ /hpf 09/27/22 16:30 Vitals Last Vital Signs Temp 98.0 F 09/29/22 06:46 Pulse 54 L 09/29/22 06:46 Resp 18 09/29/22 06:46 BP 109/61 09/29/22 06:46 Pulse Ox 97 09/29/22 00:02 O2 Del Method Room Air 09/28/22 10:05 Discharge Plan Discharge Patient Disposition: Home Condition: Stable Prescriptions: Held Gummies 400 mcg-35 mg- 25 mg-5 mg tablet,chewable 1 tab PO DAILY Hold Instructions: Resume on 09/30/22. Discharge Orders: Discharge Order (Routine); Ordered 09/29/22 Ordered By: Meenakshi Hanna Discharge Diet: Regular Discharge Activity: Limit activity as instructed Patient Instructions: Opioid Safety Activity Restrictions/Additional Instructions: Pelvic wrist Assessment: 1. S/p viable female 2. Asymptomatic anemia Plan of Treatment: 1. Discharge to home 2. Follow-up with Dr. Giron in 4 weeks Discharge Attestations FUNCTIONAL MENTAL DISABILITY TEACHER Time Spent in Discharge Care*: less than 30 min Coding Level of Care Code Acute Code for Chg Fwd Diagnoses Supervision of normal intrauterine in multigravida Z34.82 Trimester: second trimester Hypokalemia E87.6 Anemia D64.9 Depression F32.9
[2022-09-29 09:58] VITALS: PULSE 58; O2SAT 98
[2022-09-29 10:00] VITALS: BP 105/66; PULSE 63; RESP 16; TEMP 36.8; O2SAT 98
[2022-09-29 10:02] VITALS: BP 105/66; PULSE 67
[2022-09-29] MEDS: ibuprofen Oral Susp 100 mg/5mL UDC 600 MG PO (16:49)
[2022-09-29 17:17] VITALS: BP 124/80; PULSE 60; TEMP 36.3
== END 2022-09-29 17:24 | disposition home or self-care (01) | DRG 807 ==
LOC: OPOB 02:51 → OBGYN 02:51
PROVIDERS: Anesthesiology; Admitting Provider Obstetrics & Gynecology; PCP Obstetrics & Gynecology; Visit Provider Obstetrics & Gynecology
DX: O60.14X0 Preterm labor third trimester with preterm delivery third trimester, not applicable or unspecified (principal); Z37.0 Single live birth; D64.9 Anemia, unspecified; Z3A.36 36 weeks gestation of pregnancy; O70.9 Perineal laceration during delivery, unspecified; O99.02 Anemia complicating childbirth; O99.344 Other mental disorders complicating childbirth; F32.A Depression, unspecified; E87.6 Hypokalemia
CPT/HCPCS: 36591; 59025; 59409; 80053; 81001; 84112; 85025; 85027; 96372; 96374; 99211; J0290; J1642; J2405; J3010; J3105; J3480; J7120; J7121

== ENCOUNTER → 2022-10-08 17:34 | Outpatient (BNVA) | payer BC, MEDICAID, SELFPAY | PROVIDERS: PCP Obstetrics & Gynecology; Visit Provider Registered Nurse Neonatal Intensive Care | DX: R30.0 Dysuria (principal); R39.9 Unspecified symptoms and signs involving the genitourinary system | CPT/HCPCS: 81000; 81003; 87086 ==

== ENCOUNTER 2022-10-10 11:52 | Oncology outpatient (recurring) (ONCR) | payer BC, MEDICAID, SELFPAY ==
[2022-10-10 14:41] LABS: Basophils % 0.4 %; Eosinophils # 0.2 10^3/uL (0.0-0.8); Eosinophils % 1.8 %; Hematocrit 37.1 % (36-47); Lymphocytes # 3.2 10^3/uL (0.8-4.8); Lymphocytes % 38.9 %; Mean Corpuscular HGB Conc 29.1 g/dL (30-55); Mean Corpuscular Hemoglobin 24.2 pg (27-33); Mean Corpuscular Volume 83.2 fl (85-98); Mean Platelet Volume 10.5 fL (7.4-10.4); Monocytes # 0.6 10^3/uL (0.2-0.9); Monocytes % 6.9 %; Neutrophils # 4.27 10^3/uL (1.8-7.7); Neutrophils % 51.9 %; Nucleated Red Blood Cells % 0 %; Platelet Count 294 10^3/cmm (157-399); Red Blood Count 4.46 10^6/uL (3.85-5.65); Red Cell Distribution Width 17.6 % (12.1-15.1); White Blood Count 8.23 10^3/uL (3.29-11.43)
[2022-10-10 15:20] LABS: Alanine Aminotransferase 6 U/L (0-33); Albumin Level 3.8 g/dL (3.5-5.2); Alkaline Phosphatase 94 U/L (35-105); Aspartate Amino Transferase 14 U/L (0-32); Blood Urea Nitrogen 13 mg/dL (6-20); Calcium 8.7 mg/dL (8.5-10.5); Carbon Dioxide 22 mmol/L (22-29); Chloride 107 mmol/L (98-107); Globulin 3.1 g/dL (1.3-4.6); Glomerular Filtration Rate 102.8 mL/min (90-130); Glucose 81 mg/dL (65-115); Iron 49 ug/dL (37-145); Osmolality Calculated 287 mOsm/kg (285-295); Percent Saturation 10.8 % (20-50); Sodium 139 mmol/L (136-145); Thyroid Stimulating Hormone 0.09 uIU/mL (0.27-4.20); Total Bilirubin 0.3 mg/dL (0.15-1.2); Total Iron Binding Capacity 451 mcg/dl; Total Protein 6.9 g/dL (6.6-8.7); Unsaturated Iron Binding 402 ug/dL (112-347)
== END 2022-11-04 23:59 | disposition home or self-care (01) ==
PROVIDERS: PCP Obstetrics & Gynecology; Visit Provider Internal Medicine Medical Oncology
DX: C41.9 Malignant neoplasm of bone and articular cartilage, unspecified (principal); D64.9 Anemia, unspecified; R53.83 Other fatigue
CPT/HCPCS: 36591; 80053; 83540; 83550; 84443; 85025

== ENCOUNTER → 2022-11-07 12:13 | Outpatient (BNVA) | payer BC, MEDICAID, SELFPAY | PROVIDERS: PCP Obstetrics & Gynecology; Visit Provider Emergency Medicine | DX: J06.9 Acute upper respiratory infection, unspecified (principal); Z11.52 Encounter for screening for COVID-19 | CPT/HCPCS: 87426 ==

== ENCOUNTER 2022-12-14 08:15 | Oncology outpatient (recurring) (ONCR) | payer BC, MEDICAID, SELFPAY ==
[2022-12-14 09:30] VITALS: BP 129/73; PULSE 88; RESP 16; TEMP 36.1; O2SAT 99
== END 2023-01-04 23:59 | disposition home or self-care (01) ==
PROVIDERS: PCP Obstetrics & Gynecology; Visit Provider Internal Medicine Medical Oncology
DX: Z45.2 Encounter for adjustment and management of vascular access device (principal)
CPT/HCPCS: 96523

== ENCOUNTER 2023-01-24 15:59 | Emergency (ER) | payer BC, MEDICAID, SELFPAY ==
--- NOTE | 2023-01-24 16:01 | XRR_ITS ---
PROCEDURE INFORMATION: Exam: XR Chest Exam date and time: 01/24/2023 4:13 PM Age: 22 years old Clinical indication: Pain; Angina pectoris; Additional info: Cp TECHNIQUE: Imaging protocol: Radiologic exam of the chest. Views: 1 view. COMPARISON: CT angio chest PE protcl [id number] 06/08/2022 3:22 PM FINDINGS: Tubes, catheters and devices: Port catheter tip remains in the lower superior vena cava. Lungs: Unremarkable. No consolidation. Pleural spaces: Unremarkable. No pleural effusion. No pneumothorax. Heart/Mediastinum: Unremarkable. No cardiomegaly. Bones/joints: Unremarkable. XR/XR chest 1V portable [id number] IMPRESSION: No acute findings.
--- NOTE | 2023-01-24 16:05 | ECG_ITS ---
[facility] Test Date: 2023-01-24 Pat Name: Merritt Hylton Department: Room: Gender: Female Administrative Accountant: : 2000 Requested By: Cira John Order Number: [id number] Cortez MD: Talya Loera M.D. Measurements Intervals [place] Rate: 79 P: 68 MN: 151 QRS: 67 QRSD: 80 T: 33 QT: 387 QTc: 446 Interpretive Statements SINUS RHYTHM POSSIBLE LEFT ATRIAL ENLARGEMENT [-0.1mV P-WAVE IN V1/V2] POSSIBLE RIGHT VENTRICULAR CONDUCTION DELAY [RSR (QR) IN V1/V2] Compared to ECG 11/28/2021 13:46:17 No significant changes Electronically Signed On 01-24-2023 22:21:23 ENVIRONMENTAL CONSULTANT by Talya Loera M.D. [email or web address]
[2023-01-24 16:07] VITALS: BP 114/80; PULSE 81; RESP 18; TEMP 36.5; O2SAT 100; BMI 22.4
--- NOTE | 2023-01-24 18:31 | ECG_ITS ---
[facility] Test Date: 2023-01-24 Pat Name: Merritt Hylton Department: Room: Gender: Female Wire Saw Operator: : 2000 Requested By: Cira John Order Number: [id number] Dana MD: Talya Loera M.D. Measurements Intervals [place] Rate: 63 P: 37 CO: 150 QRS: 44 QRSD: 93 T: 30 QT: 420 QTc: 430 Interpretive Statements SINUS RHYTHM POSSIBLE RIGHT VENTRICULAR CONDUCTION DELAY [RSR (QR) IN V1/V2] Compared to ECG 01/24/2023 16:05:23 No significant changes Electronically Signed On 01-24-2023 22:20:41 FACING END TRIMMER by Talya Loera M.D. [email or web address]
--- NOTE | 2023-01-24 18:44 | ED_ITS ---
HPI - Chest Pain 2 General: Chief Complaint: Chest Pain Stated Complaint: chest pain Time Seen by Provider: 01/24/23 18:18 Source: patient Mode of arrival: ambulatory Limitations: no limitations History of Present Illness: 22-year-old female states she been havin g chest pain over the last 3 days. States pains been very sharp in nature she had some shortness of breath with that as well. She has a port in her right chest states she gets pain around it sometimes and that is where the pain is with this feels a little different. She denies any fevers she has a history of osteosarcoma 3 years ago and is in remission. Associated symptoms: Deny abdominal pain, dyspnea, fever(s), nausea or vomiting Review of Systems 2 Const: Denies: fever(s), chills, body aches or change in appetite Eyes: Denies: blurry vision or eye discomfort ENMT: Denies: throat pain or dental pain Card: Reports: chest pain Resp: Denies: dyspnea GI: Denies: abdominal pain, nausea, vomiting or diarrhea Musc: Denies: neck pain or back pain Skin/Breast: Denies: rash Neuro: Denies: headache(s) PFSH ED 2 PFSH: Medical History Pilonidal cyst History of colonic polyps GERD (gastroesophageal reflux disease) Osteosarcoma Chondroblastic osteosarcoma of the left maxilla, 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 Brizuela at [facility] History of excision of pilonidal cyst H/O left mastectomy Reports lumpectomy, but it was so large it took most of her breast tissue; was benign fibroadenoma. Port-A-Cath in place DO NOT REMOVE- LINKED TO TX PLAN H/O plastic surgery She underwent oral and left anterior maxilla reresection with right fasciocutaneous forearm flap and with split-thickness skin graft right thigh to right forearm on 03/09/2020 History of placement of ear tubes Family History Mother Lupus Arnold-Chiari deformity Hypertension Stroke TIA Father Cancer Cancer Denies family history of Diabetes Heart disease Hyperchloremia Physical Exam 2 Const: COMMON NORMALS: no acute distress, patient oriented x3 and healthy appearing HENMT: COMMON NORMALS: normocephalic and atraumatic HEAD & SCALP: n ormocephalic and atraumatic Eye: COMMON NORMALS: Equal, round and reactive pupils present and EOMs intact bilaterally PUPIL: Yes Equal, round and reactive pupils present Neck/C-Spine: COMMON NORMALS: full ROM and supple Chest: COMMONS NORMALS: normal inspection of the chest and normal palpation of entire chest wall Resp: COMMON NORMALS: normal respiratory effort, No retractions, No use of accessory muscles and clear to auscultation bilaterally AUSCULTATION: clear to auscultation bilaterally Cardio: COMMON NORMALS: regular rate, regular rhythm and No murmurs present (Cardio) RATE: regular rate RHYTHM: regular rhythm GI: COMMON NORMALS: Normal to inspection, nondistended, normoactive bowel sounds present, Soft to palpation, non-tender and no masses PALPATION: Yes Soft to palpation Extremity: COMMON NORMALS: normal to inspection and full ROM Neuro: COMMON NORMALS: patient oriented x3, moves all extremities and no focal motor deficits Psych: COMMON NORMALS: mental status grossly normal, Normal thought process present and cooperative THOUGHT PROCESS: Normal thought process present Skin: COMMON NORMALS: no rashes or lesions noted and no wounds GENERAL SKIN EXAM: no rashes or lesions noted Course 2 Vital Signs: Vital signs: Vital Signs Temperature 97.7 F 01/24/23 16:07 Pulse Rate 58 L 01/24/23 20:13 Respiratory Rate 18 01/24/23 20:13 Blood Pressure 109/86 01/24/23 20:13 Pulse Oximetry 100 01/24/23 20:13 Oxygen Delivery Me thod Room Air, Nasal C annula 01/24/23 20:13 MDM - Chest Pain Medical Decision Making Patient presents for chest pain likely chest wall pain D-dimer troponin here are normal x-rays normal as well she is well-appearing she is stable for discharge return if worsening follow-up with PCP Medical Records I reviewed the patient's medical records. Lab Data I reviewed the patient's lab results. 01/24/23 18:34 01/24/23 18:34 Radiology Impressions Chest X-Ray 01/24/23 16:01 IMPRESSION: No acute findings. Laboratory Results WBC 7.57 10^3/uL (3.29-11.43) 01/24/23 18:34 RBC 3.85 10^6/uL (3.85-5.65) 01/24/23 18:34 Hgb 11.30 g/dL (11.27-16.99) 01/24/23 18:34 Hct 34.5 % (36-47) L 01/24/23 18:34 MCV 89.6 fl (85-98) 01/24/23 18:34 MCH 29.4 pg (27-33) 01/24/23 18:34 MCHC 32.8 g/dL (30-55) 01/24/23 18:34 RDW 13.0 % (12.1-15.1) 01/24/23 18:34 Plt Count 218 10^3/cmm (157-399) 01/24/23 18:34 MPV 10.3 fL (7.4-10.4) 01/24/23 18:34 Neut % (Auto) 38.6 % 01/24/23 18:34 Lymph % (Auto) 53.6 % 01/24/23 18:34 [place] % (Auto) 5.5 % 01/24/23 18:34 Eos % (Auto) 1.7 % 01/24/23 18:34 Baso % (Auto) 0.3 % 01/24/23 18:34 Neut # (Auto) 2.92 10^3/uL (1.8-7.7) 01/24/23 18:34 Lymph # (Auto) 4.1 10^3/uL (0.8-4.8) 01/24/23 18:34 [place] # (Auto) 0.4 10^3/uL (0.2-0.9) 01/24/23 18:34 Eos # (Auto) 0.1 10^3/uL (0.0-0.8) 01/24/23 18:34 Baso # (Auto) 0.0 10^3/uL (0.0-0.1) 01/24/23 18:34 Nucleated RBC % (auto) 0 % 01/24/23 18:34 Nucleated RBCs # 0.0 /100WBC 01/24/23 18:34 D-Dimer 0.28 ug/mLFEU (0-0.59) 01/24/23 18:34 Sodium 137 mmol/L (136-145) 01/24/23 18:34 Potassium 4.0 mmol/L (3.5-5.1) 01/24/23 18:34 Chloride 105 mmol/L (98-107) 01/24/23 18:34 Carbon Dioxide 21 mmol/L (22-29) L 01/24/23 18:34 Anion Gap 15.0 (5-19) 01/24/23 18:34 BUN 12 mg/dL (6-20) 01/24/23 18:34 Creatinine 0.5 mg/dL (0.5-0.9) 01/24/23 18:34 GFR Calculation 151.6 mL/min (90-130) H 01/24/23 18:34 Glucose 89 mg/dL (65-115) 01/24/23 18:34 Calculated Osmolality 283 mOsm/kg (285-295) L 01/24/23 18:34 Calcium 9.1 mg/dL (8.5-10.5) 01/24/23 18:34 Troponin T Baseline < 6 ng/L (0-10) 01/24/23 18:34 All radiology interpretation(s) finalized by discharge EKG Data EKG 1: I personally reviewed and interpreted this EKG as follows: EKG interpretation date: 01/24/23 EKG interpretation time: 16:05 Interpretation: nsr hr [address] or t wave abnormalities qrs 80 qtc 422 EKG 2: I personally reviewed and interpreted this EKG as follows: EKG interpretation date: 01/24/23 EKG interpretation time: 18:31 Interpretation: nsr hr [address] or t wave abnormalities qrs 93 qtc 427 Discharge Plan Discharge Patient Disposition: Home Clinical Impression: Chest pain Condition: Stable Prescriptions: No Action No Known Home Medications Discharge Orders: Discharge ED (Routine); Ordered 01/24/23 Ordered By: Cira John Referrals: Ruben Aguilar, INVOICE CLERK [Primary Care Provider] - 1-3 days Discharge Diet: Advance as tolerated Discharge Activity: Resume usual activity Patient Instructions: Chest Pain (ED) Coding Level of Care Code ED Director Nurses' Registry for Chg Lg
[2023-01-24 19:14] VITALS: BP 123/87; PULSE 75; RESP 20; O2SAT 93
[2023-01-24] MEDS: ketorolac 30 mg/mL INJ 15 MG IVP (19:38)
[2023-01-24 19:46] LABS: Basophils % 0.3 %; Eosinophils # 0.1 10^3/uL (0.0-0.8); Eosinophils % 1.7 %; Hematocrit 34.5 % (36-47); Lymphocytes # 4.1 10^3/uL (0.8-4.8); Lymphocytes % 53.6 %; Mean Corpuscular HGB Conc 32.8 g/dL (30-55); Mean Corpuscular Hemoglobin 29.4 pg (27-33); Mean Corpuscular Volume 89.6 fl (85-98); Mean Platelet Volume 10.3 fL (7.4-10.4); Monocytes # 0.4 10^3/uL (0.2-0.9); Monocytes % 5.5 %; Neutrophils # 2.92 10^3/uL (1.8-7.7); Neutrophils % 38.6 %; Nucleated Red Blood Cells % 0 %; Platelet Count 218 10^3/cmm (157-399); Red Blood Count 3.85 10^6/uL (3.85-5.65); White Blood Count 7.57 10^3/uL (3.29-11.43)
[2023-01-24 20:05] LABS: Blood Urea Nitrogen 12 mg/dL (6-20); Calcium 9.1 mg/dL (8.5-10.5); Carbon Dioxide 21 mmol/L (22-29); Chloride 105 mmol/L (98-107); Glomerular Filtration Rate 151.6 mL/min (90-130); Glucose 89 mg/dL (65-115); Osmolality Calculated 283 mOsm/kg (285-295); Sodium 137 mmol/L (136-145)
[2023-01-24 20:07] LABS: Troponin(5th) Baseline < 6 ng/L (0-10)
[2023-01-24 20:13] VITALS: BP 109/86; PULSE 58; RESP 18; O2SAT 100
[2023-01-24 20:15] LABS: D Dimer 0.28 ug/mLFEU (0-0.59)
[2023-01-24 20:44] VITALS: BP 114/86; PULSE 65; RESP 18; O2SAT 100
== END 2023-01-24 20:46 | disposition home or self-care (01) ==
PROVIDERS: Emergency Provider Emergency Medicine; PCP Clinical Nurse Specialist Adult Health
DX: R07.9 Chest pain, unspecified (principal)
CPT/HCPCS: 71045; 80048; 84484; 85025; 85378; 93005; 96374; 96375; 99285; J1642; J1885

== ENCOUNTER 2023-01-30 10:05 | Day surgery (SDC) | payer BC, MEDICAID, SELFPAY ==
[2023-01-30] VITALS (9 sets, daily range): BP systolic 105–109; BP diastolic 60–86; PULSE 51–116; RESP 16–18; TEMP 36.2–36.4; O2SAT 98–100; BMI 21.6
--- NOTE | 2023-01-30 11:12 | ANES.PREANE2 ---
Pre-Anesthetic Assessment Height/Weight: Height 1.7 m Weight 62.596 kg O2 Del Method Room Air 01/30/23 10:53 Operation Date: 01/30/23 12:10 Proposed Procedures p 94837- pilonidal Cyst L05.91(Not Applicable) - Pierce Correa MD Familial anesthetic complications: None Was Beta Yessenia taken within 24 hours: N/A Was Clonidine taken within 24 hours: N/A Last intake: Intake Last Liquid Date 01/29/23 Last Liquid Time 21:00 Last Solid Date 01/29/23 Last Solid Time 19:00 Social No alcohol and No tobacco Exam alert, oriented x 3, clear to auscultation bilaterally and regular rate & rhythm Airway Mallampati: Class I Dentition: other (upper L missing (multiple)) Comments: Comments: Mildly diminished mouth opening after maxillary surgery for osteosarcoma, sometimes jaw will lock up Pulmonary pleurisy checked in ER last week with no acute findings GI Gastroesophageal Reflux Disease Anesthetic Plan ASA status: 2 Anesthesia: Choice Risk of > 500 ml blood loss (7ml/kg in children): No Medications/Allergies Home Medications Medication Instructions Recorded Confirmed Last Taken Type levalbuterol tartrate 45 2 inh inhalation Q6H #15 grams 01/30/23 01/30/23 Unknown Rx mcg/actuation aerosol inhaler Allergies Allergy/AdvReac Type Severity Reaction Status Date / Time azithromycin Allergy ADR-Itching Verified 01/26/23 11:57 peas Allergy ALGY-Hives Verified 01/26/23 11:57 shellfish derived Allergy ALGY-Swell Verified 01/26/23 11:57 Lip/Tongue/Throat PFSH Anesthesia Medical History Pilonidal cyst History of colonic polyps GERD (gastroesophageal reflux disease) Osteosarcoma Chondroblastic osteosarcoma of the left maxilla, 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 Brizuela at [facility] History of excision of pilonidal cyst H/O left mastectomy Reports lumpectomy, but it was so large it took most of her breast tissue; was benign fibroadenoma. Port-A-Cath in place DO NOT REMOVE- LINKED TO TX PLAN H/O plastic surgery She underwent oral and left anterior maxilla reresection with right fasciocutaneous forearm flap and with split-thickness skin graft right thigh to right forearm on 03/09/2020 History of placement of ear tubes Family History Mother Lupus Arnold-Chiari deformity Hypertension Stroke TIA Father Cancer Cancer Denies family history of Diabetes Heart disease Hyperchloremia Data Anesthesia Cardiac Studies: Echocardiogram 08/24/20
[2023-01-30] MEDS: sodium chloride 0.9% 1,000 ML 30 ML IV (11:22)
--- NOTE | 2023-01-30 11:29 | P.HPUD_ITS ---
Surgery/Procedure H&P Update DATE OF PROCEDURE: January 30, 2023 DATE H&P PERFORMED: 01/23/23 H&P UPDATE INFORMATION: I have reviewed H&P completed within last 30 days, I have examined patient prior to procedure, No changes to prior documentation and H&P is in [facility] EMR on date indicated PLANNED PROCEDURE: Operation Date: 01/30/23 12:10 Proposed Procedures p [id number]- pilonidal Cyst L05.91(Not Applicable) - Pierce Correa MD
--- NOTE | 2023-01-30 11:29 | W.PM.OPSUD ---
Surgery/Procedure H&P Update DATE OF PROCEDURE: January 30, 2023 DATE H&P PERFORMED: 01/23/23 H&P UPDATE INFORMATION: I have reviewed H&P completed within last 30 days, I have examined patient prior to procedure, No changes to prior documentation and H&P is in [facility] EMR on date indicated PLANNED PROCEDURE: Operation Date: 01/30/23 12:10 Proposed Procedures p 80326- pilonidal Cyst L05.91(Not Applicable) - Pierce Correa MD
[2023-01-30] MEDS: ceFAZolin 2,000 MG in sodium chloride 0.9% (plus) 50 ML 100 MG IV (12:17)
[2023-01-30] MEDS: lidocaine-epi 2% 20 mL INJ INJECTION (12:50)
[2023-01-30] MEDS: BUPivacaine 0.5% INJ 30 mL INJECTION (12:50)
--- NOTE | 2023-01-30 13:44 | PM.OP ---
Operative Report Date of procedure: January 30, 2023 Pre-op diagnosis: Recurrent Pilonidal cyst Post-op diagnosis: Same Post-op findings: In the area of previous surgical excision there was a pilonidal cyst and sinus. Procedure done: Excision of recurrent pilonidal cyst Specimens removed/disposition: pilonidal cyst Surgeon: Pierce Correa MD Estimated blood loss: 5 Complications: none Brief History: 22-year-old female who presented to my clinic with a recurrent pilonidal cyst, after discussion of the risk and benefits we decided to proceed with excision. Procedure: Patient was brought into the OR. She was given general anesthesia. She was placed in a prone position. The lower back was prepped and draped in the usual sterile fashion. A timeout was conducted. A pilonidal cyst could be palpated on the right side of the midline on the area of previous excision site. The skin was marked with an elliptical shape off the midline. An incision was made with a 15 blade enclosing the pilonidal cyst as previously marked the incision was deepened to subcutaneous tissue and careful dissection was taken to surround the complete cyst and sinus down to the presacral fascia. The specimen was removed and sent to pathology. Hemostasis was achieved. Flaps were raised on the superior inferior medial and lateral direction to allow for skin closure. The wound was irrigated with saline. The wound was then closed in layers using #2-0 Vicryl for the deep layer, #3-0 Vicryl for the subcutaneous tissue and #3-0 nylon vertical mattress for the skin. Steri-Strips and a compressive dressing was applied. The patient tolerated well the procedure was extubated and transferred to the PACU in stable condition.
[2023-01-30] MEDS: ondansetron 2 mg/ML SDV 2 mL 4 MG IVP (14:54)
--- NOTE | 2023-01-30 17:30 | ANE.PACU2 ---
Inpatient post-anesthesia follow up: Airway intact: Yes Vital signs: Temperature 97.2 F Pulse Rate 55 Respiratory Rate 18 Blood Pressure 107/86 Pulse Oximetry 100 Oxygen Delivery Me thod Room Air Oxygen Flow Rate Fraction of Inspir ed Oxygen Hydration adequate: Yes Nausea and vomiting: No Pain level: 1 Mental status: Baseline
== END 2023-01-30 15:29 | disposition home or self-care (01) ==
PROVIDERS: PCP Clinical Nurse Specialist Adult Health; Visit Provider Surgery
PROC: (CPT 11770; principal; 2023-01-30 12:00)
DX: L05.91 Pilonidal cyst without abscess (principal); K21.9 Gastro-esophageal reflux disease without esophagitis; Z86.010 Personal history of colon polyps
CPT/HCPCS: 11770; 88304; J0131; J0690; J1100; J1170; J1885; J2250; J2405; J2704; J2710; J3010; J3490; J7030

== ENCOUNTER 2023-05-09 12:42 | Oncology outpatient (recurring) (ONCR) | payer BC, SELFPAY ==
[2023-05-09 14:16] LABS: Basophils % 0.4 %; Eosinophils # 0.2 10^3/uL (0.0-0.8); Eosinophils % 2.8 %; Hematocrit 35.7 % (36-47); Lymphocytes # 2.4 10^3/uL (0.8-4.8); Lymphocytes % 32.3 %; Mean Corpuscular HGB Conc 31.7 g/dL (30-55); Mean Corpuscular Hemoglobin 28.8 pg (27-33); Mean Corpuscular Volume 90.8 fl (85-98); Mean Platelet Volume 10.6 fL (7.4-10.4); Monocytes # 0.7 10^3/uL (0.2-0.9); Monocytes % 9.6 %; Neutrophils % 54.6 %; Nucleated Red Blood Cells % 0 %; Platelet Count 192 10^3/cmm (157-399); Red Blood Count 3.93 10^6/uL (3.85-5.65); Red Cell Distribution Width 12.9 % (12.1-15.1)
[2023-05-09 14:24] LABS: Erythrocyte Sedimentation Rate 6 mm/hr (0-15)
--- NOTE | 2023-05-09 14:28 | XR_ITS ---
WS: [id number] Examination: XR mandible min 4V [id number] Reason for Exam: Right mandible jaw pain Date: May 09, 2023 Comparison: None. Findings: Extensive surgical changes are identified in the region of the left neck and face. The visualized portions of the mandible appear grossly intact. There is asymmetry in bony loss involv ing the left maxilla. It is unclear from this study what is most likely postoperative or potentially new abnormality. Impression: Extensive surgical changes are noted involving the left face and neck. In light of the patient's prev ious history and surgical change I recommend further detailed evaluation of the mandible with compute d tomography.
[2023-05-09 14:53] LABS: Alanine Aminotransferase 8 U/L (0-33); Albumin Level 4.3 g/dL (3.5-5.2); Alkaline Phosphatase 70 U/L (35-105); Anion Gap 13.7 (5-19); Aspartate Amino Transferase 13 U/L (0-32); Blood Urea Nitrogen 7 mg/dL (6-20); C Reactive Protein 6.7 mg/L (0.0-4.9); Calcium 9.1 mg/dL (8.5-10.5); Carbon Dioxide 23 mmol/L (22-29); Chloride 105 mmol/L (98-107); Creatinine Clr Calc Pharmacy 168.3157; Ferritin 12 ng/mL (15-150); Globulin 2.6 g/dL (1.3-4.6); Glomerular Filtration Rate 151.6 mL/min (90-130); Glucose 84 mg/dL (65-115); Iron 33 ug/dL (37-145); Osmolality Calculated 283 mOsm/kg (285-295); Percent Saturation 9.2 % (20-50); Potassium 3.7 mmol/L (3.5-5.1); Sodium 138 mmol/L (136-145); Thyroid Stimulating Hormone 0.63 uIU/mL (0.27-4.20); Total Bilirubin 0.3 mg/dL (0.15-1.2); Total Iron Binding Capacity 355 mcg/dl; Total Protein 6.9 g/dL (6.6-8.7); Unsaturated Iron Binding 322 ug/dL (112-347); Vitamin B12 612 pg/mL (232-1245)
== END 2023-06-05 23:59 | disposition home or self-care (01) ==
PROVIDERS: PCP Clinical Nurse Specialist Adult Health; Visit Provider Internal Medicine Medical Oncology
DX: D64.9 Anemia, unspecified (principal); C41.9 Malignant neoplasm of bone and articular cartilage, unspecified; R53.83 Other fatigue
CPT/HCPCS: 36415; 70110; 80053; 82607; 82728; 83540; 83550; 84443; 85025; 85651; 86140

== ENCOUNTER 2023-05-30 08:00 | Outpatient (CLI) | payer BC, SELFPAY ==
--- NOTE | 2023-05-30 08:00 | CT_ITS ---
WS: [id number] CT FACIAL BONES with contrast HISTORY: osteosarcoma; mandible pain TECHNIQUE: Images obtained from the supraorbital location through the mandible. Soft tissue and bone windows are reviewed. Coronal and sagittal reformats have also been submitted. DLP: 555.[address] scans at [facility] use at least one of these dose optimization techniques: automated e xposure control; mA and/or kV adjustment per patient size (includes targeted exams where dose is matc hed to clinical indication); or iterative reconstruction. COMPARISON: CT facial bones 01/06/2021, mandible radiograph 05/09/2023 Extensive prior postoperative changes are noted involving the LEFT maxilla and facial bones. Resectio n of the large tumor since 02/18/2020. Partial resection of the LEFT maxillary sinus and the maxilla. At the resection site there is increased soft tissue without significant enhancement. The appearance of the soft tissue has probably not changed since 01/06/2021 CT postoperative evaluation. The visualized orbit and globe is unremarkable and unchanged. No adjacent lymph nodes. IMPRESSION: 1. Extensive postoperative resection noted involving the LEFT maxilla and maxillary sinus. The posto perative soft tissue that was present on the study from 2020 appears very similar without enhancement . No significant progression. 2. No adjacent lymph nodes.
[2023-05-30] MEDS: iohexol 350 mg/mL 500 mL Btl (per mL) IV (08:40)
== END 2023-05-30 08:01 | disposition home or self-care (01) ==
LOC: RAD 08:00
PROVIDERS: PCP Clinical Nurse Specialist Adult Health; Visit Provider Internal Medicine Medical Oncology
DX: C41.9 Malignant neoplasm of bone and articular cartilage, unspecified (principal); R68.84 Jaw pain
CPT/HCPCS: 70487; Q9967

== ENCOUNTER 2023-07-06 08:00 | Oncology outpatient (recurring) (ONCR) | payer BC, SELFPAY ==
[2023-07-04 10:13] LABS: Basophils % 0.4 %; Eosinophils # 0.2 10^3/uL (0.0-0.8); Eosinophils % 3.7 %; Hematocrit 34.3 % (36-47); Lymphocytes # 2.5 10^3/uL (0.8-4.8); Mean Corpuscular HGB Conc 32.4 g/dL (30-55); Mean Corpuscular Volume 89.6 fl (85-98); Mean Platelet Volume 10.6 fL (7.4-10.4); Monocytes # 0.4 10^3/uL (0.2-0.9); Monocytes % 6.8 %; Neutrophils # 2.34 10^3/uL (1.8-7.7); Neutrophils % 42.9 %; Nucleated Red Blood Cells % 0 %; Platelet Count 184 10^3/cmm (157-399); Red Blood Count 3.83 10^6/uL (3.85-5.65); Red Cell Distribution Width 13.1 % (12.1-15.1); White Blood Count 5.44 10^3/uL (3.29-11.43)
[2023-07-04 10:35] LABS: Alanine Aminotransferase 9 U/L (0-33); Albumin Level 4.1 g/dL (3.5-5.2); Alkaline Phosphatase 63 U/L (35-105); Anion Gap 13.5 (5-19); Aspartate Amino Transferase 15 U/L (0-32); Blood Urea Nitrogen 12 mg/dL (6-20); Calcium 8.3 mg/dL (8.5-10.5); Carbon Dioxide 21 mmol/L (22-29); Chloride 108 mmol/L (98-107); Globulin 2.7 g/dL (1.3-4.6); Glomerular Filtration Rate 196.1 mL/min (90-130); Glucose 92 mg/dL (65-115); Iron 38 ug/dL (37-145); Osmolality Calculated 285 mOsm/kg (285-295); Percent Saturation 10.3 % (20-50); Potassium 4.5 mmol/L (3.5-5.1); Sodium 138 mmol/L (136-145); Total Bilirubin 0.4 mg/dL (0.15-1.2); Total Iron Binding Capacity 367 mcg/dl; Total Protein 6.8 g/dL (6.6-8.7); Unsaturated Iron Binding 329 ug/dL (112-347)
[2023-07-06 08:10] VITALS: BP 107/76; PULSE 88; RESP 18; TEMP 36.7; O2SAT 99
[2023-07-06] MEDS: iron sucrose 500 MG in sodium chloride 0.9% 250 ML 78 MG IV (08:35)
[2023-07-06] MEDS: sodium chloride 0.9% (100 ml) 100 ML 75 ML (08:35)
[2023-07-06 10:07] VITALS: BP 107/76; PULSE 88; RESP 18; TEMP 36.7; O2SAT 96
[2023-07-06] MEDS: sodium chloride 0.9% 500 ML 999 ML IV (12:25)
[2023-07-06] MEDS: diphenhydrAMINE 50 mg/mL SDV 1mL 25 MG IVP (12:25)
[2023-07-06 12:30] VITALS: BP 82/60; PULSE 107; RESP 19; TEMP 36.4; O2SAT 98
[2023-07-06 12:35] VITALS: PULSE 90; RESP 20; O2SAT 99
[2023-07-06] MEDS: ondansetron 2 mg/ML SDV 2 mL 8 MG IVP (12:35)
[2023-07-06 12:40] VITALS: PULSE 75; RESP 17; O2SAT 98
[2023-07-06] MEDS: methylPREDNISolone sod succ 125 mg/2 mL INJ IVP (12:40)
--- NOTE | 2023-07-06 13:02 | PC.NURSE ---
Acute infusion reaction noted after completion of venofer infusion. Zoila Denney NP at chairside to assess patient. Patient reported numbness in lips, hands feeling swollen and stiff, feet feeling stiff as well as nausea. OLI Denney orders for benadryl 25mg IVP, Zofran 8mg IVP and solumedrol 125mg IVP to be given. Patient became more symptomatic and rapid response was then called. Patient was transferred to the ER via stretcher with rapid response team.
== END 2023-07-06 23:59 | disposition home or self-care (01) ==
PROVIDERS: PCP Clinical Nurse Specialist Adult Health; Visit Provider Internal Medicine Medical Oncology
DX: D50.9 Iron deficiency anemia, unspecified; Z53.9 Procedure and treatment not carried out, unspecified reason
CPT/HCPCS: 36591; 80053; 83540; 83550; 85025; 96365; 96366; 96375; J1200; J1756; J2405; J2919; J7040; J7050

== ENCOUNTER 2023-07-06 12:46 | Emergency (ER) | payer BC, SELFPAY ==
[2023-07-06 12:58] VITALS: BP 101/73; PULSE 66; RESP 17; TEMP 36.1; O2SAT 98
--- NOTE | 2023-07-06 13:05 | W.ED.ALLEREA ---
HPI - Allergic Reaction General: Chief complaint: Allergic Reaction Stated complaint: onc infusion reaction Time Seen by Provider: 07/06/23 12:49 History of Present Illness: HPI narrative: 22 y/o F presents to the emergency room following a suspected reaction to a Venofer injection, which was administered due to her chronic low iron levels. She reports that her hands felt and appeared swollen, and she experienced stiffness in her hands and arms to the point where movement was severely restricted. Additionally, she describes feeling disoriented and shaky with some residual stiffness, although these symptoms have somewhat improved. The patient has a history of osteosarcoma, from which she has been in remission for two years. She mentions no other current medications or dosages during this visit. 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 Brizuela at [facility] History of excision of pilonidal cyst H/O left mastectomy Reports lumpectomy, but it was so large it took most of her breast tissue; was benign fibroadenoma. Port-A-Cath in place DO NOT REMOVE- LINKED TO TX PLAN H/O plastic surgery She underwent oral and left anterior maxilla reresection with right fasciocutaneous forearm flap and with split-thickness skin graft right thigh to right forearm on 03/09/2020 History of placement of ear tubes Family History Mother Lupus Arnold-Chiari deformity Hypertension Stroke TIA Father Cancer Cancer Denies family history of Diabetes Heart disease Hyperchloremia Physical Exam Narrative: EXAM NARRATIVE: Fine tremor noted. Slight bluing of lips fingers on both hands and legs Const: COMMON NORMALS: no acute distress, patient oriented x3, healthy appearing, alert and well nourished HENMT: COMMON NORMALS: normocephalic HEAD & SCALP: normocephalic Eye: COMMON NORMALS: EOMs intact bilaterally Neck/C-Spine: COMMON NORMALS: full ROM and supple Resp: COMMON NORMALS: normal respiratory effort, No retractions and clear to auscultation bilaterally AUSCULTATION: clear to auscultation bilaterally Cardio: COMMON NORMALS: regular rate, regular rhythm, No gallops present (Cardio) and No murmurs present (Cardio) RATE: regular rate RHYTHM: regular rhythm GI: COMMON NORMALS: Soft to palpation and non-tender PALPATION: Yes Soft to palpation Extremity: GENERAL: Yes normal exam except as noted Neuro: COMMON NORMALS: patient oriented x3 SENSORIUM/ORIENTATION: Yes alert Skin: COMMON NORMALS: no rashes or lesions noted GENERAL SKIN EXAM: no rashes or lesions noted Course Vital Signs: Vital signs: Vital Signs Temperature 97 F L 07/06/23 12:58 Pulse Rate 108 H 07/06/23 13:46 Respiratory Rate 23 H 07/06/23 13:46 Blood Pressure 99/75 07/06/23 13:46 Pulse Oximetry 99 07/06/23 13:46 Oxygen Delivery Me thod Room Air 07/06/23 13:46 MDM - Allergic Reaction Medical Decision Making 22-year-old female presents from infusion center for evaluation of adverse reaction to a medication. She had received Venofer today. Near the end of her treatment she started to symptoms. Laboratory evaluation globally unremarkable. Patient had received 25 mg of Benadryl and Solu-Medrol in the infusion center. An additional 25 of Benadryl given in the emergency department. Patient was observed for 1 hour and 30 minutes. She did not develop signs or symptoms of anaphylaxis. Her symptoms had mostly abated prior to discharge. Discussed with the patient the need for follow-up with her registration clerk to discuss continuation of infusions of this medication. Encouraged her to follow-up with her primary care physician as needed. Return precautions were discussed. Patient discharged home in good condition Differential Diagnosis Likely anaphylaxis, allergic reaction, angioedema and adverse reaction to drug Lab Data 07/06/23 13:00 07/06/23 13:00 Laboratory Results WBC 9.36 10^3/uL (3.29-11.43) 07/06/23 13:00 RBC 5.34 10^6/uL (3.85-5.65) 07/06/23 13:00 Hgb 15.60 g/dL (11.27-16.99) 07/06/23 13:00 Hct 49.1 % (36-47) H 07/06/23 13:00 MCV 91.9 fl (85-98) 07/06/23 13:00 MCH 29.2 pg (27-33) 07/06/23 13:00 MCHC 31.8 g/dL (30-55) 07/06/23 13:00 RDW 13.3 % (12.1-15.1) 07/06/23 13:00 Plt Count 250 10^3/cmm (157-399) 07/06/23 13:00 MPV 10.2 fL (7.4-10.4) 07/06/23 13:00 Neut % (Auto) 42.3 % 07/06/23 13:00 Lymph % (Auto) 49.0 % 07/06/23 13:00 [place] % (Auto) 5.4 % 07/06/23 13:00 Eos % (Auto) 2.6 % 07/06/23 13:00 Baso % (Auto) 0.4 % 07/06/23 13:00 Neut # (Auto) 3.95 10^3/uL (1.8-7.7) 07/06/23 13:00 Lymph # (Auto) 4.6 10^3/uL (0.8-4.8) 07/06/23 13:00 [place] # (Auto) 0.5 10^3/uL (0.2-0.9) 07/06/23 13:00 Eos # (Auto) 0.2 10^3/uL (0.0-0.8) 07/06/23 13:00 Baso # (Auto) 0.0 10^3/uL (0.0-0.1) 07/06/23 13:00 Nucleated RBC % (auto) 0 % 07/06/23 13:00 Nucleated RBCs # 0.0 /100WBC 07/06/23 13:00 Sodium 136 mmol/L (136-145) 07/06/23 13:00 Potassium 3.9 mmol/L (3.5-5.1) 07/06/23 13:00 Chloride 108 mmol/L (98-107) H 07/06/23 13:00 Carbon Dioxide 17 mmol/L (22-29) L 07/06/23 13:00 Anion Gap 14.9 (5-19) 07/06/23 13:00 BUN 12 mg/dL (6-20) 07/06/23 13:00 Creatinine 0.5 mg/dL (0.5-0.9) 07/06/23 13:00 GFR Calculation 151.6 mL/min (90-130) H 07/06/23 13:00 Glucose 100 mg/dL (65-115) 07/06/23 13:00 Calculated Osmolality 282 mOsm/kg (285-295) L 07/06/23 13:00 Calcium 8.6 mg/dL (8.5-10.5) 07/06/23 13:00 Magnesium 2.0 mg/dL (1.7-2.3) 07/06/23 13:00 Total Bilirubin 0.5 mg/dL (0.15-1.2) 07/06/23 13:00 AST 12 U/L (0-32) 07/06/23 13:00 ALT 7 U/L (0-33) 07/06/23 13:00 Alkaline Phosphatase 59 U/L (35-105) 07/06/23 13:00 Total Protein 6.0 g/dL (6.6-8.7) L 07/06/23 13:00 Albumin 3.7 g/dL (3.5-5.2) 07/06/23 13:00 Globulin 2.3 g/dL (1.3-4.6) 07/06/23 13:00 Urine Color Yellow (Yellow) 07/06/23 13:40 Urine Appearance Clear (CLEAR) 07/06/23 13:40 Urine pH 5 (5-7) 07/06/23 13:40 Ur Specific [place] 1.025 (1.005-1.030) 07/06/23 13:40 Urine Protein Neg (Negative) 07/06/23 13:40 Urine Glucose (UA) Norm (Normal) 07/06/23 13:40 Urine Ketones Negative (Negative) 07/06/23 13:40 Urine Blood Neg (Negative) 07/06/23 13:40 Urine Nitrate Negative (Negative) 07/06/23 13:40 Urine Bilirubin Neg (Negative) 07/06/23 13:40 Urine Urobilinogen 1 mg/dL (Negative) H 07/06/23 13:40 Ur Leukocyte Esterase Negative (Negative) 07/06/23 13:40 No radiology studies performed this visit Discharge Plan Discharge Patient Disposition: Home Clinical Impression: Allergic reaction Qualifiers: Encounter type: initial encounter Qualified Code(s): T78.40XA - Allergy, unspecified, initial encounter Condition: Stable Prescriptions: No Action escitalopram oxalate 5 mg/5 mL solution 5 mg PO DAILY Qty: 240 0RF nystatin 100,000 unit/mL suspension 100,000 unit buccal TID Qty: 60 0RF Rx Instructions: administer 1/2 of dose in each side of the mouth oxycodone 5 mg/5 mL solution 5 mg PO ONCE PRN silver sulfadiazine 1 % cream 1 applic topical BID 14 Days Qty: 50 2RF Rx Instructions: apply a 1.5 mm thickness levalbuterol tartrate 45 mcg/actuation HFA aerosol inhaler 2 inh inhalation Q6H Qty: 15 0RF Venofer 200 mg iron/10 mL solution 500 mg IV Q14D Rx Instructions: administer over 30 mins Discharge Orders: Discharge ED (Routine); Ordered 07/06/23 Ordered By: Timi Law Referrals: Ruben Aguilar, SUPERMARKET MANAGER [Primary Care Provider] - Discharge Diet: Usual diet Discharge Activity: Increase activity as tolerated Patient Instructions: Anaphylaxis (ED), Opioid Safety, Pain Management Activity Restrictions/Additional Instructions: Please return to the emergency department with any new or worsening symptoms. Please follow-up with your primary care physician within 1 week. Discussed with your registration clerk about continuing iron infusions given this adverse reaction. Coding Level of Care Code ED Office Executive for Destin Castanon
[2023-07-06 13:21] LABS: Basophils % 0.4 %; Eosinophils # 0.2 10^3/uL (0.0-0.8); Eosinophils % 2.6 %; Hematocrit 49.1 % (36-47); Lymphocytes # 4.6 10^3/uL (0.8-4.8); Mean Corpuscular HGB Conc 31.8 g/dL (30-55); Mean Corpuscular Hemoglobin 29.2 pg (27-33); Mean Corpuscular Volume 91.9 fl (85-98); Mean Platelet Volume 10.2 fL (7.4-10.4); Monocytes # 0.5 10^3/uL (0.2-0.9); Monocytes % 5.4 %; Neutrophils # 3.95 10^3/uL (1.8-7.7); Neutrophils % 42.3 %; Nucleated Red Blood Cells % 0 %; Platelet Count 250 10^3/cmm (157-399); Red Blood Count 5.34 10^6/uL (3.85-5.65); Red Cell Distribution Width 13.3 % (12.1-15.1); White Blood Count 9.36 10^3/uL (3.29-11.43)
[2023-07-06] MEDS: diphenhydrAMINE 50 mg/mL SDV 1mL 25 MG IVP (13:27)
[2023-07-06 13:46] VITALS: BP 99/75; PULSE 108; RESP 23; O2SAT 99
[2023-07-06 13:48] LABS: Alanine Aminotransferase 7 U/L (0-33); Albumin Level 3.7 g/dL (3.5-5.2); Alkaline Phosphatase 59 U/L (35-105); Anion Gap 14.9 (5-19); Aspartate Amino Transferase 12 U/L (0-32); Blood Urea Nitrogen 12 mg/dL (6-20); Calcium 8.6 mg/dL (8.5-10.5); Carbon Dioxide 17 mmol/L (22-29); Chloride 108 mmol/L (98-107); Globulin 2.3 g/dL (1.3-4.6); Glomerular Filtration Rate 151.6 mL/min (90-130); Glucose 100 mg/dL (65-115); Osmolality Calculated 282 mOsm/kg (285-295); Potassium 3.9 mmol/L (3.5-5.1); Sodium 136 mmol/L (136-145); Total Bilirubin 0.5 mg/dL (0.15-1.2)
[2023-07-06 13:49] LABS: Add Urine Microscopic? NO; Charge for UA Resulting for Rev
[2023-07-06 13:59] LABS: Urine Color Yellow (Yellow)
[2023-07-06 14:00] LABS: Bilirubin Urine Neg (Negative); Blood Urine Neg (Negative); Glucose Urine UA Norm (Normal); Ketones Urine Negative (Negative); Leukocyte Esterase Urine Negative (Negative); Nitrate Urine Negative (Negative); Protein Urine Neg (Negative); Specific Gravity, Urine 1.025 (1.005-1.030); Urine Appearance Clear (CLEAR); Urobilinogen Urine 1 mg/dL (Negative); pH Urine 5 (5-7)
[2023-07-06 14:32] VITALS: BP 93/73; PULSE 106; RESP 16; O2SAT 98
== END 2023-07-06 14:34 | disposition home or self-care (01) ==
PROVIDERS: Emergency Provider General Practice; PCP Clinical Nurse Specialist Adult Health
DX: T88.7XXA Unspecified adverse effect of drug or medicament, initial encounter (principal); T45.4X5A Adverse effect of iron and its compounds, initial encounter; Z85.830 Personal history of malignant neoplasm of bone
CPT/HCPCS: 80053; 81003; 83735; 85025; 96374; 96375; 99284; J1200; J1642

== ENCOUNTER 2023-08-29 08:13 | Oncology outpatient (recurring) (ONCR) | payer BC, SELFPAY | END 2023-09-05 23:59 | disposition home or self-care (01) | LOC: ONCMED 08:13 | PROVIDERS: PCP Clinical Nurse Specialist Adult Health; Visit Provider Internal Medicine Medical Oncology | DX: Z45.2 Encounter for adjustment and management of vascular access device (principal) | CPT/HCPCS: 96523 ==

== ENCOUNTER 2023-11-13 15:29 | Oncology outpatient (recurring) (ONCR) | payer BC, SELFPAY ==
--- OUTSIDE RECORDS SUMMARY | 2023-11-13 15:33 | XMS_ITS ---
Author Name Unknown Organization Unknown ALLERGIES AND ADVERSE REACTIONS No information ASSESSMENT No information CHIEF COMPLAINT No information MEDICATIONS No information OBJECTIVE DATA No information PHYSICAL EXAMINATION No information TREATMENT PLAN Planned Care Start Date Provider Encounter for Check-up [id number] [facility] PROBLEMS No information RESULTS No information REVIEW OF SYSTEMS No information SUBJECTIVE DATA No information VITAL SIGNS No information
--- NOTE | 2023-11-13 15:59 | PC.NURSE ---
Pt came to clinic today c/o port site sensitivity and slight discomfort in right arm. Pt stated she noticed it for a few days ago. No edema noted to port site with slight bruising. Port accessed and flushed per protocol. See port maintenance assessment. Flushed well. Good blood return. Pt stated she felt slight burning when 1st flushed but denied burning when flushed with 2nd saline and 1 Heparin flush./lc
== END 2023-12-06 23:59 | disposition home or self-care (01) ==
PROVIDERS: PCP Clinical Nurse Specialist Adult Health; Visit Provider Internal Medicine Hematology & Oncology
DX: Z45.2 Encounter for adjustment and management of vascular access device (principal)
CPT/HCPCS: 96523

== ENCOUNTER 2024-01-28 14:45 | Oncology outpatient (recurring) (ONCR) | payer BC, SELFPAY | END 2024-02-05 23:59 | disposition home or self-care (01) | LOC: ONCMED 14:46 | PROVIDERS: PCP Clinical Nurse Specialist Adult Health; Visit Provider Internal Medicine Hematology & Oncology | DX: Z45.2 Encounter for adjustment and management of vascular access device (principal) | CPT/HCPCS: 96523 ==

== ENCOUNTER 2024-06-20 07:59 | Oncology outpatient (recurring) (ONCR) | payer BC, SELFPAY | END 2024-07-05 23:59 | disposition home or self-care (01) | PROVIDERS: PCP Clinical Nurse Specialist Adult Health; Visit Provider Internal Medicine Medical Oncology | DX: Z45.2 Encounter for adjustment and management of vascular access device (principal); Z95.828 Presence of other vascular implants and grafts | CPT/HCPCS: 96523 ==

== ENCOUNTER → 2024-08-23 14:56 | Outpatient (BNVA) | payer BC, SELFPAY | PROVIDERS: PCP Clinical Nurse Specialist Adult Health | DX: R06.02 Shortness of breath (principal); R06.00 Dyspnea, unspecified | CPT/HCPCS: 71046; 85018 ==

== ENCOUNTER 2024-10-15 08:36 | Oncology outpatient (recurring) (ONCR) | payer BC, SELFPAY | END 2024-11-04 23:59 | disposition home or self-care (01) | PROVIDERS: PCP Clinical Nurse Specialist Adult Health; Visit Provider Internal Medicine Medical Oncology | DX: Z45.2 Encounter for adjustment and management of vascular access device (principal); Z95.828 Presence of other vascular implants and grafts | CPT/HCPCS: 96523 ==

== ENCOUNTER 2025-01-28 08:27 | Oncology outpatient (recurring) (ONCR) | payer BC, SELFPAY | END 2025-02-04 23:59 | disposition home or self-care (01) | LOC: ONCMED 08:27 | PROVIDERS: PCP Clinical Nurse Specialist Adult Health; Visit Provider Internal Medicine Medical Oncology | DX: Z45.2 Encounter for adjustment and management of vascular access device (principal); Z95.828 Presence of other vascular implants and grafts | CPT/HCPCS: 96523 ==